=== PATIENT | female | born 1955 | race African-American/Black ===

== ENCOUNTER → 2017-01-31 18:17 | Emergency (ER) | payer MEDICARE, MEDICAID ==
[~2017-01-31 18:17] MED LIST: Albuterol HFA INHALER* 8 gm MDI INH ONE; Albuterol/Ipratropium NEB.SOL* Albuterol 2.5 MG/Ipratropium 0.5 MG 3 ML INH ONE; predniSONE TAB* 20 MG PO ONE
[2017-01-31 20:48] LABS: Urine Bilirubin Negative (Negative); Urine Glucose Negative (Negative); Urine Nitrite Negative (Negative)
[2017-01-31 21:48] LABS: Hematocrit 41 % (35-47); Hemoglobin 13.9 g/dl (12.0-16.0); Mean Corpuscular HGB Conc 34 g/dl (31-36); Mean Corpuscular Hemoglobin 30 pg (27-31); Mean Corpuscular Volume 90 fL (80-97); Mean Platelet Volume 9 um3 (7.4-10.4); Red Blood Count 4.56 10^6/ul (4.0-5.4); Red Cell Distribution Width 14 % (10.5-15); White Blood Count 8.2 10^3/ul (3.5-10.8)
[2017-01-31 22:03] LABS: Albumin 3.8 g/dL (3.2-5.2); BUN/Creatinine Ratio 17.2 (8-20); C Reactive Protein 4.32 mg/L (< 5.00); Calcium 9.3 mg/dL (8.6-10.3); EGFR African American 85.4 (>60); EGFR Non-African American 66.4 (>60); Globulin 3.1 g/dL (2-4); Total Bilirubin 0.3 mg/dL (0.2-1.0); Total Protein 6.9 g/dL (6.4-8.9)
[2017-01-31 22:39] LABS: Potassium 4.1 mmol/L (3.5-5.0)
--- NOTE | 2017-02-01 00:22 | ED ---
Kari Gutierrez Emily, scribed for Pravin Gaffney on 01/31/17 at 2218 . Abdominal Pain/Female - HPI Summary HPI Summary: This patient is a 61 year old F presenting to [facility] with a chief complaint of L sided flank pain that began 2 days ago. The patient rates the pain 8/10 in severity. Symptoms aggravated by nothing. Symptoms alleviated by nothing. Patient reports nasal congestion, diaphoresis, chills, fever, and back pain. Patient denies cough. - History of Current Complaint Chief Complaint: EDFlankPain Stated Complaint: BACK PAIN/FEVER/CHILLS Time Seen by Provider: 01/31/17 21:58 Hx Obtained From: Patient Onset/Duration: Sudden Onset, Lasting Days, Still Present Timing: Constant Severity Initially: Severe Severity Currently: Severe Pain Intensity: 8 Pain Scale Used: 0-10 Numeric Location: Flank Aggravating Factor(s): Nothing Alleviating Factor(s): Nothing Associated Signs and Symptoms: Positive: Other: - Positive nasal congestion, diaphoresis, chills, fever, and back pain. Negative cough Allergies/Adverse Reactions: Allergies Allergy/AdvReac Type Severity Reaction Status Date / Time Haloperidol [From Haldol] Allergy Severe Swelling Verified 06/08/16 10:39 Of Face,Lips,& Throat Pioglitazone [From Actos] Allergy Severe Swelling Verified 06/08/16 10:39 Codeine Allergy Intermediate Itching Verified 06/08/16 10:39 Prochlorperazine AdvReac Severe stroke Verified 06/08/16 10:39 [From Compazine] like symptoms Penicillins AdvReac Intermediate Diarrhea Verified 06/08/16 10:39 atrovastatin AdvReac Severe Leg Cramps Uncoded 06/08/16 10:39 cogentin AdvReac Severe stroke Uncoded 06/08/16 10:39 like symptoms PMH/Surg Hx/FS Hx/Imm Hx Previously Healthy: No Endocrine/Hematology History: Reports: Hx Diabetes - ON INSULIN FOR Denies: Hx Thyroid Disease Cardiovascular History: Reports: Hx Angina - AT TIMES- PATIENT STATES NOT RECENTLY, Hx Coronary Artery Disease - ON MEDICATION FOR- STATES BLOCKAGE IN CARITOD AND ANOTHER ARTERY, Hx Hypertension - ON MEDICATION FOR, Other Cardiovascular Problems/Disorders - CAD, IDDM II Denies: Hx Pacemaker/ICD, Hx Rheumatic Fever Respiratory History: Reports: Hx Asthma - PRN ALBUTEROL, Hx Pneumonia - more than once, Hx Sleep Apnea, Other Respiratory Problems/Disorders - PNA GI History: Reports: Hx Gastroesophageal Reflux Disease - NO MEDICATION AT THIS TIME, Hx Ulcer - HISTORY OF 3 ULCERS History: Denies: Hx Renal Disease Musculoskeletal History: Reports: Hx Arthritis, Hx Back Problems - disc, Hx Tendonitis - HX OF IN BOTH HANDS, Other Musculoskeletal History - right hip replacement Sensory History: Reports: Hx Contacts or Glasses, Other Sensory Impairments - Had detached retina repair Denies: Hx Hearing Aid Opthamlomology History: Reports: Hx Contacts or Glasses, Other Sensory Impairments - Had detached retina repair Neurological History: Reports: Hx Headaches - HX OF - PITUITARY TUMOR Psychiatric History: Reports: Hx Depression - OK ON DAILY MED Denies: Hx Panic Disorder - Surgical History Surgery Procedure, Year, and Place: 1994 [facility]OMY [facility]. 1995 ORIF L KNEE [facility] - W/ PINS. ? [facility]AL [facility] C[facility]IAC C[facility] - NO STENTS. 2008 BACK SURGERY LOWER BACK CORNING. Right Hip [facility] about 2008. 2010 RT TOTAL HIP REPLACEMENT [facility]. LEFT FOOT -12/2011-[facility] - DIABETIC CALLUSES & BUNIONECTOMY. RIGHT FOOT - BONE SPUR ON HEEL. RIGHT KNEE - ARTHROSCOPIC. LASER EYE -REPAIR DETACHED RETINA ( NO IMPLANT) Hx Anesthesia Reactions: Yes - A HARD TIME WAKING-2011 Infectious Disease History: No Infectious Disease History: Denies: Traveled Outside the [place] in Last 30 Days - Family History Known Family History: Positive: Other - Anasthesia reaction - Social History Occupation: Disabled Lives: With Family Alcohol Use: None Substance Use Type: Reports: None Hx Tobacco Use: Yes Smoking Status (MU): Heavy Every Day Tobacco Smoker Type: Cigarettes Amount Used/How Often: 1ppd Length of Time of Smoking/Using Tobacco: 43 years Have You Smoked in the Last Year: Yes Review of Systems Positive: Fever, Chills, Skin Diaphoresis Positive: Other - Positive nasal congestion Negative: Cough Positive: Other - Positive L flank pain Positive: Other - Positive back pain All Other Systems Reviewed And Are Negative: Yes Physical Exam Triage Information Reviewed: Yes Vital Signs On Initial Exam: Initial Vitals Temp Pulse Resp BP Pulse Ox 97.2 F 68 16 180/77 98 01/31/17 18:21 01/31/17 18:21 01/31/17 18:21 01/31/17 18:21 01/31/17 18:21 Vital Signs Reviewed: Yes Appearance: Positive: Well-Appearing, No Pain Distress Skin: Positive: Warm, Skin Color Reflects Adequate Perfusion, Dry Head/Face: Positive: Normal Head/Face Inspection Eyes: Positive: EOMI, ДМИТРИЙ ENT: Positive: Normal ENT inspection Neck: Positive: Supple, Nontender Respiratory/Lung Sounds: Positive: Other - Bilateral wheezes Cardiovascular: Positive: RRR, Pulses are Symmetrical in both Upper and Lower Extremities Abdomen Description: Positive: Soft, Other: - Tenderness in LLQ Bowel Sounds: Positive: Present Musculoskeletal: Positive: Normal, Strength/ROM Intact Neurological: Positive: Normal, Sensory/Motor Intact, Alert, Oriented to Person Place, Time Psychiatric: Positive: Affect/Mood Appropriate - Denny Coma Scale Coma Scale Total: 15 Diagnostics - Vital Signs Vital Signs Temp Pulse Resp BP Pulse Ox 01/31/17 21:50 83 99 01/31/17 21:49 182/77 01/31/17 18:21 97.2 F 68 16 180/77 98 - Laboratory Lab Results: Lab Results 01/31/17 01/31/17 01/31/17 Range/Units 20:33 21:36 21:36 WBC (3.5-10.8) 10^3/ul RBC (4.0-5.4) 10^6/ul Hgb (12.0-16.0) g/dl Hct (35-47) % MCV (80-97) fL MCH (27-31) pg MCHC (31-36) g/dl RDW (10.5-15) % Plt Count (150-450) 10^3/ul MPV (7.4-10.4) um3 Neut % (Auto) (38-83) % Lymph % (Auto) (25-47) % [place] % (Auto) (1-9) % Eos % (Auto) (0-6) % Baso % (Auto) (0-2) % Absolute Neuts (auto) (1.5-7.7) 10^3/ul Absolute Lymphs (auto) (1.0-4.8) 10^3/ul Absolute Monos (auto) (0-0.8) 10^3/ul Absolute Eos (auto) (0-0.6) 10^3/ul Absolute Basos (auto) (0-0.2) 10^3/ul Absolute Nucleated RBC 10^3/ul Nucleated RBC % INR (Anticoag Therapy) 0.94 (0.77-1.02) APTT 31.1 (26.0-36.3) seconds Sodium (133-145) mmol/L Potassium Chloride (101-111) mmol/L Carbon Dioxide (22-32) mmol/L Anion Gap BUN (6-24) mg/dL Creatinine (0.51-0.95) mg/dL Est GFR ( Amer) (>60) Est GFR (Non-Af Amer) (>60) BUN/Creatinine Ratio (8-20) Glucose (70-100) mg/dL Lactic Acid 1.1 (0.5-2.0) mmol/L Calcium (8.6-10.3) mg/dL Total Bilirubin (0.2-1.0) mg/dL AST ALT (7-52) U/L Alkaline Phosphatase (34-104) U/L C-Reactive Protein (< 5.00) mg/L B-Natriuretic Peptide ( - 100) pg/mL Total Protein (6.4-8.9) g/dL Albumin (3.2-5.2) g/dL Globulin (2-4) g/dL Albumin/Globulin Ratio (1-3) Lipase (11.0-82.0) U/L Urine Color Yellow Urine Appearance Clear Urine pH 5.0 (5-9) Ur Specific [place] 1.030 (1.010-1.030) Urine Protein Negative (Negative) Urine Ketones Negative (Negative) Urine Blood Negative (Negative) Urine Nitrate Negative (Negative) Urine Bilirubin Negative (Negative) Urine Urobilinogen Negative (Negative) Ur Leukocyte Esterase Negative (Negative) Urine Glucose Negative (Negative) 01/31/17 01/31/17 01/31/17 Range/Units 21:36 21:36 21:36 WBC 8.2 (3.5-10.8) 10^3/ul RBC 4.56 (4.0-5.4) 10^6/ul Hgb 13.9 (12.0-16.0) g/dl Hct 41 (35-47) % MCV 90 (80-97) fL MCH 30 (27-31) pg MCHC 34 (31-36) g/dl RDW 14 (10.5-15) % Plt Count 191 (150-450) 10^3/ul MPV 9 (7.4-10.4) um3 Neut % (Auto) 34.7 L (38-83) % Lymph % (Auto) 51.8 H (25-47) % [place] % (Auto) 8.1 (1-9) % Eos % (Auto) 4.1 (0-6) % Baso % (Auto) 1.3 (0-2) % Absolute Neuts (auto) 2.8 (1.5-7.7) 10^3/ul Absolute Lymphs (auto) 4.3 (1.0-4.8) 10^3/ul Absolute Monos (auto) 0.7 (0-0.8) 10^3/ul Absolute Eos (auto) 0.3 (0-0.6) 10^3/ul Absolute Basos (auto) 0.1 (0-0.2) 10^3/ul Absolute Nucleated RBC 0.02 10^3/ul Nucleated RBC % 0.2 INR (Anticoag Therapy) (0.77-1.02) APTT (26.0-36.3) seconds Sodium 138 (133-145) mmol/L Potassium Pending Chloride 107 (101-111) mmol/L Carbon Dioxide 25 (22-32) mmol/L Anion Gap Pending BUN 15 (6-24) mg/dL Creatinine 0.87 (0.51-0.95) mg/dL Est GFR ( Amer) 85.4 (>60) Est GFR (Non-Af Amer) 66.4 (>60) BUN/Creatinine Ratio 17.2 (8-20) Glucose 103 H (70-100) mg/dL Lactic Acid (0.5-2.0) mmol/L Calcium 9.3 (8.6-10.3) mg/dL Total Bilirubin 0.30 (0.2-1.0) mg/dL AST Pending ALT 13 (7-52) U/L Alkaline Phosphatase 69 (34-104) U/L C-Reactive Protein 4.32 (< 5.00) mg/L B-Natriuretic Peptide 73 ( - 100) pg/mL Total Protein 6.9 (6.4-8.9) g/dL Albumin 3.8 (3.2-5.2) g/dL Globulin 3.1 (2-4) g/dL Albumin/Globulin Ratio 1.2 (1-3) Lipase 11 (11.0-82.0) U/L Urine Color Urine Appearance Urine pH (5-9) Ur Specific [place] (1.010-1.030) Urine Protein (Negative) Urine Ketones (Negative) Urine Blood (Negative) Urine Nitrate (Negative) Urine Bilirubin (Negative) Urine Urobilinogen (Negative) Ur Leukocyte Esterase (Negative) Urine Glucose (Negative) Result Diagrams: 01/31/17 21:36 01/31/17 21:36 Lab Statement: Any lab studies that have been ordered have been reviewed, and results considered in the medical decision making process. - CT Abdomen and Pelvis CT Interpretation Completed By: ED Physician - CT abdomen and pelvis reveals, per radiologist, the kidneys are normal in size without hydronephrosis or nephrolithiasis. There are no stones seen along the course of the ureters although visualization of the distal ureters is markedly limited secondary to extensive streak artifact from bilateral total hip prosthesis. There are fatty changes of the pancreas. The unenhanced upper abdominal visceral organs are otherwise unremarkable. There is no bowel distention. A normal appendix is visualized. Scattered colonic diverticula without evidence of acute diverticulitis. No intra-abdominal free air of free fluid. Opacity in the superficial soft tissues of the right lower quadrant abdominal wall possibly related to recent injection. ED physician has reviewed this radiology report. - EKG 2021 Cardiac Rate: NL EKG Rhythm: Sinus Rhythm - 67 BPM EKG Interpretation: Nonspecific T abnormalities Abdominal Pain Fem Course/Dx - Course Course Of Treatment: This patient is a 61 year old F presenting to [facility] with a chief complaint of L sided flank pain that began 2 days ago. Physical Exam Findings. Bilateral wheeze, tenderness in the LLQ. CT abdomen and pelvis reveals, per radiologist, the kidneys are normal in size without hydronephrosis or nephrolithiasis. There are no stones seen along the course of the ureters although visualization of the distal ureters is markedly limited secondary to extensive streak artifact from bilateral total hip prosthesis. There are fatty changes of the pancreas. The unenhanced upper abdominal visceral organs are otherwise unremarkable. There is no bowel distention. A normal appendix is visualized. Scattered colonic diverticula without evidence of acute diverticulitis. No intra-abdominal free air of free fluid. Opacity in the superficial soft tissues of the right lower quadrant abdominal wall possibly related to recent injection. ED physician has reviewed this radiology report. Bloodwork/UA taken. In the ED course the patient was given Albuterol and Deltasone. Patient will be discharged with prescription for Deltasone and follow up from PCP. The patient is agreeable with this plan. - Diagnoses Differential Diagnosis: Positive: Diverticulitis, Pancreatitis, Renal Colic, Other - bronchitis Provider Diagnoses: Bronchitis, Bronchospasm, Flank pain Discharge - Discharge Plan Condition: Stable Disposition: HOME Prescriptions: predniSONE TAB* [Deltasone TAB*] 40 mg PO DAILY #4 tab Patient Education Materials: Acute Bronchitis (ED), Flank Pain (ED), Bronchospasm (ED) Referrals: Sugey Ray MD [Primary Care Provider] - 3 Days Additional Instructions: RETURN TO THE EMERGENCY DEPARTMENT FOR NEW OR WORSENING SYMPTOMS. The documentation as recorded by the Kari clark Emily accurately reflects the service I personally performed and the decisions made by Gulshan owusu Emmanuel.
[2017-02-01 00:27] VITALS: BP 158/67
--- NOTE | 2017-02-01 07:32 | RAD ---
CLINICAL HISTORY: Left flank pain, fever and chills. Relevant surgical history includes hysterectomy. COMPARISON: None TECHNIQUE: Noncontrast CT examination of the abdomen and pelvis from the lung bases through the initial tuberosities. FINDINGS: VISUALIZED LUNG BASES: The visualized lung bases are grossly clear. There is no pleural effusion. ABDOMEN AND PELVIS: Focal attenuation in the subcutaneous fat overlying the right lower quadrant is most consistent with an injection site. Evaluation of the solid organs and vasculature is limited without intravenous contrast. The liver, spleen, pancreas and adrenal glands are grossly normal in appearance. The gallbladder is normal. The kidneys are normal in appearance without focal mass, calcification or signs of hydronephrosis. Evaluation of the gastrointestinal tract is limited without oral contrast. The small and large bowel are not distended.The patient's normal appendix is identified in the right lower quadrant measuring 6 mm in diameter (image 105). There are diverticula throughout the length of the colon becoming more concentrated at the rectosigmoid colon. There is no focal inflammatory changes characteristic of diverticulitis.. There is no gross retroperitoneal or mesenteric lymphadenopathy. The uterus is surgically absent. There is atherosclerotic calcification of the abdominal aorta extending into the bilateral iliac arteries. Multilevel degenerative changes of the lower thoracic and lumbar spine includes mild loss of intervertebral disc height. The anatomically aligned hip prostheses cause streak artifact the level of the hips that limits evaluation. IMPRESSION: 1. No renal calculi or signs of obstructive uropathy. 2. Diverticulosis without acute inflammatory change characteristic of diverticulitis. 3. Additional chronic, degenerative and postsurgical findings described in the body of the report.
== END | disposition home or self-care (01) ==
LOC: ED 18:17
DX: R10.32 Left lower quadrant pain (principal); J40 Bronchitis, not specified as acute or chronic; J98.01 Acute bronchospasm; F17.210 Nicotine dependence, cigarettes, uncomplicated; I25.119 Atherosclerotic heart disease of native coronary artery with unspecified angina pectoris; I10 Essential (primary) hypertension; J45.909 Unspecified asthma, uncomplicated; F32.9 Major depressive disorder, single episode, unspecified
CPT/HCPCS: 36415; 74176; 80053; 81003; 83605; 83690; 83880; 85025; 85610; 85730; 86140; 87502; 93005; 94640; 99283; A9270-GY; J7512

== ENCOUNTER 2017-09-18 11:21 | Inpatient (IN) | payer MEDICARE, MEDICAID ==
--- NOTE | 2017-09-18 11:57 | ED ---
HPI Chest Pain - HPI Summary HPI Summary: The pt is a 62 y/o female with a PMHx of OR presenting [facility] c/o mid- sternal CP that worsened today while at work . The pain described as a pressure against the chest is rated 8/10 in severity. The pain radiates to her L arm. The pt has been on a Holter monitor for the last 30 days. She notes sweating, nausea, lightheadedness and numbness in her LUE. She had a stress test 1 week ago and is unsure of the results. This is eduardo Blandon documenting for attending Dr. Bladimir MD. - History of Current Complaint Chief Complaint: EDChestPainROMI Time Seen by Provider: 09/18/17 11:40 Hx Obtained From: Patient Onset/Duration: Still Present, Worse Since - This morning Timing: Lasting Hours Initial Severity: Severe Current Severity: Severe Pain Intensity: 8 Pain Scale Used: 0-10 Numeric Chest Pain Location: Mid Sternal Chest Pain Radiates: Yes Chest Pain Radiates To:: Arm - L arm Character: Pressure/Squeezing Associated Signs and Symptoms: Positive: Numbness - L arm, Lightheadedness, Diaphoresis, Nausea - Additional Pertinent History Primary Care Physician: [id number] - Allergy/Home Medications Allergies/Adverse Reactions: Allergies Allergy/AdvReac Type Severity Reaction Status Date / Time codeine Allergy Itching Verified 05/21/17 11:01 haloperidol [From Haldol] Allergy Swelling Verified 05/21/17 11:01 Of Face,Lips,& Throat Penicillins Allergy Diarrhea Verified 05/21/17 11:01 pioglitazone [From Actos] Allergy Swelling Verified 05/21/17 11:01 prochlorperazine Allergy STROKE Verified 05/21/17 11:01 [From Compazine] LIKE SYMPTOMS atrovastatin AdvReac Severe Leg Cramps Uncoded 05/21/17 11:01 cogentin AdvReac Severe stroke Uncoded 05/21/17 11:01 like symptoms Home Medications: Home Medications Diltiazem CD CAP* [Cardizem CD CAP*] 300 mg PO DAILY 09/18/17 [History Confirmed 09/18/17] LORazepam TAB(*) [Ativan 0.5 MG TAB (*)] 0.5 mg PO Q8H PRN 09/18/17 [History Confirmed 09/18/17] Nitroglycerin TAB 0.4 MG* 0.4 mg SL Q5M PRN 09/18/17 [History Confirmed 09/18/17 ] Omeprazole CAP* [Prilosec CAP* 20 MG] 20 mg PO DAILY 09/18/17 [History Confirmed 09/18/17] Pravastatin (NF) [Pravachol (NF)] 40 mg PO .3 TIMES A WEEK 09/18/17 [History Confirmed 09/18/17] PMH/Surg Hx/FS Hx/Imm Hx Previously Healthy: No Endocrine/Hematology History: Reports: Hx Diabetes - ON INSULIN FOR Denies: Hx Thyroid Disease Cardiovascular History: Reports: Hx Angina - AT TIMES- PATIENT STATES NOT RECENTLY, Hx Coronary Artery Disease - ON MEDICATION FOR- STATES BLOCKAGE IN CARITOD AND ANOTHER ARTERY, Hx Hypertension - ON MEDICATION FOR, Other Cardiovascular Problems/Disorders - CAD, IDDM II Denies: Hx Pacemaker/ICD, Hx Rheumatic Fever Respiratory History: Reports: Hx Asthma - PRN ALBUTEROL, Hx Pneumonia - more than once, Hx Sleep Apnea, Other Respiratory Problems/Disorders - PNA GI History: Reports: Hx Gastroesophageal Reflux Disease - NO MEDICATION AT THIS TIME, Hx Ulcer - HISTORY OF 3 ULCERS History: Denies: Hx Renal Disease Musculoskeletal History: Reports: Hx Arthritis, Hx Back Problems - disc, Hx Tendonitis - HX OF IN BOTH HANDS, Other Musculoskeletal History - right hip replacement Sensory History: Reports: Hx Contacts or Glasses, Other Sensory Impairments - Had detached retina repair Denies: Hx Hearing Aid Opthamlomology History: Reports: Hx Contacts or Glasses, Other Sensory Impairments - Had detached retina repair Neurological History: Reports: Hx Headaches - HX OF - PITUITARY TUMOR, Other Neuro Impairments/Disorders - PAIN CLINIC PATIENT Psychiatric History: Reports: Hx Depression - OK ON DAILY MED Denies: Hx Panic Disorder - Surgical History Surgery Procedure, Year, and Place: 1994 HYSTERECTOMY [facility]. 1995 ORIF L KNEE [facility] - W/ PINS. ? [facility] CAR[facility]AL T[facility]. CARDIAC [facility] - NO STENTS. 2009 BACK SURGERY LOWER BACK CORNING. Right Hip [facility] about 2008. 2010 RT TOTAL HIP REPLACEMENT [facility]. LEFT FOOT -12/2011-[facility] - DIABETIC CALLUSES & BUNIONECTOMY. RIGHT FOOT - BONE SPUR ON HEEL. RIGHT KNEE - ARTHROSCOPIC. LASER EYE -REPAIR DETACHED RETINA ( NO IMPLANT) Hx Anesthesia Reactions: Yes - A HARD TIME WAKING-2011 Infectious Disease History: No Infectious Disease History: Denies: Traveled Outside the [place] in Last 30 Days - Family History Known Family History: Positive: Other - Anasthesia reaction - Social History Occupation: Disabled Lives: With Family Alcohol Use: None Hx Tobacco Use: Yes Smoking Status (MU): Heavy Every Day Tobacco Smoker Type: Cigarettes Amount Used/How Often: 1/2 ppd Length of Time of Smoking/Using Tobacco: 43 years Have You Smoked in the Last Year: Yes Review of Systems Positive: Skin Diaphoresis, Other - Positive: lightheadedness. Negative: Fever Positive: Chest Pain - Mid-sternal Positive: Nausea Positive: Numbness - L arm All Other Systems Reviewed And Are Negative: Yes Physical Exam - Summary Physical Exam Summary: VITAL SIGNS: Reviewed. GENERAL: Patient is an obese female who is lying comfortable in the stretcher. Patient is not in any acute respiratory distress. HEAD AND FACE: No signs of trauma. No ecchymosis, hematomas or skull depressions. No sinus tenderness. EYES: PERRLA, EOMI x 2, No injected conjunctiva, no nystagmus. EARS: Hearing grossly intact. Ear canals and tympanic membranes are within normal limits. MOUTH: Oropharynx within normal limits. NECK: Supple, trachea is midline, no adenopathy, no JVD, no carotid bruit, no c- spine tenderness, neck with full ROM. CHEST: Symmetric, no tenderness at palpation LUNGS: Clear to auscultation bilaterally. No wheezing or crackles. CVS: Regular rate and rhythm, S1 and S2 present, no murmurs or gallops appreciated. ABDOMEN: Soft, non-tender. No signs of distention. No rebound no guarding, and no masses palpated. Bowel sounds are normal. EXTREMITIES: FROM in all major joints, no edema, no cyanosis or clubbing. NEURO: Alert and oriented x 3. No acute neurological deficits. Speech is normal and follows commands. SKIN: Dry and warm Triage Information Reviewed: Yes Vital Signs On Initial Exam: Initial Vitals Temp Pulse Resp BP Pulse Ox 97.8 F 69 18 175/55 97 09/18/17 11:25 09/18/17 11:25 09/18/17 11:25 09/18/17 11:25 09/18/17 11:25 Vital Signs Reviewed: Yes Diagnostics - Vital Signs Vital Signs Temp Pulse Resp BP Pulse Ox 09/18/17 11:39 64 16 172/70 98 09/18/17 11:25 97.8 F 69 18 175/55 97 - Laboratory Result Diagrams: 09/18/17 11:52 09/18/17 11:52 Lab Statement: Any lab studies that have been ordered have been reviewed, and results considered in the medical decision making process. - Radiology CXR Radiology Interpretation Completed By: Radiologist - IMPRESSION: NO ACTIVE CARDIOPULMONARY DISEASE IS NOTED. The ED physician has reviewed this radiology report. - EKG 11:46 Cardiac Rate: Bradycardia - 57 bpm EKG Rhythm: Sinus Bradycardia EKG Interpretation: ST depression at Lead I, II and II ; aVF leads 4-6 Re-Evaluation - Re-Evaluation First Eval Re-Evaluation Time: 12:25 Change: Worse Comment: Pt. complains of increased CP and will be give given ASA and NTG Chest Pain Course/Dx - Course Assessment/Plan: This patient is a 62-year-old female who presents to the emergency department with a chief complaint of having chest pain, shortness of breath and occasional dizziness. The patient has been having the symptoms for the last couple days. The pain is a pressure-like pain nonradiating acid with nausea and diaphoresis. Test results without any significant abnormality. The troponin is 0.00. The patient had a couple episodes of chest pain in the ER which was relieved by nitroglycerin. EKG doesnt show any ST elevations. Chest x-ray impression: No active cardiopulmonary disease. In the ED course the patient is hemodynamically stable. Because of the presentation comorbidities I discussed the case with Dr. Alexander from the hospitalist services who accepted the patient for admission. At this point the patient is hemodynamically stable and alert and oriented 3. - Diagnoses Provider Diagnoses: Chest pain - Provider Notifications Discussed Care Of Patient With: Jolie Alexander Time Discussed With Above Provider: 13:54 Instructed by Provider To: Admit As Inpatient - Dr. Alexander agrred to admit the patient. Discharge - Sign-Out/Discharge Documenting (check all that apply): Patient Departure - DC - Discharge Plan Condition: Stable Disposition: ADMITTED TO [facility] Referrals: Sugey Ray MD [Primary Care Provider] - - Billing Disposition and Condition Condition: STABLE Disposition: Admitted to [facility] Attestation Statement Scribe Attestation: This is scribe Halima Blandon documenting for attending Dr. Bladimir MD. User Type: Provider with Scribe Provider Attestation: The documentation recorded by the scribe accurately reflects the service I personally performed and the decisions made by me.
[2017-09-18 12:01] LABS: ABS Basophils 0.1 10^3/ul (0-0.2); ABS Eosinophils 0.2 10^3/ul (0-0.6); ABS Lymphocytes 3.6 10^3/ul (1.0-4.8); ABS Monocytes 0.6 10^3/ul (0-0.8); ABS Neutrophils 3.6 10^3/ul (1.5-7.7); ABS Nucleated RBC 0 10^3/ul; Eosinophil % 2.9 % (0-6); Hematocrit 39 % (35-47); Hemoglobin 13.2 g/dl (12.0-16.0); Mean Corpuscular HGB Conc 34 g/dl (31-36); Mean Corpuscular Hemoglobin 32 pg (27-31); Mean Corpuscular Volume 92 fL (80-97); Nucleated Red Blood Cells % 0; Platelet Count 222 10^3/ul (150-450); Red Blood Count 4.18 10^6/ul (4.00-5.40); Red Cell Distribution Width 13 % (10.5-15); White Blood Count 8.1 10^3/ul (3.5-10.8)
--- OUTSIDE RECORDS SUMMARY | 2017-09-18 12:04 | XMS REPORT ---
:1955 External Reference #:[id number] Author Organization [employer] Address [address] [place] [address] [place] [address] Phone [phone] Care Team Providers Name Role Phone Sugey Ray MD Primary Care Physician Unavailable Payers Type Date Identification Numbers Payment Provider Subscriber Medicare Primary Effective: Policy Number: Medicare [place] 1997 [id number] PayID: [id number] [address] [place] [address] [employer] Part B Effective: 2008 Policy Number: [id number] Medicaid [place] [employer] Name: 1 1 [address] PayID: [id number] [place] [address] Problems Date Description Provider Status Onset: 07/20/2014 Carotid artery occlusion Nikko Samaniego M.D., Active FACSenia, JAMIRNC Onset: 07/20/2014 Chest pain Nikko Samaniego M.D., Active FACC, FASNC Onset: 07/31/2014 Chronic ischemic heart disease Nikko Samaniego M.D., Active FACC, FASNC Onset: 02/21/2016 Localized, secondary Nena Leiva M.D. 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 Active Family History Date Family Member(s) Problem(s) Comments General Heart Disease General Diabetes Social History Type Date Description Comments Marital Status Lives With Occupation [email or web address] ETOH Use Denies alcohol use Recreational Drug Use Denies Drug Use Smoking Light tobacco smoker (10 or fewer cigarettes/day) Daily Caffeine Consumes on average 2 cups of regular coffee per day Exercise Type/Frequency Exercises sporadically Allergies, Adverse Reactions, Alerts Date Description Reaction Status Severity Comments 08/11/2013 Haldol Anaphylaxis active Severe 08/11/2013 Compazine stroke like symptoms active Severe 08/11/2013 Penicillin Nausea and Vomiting active 08/11/2013 Cogentin active Medications Medication Date Status Form Strength Qnty SIG Indications Ordering Provider Nitroglycerin 08/29 Active Tablets Sub 0.4mg 30tab if feel chest R07.9 Nikko /2017 s pain,may take Le up to 3 total Aden, 5 min apart M.D., but call 911 [facility], if have [facility] for greater than 10 minutes. Lampe Active Tablets 10-325mg 1 by mouth Crepet, /0000 three times MD Sugey a day as needed Diltiazem HCL Active Caps ER 300mg 90cap 1 by mouth Crepet, ER /0000 24HR s every day MD Sugey Aspirin Ec Active Tablets DR 81mg 1 tablet Unknown Lo-Dose /0000 daily. Lisinopril-Hyd Active Tablets 20-12.5mg Take 1 Tab By Unknown rochlorothiazi /0000 Mouth Daily. de Lantus Active Solution 100Unit/M Inject 76 Unknown Solostar /0000 Pen-Inject L Units Subcutaneousl y AT Bedtime Aspirin Hx Tablets 325mg 1 by mouth Unknown /0000 every day - 07/22 Lipitor Hx Tablets 20mg 90tab one tab by Unknown /0000 s mouth every - night at 07/22 bed Diltiazem HCL Hx Tablets 120mg 30tab 2 by mouth Unknown /0000 s every day - 07/22 Lantus 00/00 Hx Solution 100Unit/M 1mont 78 units at Crepet, /0000 L verdugo night as MD Sugey - directed 02/19 Fluticasone Hx Suspension 50mcg/Act 16uni 2 sprays each Unknown Propionate /0000 ts nostril daily - as needed 07/22 Lisinopril-Hyd 00 Hx Tablets 20-12.5mg 90tab 1 by mouth Crepet, rochlorothiazi /0000 s every day MD Sugey de - 02/[address] 20mg 30cap 1 by mouth Unknown /0000 s every day - 07/15 Lyrica Hx Capsules 25mg 60cap 1 by mouth Unknown /0000 s twice a day - 07/22 Seroquel Hx Tablets 25mg 30tab 1 by mouth Crepet, /0000 s every night MD Sugey - at bedtime as 02/19 Lipitor Hx Tablets 1 by mouth Unknown /0000 every night - at bedtime 02/19 Humalog Hx Solution 100Unit/M Inject 7 Unknown Kwikpen /0000 Pen-Inject L Units Beneath - The Skin 02/19 Before Supper. Hydrocodone-Ac Hx Tablets 10-325mg Take 1 Tablet Unknown etaminophen /0000 By Mouth 3 - Times A Day 06/19 as Needed For Pain Dulera Hx Aerosol 200-5mcg/ 2 puff twice Unknown /0000 Act a day prn - 04/13 Metformin HCL Hx Tablets 500mg Take 1 Tablet Unknown /0000 By Mouth - Every Day AT 08/28 Dinner Time Medications Administered in Office Medication Date Status Form Strength Qnty SIG Indications Ordering Provider Inj, 07/31/ Administered Injection Nikko Le Regadenoson, 0.1 2017 Samaniego, MG M.D., FACC, FASNC Technetium TC 07/31/ Administered Injection Nikko Le 99M Tetrofosmin, 2017 Aden, Per Unit Dose Up M.D., To 40 FACC, Millicuries FASNC Synvisc Or 05/03/ Administered Injection Nena Synvisc-One 2016 Cali, Injection 1 MG M.D. Synvisc Or 04/27/ Administered Injection Yusuf F Synvisc-One 2016 Randy, Injection 1 MG MD Synvisc Or 04/19/ Administered Injection Nena Synvisc-One 2016 Cali, Injection 1 MG M.D. Inj, 07/27/ Administered Injection Nikko Le Regadenoson, 0.1 2014 MG Barbara Samaniego, FACC, FASNC Aminophylline 07/27/ Administered Injection Nikko Le 2014 Barbraa Samaniego, FACC, FASNC Technetium TC 07/27/ Administered Injection Nikko Le 99M Tetrofosmin, 2014 Aden, Per Unit Dose Up M.D., To 40 FACC, Millicuries FASNC Inj, 06/10/ Administered Injection Nikko Le Regadenoson, 0.1 2012 MG Carolyn Samaniego.DJohana, FACC, FASNC Technetium TC 06/10/ Administered Injection Nikko Le 99M Tetrofosmin, 2012 Aden, Per Unit Dose Up M.D., To 40 FACC, Millicuries FASNC Vital Signs Date Vital Result Comment 08/29/2017 Height 62 inches 5'2" Weight 202.00 lb w/o shoes Heart Rate 68 /min BP Systolic Sitting 138 mmHg lue lrg cuff BP Diastolic Sitting 58 mmHg lue lrg cuff BP Systolic Standing 142 mmHg BP Diastolic Standing 60 mmHg Respiratory Rate 18 /min BMI (Body Mass Index) 36.9 kg/m2 Ejection Fraction 65-70% echo 08/02/2016 04/13/2017 Height 62 inches 5'2" Weight 194.00 lb Heart Rate 72 /min BP Systolic Sitting 130 mmHg BP Diastolic Sitting 82 mmHg Pain Level 8 BMI (Body Mass Index) 35.5 kg/m2 08/09/2016 Height 62 inches 5'2" Weight 194.50 lb with shoes Heart Rate 70 /min BP Systolic Sitting 132 mmHg Lue lrg cuff BP Diastolic Sitting 80 mmHg Lue lrg cuff BP Systolic Standing 126 mmHg Lue lrg cuff BP Diastolic Standing 66 mmHg Lue lrg cuff Respiratory Rate 16 /min BMI (Body Mass Index) 35.6 kg/m2 Ejection Fraction 65-70% 08/02/2016-echo 07/21/2016 Height 62 inches 5'2" Weight 193.25 lb w/shoes Heart Rate 86 /min BP Systolic Sitting 172 mmHg LA lg cuff BP Diastolic Sitting 68 mmHg LA lg cuff BP Systolic Standing 176 mmHg LA lg cuff BP Diastolic Standing 68 mmHg LA lg cuff BMI (Body Mass Index) 35.3 kg/m2 Ejection Fraction > 65% Echo 05/03/15 06/23/2016 Height 62 inches 5'2" Weight 191.00 lb Heart Rate 85 /min BP Systolic 154 mmHg BP Diastolic 82 mmHg Body Temperature 97.4 F Pain Level 7 BMI (Body Mass Index) 34.9 kg/m2 06/19/2016 Height 62 inches 5'2" Weight 196.00 lb Heart Rate 76 /min BP Systolic Sitting 126 mmHg BP Diastolic Sitting 80 mmHg Pain Level 8 BMI (Body Mass Index) 35.8 kg/m2 06/05/2016 Height 62 inches 5'2" Weight 196.00 lb Heart Rate 75 /min BP Systolic 133 mmHg BP Diastolic 63 mmHg Body Temperature 97.4 F Pain Level 8 BMI (Body Mass Index) 35.8 kg/m2 05/08/2016 Height 62 inches 5'2" Weight 198.00 lb Heart Rate 77 /min BP Systolic 131 mmHg BP Diastolic 64 mmHg Body Temperature 96.9 F Pain Level 8 BMI (Body Mass Index) 36.2 kg/m2 05/03/2016 Height 62 inches 5'2" Weight 196.00 lb Heart Rate 76 /min Respiratory Rate 16 /min Pain Level 8 BMI (Body Mass Index) 35.8 kg/m2 04/27/2016 Height 62 inches 5'2" Weight 196.00 lb Heart Rate 66 /min BP Systolic 128 mmHg BP Diastolic 62 mmHg Respiratory Rate 20 /min Body Temperature 97.8 F Pain Level 7 BMI (Body Mass Index) 35.8 kg/m2 04/19/2016 Height 62 inches 5'2" Weight 196.00 lb BP Systolic 128 mmHg BP Diastolic 64 mmHg Respiratory Rate 20 /min Pain Level 7 BMI (Body Mass Index) 35.8 kg/m2 02/21/2016 Height 62 inches 5'2" Weight 196.00 lb BP Systolic Sitting 154 mmHg BP Diastolic Sitting 76 mmHg Respiratory Rate 16 /min Pain Level 7 BMI (Body Mass Index) 35.8 kg/m2 07/19/2015 Height 62 inches 5'2" Weight 195.00 lb with shoes Heart Rate 76 /min BP Systolic Sitting 152 mmHg Ra lrg cuff BP Diastolic Sitting 98 mmHg Ra lrg cuff BP Systolic Standing 148 mmHg Ra lrg cuff BP Diastolic Standing 88 mmHg Ra lrg cuff Respiratory Rate 16 /min BMI (Body Mass Index) 35.7 kg/m2 Ejection Fraction >65% 05/03/15 07/31/2014 Height 62 inches 5'2" Weight 199.00 lb Heart Rate 78 /min BP Systolic Sitting 132 mmHg LA lg cuff BP Diastolic Sitting 58 mmHg LA lg cuff BP Systolic Standing 138 mmHg LA lg cuff BP Diastolic Standing 60 mmHg LA lg cuff BMI (Body Mass Index) 36.4 kg/m2 Ejection Fraction 60-65 echo 07/22/14 07/20/2014 Height 62 inches 5'2" Weight 199.00 lb with shoes Heart Rate 74 /min BP Systolic Sitting 150 mmHg Ra lg cuff BP Diastolic Sitting 70 mmHg Ra lg cuff BP Systolic Standing 144 mmHg Ra lg cuff BP Diastolic Standing 62 mmHg Ra lg cuff Respiratory Rate 17 /min BMI (Body Mass Index) 36.4 kg/m2 Ejection Fraction 55-60% date 07/25/13 08/11/2013 Height 62 inches 5'2" Weight 196.00 lb Heart Rate 66 /min BP Systolic Sitting 124 mmHg right arm, large cuff BP Diastolic Sitting 52 mmHg right arm, large cuff BP Systolic Standing 116 mmHg right arm, large cuff BP Diastolic Standing 50 mmHg right arm, large cuff Respiratory Rate 20 /min BMI (Body Mass Index) 35.8 kg/m2 Results Test Date Test Result H/L Range Note Xray 06/12/2016 MRI Hip Right W/O <pending> Laboratory test finding 05/09/2016 [place] Serum 6.2 ng/mL 1 Chromium 1.9 ng/mL <0.3 2 Heavy Metal Blool 05/09/2016 Arsenic <1 ng/mL 3 Lead 1.3 mcg/dL 4 Mercury <1 ng/mL 5 Cadmium 0.7 ng/mL 6 Street Address See Comment [address] [id number] [facility] [place] First Name AVN Mckeon Last Name THOMAS Venous/Capillary Heavy Metals Venous Patient Race BLACK 1 REFERENCE VALUE 0.0-0.9 <10 (MoM implant) ADDITIONAL INFORMATION This test was developed and its performance characteristics determined by [facility] in a manner consistent with CLIA requirements. This test has not been cleared or approved by the U.S. Food and Drug Administration. Test Performed by: [facility] - [address] [address] ADDITIONAL INFORMATION This test was developed and its performance characteristics determined by [facility] in a manner consistent with CLIA requirements. This test has not been cleared or approved by the U.S. Food and Drug Administration. Test Performed by: [facility] - [address] [address] 3 Reference Value: 0-12 ADDITIONAL INFORMATION This test was developed and its performance characteristics determined by [facility] in a manner consistent with CLIA requirements. This test has not been cleared or approved by the U.S. Food and Drug Administration. 4 Reference Value: 0.0-4.9 ADDITIONAL INFORMATION Testing performed by Inductively Coupled Plasma-Mass Spectrometry (ICP-MS). This test was developed and its performance characteristics determined by [facility] in a manner consistent with CLIA requirements. This test has not been cleared or approved by the U.S. Food and Drug Administration. 5 Reference Value: 0-9 ADDITIONAL INFORMATION This test was developed and its performance characteristics determined by [facility] in a manner consistent with CLIA requirements. This test has not been cleared or approved by the U.S. Food and Drug Administration. 6 Reference Value: 0.0-4.9 ADDITIONAL INFORMATION This test was developed and its performance characteristics determined by [facility] in a manner consistent with CLIA requirements. This test has not been cleared or approved by the U.S. Food and Drug Administration. 7 RESULT: [address] Procedures Date CPT Code Description Status 08/29/2017 70603 EKG Tracing & Interpretation Completed 08/09/2016 65757 EKG Tracing & Interpretation Completed 08/02/2016 41960 ECHO Transthoracic, Real-Time 2D With Doppler And Color Completed Flow 07/31/2016 84402 Stress Test Completed 07/31/2016 60779 Myocardial Perfusion Imaging Tomographic (Spect) Completed Multiple Studies 07/21/2016 62196 EKG Tracing & Interpretation Completed 05/03/2016 51368 Inject/Drain Joint/Bursa Major W/O US Completed 04/27/2016 90795 Inject/Drain Joint/Bursa Major W/O US Completed 04/19/2016 73503 Inject/Drain Joint/Bursa Major W/O US Completed 07/19/2015 06286 EKG Tracing & Interpretation Completed 07/16/2015 54290 Carotid Doppler,Bilateral Completed 05/03/2015 64250 ECHO Transthorasic Realtime 2D W Doppler & Color Flow Completed Hosp 07/27/2014 59419 Myocardial Perfusion Imaging Tomographic (Spect) Completed Multiple Studies 07/27/2014 89190 Stress Test Completed 07/22/2014 93337 ECHO Transthoracic, Real-Time 2D With Doppler And Color Completed Flow 07/20/2014 26713 EKG Tracing & Interpretation Completed 07/14/2014 78429 Carotid Doppler,Bilateral Completed 08/11/2013 24915 EKG Tracing & Interpretation Completed 07/31/2013 04496 Carotid Doppler,Bilateral Completed 07/25/2013 29512 ECHO Transthoracic, Real-Time 2D With Doppler And Color Completed Flow 06/13/2012 73992 ECHO Transthoracic, Real-Time 2D With Doppler And Color Completed Flow 06/10/2012 58858 Stress Test Completed 06/10/2012 97199 Myocardial Perfusion Imaging Tomographic (Spect) Completed Multiple Studies 06/04/2012 09397 Carotid Doppler,Bilateral Completed 08/30/2011 11083 EKG, Interpretation Only Completed 11/16/2008 78361 EKG, Interpretation Only Completed Encounters Type Date Location Provider CPT E/M Dx Office Visit 04/13/2017 Neurosurgery Services Lora Pal PA-C 61449 M48.061 9:30a Of [facility] M54.5 Office Visit 01/29/2017 1:30p [facility] [place] [address] L70.0 L82.1 D23.72 Office Visit 08/09/2016 1:15p [facility] Nikko Rey Samaniego, [address]7569 I25.10 Stef Jimenez, [facility] Office Visit 07/21/2016 11:45a [facility] Le Samaniego, [address] R07.9 MIno, [facility] I65.23 I10 I25.10 F17.210 Office Visit 06/23/2016 8:15a [facility] Of Nena Leiva M.D. 76388 M25.551 C.M.A. Z96.641 Office Visit 06/19/2016 2:00p [facility] Black Guido, 58004 M54.5 Of Stef Jimenez Office Visit 06/05/2016 2:00p [facility] Nena Leiva M.D. 74328 M25.551 C.M.A. Z96.641 Office Visit 05/08/2016 3:00p [facility] Nena Leiva M.D. 17861 M25.551 C.M.A. Z96.641 M54.5 Office Visit 02/21/2016 1:00p [facility] Nena Leiva M.D. 69820 M17.32 C.M.A. M25.562 M25.462 Office Visit 07/19/2015 11:00a [facility] Of Nikko Le Samaniego, 20332 I25.9 Stef Jimenez, [facility] I65.23 Office Visit 05/08/2015 10:04a [facility],jimena Meeks, 83051 J10.1 Hospitalists Barbara E11.9 J18.9 Office Visit 05/07/2015 10:03a [facility],jimena Meeks, 87515 J10.1 Hospitalists Barbara E11.9 J18.9 G47.33 Office Visit 05/06/2015 10:02a [facility],jimena Snella Joselito, 13101 J10.1 Hospitalists M.D. E11.9 J18.9 G47.33 Office Visit 05/05/2015 9:47a [facility] [place] [address] J44.1 Services Of [facility] J18.9 G47.33 Office Visit 05/05/2015 10:02a [facility], Jihan Joselito, 31248 J10.1 Hospitalists M.D. E11.9 J18.9 G47.33 Office Visit 05/04/2015 9:46a [facility] [address] J44.1 Services Of [facility] J18.9 G47.33 Office Visit 05/04/2015 10:00a [facility], Jihan Joselito, 16548 J18.9 Hospitalists M.D. G47.33 E11.9 Z72.0 Office Visit 05/03/2015 10:00a [facility], Jihan Joselito, 67498 J18.9 Hospitalists M.D. G47.33 E11.9 Z72.0 Office Visit 05/02/2015 10:00a [facility], Jihan Joselito, 13262 J18.9 Hospitalists M.D. G47.33 E11.9 Z72.0 Office Visit 05/01/2015 9:59a [facility], Jihan Joselito, 16132 J18.9 Hospitalists M.D. G47.33 E11.9 Z72.0 Office Visit 04/30/2015 9:59a [facility], Jihan Joselito, 88981 J18.9 Hospitalists M.D. G47.33 E11.9 Z72.0 Office Visit 04/29/2015 9:58a [facility], Lee Harris M.D. 48357 J18.9 Hospitalists G47.33 E11.9 Z72.0 Office Visit 07/31/2014 1:15p [facility] Nikko Samaniego, 78714 414.9 Barbara, [facility] Office Visit 07/20/2014 1:15p [facility] Of Nikko Le Aden, 26610 433.10 Stef Jimenez, ISIDRA, VINAYAK 786.50 Office Visit 08/11/2013 9:45a [facility] Nikko Le Aden, 71612 433.10 Stef Jimenez, ISIDRA, VINAYAK Office Visit 06/18/2012 10:15a [facility] Nikko Le Aden, 68408 414.9 Stef Jimenez, ISIDRA, VINAYAK Office Visit 08/10/2008 2:45a [facility],pc Lauro Meeks, 60398 786.50 Hospitalists M.D. Office Visit 08/09/2008 2:45a [facility],pc Lauro Meeks, 35015 786.50 Hospitalists M.D. Office Visit 08/08/2008 12:45a [facility],pc Lauro Meeks, 60347 786.50 Hospitalists M.D. Plan of Care Future Appointment(s):09/12/2017 11:45 am - Nikko Samaniego M.D., ISIDRA, VINAYAK at [facility]09/11/2017 2:00 pm - Ica ECHO Schedule at [facility]08/29/2017 - Nikko Samaniego M.D., ISIDRA, DENKBC88.9 Chest pain, unspecifiedNew Medication:Nitroglycerin 0.4 mgNew Orders:Stress Test, Pharmacologic Nuclear (Lexiscan)EchocardiogramComments:As discussed, I will further evaluate your chest pain. Call 911 if chest pain persists for greater than 15 minutes. Stop caffeine ingestion.Follow up:after cardiac testing.R00.2 PalpitationsNew Orders:[facility]
[2017-09-18 12:10] LABS: INR 0.96 (0.77-1.02)
[2017-09-18 12:35] LABS: EGFR Non-African American 60.5 (>60)
[2017-09-18] MEDS ORDERED: Aspirin 81 mg CHEW TAB* 81 MG TAB.CHEW ONE (12:44)
[2017-09-18] MEDS ORDERED: Nitroglycerin TAB 0.4 MG* 0.4 MG TAB ONE (12:44)
[2017-09-18] MEDS ORDERED: Aspirin 81 mg CHEW TAB* 81 MG TAB.CHEW PO ONE (12:45)
[2017-09-18] MEDS: Nitroglycerin TAB 0.4 MG* 0.4 MG TAB SL ONE ×2 (12:46→13:39)
--- NOTE | 2017-09-18 12:49 | RAD ---
Indication: Chest pain. Single frontal view of the chest performed at 1220 hours was reviewed. Comparison is made with previous exam dated May 01, 2015. No mediastinal shift is noted. Heart is of normal size and configuration. Lung verdugo appear clear. IMPRESSION: NO ACTIVE CARDIOPULMONARY DISEASE IS NOTED.
[2017-09-18] MEDS ORDERED: Ondansetron INJ* 2 MG/ML VIAL IV PRN (15:38)
[2017-09-18] MEDS ORDERED: Acetaminophen TAB* 325 MG PO PRN (15:38)
[2017-09-18] MEDS ORDERED: Dextrose 50% Syringe 50 ML* 25 GM/50 ML SYRINGE IV PUSH PRN (15:38)
[2017-09-18] MEDS ORDERED: Magnesium Sulfate 2 GM IV* 2 GM/50 ML BAG IVPB ONE (16:00)
[2017-09-18] MEDS ORDERED: LORazepam INJ* 2 MG/ML 1 ML VIAL IV PUSH PRN (16:03)
[2017-09-18] MEDS ORDERED: Albuterol 2.5 MG/3 ML NEB.SOL* (0.083%) INH PRN (16:03)
[2017-09-18] MEDS: Nicotine PATCH 21 MG/24 HR* PATCH TRANSDERM SCH (17:28)
[2017-09-18] MEDS: HYDROcodone/ACETAMIN 5-325 MG* 1 TAB PO PRN (19:15)
[2017-09-18] MEDS: Insulin LISPRO* 1 UNITS UNIT SUBCUT SCH (19:16)
--- NOTE | 2017-09-18 20:45 | HP ---
CC: Dr. Ray * HISTORY AND PHYSICAL: DATE OF ADMISSION: 09/18/17 PRIMARY CARE PROVIDER: Dr. Ray. ATTENDING PHYSICIAN WHILE IN THE HOSPITAL: Jolie Alexander DO * (report dictated by Baljinder Isidro NP). CHIEF COMPLAINT: 1. Dizziness. 2. Chest discomfort. HISTORY OF PRESENT ILLNESS: Mrs. Wood is a 62-year-old female patient with an extensive past medical history. She has a history of diabetes, hypertension, hyperlipidemia, CAD, INOCENCIA, she does not wear a mask. She has a remote history of cocaine abuse, history of COPD, cervical spondylosis, history of microscopic colitis, history of a pituitary tumor, depression, and chronic low back pain. She also has a history of carotid artery disease and she continues to smoke. She comes into our ER today stating that the last several months she has had intermittent episodes of dizziness what she describes as lightheadedness, in addition to this also does describe as like the room is spinning. She says that she does notice it with position change that it is worse, but today it was much worse and then also had some associated chest discomfort. She noticed that she was having episodes of feeling dizzy changing position and that she developed chest pain, tightness, and squeezing and so, her family brought her into the ER for evaluation. She says that sometimes, she does feel like she is going to faint. She almost felt like she was going to faint today because of the pain she says. She had no associated diaphoresis or nausea or vomiting. She did have a recent stress test about 6 days ago, which was negative and that was done in the outpatient setting. She is denying having any weakness of the upper extremities or lower extremities. She does state that at times, she is having trouble with her peripheral vision bilaterally and she says she has not had a pituitary tumor checked in several years. The family states that they have noticed that her speech at times can be off over the last several weeks intermittently. She was scheduled for a carotid ultrasound tomorrow that is because to reevaluate her right carotid. She states that she is right-handed. She again denied having any facial drooping or any slurring of her words and then she says that her speech to her has been normal. She does admit that she has trouble with recalling memory. She says that she did not faint. She was concerned because of the chest pain and the fact that she has been having these intermittent dizzy spells for several weeks now. She is wearing a 30-day Holter monitor to look for arrhythmias. She came into the ED today because of the chest pain and we were asked to evaluate due to the fact that she is having dizziness and the chest pain. PAST MEDICAL HISTORY: Significant for: 1. Diabetes. 2. Hypertension. 3. Hyperlipidemia. 4. CAD. 5. INOCENCIA. 6. Cocaine abuse. 7. COPD. 8. Cervical spondylosis. 9. Microscopic colitis. 10. Pituitary tumor. 11. Depression. 12. Low back pain. 13. Carotid artery disease. PAST SURGICAL HISTORY: She has had left and right total hip replacements. She has had a right hip revision recently done. She has had carpal tunnel. She has had back surgery and she has also had foot surgery. MEDICATIONS: Home medications include: 1. Pravachol 40 mg 3 times a week. 2. Prilosec 20 mg daily. 3. Metformin 500 mg daily. 4. Nitro 0.4 mg sublingual q.5 minutes p.r.n. chest pain x3. 5. Ativan 0.5 mg every 8 hours as needed. 6. Valium 10 mg prior to MRI. 7. Lisinopril/hydrochlorothiazide 1 tablet daily. 8. [place] 1 tablet p.o. t.i.d. as needed. 9. Lantus 76 units subcu daily. 10. Diltiazem CD 300 mg p.o. daily. ALLERGIES TO MEDICATIONS: Include CODEINE, HALDOL, PENICILLIN, ACTOS, COMPAZINE , ATORVASTATIN, COGENTIN. FAMILY HISTORY: Both her parents had heart disease. SOCIAL HISTORY: She is half-a-pack to a pack-a-day smoker. She has been smoking since her teenage years. She denies any alcohol abuse. Surrogate decision maker is her daughter. REVIEW OF SYSTEMS: There is no documented fever. She denies having any significant weight change. There was no double vision. There is no ear discharge. She denies having any rhinorrhea. There is no sore throat. No thyroid enlargement. She denied having any chest pain currently, there was some per my HPI. She again did admit to chest pain. There was no orthopnea, no nocturnal dyspnea. There was no abdominal pain. There was no nausea, no vomiting. There was no dysuria, no frequency. There was no loss of consciousness today, although she said she did feel like she was going to faint , but did not. Review of 14 systems was completed, all others negative. PHYSICAL EXAMINATION GENERAL: At this time, Mrs. Wood is a 62-year-old female patient. She is chronically ill-appearing. She is sitting in the ED stretcher. She does not appear to be in any acute distress. VITAL SIGNS: Blood pressure 152/63 with a pulse of 54, respirations were 19, O2 sat 98%, temperature 97.8. HEENT: Head: Atraumatic and normocephalic. Eyes: EOMs are intact. Sclerae anicteric and not pale. Throat: Oral mucosa appears to be moist. No oropharyngeal erythema. NECK: Supple. LUNGS: Clear to auscultation bilaterally. There were no wheezes, rales, or rhonchi. HEART: Sounds S1, S2. Regular rate and rhythm. No murmurs, rubs, or gallops. ABDOMEN: Soft, flat, nontender. Bowel sounds were present. EXTREMITIES: Pulses were 2+ throughout. She is able to move all 4 extremities with 5/5 strength. NEUROLOGICAL: The patient is awake, is alert. Her speech to me does seem to be clear. Cranial nerves II through XII were intact. No visual field cuts were noted on my exam. Gagayu-cs-bwhf intact bilaterally. Udwi-ae-eral intact bilaterally. Her gait appeared to be steady. She again had no facial drooping or no gross obvious focal deficits. SKIN: Intact. DIAGNOSTIC STUDIES/LAB DATA: The labs today are revealing a WBC of 8.1, RBC of 4.18, hemoglobin of 13.2, hematocrit of 39, and platelet count of 222. The INR was 0.96, the PTT was 30.1. The sodium was 140, potassium was 3.6, chloride of 108, bicarb 24, BUN 18, creatinine of 0.94, glucose 165, lactic 1.4 , calcium 9.2, mag 1.8. Total bili 0.3, AST 15, ALT 15, alk phos 52. CK of 225 , CK-MB 6.1, troponin 0, BNP of 49. TSH of 0.72. Albumin of 3.8. Chest x-ray was obtained today. No active cardiopulmonary disease was noted. She had an EKG obtained today, which showed diffuse T-wave changes. When you look back, these changes have been present with her previous EKGs. She had no ST elevation. She was depressed in V4, V5, and V6 and lead I and II slightly, which she has had previously with her EKGs. There did not appear to be any acute changes. She did have a stress test that I was able to access in the [facility], which was read as a normal stress test 6 days ago. Old medical records were reviewed. ASSESSMENT AND PLAN: Mrs. Wood is a 62-year-old female patient coming into the ED today with complaints again of dizziness and feeling like she may pass out, in addition to this also having episodes of worsening of the vision in the last few months. She will be admitted under observation status for: 1. Dizziness. Again, etiology is unclear. This could be multifactorial. My concern is that she does have known carotid artery disease. I want to check the cerebellum for any strokes. I also would like to reevaluate the pituitary tumor. I do think that she deserves an MRA of the head and neck and also getting an MRI of the brain with and without contrast because of the history of tumor to further evaluate this. She does have a 30-day event monitor on. I do think that we should go ahead and cycle the troponins to make sure that the chest pain she had was not anything new, but again with the recent stress test I think it is unlikely. We placed her on telemetry here for any arrhythmias and I am going to check orthostatic blood pressures as well as that certainly could be contributing to the lightheadedness and dizziness feelings and we will continue to monitor. 2. Visual changes. Again, I am going to get an MRI of the brain with and without, I could not elicit any visual field cuts on my exam for the time being and again to reevaluate the pituitary tumor. 3. Diabetes. We will put her on a lispro sliding scale. Continue Lantus. 4. Hypertension. Continue meds as prescribed. Check orthostatics. 5. History of hyperlipidemia. We will continue her statin therapy. 6. History of coronary artery disease. Continue aspirin and statin therapy. 7. Obstructive sleep apnea. She is noncompliant with her CPAP. I did instruct the importance of this. 8. History of chronic obstructive pulmonary disease. We will go ahead and put her on p.r.n. albuterol should she have any shortness of breath, but she is not complaining of this. 9. History of cervical spondylosis. Follow up with her PCP. I have ordered p.r.n. pain medications for her. 10. History of pituitary tumor. Again, we are going to reevaluate with the MRI. 11. Depression. Continue with supportive care. 12. Low back pain. Tylenol has been ordered. 13. Carotid artery disease. I am ordering an MRA of the head and neck to further evaluate and for the time being, she is on aspirin and statin therapy already. 14. DVT prophylaxis. She is high risk. I have ordered heparin subcu. 15. Code status. She wishes to be a full code. 16. Fluids, electrolytes, and nutrition. I have ordered a consistent carb diet. TIME SPENT: Time spent on this admission was 60 minutes, greater than half the time was spent [id number] with the patient obtaining my history and physical, other half of the time was spent going over the plan of care with the patient and implementing the plan of care. I did discuss the plan of care with my attending, Dr. Alexander, she is in agreement. BALJINDER ISIDRO, DEANGELO [id number]/[facility] [place] #: [id number] LISA
[2017-09-18] MEDS ORDERED: Gadobenate* (CONTRAST) 529 MG/ML 10 ML SDV IV ONE (20:55)
[2017-09-18] MEDS: Nicotine Patch Removal NOTE FOLLOW UP SCH (21:43)
[2017-09-18] MEDS: Insulin GLARGINE(*) 1 UNITS UNIT SUBCUT SCH (22:18)
[2017-09-19] MEDS: HYDROcodone/ACETAMIN 5-325 MG* 1 TAB PO PRN ×3 (07:12→21:32)
--- NOTE | 2017-09-19 07:47 | RAD ---
Indication: Dizziness. MRA of the brain was performed utilizing 3-D mrob-mu-cjvnoa technique. Multiple maximum intensity projection images were obtained. The intracranial carotid arteries are unremarkable no evidence of stenosis is noted. Bifurcation into the anterior middle cerebral arteries are unremarkable with no evidence of inguinal no aneurysmal dilatation is noted. No branch occlusion is identified. The basilar artery and vertebral arteries are unremarkable. The right posterior cerebral artery is unremarkable. The left posterior cerebral artery appears to be supplied by patent left posterior communicating artery predominantly. No aneurysmal dilatation or branch occlusion is noted. IMPRESSION: Unremarkable MRA of the brain. No branch occlusion or aneurysmal dilatation is noted.
[2017-09-19 08:00] LABS: ABS Basophils 0 10^3/ul (0-0.2); ABS Eosinophils 0.3 10^3/ul (0-0.6); ABS Monocytes 0.5 10^3/ul (0-0.8); ABS Neutrophils 2.6 10^3/ul (1.5-7.7); ABS Nucleated RBC 0 10^3/ul; Eosinophil % 5.3 % (0-6); Hematocrit 39 % (35-47); Hemoglobin 13.5 g/dl (12.0-16.0); Lymphocyte % 45.7 % (25-47); Mean Corpuscular HGB Conc 35 g/dl (31-36); Mean Corpuscular Hemoglobin 31 pg (27-31); Mean Corpuscular Volume 91 fL (80-97); Mean Platelet Volume 9.4 um3 (7.4-10.4); Nucleated Red Blood Cells % 0.1; Platelet Count 206 10^3/ul (150-450); Red Blood Count 4.31 10^6/ul (4.00-5.40); Red Cell Distribution Width 13 % (10.5-15); White Blood Count 6.5 10^3/ul (3.5-10.8)
[2017-09-19 08:03] LABS: INR 0.87 (0.77-1.02)
--- NOTE | 2017-09-19 08:08 | RAD ---
Indication: Diplopia and dizziness. MRA of the neck performed after IV contrast administration. 20 mL of MultiHance was injected. Multiple maximum intensity projection images were obtained. There is significant motion artifact noted. The origins of the great vessels are grossly unremarkable. The right and left common carotid arteries are grossly unremarkable. The right internal carotid artery demonstrates signal loss at the origin of the right internal carotid artery. This simulates a stenosis at the origin of the right internal carotid artery. No evidence of carotid artery dissection is noted. The left common carotid artery demonstrates no intimal wall thickening. There is signal loss at the origin of the left internal carotid artery. Stenosis cannot be excluded. The remainder of the intracranial carotid artery is unremarkable. The vertebral arteries are patent bilaterally. IMPRESSION: The study is somewhat limited due to motion artifact. There is signal loss at the origin of both internal carotid arteries. The possibility of stenosis cannot be excluded and correlation with carotid ultrasound is suggested. No evidence of carotid artery dissection is noted.
[2017-09-19 08:15] LABS: EGFR Non-African American 66.2 (>60)
[2017-09-19] MEDS: Nicotine PATCH 21 MG/24 HR* PATCH TRANSDERM SCH (08:52)
[2017-09-19] MEDS: Diltiazem CD CAP* 120 MG PO SCH (08:53)
[2017-09-19] MEDS: Diltiazem CD CAP* 180 MG PO SCH (08:53)
[2017-09-19] MEDS: Lisinopril TAB* 10 MG PO SCH (08:53)
[2017-09-19] MEDS: Insulin LISPRO* 1 UNITS UNIT SUBCUT SCH ×3 (08:53→16:59)
[2017-09-19] MEDS ORDERED: Insulin GLARGINE(*) 1 UNITS UNIT SUBCUT SCH (09:00)
[2017-09-19] MEDS ORDERED: Omeprazole CAP* 20 MG PO SCH (09:00)
[2017-09-19] MEDS ORDERED: Diltiazem CD CAP* 240 MG PO SCH (09:00)
--- NOTE | 2017-09-19 09:41 | RAD ---
Indication: Dizziness, blurry vision, history of pituitary tumor. Image Sequences: Sagittal and axial T1, axial T2, FLAIR, diffusion and susceptibility weighted images of the brain were obtained. Thin section sagittal and coronal T1-weighted postcontrast images were obtained. Ventricular structures are midline. No midline shift is noted. The extra-axial spaces are unremarkable. There is no evidence of intracranial mass or hemorrhage. No other high or low signal lesions are identified. Minimal mucosal disease is noted. The orbits demonstrate no evidence of intraocular masses. The optic chiasm is not encroached upon. There is mild abnormal contour abnormality in the anterior lobe of the pituitary. No restriction of diffusion is noted. Susceptibility weighted images demonstrate no susceptibility artifact. Mastoid air cells and paranasal sinuses are otherwise unremarkable. IMPRESSION: No intracranial lesion is identified. No mass is noted extending to the optic chiasm.
--- NOTE | 2017-09-19 10:23 | RAD ---
INDICATION: Dizziness COMPARISON: MRA neck September 18, 2017 TECHNIQUE: Transverse and longitudinal scans of the carotid and vertebral arteries were performed with whipple scale, color Doppler, and spectral Doppler imaging. Stenosis criteria is based on flow velocities that correlate with visual internal carotid artery diameter (NASCET criteria) FINDINGS: Right carotid: There are extensive calcifications involving the common and internal carotid arteries There is no spectral broadening. The peak systolic velocity of the internal carotid artery is 171 cm/s and the peak diastolic velocity 55 cm/s. The ICA/CCA ratio is calculated at 1.9. This corresponds to a 50-69%% diameter stenosis. Left carotid: There are extensive calcifications involving the common and internal carotid arteries. There is no spectral broadening. The peak systolic velocity of the internal carotid artery is 159 cm/s and the peak diastolic velocity 37 cm/s. The ICA/CCA ratio is calculated at 1.7. This corresponds to a 50-69%% diameter stenosis. Right vertebral: Right vertebral waveforms are normal and the flow is antegrade. Left vertebral: Left vertebral waveforms are normal and the flow is antegrade. IMPRESSION: EXTENSIVE ARTERIAL CALCIFICATIONS WITH BILATERAL 50-69% DIAMETER STENOSES CPT II Codes: 3100F [facility]
[2017-09-19 15:57] LABS: ABS Basophils 0.1 10^3/ul (0-0.2); ABS Eosinophils 0.3 10^3/ul (0-0.6); ABS Lymphocytes 3.4 10^3/ul (1.0-4.8); ABS Monocytes 0.6 10^3/ul (0-0.8); ABS Neutrophils 3.2 10^3/ul (1.5-7.7); ABS Nucleated RBC 0 10^3/ul; Eosinophil % 4.2 % (0-6); Hematocrit 40 % (35-47); Hemoglobin 13.6 g/dl (12.0-16.0); Lymphocyte % 44.7 % (25-47); Mean Corpuscular HGB Conc 34 g/dl (31-36); Mean Corpuscular Hemoglobin 32 pg (27-31); Mean Corpuscular Volume 92 fL (80-97); Mean Platelet Volume 9.2 um3 (7.4-10.4); Nucleated Red Blood Cells % 0.1; Platelet Count 218 10^3/ul (150-450); Red Blood Count 4.31 10^6/ul (4.00-5.40); Red Cell Distribution Width 13 % (10.5-15); White Blood Count 7.6 10^3/ul (3.5-10.8)
[2017-09-19 16:06] LABS: INR 0.91 (0.77-1.02)
[2017-09-19 16:12] LABS: EGFR Non-African American 60.5 (>60)
--- NOTE | 2017-09-19 16:30 | PN ---
Subjective Date of Service: 09/19/17 Interval History: Patient seen and examined. Still complaining of dizziness, states she feels dizzy when she ambulates and still having intermittent chest pain. No acute changes on tele or EKG, 30 day event monitor still in place. Denies n/v, no fever or chills. Objective Active Medications: Acetaminophen (Tylenol Tab*) 650 mg PO Q4H PRN PRN Reason: FEVER/PAIN Hydrocodone Bitart/Acetaminophen ([place] 5-325 Tab*) 1 tab PO Q6H PRN PRN Reason: PAIN Last Admin: 09/19/17 13:52 Dose: 1 tab Albuterol (Ventolin 2.5 Mg/3 Ml Neb.Myah*) 2.5 mg INH Q2H PRN PRN Reason: SOB/WHEEZING Aspirin (Aspirin Ec Tab*) 81 mg PO DAILY COUNT INCLUDES THE [facility] Clopidogrel Bisulfate (Plavix Tab*) 75 mg PO DAILY COUNT INCLUDES THE [facility] Dextrose (D50w Syringe 50 Ml*) 12.5 gm IV PUSH .FOR FS < 60 - SS PRN PRN Reason: FS < 60 Diltiazem HCl (Cardizem Cd Cap*) 180 mg PO 0900 COUNT INCLUDES THE [facility] Last Admin: 09/19/17 08:53 Dose: 180 mg Diltiazem HCl (Cardizem Cd Cap*) 120 mg PO 0900 COUNT INCLUDES THE [facility] Last Admin: 09/19/17 08:53 Dose: 120 mg Heparin Sodium (Porcine) (Heparin Vial(*)) 5,000 units SUBCUT Q8HR COUNT INCLUDES THE [facility] Insulin Glargine (Lantus(*)) 76 units SUBCUT 2100 COUNT INCLUDES THE [facility] Last Admin: 09/18/17 22:18 Dose: 76 unit Insulin Human Lispro (Humalog*) 0 units SUBCUT AC COUNT INCLUDES THE [facility]; Protocol Last Admin: 09/19/17 12:42 Dose: Not Given Lisinopril (Prinivil Tab*) 20 mg PO DAILY COUNT INCLUDES THE [facility] Last Admin: 09/19/17 08:53 Dose: 20 mg Lorazepam (Ativan Inj*) 0.5 mg IV PUSH ONCE PRN PRN Reason: ANXIETY Last Admin: 09/18/17 19:16 Dose: 0.5 mg Nicotine (Nicotine Patch 21 Mg/24 Hr*) 1 patch TRANSDERM DAILY COUNT INCLUDES THE [facility] Last Admin: 09/19/17 08:52 Dose: 1 patch Ondansetron HCl (Zofran Inj*) 4 mg IV Q6H PRN PRN Reason: NAUSEA Pantoprazole Sodium (Protonix Tab (Nf)) 40 mg PO DAILY COUNT INCLUDES THE [facility] Pharmacy Profile Note (Nicotine Patch Removal Note*) 1 note FOLLOW UP 2100 MARK Last Admin: 09/18/17 21:43 Dose: 1 note Pravastatin Sodium (Pravachol (Nf)) 40 mg PO Q48H COUNT INCLUDES THE [facility]; Protocol Vital Signs - 8 hr 09/19/17 09/19/17 09/19/17 10:17 11:22 13:52 Temperature 98.2 F 99.1 F Pulse Rate 67 61 Respiratory 16 22 20 Rate Blood Pressure 142/68 147/59 (mmHg) O2 Sat by Pulse 100 99 Oximetry 09/19/17 13:53 Temperature Pulse Rate Respiratory 20 Rate Blood Pressure (mmHg) O2 Sat by Pulse Oximetry Oxygen Devices in Use Now: None Appearance: alert, NAD Eyes: No Scleral Icterus, PERRLA Ears/Nose/Mouth/Throat: NL Teeth, Lips, Gums, Mucous Membranes Moist Neck: NL Appearance and Movements; NL JVP, Trachea Midline Respiratory: Symmetrical Chest Expansion and Respiratory Effort, Clear to Auscultation Cardiovascular: NL Sounds; No Murmurs; No JVD, RRR, No Edema Extremities: No Edema, No Clubbing, Cyanosis Skin: No Rash or Ulcers Neurological: Alert and Oriented x 3, NL Muscle Strength and Tone, - Nutrition: Taking PO's Result Diagrams: 09/19/17 15:48 09/19/17 15:48 Diagnostic Imaging: Patient Name: BEAR GUZMAN Medical Record#: [id number] Ordering Physician: Baljinder Isidro HOT [employer]OT Acct.#: [id number] : 1955 Age: 62 Sex: F Location: [address] [place] [address]/TELEMETRY Exam Date: 09/18/171537 ADM Status: ADM John Order Information: MRI BRAIN W/WO Accession Number: [id number] CPT: 76808 Indication: Dizziness, blurry vision, history of pituitary tumor. Image Sequences: Sagittal and axial T1, axial T2, FLAIR, diffusion and susceptibility weighted images of the brain were obtained. Thin section sagittal and coronal T1 -weighted postcontrast images were obtained. Ventricular structures are midline. No midline shift is noted. The extra-axial spaces are unremarkable. There is no evidence of intracranial mass or hemorrhage. No other high or low signal lesions are identified. Minimal mucosal disease is noted. The orbits demonstrate no evidence of intraocular masses. The optic chiasm is not encroached upon. There is mild abnormal contour abnormality in the anterior lobe of the pituitary. No restriction of diffusion is noted. Susceptibility weighted images demonstrate no susceptibility artifact. Mastoid air cells and paranasal sinuses are otherwise unremarkable. IMPRESSION: No intracranial lesion is identified. No mass is noted extending to the optic chiasm. Dictated By: Marlene Woodard MD Dictated Date/Time: 09/19/17940 Transcribed Date/Time: 09/19/17743 Copy to: Patient Name: BEAR GUZMAN Medical Record#: [id number] Ordering Physician: Baljinder Isidro [employer]OT Acct.#: [id number] : 1955 Age: 62 Sex: F Location: [address] [place] [address]/TELEMETRY Exam Date: 09/18/171537 ADM Status: ADM John Order Information: MRA HEAD W/O Accession Number: [id number] CPT: 87393 Indication: Dizziness. MRA of the brain was performed utilizing 3-D dxpa-tz-ruzvvt technique. Multiple maximum intensity projection images were obtained. The intracranial carotid arteries are unremarkable no evidence of stenosis is noted. Bifurcation into the anterior middle cerebral arteries are unremarkable with no evidence of inguinal no aneurysmal dilatation is noted. No branch occlusion is identified. The basilar artery and vertebral arteries are unremarkable. The right posterior cerebral artery is unremarkable. The left posterior cerebral artery appears to be supplied by patent left posterior communicating artery predominantly. No aneurysmal dilatation or branch occlusion is noted. IMPRESSION: Unremarkable MRA of the brain. No branch occlusion or aneurysmal dilatation is noted. <Electronically signed by Marlene Woodard MD in [place]> 09/19/17743 Dictated By: Marlene Woodard MD Dictated Date/Time: 09/19/1744 Transcribed Date/Time: 09/19/17739 Copy to: Assess/Plan/Problems-Billing Assessment: This is a 62 year old female with history of carotid stenosis, tobacco abuse, HTN, - Patient Problems (1) Dizziness Code(s): R42 - DIZZINESS AND GIDDINESS SNOMED Code(s): 312438082 Comment: - Imaging as above - Patient does have carotid stenosis, but symptoms do not correlate with her symptoms - Etiology may be TIA vs other source? Patient takes ativan, norco and valium per home med rec, cannot r/o polypharmacy - No orthostasis noted - Will start aspirin and plavix and treat for TIA - PT/OT evals - Will need outpatient followup with vascular to evaluate intervention for carotids (2) COPD (chronic obstructive pulmonary disease) Code(s): J44.9 - CHRONIC OBSTRUCTIVE PULMONARY DISEASE, UNSPECIFIED SNOMED Code(s): 99875373 Comment: - Smoking cessation recommended - Not in exacerbation (3) Chronic back pain Code(s): M54.9 - DORSALGIA, UNSPECIFIED; G89.29 - OTHER CHRONIC PAIN SNOMED Code(s): 096202684 Comment: - Would recommend holding narcotics given dizziness (4) Tobacco abuse Code(s): Z72.0 - TOBACCO USE SNOMED Code(s): 297403884 Comment: - Nicotine replacment, advised cessation (5) DM type 2 (diabetes mellitus, type 2) Comment: - Continue lantus and lispro SS (6) GERD (gastroesophageal reflux disease) Code(s): K21.9 - GASTRO-ESOPHAGEAL REFLUX DISEASE WITHOUT ESOPHAGITIS SNOMED Code(s): 735491838 Comment: - Stable on PPI (7) HTN (hypertension) Code(s): I10 - ESSENTIAL (PRIMARY) HYPERTENSION SNOMED Code(s): 81726150 Comment: - Stable on cardizem and lisinopril (8) INOCENCIA (obstructive sleep apnea) Code(s): G47.33 - OBSTRUCTIVE SLEEP APNEA (ADULT) (PEDIATRIC) SNOMED Code(s): 25047819 Comment: - Not currently using CPAP (9) DVT prophylaxis Code(s): NYX9923 - SNOMED Code(s): 560038414 Comment: - heparin sc Status and Disposition: Remain in obs pending PT/OT, dispo likely to home tomorrow.
[2017-09-19] MEDS: Clopidogrel TAB* 75 MG PO SCH (16:59)
[2017-09-19] MEDS ORDERED: CMC:Pravastatin (NF) 20 MG TAB PO SCH (21:00)
[2017-09-19] MEDS: Insulin GLARGINE(*) 1 UNITS UNIT SUBCUT SCH (21:29)
[2017-09-19] MEDS: Heparin VIAL(*) 5000 UNITS/ML VIAL (FIVE THOUSAND) SUBCUT SCH (22:24)
[2017-09-19] MEDS: Nicotine Patch Removal NOTE FOLLOW UP SCH (23:14)
[2017-09-20] MEDS: HYDROcodone/ACETAMIN 5-325 MG* 1 TAB PO PRN ×2 (03:01→09:13)
[2017-09-20] MEDS: Heparin VIAL(*) 5000 UNITS/ML VIAL (FIVE THOUSAND) SUBCUT SCH ×2 (06:24→13:39)
[2017-09-20] MEDS ORDERED: Polyethylene Glycol 3350* 17 GM PACKET PO PRN (08:30)
[2017-09-20] MEDS: Insulin LISPRO* 1 UNITS UNIT SUBCUT SCH ×2 (08:40→13:39)
[2017-09-20] MEDS ORDERED: CMCS:Pantoprazole TAB (NF) 40 MG TAB PO SCH (09:00)
[2017-09-20] MEDS ORDERED: Aspirin EC TAB* 81 MG TAB.EC PO SCH (09:00)
[2017-09-20] MEDS: Clopidogrel TAB* 75 MG PO SCH (09:06)
[2017-09-20] MEDS: Lisinopril TAB* 10 MG PO SCH (09:06)
[2017-09-20] MEDS: Diltiazem CD CAP* 180 MG PO SCH (09:06)
[2017-09-20] MEDS: Diltiazem CD CAP* 120 MG PO SCH (09:06)
[2017-09-20] MEDS: Nicotine PATCH 21 MG/24 HR* PATCH TRANSDERM SCH (09:09)
--- NOTE | 2017-09-20 13:46 | DCNOTE ---
Subjective Date of Service: 09/20/17 Interval History: Patient seen and examined. Dizziness resolved, did well with PT, ready for discharge. Objective Active Medications: Acetaminophen (Tylenol Tab*) 650 mg PO Q4H PRN PRN Reason: FEVER/PAIN Hydrocodone Bitart/Acetaminophen ([place] 5-325 Tab*) 1 tab PO Q6H PRN PRN Reason: PAIN Last Admin: 09/20/17 09:13 Dose: 1 tab Albuterol (Ventolin 2.5 Mg/3 Ml Neb.Myah*) 2.5 mg INH Q2H PRN PRN Reason: SOB/WHEEZING Aspirin (Aspirin Ec Tab*) 81 mg PO DAILY [facility] Last Admin: 09/20/17 09:06 Dose: 81 mg Clopidogrel Bisulfate (Plavix Tab*) 75 mg PO DAILY [facility] Last Admin: 09/20/17 09:06 Dose: 75 mg Dextrose (D50w Syringe 50 Ml*) 12.5 gm IV PUSH .FOR FS < 60 - SS PRN PRN Reason: FS < 60 Diltiazem HCl (Cardizem Cd Cap*) 180 mg PO 0900 [facility] Last Admin: 09/20/17 09:06 Dose: 180 mg Diltiazem HCl (Cardizem Cd Cap*) 120 mg PO 0900 [facility] Last Admin: 09/20/17 09:06 Dose: 120 mg Heparin Sodium (Porcine) (Heparin Vial(*)) 5,000 units SUBCUT Q8HR [facility] Last Admin: 09/20/17 13:39 Dose: 5,000 units Insulin Glargine (Lantus(*)) 76 units SUBCUT 2100 [facility] Last Admin: 09/19/17 21:29 Dose: 76 unit Insulin Human Lispro (Humalog*) 0 units SUBCUT AC [facility]; Protocol Last Admin: 09/20/17 13:39 Dose: 3 units Lisinopril (Prinivil Tab*) 20 mg PO DAILY [facility] Last Admin: 09/20/17 09:06 Dose: 20 mg Lorazepam (Ativan Inj*) 0.5 mg IV PUSH ONCE PRN PRN Reason: ANXIETY Last Admin: 09/18/17 19:16 Dose: 0.5 mg Nicotine (Nicotine Patch 21 Mg/24 Hr*) 1 patch TRANSDERM DAILY [facility] Last Admin: 09/20/17 09:09 Dose: 1 patch Ondansetron HCl (Zofran Inj*) 4 mg IV Q6H PRN PRN Reason: NAUSEA Pantoprazole Sodium (Protonix Tab (Nf)) 40 mg PO DAILY [facility] Last Admin: 09/20/17 09:06 Dose: 40 mg Pharmacy Profile Note (Nicotine Patch Removal Note*) 1 note FOLLOW UP [address] [facility] Last Admin: 09/19/17 23:14 Dose: Not Given Polyethylene Glycol/Electrolytes (Miralax*) 17 gm PO DAILY PRN PRN Reason: CONSTIPATION Last Admin: 09/20/17 09:05 Dose: 17 gm Pravastatin Sodium (Pravachol (Nf)) 40 mg PO Q48H [facility]; Protocol Last Admin: 09/19/17 21:33 Dose: 40 mg Vital Signs - 8 hr 09/20/17 09/20/17 09/20/17 05:46 05:47 07:17 Temperature 98.3 F Pulse Rate 58 Respiratory 18 18 20 Rate Blood Pressure 138/55 (mmHg) O2 Sat by Pulse 100 Oximetry 09/20/17 09/20/17 09/20/17 09:13 09:14 11:20 Temperature 97.8 F Pulse Rate 55 Respiratory 18 18 20 Rate Blood Pressure 138/56 (mmHg) O2 Sat by Pulse 100 Oximetry Oxygen Devices in Use Now: None Appearance: alert, NAD Eyes: No Scleral Icterus, PERRLA Ears/Nose/Mouth/Throat: NL Teeth, Lips, Gums, Clear Oropharnyx Neck: NL Appearance and Movements; NL JVP, Trachea Midline Respiratory: Symmetrical Chest Expansion and Respiratory Effort, Clear to Auscultation Cardiovascular: NL Sounds; No Murmurs; No JVD, RRR Abdominal: NL Sounds; No Tenderness; No Distention Extremities: No Edema, No Clubbing, Cyanosis Skin: No Rash or Ulcers Neurological: Alert and Oriented x 3, NL Sensation, NL Gait - uses cane Nutrition: Taking PO's Result Diagrams: 09/19/17 15:48 09/19/17 15:48 Diagnostic Imaging: Patient Name: BEAR GUZMAN Medical Record#: [id number] Ordering Physician: Baljinder Isidro MECHANIC CHIEF Acct.#: [id number] : 1955 Age: 62 Sex: F Location: [address] [place] [address]/TELEMETRY Exam Date: 09/18/171537 ADM Status: ADM John Order Information: MRI BRAIN W/WO Accession Number: [id number] CPT: 35506 Indication: Dizziness, blurry vision, history of pituitary tumor. Image Sequences: Sagittal and axial T1, axial T2, FLAIR, diffusion and susceptibility weighted images of the brain were obtained. Thin section sagittal and coronal T1 -weighted postcontrast images were obtained. Ventricular structures are midline. No midline shift is noted. The extra-axial spaces are unremarkable. There is no evidence of intracranial mass or hemorrhage. No other high or low signal lesions are identified. Minimal mucosal disease is noted. The orbits demonstrate no evidence of intraocular masses. The optic chiasm is not encroached upon. There is mild abnormal contour abnormality in the anterior lobe of the pituitary. No restriction of diffusion is noted. Susceptibility weighted images demonstrate no susceptibility artifact. Mastoid air cells and paranasal sinuses are otherwise unremarkable. IMPRESSION: No intracranial lesion is identified. No mass is noted extending to the optic chiasm. Dictated By: Marlene Woodard MD Dictated Date/Time: 09/19/17 0941 Transcribed Date/Time: 09/19/17 0744 Copy to: Patient Name: BEAR GUZMAN Medical Record#: [id number] Ordering Physician: Baljinder Isidro NP Acct.#: [id number] : 1955 Age: 62 Sex: F Location: [address] [place] [address] MEDICAL/TELEMETRY Exam Date: 09/18/171537 ADM Status: ADM John Order Information: MRA HEAD W/O Accession Number: [id number] CPT: 93281 Indication: Dizziness. MRA of the brain was performed utilizing 3-D [id number] technique. Multiple maximum intensity projection images were obtained. The intracranial carotid arteries are unremarkable no evidence of stenosis is noted. Bifurcation into the anterior middle cerebral arteries are unremarkable with no evidence of inguinal no aneurysmal dilatation is noted. No branch occlusion is identified. The basilar artery and vertebral arteries are unremarkable. The right posterior cerebral artery is unremarkable. The left posterior cerebral artery appears to be supplied by patent left posterior communicating artery predominantly. No aneurysmal dilatation or branch occlusion is noted. IMPRESSION: Unremarkable MRA of the brain. No branch occlusion or aneurysmal dilatation is noted. <Electronically signed by Marlene Woodard MD in [place]> 09/19/17743 Dictated By: Marlene Woodard MD Dictated Date/Time: 09/19/17743 Transcribed Date/Time: 09/19/17739 Copy to: Assess/Plan/Problems-Billing Assessment: This is a 62 year old female with history of carotid stenosis, tobacco abuse, HTN, presents with dizziness, r/o TIA/CVA. - Patient Problems (1) Dizziness Code(s): R42 - DIZZINESS AND GIDDINESS SNOMED Code(s): 349818529 Comment: - Imaging as above, negative for CVA, pituitary tumor not visualized on MRI - Etiology TIA, may be component of stress and polypharmacy - Cotninue event monitor as prescribed as an outpatient - No orthostasis - Continue ASA and plavix for 30 days - Will need outpatient followup with vascular to evaluate intervention for carotids if needed. Films provided on CD for patient. (2) COPD (chronic obstructive pulmonary disease) Code(s): J44.9 - CHRONIC OBSTRUCTIVE PULMONARY DISEASE, UNSPECIFIED SNOMED Code(s): 78317915 Comment: - Smoking cessation recommended - Not in exacerbation (3) Chronic back pain Code(s): M54.9 - DORSALGIA, UNSPECIFIED; G89.29 - OTHER CHRONIC PAIN SNOMED Code(s): 766296505 Comment: - Would recommend holding narcotics given dizziness (4) Tobacco abuse Code(s): Z72.0 - TOBACCO USE SNOMED Code(s): 581062725 Comment: - Nicotine replacment, advised cessation (5) DM type 2 (diabetes mellitus, type 2) Comment: - Continue lantus and lispro SS (6) GERD (gastroesophageal reflux disease) Code(s): K21.9 - GASTRO-ESOPHAGEAL REFLUX DISEASE WITHOUT ESOPHAGITIS SNOMED Code(s): 435354522 Comment: - Stable on PPI (7) HTN (hypertension) Code(s): I10 - ESSENTIAL (PRIMARY) HYPERTENSION SNOMED Code(s): 14257432 Comment: - Stable on cardizem and lisinopril (8) INOCENCIA (obstructive sleep apnea) Code(s): G47.33 - OBSTRUCTIVE SLEEP APNEA (ADULT) (PEDIATRIC) SNOMED Code(s): 04511437 Comment: - Not currently using CPAP (9) DVT prophylaxis Code(s): RWI9670 - SNOMED Code(s): 829786710 Comment: - heparin sc Status and Disposition: Discharged, please see dictated DC Summary for details.
[2017-09-20 15:21] VITALS: BP 164/54
--- NOTE | 2017-09-20 23:52 | DS ---
CC: Dr. Ray * DISCHARGE SUMMARY: DATE OF ADMISSION: 09/18/17 DATE OF DISCHARGE: 09/20/17 PRIMARY CARE PROVIDER: Dr. Sugey Ray. ATTENDING FOR THIS ADMISSION: Dr. Jolie Alexander. MY ATTENDING FOR TODAY: Dr. Skip Helm.* (DICTATED BY DAHIANA CLARKE NP) HOSPITAL COURSE: This is a pleasant 62-year-old female patient, who came to the emergency department with a report of dizziness times several days. The patient stated she was at work, she felt like she had some chest pain or pressure in the form of discomfort that did not change with positions, it did not change with inspiration or expiration. She has been under a significant amount of stress throughout this past year and does have some preexisting comorbidities; however, when the dizziness persisted and she felt like she could not get through her day at work, she tried to drive home, was unable to drive and her brought her to the emergency department for evaluation. She thought that when she was changing positions initially her dizziness got worse as did her chest pain. However, she did have a recent stress test, which was negative in the outpatient setting. She did not have any further unilateral weakness, no facial drooping, no slurring of speech, and no further neurologic deficits. Her EKG was negative for any acute changes. Her troponins were also negative. Her past medical history is significant for diabetes, hypertension, and chronic low back pain. She does ambulate with a cane at baseline. The patient also states she is aware that she has stenosis of the carotid arteries and she was actually scheduled for a carotid ultrasound this week and a visit with her surgeon to evaluate any interval changes; however , she was admitted through to the emergency department prior to having the repeat exam. The patient was admitted and initially worked up for CVA, TIA. MRI and MRA of the head and neck were negative. The patient also reported a history in the past of pituitary adenoma; however, the MRI of the head revealed no growth on the pituitary. Again, troponins were negative. Recent stress test also negative. She did have another bout of chest pain for which we did a 12-lead EKG and an additional troponin. They were both negative for any acute changes. No arrythmias noted and no ectopy on tele. Also of note, patient is wearing and event monitor for over a week that has not showed any changes per the patient. The patient did have an evaluation with Physical Therapy as she was reporting when she was ambulating to the bathroom she did have a bout with dizziness again ; however, it does seem to have resolved over the last 24 hours. She did well with physical therapy. She walks with her assistive devices when needed usually when her back pain is increasing. She is very stable with either a walker or a cane and has reported improvement in her dizziness over the last 48 hours overall. At this point, the patient's workup is negative. We did place her on baby aspirin and Plavix for 30 days per guidelines to treat for TIA. The patient is accepting that therapy and also will follow up with her vascular surgeon to see if her carotid arteries require intervention. We are not aware what the degree of stenosis was in her prior exams. We have given her copies of her films so that she may take them to her doctor over at [facility] and they can be compared to her previous imaging. DISCHARGE DIAGNOSES: 1. Dizziness, likely transient ischemic attack. Dizziness now resolved. Will be on dual antiplatelet therapy for 30 days. 2. Visual changes, now resolved. MRI of the brain with and without contrast shows resolution of pituitary tumor. 3. History of diabetes, stable. 4. History of hypertension, stable. 5. History of hyperlipidemia, stable. 6. History of coronary artery disease. She is stable on aspirin and statin. 7. History of obstructive sleep apnea, does not use CPAP. 8. History of chronic obstructive pulmonary disease, not in exacerbation. 9. History of cervical and lumbar spondylosis. Pain medication as needed. Assistive devices as needed. 10. History of carotid artery disease, will follow up outpatient MEDICATIONS AT THE TIME OF DISCHARGE: She will continue her home medications. Plavix has been added to her regimen. Home medications are: 1. Pravastatin 40 mg 3 times a week. 2. Omeprazole 20 mg daily. 3. Metformin 500 mg daily. 4. Nitroglycerin 0.4 mg as needed. 5. Lorazepam 0.5 mg q.8 hours as needed. 6. Diazepam 10 mg as needed for spasm. 7. Lisinopril and hydrochlorothiazide 1 tab p.o. daily. 8. Hydrocodone/acetaminophen 10/325 mg 1 tablet 3 times a day as needed. 9. Lantus 76 units subcu daily. 10. Diltiazem 300 mg daily. 11. Again, the Plavix being new 75 mg daily for the next 30 days. 12. Baby aspirin 81 mg daily. DISPOSITION: The patient will be discharged to home in the care of her family. FOLLOWUPS: The patient was instructed to follow up with Dr. Sugey Ray in the next 4 to 7 days, her vascular surgeon at [facility] within the next 2 weeks , and also to be reevaluated within the next 30 days regarding the continued use of Plavix if she will need this therapy or not that is the discussion she should have with her primary care provider or she may be referred back to Neurology. Also of significant note, patient's son was murdered last month and her brother one week later, some of her symptoms may be stress-induced. Referred SW and director religious education to see patient before DC fro support and resources. DIET: She should have a heart-healthy, diabetic diet. ACTIVITY: With her assistive device is as tolerated. DISCHARGE CONDITION: The patient has been discharged in stable condition. All questions have been answered. The patient states her understanding of her discharge instructions, followups, and her new medications. DAHIANA CLARKE NP [id number]/[facility] #: [id number] [facility]
== END 2017-09-20 16:24 | disposition home or self-care (01) | DRG 69 ==
LOC: ED 11:21 → MEDTELE 16:17 → OBSVTOIN 09-19 10:37
PROVIDERS: ADMIT Hospitalist; ATTEND Hospitalist
DX: G45.9 Transient cerebral ischemic attack, unspecified (principal); E11.9 Type 2 diabetes mellitus without complications; I10 Essential (primary) hypertension; E78.5 Hyperlipidemia, unspecified; I25.10 Atherosclerotic heart disease of native coronary artery without angina pectoris; G47.33 Obstructive sleep apnea (adult) (pediatric); J44.9 Chronic obstructive pulmonary disease, unspecified; F32.9 Major depressive disorder, single episode, unspecified; M47.812 Spondylosis without myelopathy or radiculopathy, cervical region; G89.29 Other chronic pain; M54.5 Low back pain; Z96.643 Presence of artificial hip joint, bilateral; F17.210 Nicotine dependence, cigarettes, uncomplicated; K21.9 Gastro-esophageal reflux disease without esophagitis; M19.90 Unspecified osteoarthritis, unspecified site; I65.29 Occlusion and stenosis of unspecified carotid artery; M47.816 Spondylosis without myelopathy or radiculopathy, lumbar region; Z79.4 Long term (current) use of insulin; Z88.5 Allergy status to narcotic agent; Z88.8 Allergy status to other drugs, medicaments and biological substances; Z88.0 Allergy status to penicillin; Z82.49 Family history of ischemic heart disease and other diseases of the circulatory system; Z87.01 Personal history of pneumonia (recurrent); Z90.710 Acquired absence of both cervix and uterus; Z84.89 Family history of other specified conditions; Z79.82 Long term (current) use of aspirin
CPT/HCPCS: 36415; 70544; 70549; 70553; 71045; 80048; 80053; 82550; 82553; 82565; 83605; 83735; 83880; 84443; 84484; 84520; 85025; 85610; 85730; 93005; 93880; 94640; 99283; A9270-GY; A9577; G0378; G8978-GP-CH; G8979-GP-CH; G8980-GP-CH; G8987-GO-CJ; G8988-GO-CI; J1644; J2060; J3475

== ENCOUNTER 2017-09-21 11:53 | Inpatient (IN) | payer MEDICARE, MEDICAID ==
--- OUTSIDE RECORDS SUMMARY | 2017-09-21 12:45 | XMS REPORT ---
:1955 External Reference #:[id number] Author Organization [facility] Address [address] [place] [address] [place] [address] Phone [phone] Care Team Providers Name Role Phone Sugey Ray MD Primary Care Physician Unavailable Payers Type Date Identification Numbers Payment Provider Subscriber Medicare Primary Effective: Policy Number: Medicare [place] 1997 [id number] PayID: [id number] [address] [place] [address] Medievangeline Part B Effective: 2008 Policy Number: [id number] Medicaid [place] [employer] Name: 1 1 [address] PayID: [id number] [place] [address] Problems Date Description Provider Status Onset: 07/20/2014 [...] Active Onset: 08/09/2016 [place] heart disease of [place] Nikko Samaniego M.D., Active coronary artery w/o ang pctrs FACC, FASNC Onset: 08/29/2017 Palpitations Nikko Samaniego M.D., Active [facility], FASNC Onset: 04/13/2017 Spinal stenosis of lumbar region Black Guido M.D. Active Family History Date Family Member(s) Problem(s) Comments General Heart Disease General Diabetes Social History Type Date Description Comments Marital Status Lives With Occupation [employer] ETOH Use Denies alcohol use Recreational Drug [...] chest R07.9 Nikko /2017 s pain,may take Rey up to 3 total Aden, 5 min apart M.D., but call 911 [facility], if have chest [facility] pain for greater than 10 minutes. Qulin Active Tablets 10-325mg 1 by mouth Crepet, [...] Pen-Inject L Units Subcutaneousl y AT Bedtime Atorvastatin Active Tablets 20mg take 1 tablet Unknown Calcium /0000 at bedtime Lorazepam Active Tablets 1mg 1/2-1 by Unknown /0000 mouth once a day as needed Aspirin Hx Tablets 325mg 1 by mouth Unknown /0000 every day - 07/22 Lipitor Hx Tablets 20mg 90tab one tab by Unknown /0000 s mouth every - night at 07/22time Diltiazem HCL Hx Tablets 120mg 30tab 2 by mouth Unknown /0000 s every day - 07/22 Lantus Hx Solution 100Unit/M 1mont 78 units at Crepet, /0000 L verdugo night as MD Sugey - directed 02/19 Fluticasone Hx Suspension 50mcg/Act 16uni 2 sprays each Unknown Propionate /0000 ts nostril daily - as needed 07/22 Lisinopril-Hyd Hx Tablets 20-12.5mg 90tab 1 by mouth [...] MD Sugey - at bedtime as 02/19 needed Lipitor Hx Tablets 1 by mouth Unknown [...] Strength Qnty SIG Indications Ordering Provider Inj, 09/12/ Administered Injection Nikko Le Regadenoson, 0.1 2017 MG Barbara Samaniego, ISIDRA, VINAYAK Aminophylline 09/12/ Administered Injection Nikko Le 2018 Barbara Samaniego, ISIDRA, VINAYAK Technetium TC 09/12/ Administered Injection Nikko Le 99M Tetrofosmin, 2017 Ad[place], Per Unit Dose Up M.D., To 40 FACC, Millicuries FASNC Inj, 07/31/ Administered Injection Nikko Le Regadenoson, 0.1 2016 MG Aden M.D., FACC, FASNC Technetium TC 07/31/ Administered Injection Nikko Le 99M Tetrofosmin, 2016 [place], Per Unit Dose Up M.D., To 40 FACC, Millicuries FASNC Synvisc Or 05/03/ Administered Injection Nena Synvisc-One 2016 Cali, Injection 1 MG M.D. Synvisc Or 04/27/ Administered Injection Yusuf F Synvisc-One 2016 Randy, Injection 1 MG MD Synvisc Or 04/19/ Administered Injection Nena Synvisc-One 2016 Cali, Injection 1 MG M.D. Inj, 07/27/ Administered Injection Nikko Le Regadenoson, 0.1 2014 MG Carolyn Samaniego.D., FACC, FASNC Aminophylline 07/27/ Administered Injection Nikko Le 2014 Natalie SamaniegoDJohana, FACC, FASNC Technetium TC 07/27/ Administered Injection Nikko Le 99M Tetrofosmin, 2014 Aden, Per Unit Dose Up M.D., To 40 FACC, Virgilioicuries FASNC Inj, 06/10/ Administered Injection Nikko Le Regadenoson, 0.1 2012 Ad[place], MG M.D., FACC, FASNC Technetium TC 06/10/ Administered Injection Nikko Le 99M Tetrofosmin, 2012 Ad[place], Per Unit Dose Up M.D., To 40 FACC, Virgilioicuries FASNC Vital Signs Date Vital Result Comment [...] Right W/O <pending> Laboratory test finding 05/09/2016 [place] Serum 6.2 ng/mL 1 Chromium 1.9 ng/mL <0.3 2 Heavy Metal Blool 05/09/2016 Arsenic <1 ng/mL 3 Lead 1.3 mcg/dL 4 Mercury <1 ng/mL 5 [address]mium 0.7 ng/mL [address] Address See Comment 7 [facility] [address] [facility] HEATHER Mckeon First Name VAN Mckeon Last Name THOMAS Venous/Capillary Heavy Metals Venous Patient Race BLACK 1 REFERENCE VALUE 0.0-0.9 <10 (MoM implant) ADDITIONAL INFORMATION This test was developed and its performance characteristics determined by [facility] in a manner consistent with CLIA requirements. This test has not been cleared or approved by the U.S. Food and Drug Administration. Test Performed by: [facility] [employer] - [address] [address] ADDITIONAL INFORMATION This test was developed and its performance characteristics determined by [facility] in a manner consistent with CLIA requirements. This test has not been cleared or approved by the U.S. Food and Drug Administration. Test Performed by: [facility] [employer] - [address] [address] 3 Reference Value: 0-12 ADDITIONAL INFORMATION This test was developed and its performance characteristics determined by [facility] in a manner consistent with CLIA requirements. This test has not been cleared or approved by the U.S. Food and Drug Administration. 4 Reference Value: 0.0-4.9 ADDITIONAL INFORMATION Testing performed by Inductively Coupled Plasma-Mass Spectrometry (ICP-MS). This test was developed and its performance characteristics determined by [facility] in a manner consistent with CLIA requirements. This test has not been cleared or approved by the U.S. Food and Drug Administration. 5 Reference Value: 0-9 ADDITIONAL INFORMATION This test was developed and its performance characteristics determined by [facility] in a manner consistent with CLIA requirements. This test has not been cleared or approved by the U.S. Food and Drug Administration. 6 Reference Value: 0.0-4.9 ADDITIONAL INFORMATION This test was developed and its performance characteristics determined by [facility] in a manner consistent with CLIA requirements. This test has not been cleared or approved by the U.S. Food and Drug Administration. 7 RESULT: [address] [facility] [address] Procedures Date CPT Code Description Status 09/12/2017 28708 Stress Test Completed 09/12/2017 31700 Myocardial Perfusion Imaging Tomographic (Spect) Completed Multiple Studies 08/29/2017 78799 EKG Tracing & Interpretation Completed 08/09/2016 49254 EKG Tracing & Interpretation Completed 08/02/2016 91610 ECHO Transthoracic, Real-Time 2D With Doppler And Color Completed Flow 07/31/2016 75304 Stress Test Completed 07/31/2016 39847 Myocardial Perfusion Imaging Tomographic (Spect) Completed Multiple Studies 07/21/2016 27405 EKG Tracing & Interpretation Completed 05/03/2016 07846 Inject/Drain Joint/Bursa Major W/O US Completed 04/27/2016 71715 Inject/Drain Joint/Bursa Major W/O US Completed 04/19/2016 86334 Inject/Drain Joint/Bursa Major W/O US Completed 07/19/2015 32125 EKG Tracing & Interpretation Completed 07/16/2015 15000 Carotid Doppler,Bilateral Completed 05/03/2015 64671 ECHO Transthorasic Realtime 2D W Doppler & Color Flow Completed Hosp 07/27/2014 04867 Myocardial Perfusion Imaging Tomographic (Spect) Completed Multiple Studies 07/27/2014 45841 Stress Test Completed 07/22/2014 17294 ECHO Transthoracic, Real-Time 2D With Doppler And Color Completed Flow 07/20/2014 47707 EKG Tracing & Interpretation Completed 07/14/2014 41483 Carotid Doppler,Bilateral Completed 08/11/2013 12820 EKG Tracing & Interpretation Completed 07/31/2013 02115 Carotid Doppler,Bilateral Completed 07/25/2013 93493 ECHO Transthoracic, Real-Time 2D With Doppler And Color Completed Flow 06/13/2012 74190 ECHO Transthoracic, Real-Time 2D With Doppler And Color Completed Flow 06/10/2012 35147 Stress Test Completed 06/10/2012 45175 Myocardial Perfusion Imaging Tomographic (Spect) Completed Multiple Studies 06/04/2012 66275 Carotid Doppler,Bilateral Completed 08/30/2011 80389 EKG, Interpretation Only Completed 11/16/2008 20750 EKG, Interpretation Only Completed Encounters Type Date Location Provider CPT E/M Dx Office Visit 08/29/2017 [facility] Nikko Samaniego, 37200 R07.9 1:45p Stfe Jimenez, [facility], [facility] R00.2 F17.210 Office Visit 04/13/2017 9:30a [facility] Lora Pal PA-C 12455 M48.061 Of Stef M54.5 Office Visit 01/29/2017 1:30p [facility] [place] [address] L70.0 L82.1 D23.72 Office Visit 08/09/2016 1:15p [facility] Nikko Samaniego, 75362 I25.10 Stef Jimenez, [facility], [facility] Office Visit 07/21/2016 11:45a [facility] Nikko Samaniego, 75201 R07.9 Barbara, [facility], [facility] I65.23 I10 I25.10 F17.210 Office Visit 06/23/2016 8:15a [facility] Of Nena Leiva M.D. 03020 M25.551 C.M.A. Z96.641 Office Visit 06/19/2016 2:00p [facility] Black Guido 70651 M54.5 Of Stef Jimenez Office Visit 06/05/2016 2:00p [facility] Nena Leiva M.D. 54810 M25.551 C.M.A. Z96.641 Office Visit 05/08/2016 3:00p [facility] Of Nena Leiva M.D. 89099 M25.551 C.M.A. Z96.641 M54.5 Office Visit 02/21/2016 1:00p [facility] Nena Leiva M.D. 05754 M17.32 C.M.AJohana M25.562 M25.462 Office Visit 07/19/2015 11:00a [facility] Of Nikkoblanca Samaniego, 64892 I25.9 Stef Jimenez, [facility], [facility] I65.23 Office Visit 05/08/2015 10:04a [facility] Lauro Meeks, 28046 J10.1 Hospitalists Barbara E11.9 J18.9 Office Visit 05/07/2015 10:03a [facility] Lauro Meeks, 90085 J10.1 Hospitalists Barbara E11.9 J18.9 G47.33 Office Visit 05/06/2015 10:02a [facility], Jihan Yee, 42029 J10.1 Hospitalists Barbara E11.9 J18.9 G47.33 Office Visit 05/05/2015 9:47a [facility] [address] J44.1 Services Of [facility] J18.9 G47.33 Office Visit 05/05/2015 10:02a [facility], Jihan Yee, 29996 J10.1 Hospitalists Barbara E11.9 J18.9 G47.33 Office Visit 05/04/2015 9:46a [facility] [address] J44.1 Services Of Clinical Rn Manager J18.9 G47.33 Office Visit 05/04/2015 10:00a [facility] Jihan Yee, 05361 J18.9 Hospitalists Barbara G47.33 E11.9 Z72.0 Office Visit 05/03/2015 10:00a [facility], Jihan Yee, 84846 J18.9 Hospitalists Barbara G47.33 E11.9 Z72.0 Office Visit 05/02/2015 10:00a [facility], Jihan Yee, 11318 J18.9 Hospitalists M.DJohana G47.33 E11.9 Z72.0 Office Visit 05/01/2015 9:59a [facility], Jihan Yee, 73341 J18.9 Hospitalists M.D. G47.33 E11.9 Z72.0 Office Visit 04/30/2015 9:59a [facility], Jihan Yee, 33746 J18.9 Hospitalists M.D. G47.33 E11.9 Z72.0 Office Visit 04/29/2015 9:58a [facility], Lee Harris M.D. 80292 J18.9 Hospitalists G47.33 E11.9 Z72.0 Office Visit 07/31/2014 1:15p [facility] Nikko Samaniego, 11482 414.9 Barbara, ISIDRA, [facility] Office Visit 07/20/2014 1:15p [facility] Nikko Samaniego, 18565 433.10 Stef Jimenez, ISIDRA, [facility] 786.50 Office Visit 08/11/2013 9:45a [facility] Nikko Samaniego, 64860 433.10 Stef Jimenez, ISIDRA, [facility] Office Visit 06/18/2012 10:15a [facility] Nikko Samaniego, 20409 414.9 Stef Jimenez, ISIDRA, [facility] Office Visit 08/10/2008 2:45a [facility],jimena Meeks, 51893 786.50 Hospitalists MSasha. Office Visit 08/09/2008 2:45a [facility],jimena Meeks, 43397 786.50 Hospitalists MSasha. Office Visit 08/08/2008 12:45a [facility],jimena Meeks, 40843 786.50 Hospitalists MIno Plan of Care Future Appointment(s):10/03/2017 1:00 pm - [facility] ECHO Schedule at [facility]08/29/2017 - Nikko Samaniego M.D., ISIDRA, RPGZUM18.9 Chest pain, unspecifiedNew Medication:Nitroglycerin 0.4 mgNew Orders: EchocardiogramComments:As discussed, I will further evaluate your chest pain. Call 911 if chest pain persists for greater than 15 minutes. Stop caffeine ingestion.Follow up:after cardiac testing.R00.2 PalpitationsNew Orders:ot- [facility] XrtrtwkcbF25.210 Nicotine dependence, cigarettes, uncomplicated
--- NOTE | 2017-09-21 12:53 | ED ---
Dizziness - HPI Summary HPI Summary: This is scribe Gio Fernandes documenting for attending Dr. Bladimir Jimenez This patient is a 62 year old F presenting to [facility] with a chief complaint of dizziness since 09/20/17. Pt was discharged yesterday from [facility]. Pt has a dramatic critic that is showing (+) results. Patient denies CP, SOB. She endorses weakness and lightheadedness. Pt notes that the vacuum form operator suggested taking her of the Cardizem to see if that is what is causing the sx. Pt denies taking any of her meds today. I, Dr. Garrison personally performed the services described in this documentation as scribed in my presence and it is both accurate and complete. - History Of Current Complaint Chief Complaint: EDDizziness Stated Complaint: CARDIAC ISSUE Time Seen by Provider: 09/21/17 12:06 Hx Obtained From: Patient Onset/Duration: Still Present Timing: Constant Severity Initially: Mild Severity Currently: Mild Character: Lightheaded, Weak, Dizzy Aggravating Factor(s): Nothing Alleviating Factor(s): Nothing Associated Signs And Symptoms: Positive: Unsteady Gait. Negative: Nausea, Vomiting, Chest Pain, SOB, Fever - Allergies/Home Medications Allergies/Adverse Reactions: Allergies Allergy/AdvReac Type Severity Reaction Status Date / Time codeine Allergy Itching Verified 09/21/17 12:59 haloperidol [From Haldol] Allergy Swelling Verified 09/21/17 12:59 Of Face,Lips,& Throat Penicillins Allergy Diarrhea Verified 09/21/17 12:59 pioglitazone [From Actos] Allergy Swelling Verified 09/21/17 12:59 prochlorperazine Allergy STROKE Verified 09/21/17 12:59 [From Compazine] LIKE SYMPTOMS atrovastatin AdvReac Severe Leg Cramps Uncoded 09/21/17 12:59 cogentin AdvReac Severe stroke Uncoded 09/21/17 12:59 like symptoms PMH/Surg Hx/FS Hx/Imm Hx Endocrine/Hematology History: Reports: Hx Diabetes Denies: Hx Thyroid Disease Cardiovascular History: Reports: Hx Angina - AT TIMES- PATIENT STATES NOT RECENTLY, Hx Coronary Artery Disease - ON MEDICATION FOR- STATES BLOCKAGE IN CARITOD AND ANOTHER ARTERY, Hx Hypertension, Other Cardiovascular Problems/ Disorders - CAD, IDDM II Denies: Hx Pacemaker/ICD, Hx Rheumatic Fever Respiratory History: Reports: Hx Asthma - PRN ALBUTEROL, Hx Chronic Obstructive Pulmonary Disease (COPD), Hx Pneumonia - more than once, Hx Sleep Apnea, Other Respiratory Problems/Disorders - PNA GI History: Reports: Hx Gastroesophageal Reflux Disease - NO MEDICATION AT THIS TIME, Hx Ulcer - HISTORY OF 3 ULCERS History: Denies: Hx Renal Disease Musculoskeletal History: Reports: Hx Arthritis, Hx Back Problems, Hx Tendonitis - HX OF IN BOTH HANDS, Other Musculoskeletal History - right hip replacement Sensory History: Reports: Hx Contacts or Glasses, Other Sensory Impairments - Had detached retina repair Denies: Hx Hearing Aid Opthamlomology History: Reports: Hx Contacts or Glasses, Other Sensory Impairments - Had detached retina repair Neurological History: Reports: 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 bilateral feet. right hip 2017. left hip 2016. cardiac cath. lower back. bilateral knees Hx Anesthesia Reactions: Yes - A HARD TIME WAKING-2011 Infectious Disease History: No Infectious Disease History: Denies: Traveled Outside the [place] in Last 30 Days - Family History Known Family History: Positive: Other - Anasthesia reaction - Social History Alcohol Use: Occasionally Substance Use Type: Reports: Prescribed Hx Tobacco Use: Yes Smoking Status (MU): Heavy Every Day Tobacco Smoker Type: Cigarettes Amount Used/How Often: 1/2 ppd Length of Time of Smoking/Using Tobacco: 43 years Have You Smoked in the Last Year: Yes Review of Systems Negative: Fever Negative: Chest Pain Negative: Shortness Of Breath Negative: Vomiting, Nausea Positive: no symptoms reported Neurological: Other - lightheadedness, dizziness Positive: Weakness All Other Systems Reviewed And Are Negative: Yes Physical Exam - Summary Physical Exam Summary: VITAL SIGNS: Reviewed. GENERAL: Patient is a well-developed and nourished female who is lying comfortable in the stretcher. Patient is not in any acute respiratory distress. HEAD AND FACE: No signs of trauma. No ecchymosis, hematomas or skull depressions. No sinus tenderness. EYES: PERRLA, EOMI x 2, No injected conjunctiva, no nystagmus. EARS: Hearing grossly intact. Ear canals and tympanic membranes are within normal limits. MOUTH: Oropharynx within normal limits. NECK: Supple, trachea is midline, no adenopathy, no JVD, no carotid bruit, no c- spine tenderness, neck with full ROM. CHEST: Symmetric, no tenderness at palpation LUNGS: Clear to auscultation bilaterally. No wheezing or crackles. CVS: Regular rate and rhythm, S1 and S2 present, no murmurs or gallops appreciated. ABDOMEN: Soft, non-tender. No signs of distention. No rebound no guarding, and no masses palpated. Bowel sounds are normal. EXTREMITIES: FROM in all major joints, no edema, no cyanosis or clubbing. NEURO: Alert and oriented x 3. No acute neurological deficits. Speech is normal and follows commands. SKIN: Dry and warm Triage Information Reviewed: Yes Vital Signs On Initial Exam: Initial Vitals Temp Pulse Resp BP Pulse Ox 98.2 F 78 20 186/55 99 09/21/17 12:05 09/21/17 12:05 09/21/17 12:05 09/21/17 12:05 09/21/17 12:05 Vital Signs Reviewed: Yes Diagnostics - Vital Signs Vital Signs Temp Pulse Resp BP Pulse Ox 09/21/17 12:05 98.2 F 78 20 186/55 99 - Laboratory Result Diagrams: 09/21/17 12:45 09/21/17 12:45 Lab Statement: Any lab studies that have been ordered have been reviewed, and results considered in the medical decision making process. - Radiology CXR Xray Interpretation: No Acute Changes Radiology Interpretation Completed By: Radiologist - No acute cardiopulmonary process evident. Dr. Garrison has reviewed this report. - EKG 1215 Cardiac Rate: NL - 71 EKG Rhythm: Sinus Rhythm ST Segment: Non-Specific - Diffuse ST abnormalities Ectopy: None EKG Interpretation: Diffuse ST abnormalities. Dizzy Course/Dx - Course Assessment/Plan: Patient is a 62-year-old female who was sent here to the emergency department from Dr. Guidry office who is the patients vacuum form operator since the patients halter monitor had captured some irregular pulses. The patient reports that occasionally she feels dizziness and they think that probably is been this patient is having irregular pulses. She denies any chest pain shortness of breath or palpitations. Blood test results without any significant abnormality. At this time I discussed my physical exam , findings and test results with Dr. Barron who accepted the patient for admission. - Diagnoses Provider Diagnoses: Arrhythmia Discharge - Sign-Out/Discharge Documenting (check all that apply): Patient Departure - admit - Discharge Plan Condition: [facility] Type: Provider - I, Dr. Garrison personally performed the services described in this documentation as scribed in my presence and it is both accurate and complete.
--- NOTE | 2017-09-21 13:11 | RAD ---
Indication: Palpitations. Lightheaded. History of COPD. Comparison: September 18, 2017 chest radiograph and January 31, [address] Technique: Upright AP 1250 hours Report: Large body habitus with superimposed soft tissues limiting diagnostic image quality of the lungs. No focal pulmonary lesion, compelling alveolar consolidation, pleural effusion, pneumothorax. Upper normal heart size. Unremarkable central pulmonary vasculature and mediastinal contours. IMPRESSION: #. No acute cardiopulmonary process evident.
[2017-09-21] MEDS ORDERED: Acetaminophen TAB* 325 MG PO PRN (13:18)
[2017-09-21 13:19] LABS: ABS Basophils 0 10^3/ul (0-0.2); ABS Eosinophils 0.2 10^3/ul (0-0.6); ABS Lymphocytes 3.7 10^3/ul (1.0-4.8); ABS Monocytes 0.7 10^3/ul (0-0.8); ABS Neutrophils 3.7 10^3/ul (1.5-7.7); ABS Nucleated RBC 0 10^3/ul; Eosinophil % 2.7 % (0-6); Hematocrit 39 % (35-47); Hemoglobin 13.4 g/dl (12.0-16.0); Lymphocyte % 43.9 % (25-47); Mean Corpuscular HGB Conc 34 g/dl (31-36); Mean Corpuscular Hemoglobin 31 pg (27-31); Mean Corpuscular Volume 92 fL (80-97); Mean Platelet Volume 9.5 um3 (7.4-10.4); Nucleated Red Blood Cells % 0.1; Platelet Count 220 10^3/ul (150-450); Red Blood Count 4.28 10^6/ul (4.00-5.40); Red Cell Distribution Width 13 % (10.5-15); White Blood Count 8.4 10^3/ul (3.5-10.8)
[2017-09-21 13:32] LABS: EGFR Non-African American 56.4 (>60)
[2017-09-21] MEDS ORDERED: Dextrose 50% Syringe 50 ML* 25 GM/50 ML SYRINGE IV PUSH PRN (13:40)
[2017-09-21] MEDS ORDERED: Albuterol 2.5 MG/3 ML NEB.SOL* (0.083%) INH PRN (13:57)
[2017-09-21] MEDS ORDERED: Lisinopril/HCTZ 20/12.5(NF) TAB PO SCH (14:00)
[2017-09-21] MEDS: Lisinopril TAB* 10 MG PO SCH (14:51)
[2017-09-21] MEDS: Hydrochlorothiazide TAB* 25 MG PO SCH (14:52)
[2017-09-21] MEDS: Heparin VIAL(*) 5000 UNITS/ML VIAL (FIVE THOUSAND) SUBCUT SCH ×2 (14:54→20:57)
[2017-09-21] MEDS: Hydrocodone/Acetamin 10/325 1 TAB PO PRN ×2 (15:18→20:57)
--- NOTE | 2017-09-21 15:37 | HP ---
CC: Dr. Ray; Dr. Samaniego; Dr. Sampson; Dr. Lainez* HISTORY AND PHYSICAL: DATE OF ADMISSION: 09/21/17 PRIMARY CARE PROVIDER: Dr. Ray. PRIMARY INTERLOCKING AND SIGNAL MECHANIC: Dr. Samaniego. ATTENDING PHYSICIAN: Dr. Wheat* (dictated by Baljinder Isidro NP). HISTORY OF PRESENT ILLNESS: Ms. Wood is a 62-year-old female patient, who was just here in our hospital. She was admitted on 09/18/17 and discharged yesterday. She was here for complaints of dizziness. She has a 30-day event monitor on. She was here and neurological workup was pursued, which was essentially unrevealing. She does have known carotid artery disease, but again it was not critical stenosis and it was about 50% to 60% in bilateral carotids, so Plavix was added. She was discharged. She did have intermittent dizzy spells that were thought secondary to be possibly transient attack. The visual changes that the patient had been describing on admission were resolved and she had an MRI of the brain with and without contrast, which showed resolution of her pituitary tumor. She was discharged on dual antiplatelet therapy. She had an episode of dizziness today around 10 o'clock and [employer] [facility] called the Cardiology office. She was sitting down having coffee today and the [facility] actually called the Cardiology office and it was informed that she had 10 pauses greater than 3 seconds, the longest was 4.7 seconds. The patient is on IV dose of diltiazem CD. At that point, the patient was deferred to the ER for further evaluation and management. She denied having any syncope today. She denied any chest pain or shortness of breath, but she did remember the dizzy spell, she just said she felt lightheaded and like she was going to faint and this was happening while sitting down. So, she came into the ED, she was evaluated and because of these pauses we were asked to evaluate for admission. PAST MEDICAL HISTORY: Significant for: 1. Diabetes. 2. Hypertension. 3. Hyperlipidemia. 4. CAD. 5. INOCENCIA, which she is noncompliant with the CPAP. 6. History of cocaine abuse. 7. COPD. 8. Cervical spondylosis. 9. Microscopic colitis. 10. Pituitary tumor, which was not seen on last MRI of the brain. 11. Depression. 12. Low back pain. 13. Carotid artery disease. PAST SURGICAL HISTORY: She has had a left hip arthroplasty, right total hip arthroplasty. She has had a right hip revision, carpal tunnel repair, back surgery, and foot surgery. HOME MEDICATIONS: Include: 1. Lantus 76 units subcu daily. 2. Metformin 500 mg daily. 3. Pravachol 40 mg p.o. 3 times a week. 4. Prilosec 20 mg p.o. daily. 5. Nitro 0.4 mg sublingual q.5 minutes p.r.n. chest pain x3. 6. Lisinopril/hydrochlorothiazide 1 tablet daily. 7. Ativan 0.5 mg every 8 hours. 8. [place] 1 tablet p.o. t.i.d. as needed. 9. Diltiazem 300 mg daily. 10. Valium 10 mg p.o. prior to MRI. 11. Plavix 75 mg daily. 12. Aspirin 81 mg daily. ALLERGIES TO MEDICATIONS: Include CODEINE, HALDOL, PENICILLIN, ACTOS, COMPAZINE , ATORVASTATIN, and COGENTIN. FAMILY HISTORY: Both parents had heart disease. SOCIAL HISTORY: She is a half-a-pack smoker. She has been smoking since she is a teenager. Denies alcohol abuse. Surrogate decision makers are her children. REVIEW OF SYSTEMS: There is no documented fever. She denied having any significant weight change. There is no double vision. She denies having any ear discharge. There was no rhinorrhea, no sore throat, no thyroid enlargement. She is denying having any chest pain to me. There is no orthopnea. There is no nocturnal dyspnea. She denied having any abdominal pain. There was no dysuria, no frequency. There was no loss of consciousness. No pruritus and no skin ulcerations. Review of 14 systems was completed, all others negative. PHYSICAL EXAMINATION GENERAL: At this time, Ms. Wood is a 62-year-old female patient. She is sitting in the ED stretcher. She does not appear to be in any acute distress. VITAL SIGNS: Blood pressure 196/55, pulse 78, respirations 20, O2 sat 99%, temperature 98.2. HEENT: Head: Atraumatic and normocephalic. Eyes: EOMs are intact. Sclerae anicteric and not pale. Throat: Oral mucosa appears to be moist. No oropharyngeal erythema. NECK: Supple. LUNGS: Clear to auscultation bilaterally. No wheezes, rales, or rhonchi. HEART: Sounds S1, S2. She had a regular rate and rhythm. No murmurs, rubs, or gallops. ABDOMEN: Soft, flat, nontender. Bowel sounds were present. EXTREMITIES: Pulses were 2+ throughout. She is moving all 4 extremities with 5 /5 strength. NEUROLOGICAL: The patient is awake, alert, and oriented x3. Speech clear. Tongue midline. Outdoor Fitness Trainer were equal. No gross focal deficits. SKIN: Grossly intact. DIAGNOSTIC STUDIES/LAB DATA: WBC of 8.4, RBC of 4.28, hemoglobin of 13.4, hematocrit of 39, platelet count of 320. The sodium was 140, potassium 4.1, chloride of 111, bicarb 24, BUN 20, creatinine of 1, glucose 90, lactic 1.2, calcium 9.1. Total bili 0.4, mag 2.0, AST 16, ALT 22, alk phos 48. CK 144, troponin 0.01. Albumin of 3.8. TSH pending. Old medical records were reviewed. She did have an EKG obtained today, which showed normal sinus rhythm, rate of 71. No ST elevations or T-wave inversions. Chest x-ray showed no active cardiopulmonary disease. Old medical records were reviewed. ASSESSMENT AND PLAN: Ms. Wood is a 62-year-old female patient coming into the ER today with complaints of abnormal findings on her Medi-Lynx with pauses and dizziness. She will be admitted under inpatient status for: 1. Dizziness. Again, I suspect the etiology of this probably is cardiac related. She was sent into the ER today. She should probably be evaluated for pacemaker, but I do think it is appropriate to stop her diltiazem. However, she does have a significant amount of coronary artery disease. She had a negative stress test recently. However, I am concerned that if we stop the diltiazem altogether, she may get tachycardic and become ischemic, so my plan would be to start her on a very small dose of metoprolol with caution, watching her closely and if she has signs of any pauses then we will need to stop it, but we will need to monitor her closely on telemetry. I did touch base with Dr. Mauser. He will formally consult. Records were sent over from Dr. Samaniego's office and we will continue to follow. 2. Diabetes. We will continue Lantus and lispro sliding scale. 3. Hypertension. Blood pressure down here is elevated, but it is probably secondary to the fact that she did not take her meds this morning, so we will certainly give her her meds. 4. Hyperlipidemia. Continue statin therapy. 5. Coronary artery disease. Continue statin, aspirin, Plavix. 6. Obstructive sleep apnea, noncompliant with her mask. 7. History of chronic obstructive pulmonary disease. 8. Cervical spondylosis. Continue with current medical regimen. 9. History of pituitary tumor. Again, not seen on last imaging done here, but she can follow up with her PCP. 10. Microscopic colitis. Continue with current medical regimen. 11. Depression. Continue with supportive care. 12. History of low back pain. Continue meds as prescribed. 13. Carotid artery disease. Continue dual antiplatelet therapy and statin therapy. 14. DVT prophylaxis: I have placed her on heparin subcu. 15. Code status: Full code. 16. Fluids, electrolytes and nutrition: She can have a heart-healthy diet. TIME SPENT: Time spent on the admission was 60 minutes, greater than half the time was spent [id number] with the patient obtaining my history and physical, other half of the time was spent going over the plan of care with the patient and implementing the plan of care. I discussed the plan of care with my attending, Dr. Wheat, she is in agreement. BALJINDER ISIDRO, DEANGELO [id number]/[facility] #: [id number] LISA
[2017-09-21] MEDS: CMCS - Pravastatin (NF) 20 MG TAB PO SCH (16:52)
[2017-09-21] MEDS: Insulin LISPRO* 1 UNITS UNIT SUBCUT SCH (16:58)
[2017-09-21] MEDS: Nitroglycerin TAB 0.4 MG* 0.4 MG TAB SL PRN (18:23)
[2017-09-21] MEDS: Nicotine PATCH 21 MG/24 HR* PATCH TRANSDERM SCH (20:54)
[2017-09-21] MEDS: Nicotine Patch Removal NOTE FOLLOW UP SCH (20:54)
[2017-09-21] MEDS: amLODIPine TAB* 5 MG PO SCH (20:56)
[2017-09-21] MEDS ORDERED: Metoprolol Tartrate TAB* 25 MG PO SCH (21:00)
[2017-09-21] MEDS: LORazepam TAB(*) 0.5 MG PO PRN (21:05)
[2017-09-21] MEDS: Insulin GLARGINE(*) 1 UNITS UNIT SUBCUT SCH (21:20)
--- NOTE | 2017-09-22 01:11 | CONS ---
CARDIOLOGY CONSULTATION: DATE OF CONSULT: 09/21/17 PATIENT OF: Dr. Ray REQUESTING PROVIDER: Baljinder Isidro NP REASON FOR EVALUATION: Near syncope and pauses. HISTORY OF PRESENT ILLNESS: This is a very pleasant 62-year-old woman, who has multiple medical problems including nonobstructive coronary disease, hypertension, hyperlipidemia, sleep apnea, obesity, tobacco use, COPD, who said that over the last 2 months, she has developed episodes of near syncope. She said these can occur while sitting or standing. Usually, last a couple seconds. She feels like she is going to pass out. She says they are associated with diaphoresis and some mild chest pressure. They last a couple of seconds and resolve. She has had no lis syncope. These episodes were happening every few days and because of recent increase, she was prescribed an event monitor by Dr. Samaniego. She came into the hospital for evaluation of the dizzy spells between 09/18/17 and 09/20/17. She had an extensive evaluation including MRI and MRA of the head and neck which were negative. She had a history of pituitary adenoma, however, the MRI revealed no growth on the pituitary. Troponins were negative. She had a stress test in July that was negative. She was started on Plavix for possible TIA and was discharged home. The monitor was placed on 09/07/17 and she had a 2.4-second pause and some idioventricular rhythms and some brief nonsustained fast supraventricular rhythms. The longest supraventricular rhythm was approx 8 beats at 131 beats per minute. However, she was discharged on 09/20/17 and yesterday while checking out, she had a dizzy spell which was not captured and then today she had a dizzy spell this morning. Her Lynx monitor revealed 3.4-second pause yesterday evening and a pause up to 4.7 seconds at 2000 last evening. Because of those findings, she was sent to the emergency room for further evaluation. She has been on Diltiazem for history of fast rhythms and possible angina. She denies syncope, fevers, chills, sweats, cough, orthopnea, peripheral edema. She does have some dependent edema, which resolves with elevation of the legs. She says at night sometimes she sweats. PAST MEDICAL HISTORY: Includes: 1. Diabetes. 2. Hypertension. 3. Hyperlipidemia. 4. Coronary artery disease with a ANA LUISA in August 2011, which revealed a LAD with a mild corkscrew appearance. Circumflex was nondominant and there were 25% to 30% lesions in the mid portion and there was a low lying OM branch, posterior left ventricle branch. It had a 65% to 70% narrowing, unchanged compared to prior catheterization. Right coronary artery, mid disease at 30% to 35% and 35 % to 40% distal. It was recommended that she have medical therapy. 5. She has a history of COPD and continues to smoke. 6. Obstructive sleep apnea. She does not use a mask. She declines. 6. She has microcytic colitis. 7. Cervical spondylosis. 8. Pituitary tumor not seen on the last MRI. 9. Depression. 10. Back pain. 11. Nonobstructive carotid disease being followed by vascular surgeon. PAST SURGICAL HISTORY: Include: 1. Left hip arthroplasty. 2. Right total hip arthroplasty. 3. Right hip revision. 4. Carpal tunnel. 5. Back surgery. 6. Foot surgery. MEDICATIONS: As an outpatient include: 1. Insulin glargine. 2. Metformin. 3. Pravastatin. 4. Omeprazole. 5. Nitroglycerin p.r.n. 6. Lisinopril/hydrochlorothiazide. 7. Diltiazem 300 a day, last taken morning. 8. Valium 10 mg once a day. 9. Plavix 75 mg a day, taken yesterday. 10. Aspirin 81 mg a day. As an inpatient she is on: 1. Acetaminophen. 2. Albuterol. 3. Aspirin. 4. Clopidogrel 5000 units. 5. Heparin subcu q.8. 6. Hydrochlorothiazide 12.5. 7. Lisinopril 20 mg a day. 8. Nicotine patch 21 mg for 24 hours transdermally a day. 9. Nitroglycerin p.r.n. 10. Protonix 40 mg a day. 11. Pravastatin 40 mg a day. ALLERGIES: Include HALDOL, PENICILLIN, ACTOS, COMPAZINE, ATORVASTATIN gives cramps, COGENTIN, and CODEINE. FAMILY HISTORY: Includes 8 siblings, 1 brother of [place] at 68 and one sister has coronary disease. SOCIAL HISTORY: She is , accompanied by her . Has 4 living children, 1 child was recently murdered which she has been very stressful for her. She denies alcohol use, but does smoke a half-a-pack per day and has since a teenager. She does not exercise regularly. Does work at the [employer] and serves at the [employer]. Of note, she had a nuclear stress test on 09/12/17, which revealed no evidence of ischemia. Normal LV function, and she had echocardiogram on 08/02/17, which revealed normal hyperdynamic LV function with EF of 65% to 70%, similar to the prior echocardiogram of April 2015. LVOT velocity was 1.4. Aortic valve velocity 1.8. REVIEW OF SYSTEMS: Review of systems x10 was negative except as above. PHYSICAL EXAM: She is a well-developed, obese female. No apparent distress. Weight 206 pounds. Blood pressure 156/51, O2 sats 100%. Heart rate of 59. No significant JVD. Carotids 2+ without bruits. Cardiac Exam: S1, S2 with no clear murmurs, gallops, or rubs. No CVAT. Abdomen: Bowel sounds present, nontender. No hepatosplenomegaly. Femoral pulses intact without bruits. Distal pulses intact. No edema. Motor strength 5/5 bilaterally. Deep tendon reflexes 2/4. Alert and oriented x3. Skin turgor normal. DIAGNOSTIC STUDIES/LAB DATA: White count of 8.4, hemoglobin of 13.4, hematocrit of 39, platelet count of 220. Sodium was 141, potassium of 4.1, bicarb of 24, BUN 20, creatinine of 1, troponin of 0.01 and 0.01, TSH of 1.85. Chest x-ray was negative and EKG revealed sinus rhythm with inferolateral ST depressions. No significant change compared to last admission and she also has possible left atrial enlargement. No significant change compared to the previous, last admission or January. IMPRESSION: My impression is that Ms. Wood has multiple medical problems including nonobstructive coronary artery disease, tendency towards tachyarrhythmias treated with diltiazem in the past, chest pain of unclear etiology perhaps angina and now with episodes of near syncope, found to have prolonged pauses. She seems to have a sick sinus syndrome which may or may not be exacerbated by her diltiazem. I did discuss at length with her and her the nature of the findings and the plan. PLAN: The plan is as follows: 1. We will hold the diltiazem to see if she has improvement in her pauses. 2. She understands potential need for pacemaker if the pauses fail to respond or if indeed she has recurrent tachyarrhythmias that require treatment with diltiazem. 3. In the interim, we will start calcium channel claudio as antianginal perhaps amlodipine 2.5 mg a day. 4. We will hold the Plavix in case she needs to have a pacemaker. 5. We will continue aspirin and subcu heparin as you are doing for prophylaxis. 6. I did explain that it is important that she eliminate tobacco use, which increases her risk for morbidity and mortality. 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 8. if she does need treatment with a negative chronotrope, we could consider using esmolol as a short-acting beta-claudio. 9. We would avoid caffeine too. 10. I would also encourage her to try to treat her sleep apnea. Further recommendations will depend on her clinical course, discussed with Baljinder Isidro. I would also encourage her to try to treat her sleep apnea. [id number]/[facility] #: [id number] LISA
[2017-09-22] MEDS: Heparin VIAL(*) 5000 UNITS/ML VIAL (FIVE THOUSAND) SUBCUT SCH ×3 (05:34→21:44)
[2017-09-22 06:48] LABS: ABS Basophils 0 10^3/ul (0-0.2); ABS Eosinophils 0.3 10^3/ul (0-0.6); ABS Lymphocytes 3.3 10^3/ul (1.0-4.8); ABS Monocytes 0.5 10^3/ul (0-0.8); ABS Neutrophils 2.1 10^3/ul (1.5-7.7); ABS Nucleated RBC 0 10^3/ul; Eosinophil % 5.1 % (0-6); Hematocrit 38 % (35-47); Lymphocyte % 52.8 % (25-47); Mean Corpuscular HGB Conc 35 g/dl (31-36); Mean Corpuscular Hemoglobin 32 pg (27-31); Mean Corpuscular Volume 91 fL (80-97); Mean Platelet Volume 9.1 um3 (7.4-10.4); Nucleated Red Blood Cells % 0.3; Platelet Count 197 10^3/ul (150-450); Red Blood Count 4.15 10^6/ul (4.00-5.40); Red Cell Distribution Width 13 % (10.5-15); White Blood Count 6.3 10^3/ul (3.5-10.8)
[2017-09-22 06:55] LABS: INR 0.9 (0.77-1.02)
[2017-09-22 07:06] LABS: EGFR Non-African American 65.3 (>60)
[2017-09-22] MEDS: Insulin LISPRO* 1 UNITS UNIT SUBCUT SCH ×3 (07:27→16:43)
[2017-09-22] MEDS: Hydrocodone/Acetamin 10/325 1 TAB PO PRN ×2 (08:49→21:28)
[2017-09-22] MEDS: Lisinopril TAB* 10 MG PO SCH (08:49)
[2017-09-22] MEDS: Aspirin EC TAB* 81 MG TAB.EC PO SCH (08:49)
[2017-09-22] MEDS: Pantoprazole TAB (NF) 40 MG TAB PO SCH (08:49)
[2017-09-22] MEDS: Hydrochlorothiazide TAB* 25 MG PO SCH (08:50)
[2017-09-22] MEDS: Nicotine PATCH 21 MG/24 HR* PATCH TRANSDERM SCH (08:53)
[2017-09-22] MEDS ORDERED: Clopidogrel TAB* 75 MG PO SCH (09:00)
[2017-09-22] MEDS: amLODIPine TAB* 5 MG PO SCH (09:02)
--- NOTE | 2017-09-22 13:55 | PN ---
Subjective Date of Service: 09/22/17 Interval History: HOSPITALIST PROGRESS NOTE Patient seen and examined at bedside. Care reviewed and d/w Martha Barraza RN. She feels better today. No further episodes of chest pain or dizziness. No significant pauses on telemetry. Family History: Unchanged from Admission Social History: Unchanged from Admission Past Medical History: Unchanged from Admission Objective Active Medications: Acetaminophen (Tylenol Tab*) 650 mg PO Q4H PRN PRN Reason: FEVER/PAIN Hydrocodone Bitart/Acetaminophen ([place] 10/325 (Nf)) 1 tab PO TID PRN PRN Reason: PAIN - BACK Last Admin: 09/22/17 08:49 Dose: 1 tab Albuterol (Ventolin 2.5 Mg/3 Ml Neb.Myah*) 2.5 mg INH Q2H PRN PRN Reason: SOB/WHEEZING Amlodipine Besylate (Norvasc Tab*) 5 mg PO DAILY [facility] Last Admin: 09/22/17 09:02 Dose: 5 mg Aspirin (Aspirin Ec Tab*) 81 mg PO DAILY [facility] Last Admin: 09/22/17 08:49 Dose: 81 mg Dextrose (D50w Syringe 50 Ml*) 12.5 gm IV PUSH .FOR FS < 60 - SS PRN PRN Reason: FS < 60 Heparin Sodium (Porcine) (Heparin Vial(*)) 5,000 units SUBCUT Q8HR [facility] Last Admin: 09/22/17 05:34 Dose: 5,000 units Hydrochlorothiazide (Hydrodiuril Tab*) 12.5 mg PO DAILY [facility] Last Admin: 09/22/17 08:50 Dose: 12.5 mg Insulin Glargine (Lantus(*)) 76 units SUBCUT BEDTIME [facility] Last Admin: 09/21/17 21:20 Dose: 76 unit Insulin Human Lispro (Humalog*) 0 units SUBCUT AC [facility]; Protocol Last Admin: 09/22/17 12:05 Dose: 2 units Lisinopril (Prinivil Tab*) 20 mg PO DAILY [facility] Last Admin: 09/22/17 08:49 Dose: 20 mg Lorazepam (Ativan Tab(*)) 0.5 mg PO Q8H PRN PRN Reason: ANXIETY Last Admin: 09/21/17 21:05 Dose: 0.5 mg Nicotine (Nicotine Patch 21 Mg/24 Hr*) 1 patch TRANSDERM DAILY [facility] Last Admin: 09/22/17 08:53 Dose: 1 patch Nitroglycerin (Nitroglycerin Tab 0.4 Mg*) 0.4 mg SL Q5M PRN PRN Reason: ANGINA Last Admin: 09/21/17 18:23 Dose: 0.4 mg Pantoprazole Sodium (Protonix Tab (Nf)) 40 mg PO DAILY [facility] Last Admin: 09/22/17 08:49 Dose: 40 mg Pharmacy Profile Note (Nicotine Patch Removal Note*) 1 note FOLLOW UP 2100 [facility] Last Admin: 09/21/17 20:54 Dose: Not Given Pravastatin Sodium (Pravachol (Nf)) 40 mg PO Q48H [facility]; Protocol Last Admin: 09/21/17 16:52 Dose: Not Given Vital Signs - 8 hr 09/22/17 09/22/17 09/22/17 07:18 08:00 08:49 Temperature 98.3 F Pulse Rate 54 Respiratory 18 18 18 Rate Blood Pressure 151/52 (mmHg) O2 Sat by Pulse 100 Oximetry 09/22/17 09/22/17 09/22/17 08:54 11:05 11:15 Temperature 98.4 F Pulse Rate 61 58 79 Respiratory 18 18 Rate Blood Pressure 149/56 148/55 (mmHg) O2 Sat by Pulse 94 97 Oximetry Oxygen Devices in Use Now: None Appearance: Pleasant obese lady lying in bed in [facility]. Eyes: No Scleral Icterus Ears/Nose/Mouth/Throat: Mucous Membranes Moist Neck: Trachea Midline Respiratory: Symmetrical Chest Expansion and Respiratory Effort, Clear to Auscultation Cardiovascular: RRR - Normal S1 and S2 Abdominal: NL Sounds; No Tenderness; No Distention Extremities: No Edema Neurological: Alert and Oriented x 3, NL Muscle Strength and Tone Result Diagrams: 09/22/17 06:36 09/22/17 06:36 Assess/Plan/Problems-Billing Assessment: Mrs Wood is a 62yo F with PMH of type 2 DM, HTN, HLD, CAD, INOCENCIA, COPD, microscopic colitis, pituitary tumor, who presented to ED with c/o dizziness and CP, with negative w/u while in the Hospital. Called to return to ED because event monitor showed sinus pauses up to 4.7 seconds. - Patient Problems (1) Sinus pause Comment: - Cardiology input appreciated - suspect sick sinus syndrome exacerbated by Diltiazem. - Diltiazem discontinued - continue to monitor with Telemetry. - If she has current prolonged pauses or develops tachyarrhythmias will require pacer placement. (2) CAD (coronary artery disease) Comment: - Continue aspirin, statin, and amlodpine was added as antianginal. - Plavix on hold for possible pacer placement. (3) DM type 2 (diabetes mellitus, type 2) Comment: - Check A1c. - Continue Lantus and Lispro SS. (4) HTN (hypertension) Comment: - Controlled. - Negative orthostatic. - Continue Lisinopril, Amlodipine, and HCTZ. (5) HLD (hyperlipidemia) Comment: - Continue statin. (6) DVT prophylaxis Comment: - SQ heparin. (7) Full code status Status and Disposition: Inpatient.
[2017-09-22] MEDS: Nitroglycerin TAB 0.4 MG* 0.4 MG TAB SL PRN (14:50)
[2017-09-22] MEDS ORDERED: amLODIPine TAB* 5 MG PO ONE (14:52)
[2017-09-22] MEDS ORDERED: Morphine INJ* 2 MG/ML 1 ML SYRINGE (TWO MG - NEW SYRINGE VERSION) IV ONE (14:53)
[2017-09-22] MEDS: Insulin GLARGINE(*) 1 UNITS UNIT SUBCUT SCH (21:28)
[2017-09-22] MEDS: Nicotine Patch Removal NOTE FOLLOW UP SCH (21:28)
[2017-09-22] MEDS: LORazepam TAB(*) 0.5 MG PO PRN (21:44)
[2017-09-23] MEDS: Heparin VIAL(*) 5000 UNITS/ML VIAL (FIVE THOUSAND) SUBCUT SCH ×3 (06:06→22:17)
[2017-09-23] MEDS: Insulin LISPRO* 1 UNITS UNIT SUBCUT SCH ×3 (08:01→17:36)
[2017-09-23] MEDS: Hydrocodone/Acetamin 10/325 1 TAB PO PRN ×2 (08:53→22:16)
[2017-09-23] MEDS: Nicotine PATCH 21 MG/24 HR* PATCH TRANSDERM SCH (08:54)
[2017-09-23] MEDS: Hydrochlorothiazide TAB* 25 MG PO SCH (08:54)
[2017-09-23] MEDS: Aspirin EC TAB* 81 MG TAB.EC PO SCH (08:54)
[2017-09-23] MEDS: Pantoprazole TAB (NF) 40 MG TAB PO SCH (08:54)
[2017-09-23] MEDS: Lisinopril TAB* 10 MG PO SCH (08:54)
[2017-09-23] MEDS: amLODIPine TAB* 5 MG PO SCH (08:54)
[2017-09-23] MEDS: CMCS - Pravastatin (NF) 20 MG TAB PO SCH (08:54)
--- NOTE | 2017-09-23 15:57 | PN ---
Subjective Date of Service: 09/23/17 Interval History: No events on tele except sinus yomi in mid-40s when she walked. Ms. Wood was instructed to walk around the unit, and she did, and when she did she says she experienced dizziness, diaphoresis, and shortness of breath. No chest pain, feels okay at rest. Family History: Unchanged from Admission Social History: Unchanged from Admission Past Medical History: Unchanged from Admission Objective Active Medications: Acetaminophen (Tylenol Tab*) 650 mg PO Q4H PRN PRN Reason: FEVER/PAIN Hydrocodone Bitart/Acetaminophen ([place] 10/325 (Nf)) 1 tab PO TID PRN PRN Reason: PAIN - BACK Last Admin: 09/23/17 08:53 Dose: 1 tab Albuterol (Ventolin 2.5 Mg/3 Ml Neb.Myah*) 2.5 mg INH Q2H PRN PRN Reason: SOB/WHEEZING Amlodipine Besylate (Norvasc Tab*) 5 mg PO DAILY [facility] Last Admin: 09/23/17 08:54 Dose: 5 mg Aspirin (Aspirin Ec Tab*) 81 mg PO DAILY [facility] Last Admin: 09/23/17 08:54 Dose: 81 mg Dextrose (D50w Syringe 50 Ml*) 12.5 gm IV PUSH .FOR FS < 60 - SS PRN PRN Reason: FS < 60 Heparin Sodium (Porcine) (Heparin Vial(*)) 5,000 units SUBCUT Q8HR [facility] Last Admin: 09/23/17 15:01 Dose: Not Given Hydrochlorothiazide (Hydrodiuril Tab*) 12.5 mg PO DAILY [facility] Last Admin: 09/23/17 08:54 Dose: 12.5 mg Insulin Glargine (Lantus(*)) 76 units SUBCUT BEDTIME [facility] Last Admin: 09/22/17 21:28 Dose: 76 unit Insulin Human Lispro (Humalog*) 0 units SUBCUT AC [facility]; Protocol Last Admin: 09/23/17 13:26 Dose: Not Given Lisinopril (Prinivil Tab*) 20 mg PO DAILY [facility] Last Admin: 09/23/17 08:54 Dose: 20 mg Lorazepam (Ativan Tab(*)) 0.5 mg PO Q8H PRN PRN Reason: ANXIETY Last Admin: 09/22/17 21:44 Dose: 0.5 mg Nicotine (Nicotine Patch 21 Mg/24 Hr*) 1 patch TRANSDERM DAILY [facility] Last Admin: 09/23/17 08:54 Dose: 1 patch Nitroglycerin (Nitroglycerin Tab 0.4 Mg*) 0.4 mg SL Q5M PRN PRN Reason: ANGINA Last Admin: 09/22/17 14:50 Dose: 0.4 mg Pantoprazole Sodium (Protonix Tab (Nf)) 40 mg PO DAILY [facility] Last Admin: 09/23/17 08:54 Dose: 40 mg Pharmacy Profile Note (Nicotine Patch Removal Note*) 1 note FOLLOW UP 2100 [facility] Last Admin: 09/22/17 21:28 Dose: 1 note Pravastatin Sodium (Pravachol (Nf)) 40 mg PO Q48H [facility]; Protocol Last Admin: 09/23/17 08:54 Dose: 40 mg Vital Signs - 8 hr 09/23/17 09/23/17 09/23/17 08:00 08:53 11:42 Temperature 96.9 F Pulse Rate 52 Respiratory 16 18 14 Rate Blood Pressure 140/49 (mmHg) O2 Sat by Pulse 100 Oximetry 09/23/17 14:11 Temperature Pulse Rate 59 Respiratory 16 Rate Blood Pressure (mmHg) O2 Sat by Pulse 99 Oximetry Oxygen Devices in Use Now: None Appearance: alert, resting in bed, no distress Eyes: No Scleral Icterus Ears/Nose/Mouth/Throat: NL Teeth, Lips, Gums Neck: NL Appearance and Movements; NL JVP Respiratory: Symmetrical Chest Expansion and Respiratory Effort, Clear to Auscultation Cardiovascular: NL Sounds; No Murmurs; No JVD, RRR Abdominal: NL Sounds; No Tenderness; No Distention Lymphatic: No Cervical Adenopathy Extremities: No Edema Skin: No Rash or Ulcers Neurological: Alert and Oriented x 3 Result Diagrams: 09/22/17 06:36 09/22/17 06:36 Assess/Plan/Problems-Billing Assessment: Ms Wood is a 62yo F with history of DM, HTN, HLD, CAD, INOCENCIA, COPD, microscopic colitis, pituitary tumor, who presented to ED on 09/18 with c/o dizziness and CP, with negative w/u while in the Hospital; discharged on 09/20 with an event monitor. Called to return to ED because event monitor showed sinus pauses up to 4.7 seconds. - Patient Problems (1) Dizziness Current Visit: No Status: Acute Code(s): R42 - DIZZINESS AND GIDDINESS SNOMED Code(s): 492007474 Comment: Case discussed with Dr. Lainez At home, this was indeed associated with a sinus pause recorded on the event monitor, but the pauses have improved off the diltiazem. Her dizziness today occurred with exertion, at [facility] time she had no tele events Her dizziness may be a reflection of LVOT obstruction given her hyperdynamic LV. If this is the case, that woudl necessitate cardizem or a beta claudio, which would then necessitate placement of a pacemaker. We will check a stress test tomorrow to evaluate her physiology when she exercise Then may need a pacemaker after that. (2) SVT (supraventricular tachycardia) Current Visit: Yes Status: Acute Code(s): I47.1 - SUPRAVENTRICULAR TACHYCARDIA SNOMED Code(s): 6270590 Comment: we have not recorded any on tele this admission but she has required cardizem for this in the past (3) Sinus pause Current Visit: Yes Status: Acute Code(s): I45.5 - OTHER SPECIFIED HEART BLOCK SNOMED Code(s): 80746315 Comment: Resolved after discontinuation of cardizem but now complicated by suspected LVOT obstruction, which may explain why she felt better on a CCB (4) CAD (coronary artery disease) Current Visit: Yes Status: Acute Code(s): I25.10 - ATHSCL HEART DISEASE OF [place] CORONARY ARTERY W/O ANG PCTRS SNOMED Code(s): 19255935 Comment: Continue aspirin, statin, and amlodpine was added as antianginal. Plavix on hold for possible pacer placement. Status and Disposition: Inpatient.
[2017-09-23] MEDS: LORazepam TAB(*) 0.5 MG PO PRN (17:39)
[2017-09-23] MEDS: Insulin GLARGINE(*) 1 UNITS UNIT SUBCUT SCH (22:17)
[2017-09-23] MEDS: Nicotine Patch Removal NOTE FOLLOW UP SCH (22:18)
[2017-09-24 04:55] LABS: Hematocrit 40 % (35-47); Hemoglobin 13.7 g/dl (12.0-16.0); Mean Corpuscular HGB Conc 34 g/dl (31-36); Mean Corpuscular Hemoglobin 31 pg (27-31); Mean Corpuscular Volume 92 fL (80-97); Mean Platelet Volume 8.7 um3 (7.4-10.4); Platelet Count 219 10^3/ul (150-450); Red Blood Count 4.37 10^6/ul (4.00-5.40); Red Cell Distribution Width 13 % (10.5-15); White Blood Count 7.3 10^3/ul (3.5-10.8)
[2017-09-24 05:41] LABS: ABS Basophils 0.1 10^3/ul (0-0.2); ABS Eosinophils 0.3 10^3/ul (0-0.6); ABS Lymphocytes 3.2 10^3/ul (1.0-4.8); ABS Monocytes 0.6 10^3/ul (0-0.8); ABS Neutrophils 3.1 10^3/ul (1.5-7.7); ABS Nucleated RBC 0 10^3/ul; Eosinophil % 4.6 % (0-6); Lymphocyte % 44.5 % (25-47); Nucleated Red Blood Cells % 0.2
[2017-09-24] MEDS: Heparin VIAL(*) 5000 UNITS/ML VIAL (FIVE THOUSAND) SUBCUT SCH ×3 (05:58→21:23)
[2017-09-24] MEDS ORDERED: Diazepam TAB(*) 5 MG PO ONE (09:14)
[2017-09-24] MEDS ORDERED: Clindamycin 900 MG IVPREMIX(* 900 MG/50 ML SDV IV ONE (09:14)
[2017-09-24] MEDS: Aspirin EC TAB* 81 MG TAB.EC PO SCH (09:20)
[2017-09-24] MEDS: Insulin LISPRO* 1 UNITS UNIT SUBCUT SCH ×3 (09:20→18:19)
[2017-09-24] MEDS: Hydrochlorothiazide TAB* 25 MG PO SCH (09:21)
[2017-09-24] MEDS: Pantoprazole TAB (NF) 40 MG TAB PO SCH (09:32)
[2017-09-24] MEDS: Hydrocodone/Acetamin 10/325 1 TAB PO PRN ×2 (09:32→21:23)
[2017-09-24] MEDS: amLODIPine TAB* 5 MG PO SCH (09:32)
[2017-09-24] MEDS: Nicotine PATCH 21 MG/24 HR* PATCH TRANSDERM SCH (09:32)
[2017-09-24] MEDS: Lisinopril TAB* 10 MG PO SCH (09:32)
[2017-09-24] MEDS ORDERED: D5W 1/2 NS 1000 ML BAG* 1,000 ML IV SCH (10:00)
--- NOTE | 2017-09-24 11:56 | PN ---
Subjective Date of Service: 09/24/17 Interval History: pt reports she feels "good" no c/o of dizziness. Denies any other complaints. Family History: Unchanged from Admission Social History: Unchanged from Admission Past Medical History: Unchanged from Admission Objective Active Medications: Acetaminophen (Tylenol Tab*) 650 mg PO Q4H PRN PRN Reason: FEVER/PAIN Hydrocodone Bitart/Acetaminophen ([place] 10/325 (Nf)) 1 tab PO TID PRN PRN Reason: PAIN - BACK Last Admin: 09/24/17 09:32 Dose: 1 tab Albuterol (Ventolin 2.5 Mg/3 Ml Neb.Myah*) 2.5 mg INH Q2H PRN PRN Reason: SOB/WHEEZING Amlodipine Besylate (Norvasc Tab*) 5 mg PO DAILY [facility] Last Admin: 09/24/17 09:32 Dose: 5 mg Aspirin (Aspirin Ec Tab*) 81 mg PO DAILY [facility] Last Admin: 09/24/17 09:20 Dose: Not Given Dextrose (D50w Syringe 50 Ml*) 12.5 gm IV PUSH .FOR FS < 60 - SS PRN PRN Reason: FS < 60 Heparin Sodium (Porcine) (Heparin Vial(*)) 5,000 units SUBCUT Q8HR [facility] Last Admin: 09/24/17 05:58 Dose: 5,000 units Hydrochlorothiazide (Hydrodiuril Tab*) 12.5 mg PO DAILY [facility] Last Admin: 09/24/17 09:21 Dose: Not Given Dextrose/Sodium Chloride (D5w 1/2 Ns 1000 Ml Bag*) 1,000 mls @ 100 mls/hr IV PER RATE [facility] Last Admin: 09/24/17 09:39 Dose: 100 mls/hr Insulin Glargine (Lantus(*)) 76 units SUBCUT BEDTIME [facility] Last Admin: 09/23/17 22:17 Dose: 76 unit Insulin Human Lispro (Humalog*) 0 units SUBCUT AC [facility]; Protocol Last Admin: 09/24/17 09:20 Dose: Not Given Lisinopril (Prinivil Tab*) 20 mg PO DAILY [facility] Last Admin: 09/24/17 09:32 Dose: 20 mg Lorazepam (Ativan Tab(*)) 0.5 mg PO Q8H PRN PRN Reason: ANXIETY Last Admin: 09/23/17 17:39 Dose: 0.5 mg Nicotine (Nicotine Patch 21 Mg/24 Hr*) 1 patch TRANSDERM DAILY [facility] Last Admin: 09/24/17 09:32 Dose: 1 patch Nitroglycerin (Nitroglycerin Tab 0.4 Mg*) 0.4 mg SL Q5M PRN PRN Reason: ANGINA Last Admin: 09/22/17 14:50 Dose: 0.4 mg Pantoprazole Sodium (Protonix Tab (Nf)) 40 mg PO DAILY [facility] Last Admin: 09/24/17 09:32 Dose: 40 mg Pharmacy Profile Note (Nicotine Patch Removal Note*) 1 note FOLLOW UP 2100 [facility] Last Admin: 09/23/17 22:18 Dose: Not Given Pravastatin Sodium (Pravachol (Nf)) 40 mg PO Q48H [facility]; Protocol Last Admin: 09/23/17 08:54 Dose: 40 mg Vital Signs - 8 hr 09/24/17 09/24/17 09/24/17 03:54 05:49 07:42 Temperature 98.4 F 98.1 F Pulse Rate 62 64 Respiratory 18 18 18 Rate Blood Pressure 127/40 131/99 (mmHg) O2 Sat by Pulse 98 100 Oximetry 09/24/17 09/24/17 08:00 09:32 Temperature Pulse Rate Respiratory 18 18 Rate Blood Pressure (mmHg) O2 Sat by Pulse Oximetry Oxygen Devices in Use Now: None Appearance: 62 yo female sitting up in bed in NAD - A+O x3 Eyes: No Scleral Icterus, PERRLA Ears/Nose/Mouth/Throat: NL Teeth, Lips, Gums, Mucous Membranes Moist Respiratory: Symmetrical Chest Expansion and Respiratory Effort, Clear to Auscultation Cardiovascular: NL Sounds; No Murmurs; No JVD, RRR, No Edema Abdominal: NL Sounds; No Tenderness; No Distention, - - obese Skin: No Rash or Ulcers, No Nodules or Sclerosis Neurological: Alert and Oriented x 3 Lines/Tubes/Other Access: Clean, Dry and Intact Peripheral IV Result Diagrams: 09/24/17 04:45 09/22/17 06:36 Assess/Plan/Problems-Billing Assessment: Ms Wood is a 62yo F with history of DM, HTN, HLD, CAD, INOCENCIA, COPD, microscopic colitis, pituitary tumor, who presented to ED on 09/18 with c/o dizziness and CP, with negative w/u while in the Hospital; discharged on 09/20 with an event monitor. Called to return to ED because event monitor showed sinus pauses up to 4.7 seconds. - Patient Problems (1) Dizziness Comment: suspect secondary to LVOT obstruction with noted cardiac pauses recorded on event monitor at home and noted in hospital on tele monitoring Cardiology following - stress test canceled by cardiology - she recieved a stress test 2 weeks ago - plan for pacer placement today (2) Sinus pause Comment: Resolved after discontinuation of cardizem but now complicated by suspected LVOT obstruction, which may explain why she felt better on a CCB - Plan for pacer today with Dr. Tavarez - will restart cardizm afterwards (3) CAD (coronary artery disease) Comment: Continue aspirin, statin, and amlodpine was added as antianginal. Plavix on hold for possible pacer placement. (4) DVT prophylaxis Comment: - SQ heparin. Status and Disposition: Inpatient. Plan for pacer placement today - home when medically stable.
[2017-09-24] MEDS ORDERED: Midazolam* 1 MG/ML 5 ML VIAL (5 MG) ONE (15:21)
[2017-09-24] MEDS ORDERED: fentaNYL* 50 MCG/ML 2 ML VIAL (100 MCG VIAL) ONE (15:21)
[2017-09-24] MEDS ORDERED: Lidocaine 1%* 5 ML VIAL ONE ×2 (15:25→16:04)
[2017-09-24] MEDS ORDERED: Iohexol 300* (CONTRAST) 10 ML SDV ONE ×2 (16:22→16:59)
[2017-09-24] MEDS: Nicotine Patch Removal NOTE FOLLOW UP SCH (21:26)
[2017-09-24] MEDS: Insulin GLARGINE(*) 1 UNITS UNIT SUBCUT SCH (21:36)
--- NOTE | 2017-09-25 01:13 | OP ---
CC: Dr. Nikko Samaniego OPERATIVE REPORT: DATE OF OPERATION: 09/24/17 DATE OF : 57 SURGEON: Justino Tavarez MD. OPERATIVE PROCEDURE: Attempted pacemaker implantation. INDICATIONS: Bradycardia, hypertrophic cardiomyopathy. The patient is a 62-year-old female with a history of hypertension, left ventricular outflow tract ob struction who was admitted to the hospital after having an event monitor, which showed a 4.6 second p ause. The patient's diltiazem was stopped. When the patient was off of her diltiazem, the patient h ad increased chest pain and shortness of breath because of her cardiac abnormality. Permanent pacema ker was recommended for maximization of medical therapy. ESTIMATED BLOOD LOSS: Nil. COMPLICATIONS: Unable to get central venous access. DESCRIPTION OF PROCEDURE: The patient was brought to the procedure room in a fasting state. Informe d consent had been obtained prior to the procedure. All labs were reviewed. The patient was placed supine on the procedure table. The left deltopectoral area was cleaned and draped in the usual fashi on. 1% lidocaine was used for local anesthesia. Under ultrasound guidance, an attempt was made to a ccess the axillary vein. Because of the patient's size, ultrasound could not clearly delineate the a xillary vein. 10 cc of Omnipaque dye was injected into the IV on her left side and a venogram was ob tained of the axillary and cephalic veins. Her axillary vein was fairly small and ran very close to t he rib cage all the way down into the deep axilla. Attempt was made to access the axillary vein at a more inferior location. Because of the size of the patient's breasts and other tissues, the needle could not extend down into the proper area. A venogram of the right side showed the same anatomy and the decision was made to stop the procedure and re- evaluate for permanent pacemaker implantation. [id number]/[facility] #: [id number]
[2017-09-25] MEDS: LORazepam TAB(*) 0.5 MG PO PRN ×2 (01:15→14:02)
[2017-09-25] MEDS: Heparin VIAL(*) 5000 UNITS/ML VIAL (FIVE THOUSAND) SUBCUT SCH ×3 (06:36→21:47)
--- NOTE | 2017-09-25 07:39 | RAD ---
INDICATION: Status post attempted pacemaker placement. Assess for pneumothorax. COMPARISON: September 21, 2017 TECHNIQUE: Dual energy PA and routine lateral views of the chest were obtained. REPORT: Mild prominence of the interstitial markings. No focal pulmonary lesion, compelling alveolar consolidation, pleural effusion, pneumothorax. Mild cardiomegaly. Unremarkable central pulmonary vasculature and mediastinal contours. IMPRESSION: #. Negative for pneumothorax.
[2017-09-25] MEDS ORDERED: Clindamycin 900 MG IVPREMIX(* 900 MG/50 ML SDV IV ONE (07:41)
[2017-09-25] MEDS ORDERED: NS 0.9% 1000 ML* 1,000 ML IV SCH (07:45)
[2017-09-25] MEDS ORDERED: D5W 1/2 NS 1000 ML BAG* 1,000 ML IV SCH (08:00)
[2017-09-25] MEDS: Insulin LISPRO* 1 UNITS UNIT SUBCUT SCH ×3 (08:03→17:28)
--- NOTE | 2017-09-25 08:07 | PN ---
Subjective Date of Service: 09/25/17 Interval History: pt reports some intermittent dizziness at rest and with exertion. She does not feel like she is going to pass out. Reports it passes quickly. Denies ROBERTS, viasion changes. Denies weakness. Denies CP/SOB. Reports good appetite. Family History: Unchanged from Admission Social History: Unchanged from Admission Past Medical History: Unchanged from Admission Objective Active Medications: Acetaminophen (Tylenol Tab*) 650 mg PO Q4H PRN PRN Reason: FEVER/PAIN Hydrocodone Bitart/Acetaminophen ([place] 10/325 (Nf)) 1 tab PO TID PRN PRN Reason: PAIN - BACK Last Admin: 09/24/17 21:23 Dose: 1 tab Albuterol (Ventolin 2.5 Mg/3 Ml Neb.Myah*) 2.5 mg INH Q2H PRN PRN Reason: SOB/WHEEZING Amlodipine Besylate (Norvasc Tab*) 5 mg PO DAILY [facility] Last Admin: 09/24/17 09:32 Dose: 5 mg Aspirin (Aspirin Ec Tab*) 81 mg PO DAILY [facility] Last Admin: 09/24/17 09:20 Dose: Not Given Dextrose (D50w Syringe 50 Ml*) 12.5 gm IV PUSH .FOR FS < 60 - SS PRN PRN Reason: FS < 60 Last Admin: 09/24/17 14:57 Dose: 12.5 gm Heparin Sodium (Porcine) (Heparin Vial(*)) 5,000 units SUBCUT Q8HR [facility] Last Admin: 09/25/17 06:36 Dose: 5,000 units Hydrochlorothiazide (Hydrodiuril Tab*) 12.5 mg PO DAILY [facility] Last Admin: 09/24/17 09:21 Dose: Not Given Clindamycin HCl/Dextrose (Cleocin 900 Mg Ivpremix (*) Sdv) 900 mg in 50 mls @ 100 mls/hr IV ONCE ONE Stop: 09/25/17 08:10 Sodium Chloride (Ns 0.9% 1000 Ml*) 1,000 mls @ 75 mls/hr IV PER RATE [facility] Insulin Human Lispro (Humalog*) 0 units SUBCUT [facility]; Protocol Last Admin: 09/25/17 08:03 Dose: Not Given Lisinopril (Prinivil Tab*) 20 mg PO DAILY [facility] Last Admin: 09/24/17 09:32 Dose: 20 mg Lorazepam (Ativan Tab(*)) 0.5 mg PO Q8H PRN PRN Reason: ANXIETY Last Admin: 09/25/17 01:15 Dose: 0.5 mg Nicotine (Nicotine Patch 21 Mg/24 Hr*) 1 patch TRANSDERM DAILY [facility] Last Admin: 09/24/17 09:32 Dose: 1 patch Nitroglycerin (Nitroglycerin Tab 0.4 Mg*) 0.4 mg SL Q5M PRN PRN Reason: ANGINA Last Admin: 09/22/17 14:50 Dose: 0.4 mg Pantoprazole Sodium (Protonix Tab (Nf)) 40 mg PO DAILY [facility] Last Admin: 09/24/17 09:32 Dose: 40 mg Pharmacy Profile Note (Nicotine Patch Removal Note*) 1 note FOLLOW UP 2100 [facility] Last Admin: 09/24/17 21:26 Dose: 1 note Pravastatin Sodium (Pravachol (Nf)) 40 mg PO Q48H [facility]; Protocol Last Admin: 09/23/17 08:54 Dose: 40 mg Vital Signs - 8 hr 09/25/17 09/25/17 09/25/17 01:15 04:02 04:05 Temperature 97.0 F Pulse Rate 62 Respiratory 18 16 16 Rate Blood Pressure 115/41 (mmHg) O2 Sat by Pulse 98 Oximetry 09/25/17 07:53 Temperature 98.4 F Pulse Rate 67 Respiratory 18 Rate Blood Pressure 127/61 (mmHg) O2 Sat by Pulse 100 Oximetry Oxygen Devices in Use Now: None Appearance: 62 yo obese female sitting up in bed in NAD, A+O x3 Eyes: No Scleral Icterus, PERRLA Ears/Nose/Mouth/Throat: NL Teeth, Lips, Gums, Mucous Membranes Moist Neck: NL Appearance and Movements; NL JVP Respiratory: Symmetrical Chest Expansion and Respiratory Effort, Clear to Auscultation Cardiovascular: NL Sounds; No Murmurs; No JVD, RRR, No Edema Abdominal: NL Sounds; No Tenderness; No Distention Lymphatic: No Cervical Adenopathy Extremities: No Edema, No Clubbing, Cyanosis Skin: No Rash or Ulcers, No Nodules or Sclerosis Neurological: Alert and Oriented x 3, NL Sensation, NL Gait, NL Muscle Strength and Tone Lines/Tubes/Other Access: Clean, Dry and Intact Peripheral IV Nutrition: Taking PO's Result Diagrams: 09/24/17 04:45 09/22/17 06:36 Assess/Plan/Problems-Billing Assessment: Ms Wood is a 62yo F with history of DM, HTN, HLD, CAD, INOCENCIA, COPD, microscopic colitis, pituitary tumor, who presented to ED on 09/18 with c/o dizziness and CP, with negative w/u while in the Hospital; discharged on 09/20 with an event monitor. Called to return to ED because event monitor showed sinus pauses up to 4.7 seconds. - Patient Problems (1) Dizziness Comment: Pt reports intermittent dizziness suspect secondary to LVOT obstruction with noted cardiac pauses recorded on event monitor at home and noted in hospital on tele monitoring Cardiology following - stress test canceled by cardiology 09/24 - she recieved a stress test 2 weeks ago - plan was for pacer placement yesterday put access was difficult and central line couldnt be placed due to abnormal vasculature - cardiology is going to consult surgery or anesthesia team. (2) Sinus pause Comment: Resolved after discontinuation of cardizem but now complicated by suspected LVOT obstruction, which may explain why she felt better on a CCB - Pacer on hold until central line can be placed per Dr. Tavarez - plan to restart cardizem afterwards - most likley pacer will be placed today (3) CAD (coronary artery disease) Comment: Continue aspirin, statin, and amlodpine was added as antianginal. Plavix on hold for possible pacer placement. (4) DVT prophylaxis Comment: - SQ heparin. Status and Disposition: Inpatient. Plan for pacer placement today if central access can be obtained - home when medically stable.
[2017-09-25] MEDS: amLODIPine TAB* 5 MG PO SCH (08:51)
[2017-09-25] MEDS: CMCS - Pravastatin (NF) 20 MG TAB PO SCH (08:51)
[2017-09-25] MEDS: Lisinopril TAB* 10 MG PO SCH (08:52)
[2017-09-25] MEDS: Pantoprazole TAB (NF) 40 MG TAB PO SCH (08:53)
[2017-09-25] MEDS: Hydrochlorothiazide TAB* 25 MG PO SCH (08:53)
[2017-09-25] MEDS: Aspirin EC TAB* 81 MG TAB.EC PO SCH (08:53)
[2017-09-25] MEDS: Nicotine PATCH 21 MG/24 HR* PATCH TRANSDERM SCH (08:55)
[2017-09-25] MEDS: Hydrocodone/Acetamin 10/325 1 TAB PO PRN ×3 (09:16→21:53)
[2017-09-25] MEDS: Nicotine Patch Removal NOTE FOLLOW UP SCH (21:48)
[2017-09-25] MEDS: Nitroglycerin TAB 0.4 MG* 0.4 MG TAB SL PRN (23:52)
[2017-09-26] MEDS: LORazepam TAB(*) 0.5 MG PO PRN ×3 (00:12→22:03)
--- NOTE | 2017-09-26 00:48 | PN ---
Progress Note - Progress Note Date of Service: 09/26/17 Note: Patient with CP, nonspecific ST changes, improving but still present after NTG and ativan (has anxiety) Will order morphine as well
[2017-09-26] MEDS: Morphine INJ* 2 MG/ML 1 ML SYRINGE (TWO MG - NEW SYRINGE VERSION) IV PRN ×2 (01:11→12:14)
[2017-09-26] MEDS: Heparin VIAL(*) 5000 UNITS/ML VIAL (FIVE THOUSAND) SUBCUT SCH ×3 (05:40→21:23)
[2017-09-26 06:01] LABS: ABS Basophils 0 10^3/ul (0-0.2); ABS Eosinophils 0.3 10^3/ul (0-0.6); ABS Lymphocytes 3.2 10^3/ul (1.0-4.8); ABS Monocytes 0.5 10^3/ul (0-0.8); ABS Nucleated RBC 0 10^3/ul; Eosinophil % 5.7 % (0-6); Hematocrit 39 % (35-47); Hemoglobin 13.5 g/dl (12.0-16.0); Lymphocyte % 52.1 % (25-47); Mean Corpuscular HGB Conc 34 g/dl (31-36); Mean Corpuscular Hemoglobin 32 pg (27-31); Mean Corpuscular Volume 92 fL (80-97); Mean Platelet Volume 8.9 um3 (7.4-10.4); Nucleated Red Blood Cells % 0.1; Platelet Count 200 10^3/ul (150-450); Red Blood Count 4.26 10^6/ul (4.00-5.40); Red Cell Distribution Width 14 % (10.5-15); White Blood Count 6.2 10^3/ul (3.5-10.8)
[2017-09-26 06:19] LABS: EGFR Non-African American 59.8 (>60)
[2017-09-26] MEDS: Hydrocodone/Acetamin 10/325 1 TAB PO PRN ×3 (07:22→21:28)
[2017-09-26] MEDS: Insulin LISPRO* 1 UNITS UNIT SUBCUT SCH ×3 (09:14→17:30)
[2017-09-26] MEDS: Nicotine PATCH 21 MG/24 HR* PATCH TRANSDERM SCH (09:16)
[2017-09-26] MEDS: Lisinopril TAB* 10 MG PO SCH (09:19)
[2017-09-26] MEDS: Hydrochlorothiazide TAB* 25 MG PO SCH (09:19)
[2017-09-26] MEDS: amLODIPine TAB* 5 MG PO SCH (09:20)
[2017-09-26] MEDS: Aspirin EC TAB* 81 MG TAB.EC PO SCH (09:21)
[2017-09-26] MEDS: Pantoprazole TAB (NF) 40 MG TAB PO SCH (09:21)
[2017-09-26] MEDS: Nitroglycerin TAB 0.4 MG* 0.4 MG TAB SL PRN (12:04)
--- NOTE | 2017-09-26 13:40 | PN ---
Subjective Date of Service: 09/26/17 Interval History: Patient was seen and examined earlier today. Events noted from last night. Chest pain radiating to her upper back resolved after Nitro and Morphine. Had a good night sleep. Denies chest pain, palpitations or SOB this AM. Just finished her breakfast, ambulatory. Aware she is scheduled for her pacemaker placement tomorrow. She has no complaints today. Family History: Unchanged from Admission Social History: Unchanged from Admission Past Medical History: Unchanged from Admission Objective Active Medications: Acetaminophen (Tylenol Tab*) 650 mg PO Q4H PRN PRN Reason: FEVER/PAIN Hydrocodone Bitart/Acetaminophen ([place] 10/325 (Nf)) 1 tab PO TID PRN PRN Reason: PAIN - BACK Last Admin: 09/26/17 07:22 Dose: 1 tab Albuterol (Ventolin 2.5 Mg/3 Ml Neb.Myah*) 2.5 mg INH Q2H PRN PRN Reason: SOB/WHEEZING Amlodipine Besylate (Norvasc Tab*) 5 mg PO DAILY [facility] Last Admin: 09/26/17 09:20 Dose: 5 mg Aspirin (Aspirin Ec Tab*) 81 mg PO DAILY [facility] Last Admin: 09/26/17 09:21 Dose: 81 mg Dextrose (D50w Syringe 50 Ml*) 12.5 gm IV PUSH .FOR FS < 60 - SS PRN PRN Reason: FS < 60 Last Admin: 09/24/17 14:57 Dose: 12.5 gm Heparin Sodium (Porcine) (Heparin Vial(*)) 5,000 units SUBCUT Q8HR [facility] Last Admin: 09/26/17 05:40 Dose: 5,000 units Hydrochlorothiazide (Hydrodiuril Tab*) 12.5 mg PO DAILY [facility] Last Admin: 09/26/17 09:19 Dose: 12.5 mg Clindamycin HCl/Dextrose (Cleocin 900 Mg Ivpremix (*) Sdv) 900 mg in 50 mls @ 100 mls/hr IV ONCE ONE Stop: 09/27/17 09:29 Sodium Chloride (Ns 0.9% 1000 Ml*) 1,000 mls @ 100 mls/hr IV PER RATE [facility] Insulin Human Lispro (Humalog*) 0 units SUBCUT [facility]; Protocol Last Admin: 09/26/17 12:43 Dose: 2 units Lisinopril (Prinivil Tab*) 20 mg PO DAILY [facility] Last Admin: 09/26/17 09:19 Dose: 20 mg Lorazepam (Ativan Tab(*)) 0.5 mg PO Q8H PRN PRN Reason: ANXIETY Last Admin: 09/26/17 00:12 Dose: 0.5 mg Morphine Sulfate (Morphine Inj ((Syringe))*) 2 mg IV Q6H PRN PRN Reason: PAIN Last Admin: 09/26/17 12:14 Dose: 2 mg Nicotine (Nicotine Patch 21 Mg/24 Hr*) 1 patch TRANSDERM DAILY [facility] Last Admin: 09/26/17 09:16 Dose: 1 patch Nitroglycerin (Nitroglycerin Tab 0.4 Mg*) 0.4 mg SL Q5M PRN PRN Reason: ANGINA Last Admin: 09/26/17 12:04 Dose: 0.4 mg Pantoprazole Sodium (Protonix Tab (Nf)) 40 mg PO DAILY [facility] Last Admin: 09/26/17 09:21 Dose: 40 mg Pharmacy Profile Note (Nicotine Patch Removal Note*) 1 note FOLLOW UP 2100 [facility] Last Admin: 09/25/17 21:48 Dose: 1 note Pravastatin Sodium (Pravachol (Nf)) 40 mg PO Q48H [facility]; Protocol Last Admin: 09/25/17 08:51 Dose: 40 mg Vital Signs - 8 hr 09/26/17 09/26/17 09/26/17 07:22 07:45 08:00 Temperature 97.7 F Pulse Rate 76 Respiratory 18 20 18 Rate Blood Pressure 125/52 (mmHg) O2 Sat by Pulse 99 Oximetry 09/26/17 09/26/17 09/26/17 09:21 11:31 11:58 Temperature 98.2 F Pulse Rate 61 Respiratory 16 20 Rate Blood Pressure 134/38 143/56 (mmHg) O2 Sat by Pulse 100 Oximetry 09/26/17 09/26/17 12:14 13:09 Temperature Pulse Rate 73 Respiratory 20 Rate Blood Pressure (mmHg) O2 Sat by Pulse Oximetry Oxygen Devices in Use Now: None Appearance: Obese -thai female, sitting on her chair, appears comfortable and in NAD. Eyes: No Scleral Icterus, PERRLA Ears/Nose/Mouth/Throat: Clear Oropharnyx, Mucous Membranes Moist Neck: NL Appearance and Movements; NL JVP, Trachea Midline Respiratory: Symmetrical Chest Expansion and Respiratory Effort, Clear to Auscultation Cardiovascular: NL Sounds; No Murmurs; No JVD, RRR Abdominal: NL Sounds; No Tenderness; No Distention Extremities: No Edema Skin: No Rash or Ulcers Neurological: Alert and Oriented x 3, NL Sensation, NL Muscle Strength and Tone Nutrition: Taking PO's Result Diagrams: 09/26/17 05:43 09/26/17 05:43 Additional Lab and Data: . Microbiology and Other Data: . Diagnostic Imaging: . EKG Data: . Assess/Plan/Problems-Billing Assessment: Ms Wood is a 62yo F with history of DM, HTN, HLD, CAD, INOCENCIA, COPD, microscopic colitis, pituitary tumor, who presented to ED on 09/18 with c/o dizziness and CP, with negative w/u while in the Hospital; discharged on 09/20 with an event monitor. Called to return to ED because event monitor showed sinus pauses up to 4.7 seconds. Now awaiting pacemaker placement. - Patient Problems (1) Dizziness Current Visit: Yes Status: Acute Comment: - Patient with less dizzy episodes yesterday. - suspect secondary to LVOT obstruction with noted cardiac pauses recorded on event monitor at home and noted in hospital on tele monitoring - Cardiology following - stress test canceled by cardiology 09/24 - she recieved a stress test 2 weeks ago - plan was for pacer placement on Sunday, but access was difficult and central line couldnt be placed due to abnormal vasculature - Plans for pacemaker placement tomorrow under anesthesia, NPO past midnight. (2) Sinus pause Current Visit: Yes Status: Acute Comment: - Resolved after discontinuation of cardizem but now complicated by suspected LVOT obstruction, which may explain why she felt better on a CCB, plan to restart cardizem after pacemaker placement tomorrow. (3) CAD (coronary artery disease) Current Visit: Yes Status: Chronic Comment: - Continue aspirin, statin, and amlodpine was added as antianginal. - Plavix on hold until after surgery. (4) DVT prophylaxis Current Visit: Yes Status: Acute Comment: - SQ heparin. (5) Full code status Current Visit: Yes Status: Acute Status and Disposition: Inpatient. Plan for pacer placement tomorrow with possible central access - home when medically stable.
--- NOTE | 2017-09-26 21:11 | PN ---
Subjective Date of Service: 09/26/17 - CC: dizziness Interval History: The patient is still intermittently dizzy. She had questions regarding her pacer scheduled in AM Medications Active Medications: Acetaminophen (Tylenol Tab*) 650 mg PO Q4H PRN PRN Reason: FEVER/PAIN Hydrocodone Bitart/Acetaminophen ([place] 10/325 (Nf)) 1 tab PO TID PRN PRN Reason: PAIN - BACK Last Admin: 09/26/17 14:48 Dose: 1 tab Albuterol (Ventolin 2.5 Mg/3 Ml Neb.Myah*) 2.5 mg INH Q2H PRN PRN Reason: SOB/WHEEZING Amlodipine Besylate (Norvasc Tab*) 5 mg PO DAILY [facility] Last Admin: 09/26/17 09:20 Dose: 5 mg Aspirin (Aspirin Ec Tab*) 81 mg PO DAILY [facility] Last Admin: 09/26/17 09:21 Dose: 81 mg Dextrose (D50w Syringe 50 Ml*) 12.5 gm IV PUSH .FOR FS < 60 - SS PRN PRN Reason: FS < 60 Last Admin: 09/24/17 14:57 Dose: 12.5 gm Heparin Sodium (Porcine) (Heparin Vial(*)) 5,000 units SUBCUT Q8HR [facility] Stop: 09/26/17 23:59 Last Admin: 09/26/17 14:06 Dose: 5,000 units Hydrochlorothiazide (Hydrodiuril Tab*) 12.5 mg PO DAILY [facility] Last Admin: 09/26/17 09:19 Dose: 12.5 mg Clindamycin HCl/Dextrose (Cleocin 900 Mg Ivpremix (*) Sdv) 900 mg in 50 mls @ 100 mls/hr IV ONCE ONE Stop: 09/27/17 09:29 Sodium Chloride (Ns 0.9% 1000 Ml*) 1,000 mls @ 100 mls/hr IV PER RATE [facility] Insulin Human Lispro (Humalog*) 0 units SUBCUT AC [facility]; Protocol Last Admin: 09/26/17 17:30 Dose: 3 units Lisinopril (Prinivil Tab*) 20 mg PO DAILY [facility] Last Admin: 09/26/17 09:19 Dose: 20 mg Lorazepam (Ativan Tab(*)) 0.5 mg PO Q8H PRN PRN Reason: ANXIETY Last Admin: 09/26/17 14:43 Dose: 0.5 mg Morphine Sulfate (Morphine Inj ((Syringe))*) 2 mg IV Q6H PRN PRN Reason: PAIN Last Admin: 09/26/17 12:14 Dose: 2 mg Nicotine (Nicotine Patch 21 Mg/24 Hr*) 1 patch TRANSDERM DAILY [facility] Last Admin: 09/26/17 09:16 Dose: 1 patch Nitroglycerin (Nitroglycerin Tab 0.4 Mg*) 0.4 mg SL Q5M PRN PRN Reason: ANGINA Last Admin: 09/26/17 12:04 Dose: 0.4 mg Pantoprazole Sodium (Protonix Tab (Nf)) 40 mg PO DAILY [facility] Last Admin: 09/26/17 09:21 Dose: 40 mg Pharmacy Profile Note (Nicotine Patch Removal Note*) 1 note FOLLOW UP 2100 [facility] Last Admin: 09/25/17 21:48 Dose: 1 note Pravastatin Sodium (Pravachol (Nf)) 40 mg PO Q48H [facility]; Protocol Last Admin: 09/25/17 08:51 Dose: 40 mg Objective Vital Signs: Temp Pulse Resp BP Pulse Ox 97.9 F 68 20 130/45 98 09/26/17 19:40 09/26/17 19:40 09/26/17 19:40 09/26/17 19:40 09/26/17 19:40 Oxygen Devices in Use Now: None Appearance: short, overweight somewhat older female, lying in bed at 20 degrees , comfortable. Eyes: No Scleral Icterus, PERRLA Ears/Nose/Mouth/Throat: Clear Oropharnyx, Mucous Membranes Moist Neck: Trachea Midline Respiratory: Symmetrical Chest Expansion and Respiratory Effort, Clear to Auscultation Cardiovascular: RRR Abdominal: - - obese, active bowel sounds, non tender Extremities: No Edema Skin: No Rash or Ulcers Neurological: Alert and Oriented x 3, NL Muscle Strength and Tone Lines/Tubes/Other Access: Clean, Dry and Intact Peripheral IV Laboratory Results: 09/26/17 05:43 09/26/17 05:43 INR (Anticoag Therapy) 0.90 (0.77-1.02) 09/22/17 06:36 Total Bilirubin 0.40 mg/dL (0.2-1.0) 09/21/17 12:45 AST 16 U/L (13-39) 09/21/17 12:45 ALT 22 U/L (7-52) 09/21/17 12:45 Alkaline Phosphatase 48 U/L (34-104) 09/21/17 12:45 Total Protein 6.5 g/dL (6.4-8.9) 09/21/17 12:45 Albumin 3.8 g/dL (3.2-5.2) 09/21/17 12:45 Globulin 2.7 g/dL (2-4) 09/21/17 12:45 Albumin/Globulin Ratio 1.4 (1-3) 09/21/17 12:45 TSH 1.85 mcIU/mL (0.34-5.60) 09/21/17 12:45 09/21/17 09/21/17 09/21/17 12:45 18:26 21:26 Troponin I 0.01 0.01 0.00 09/22/17 09/26/17 00:19 14:11 Troponin I 0.00 0.01 Diagnostic Imaging: Holter outpatient: NSR with sinus pause 4 second Assessment/Plan 62 yo female with dizziness and recent event monitor revealing multiple episodes of sinus pause. The patient had attempted pacemaker implantation Sunday with Dr Tavarez, but difficulties with access/body habitus and anaesthesia in setting of obeisity, INOCENCIA, COPD led to aborted surgery and it is planned for tomorrow with assistance from anaesthesia. The patient had many questions, I reviewed the procedure including risks, benefits and details. She is amenable to proceeding. She informed me she needs forms filled out for Section 8 housing due to her inability to go back to work at [employer] right after the procedure. CAD/CAD risks: Continue with aggressive risk factor modification with medication and lifestyle, agree with plans and recommendations in place by the hospitalists. Post pacemaker diltiazem could be resumed based on Dr Tavarez's recommendations, BP adequately controlled today.
[2017-09-26] MEDS: Nicotine Patch Removal NOTE FOLLOW UP SCH (21:30)
[2017-09-26] MEDS ORDERED: NS 0.9% 1000 ML* 1,000 ML IV SCH (23:55)
[2017-09-27] MEDS: Morphine INJ* 2 MG/ML 1 ML SYRINGE (TWO MG - NEW SYRINGE VERSION) IV PRN (00:36)
[2017-09-27 06:45] LABS: ABS Basophils 0.1 10^3/ul (0-0.2); ABS Eosinophils 0.4 10^3/ul (0-0.6); ABS Lymphocytes 3.1 10^3/ul (1.0-4.8); ABS Monocytes 0.7 10^3/ul (0-0.8); ABS Neutrophils 2.3 10^3/ul (1.5-7.7); ABS Nucleated RBC 0 10^3/ul; Eosinophil % 5.8 % (0-6); Hematocrit 38 % (35-47); Hemoglobin 13.3 g/dl (12.0-16.0); Lymphocyte % 48.3 % (25-47); Mean Corpuscular HGB Conc 35 g/dl (31-36); Mean Corpuscular Hemoglobin 32 pg (27-31); Mean Corpuscular Volume 92 fL (80-97); Mean Platelet Volume 8.6 um3 (7.4-10.4); Nucleated Red Blood Cells % 0.2; Platelet Count 197 10^3/ul (150-450); Red Blood Count 4.18 10^6/ul (4.00-5.40); Red Cell Distribution Width 13 % (10.5-15); White Blood Count 6.5 10^3/ul (3.5-10.8)
[2017-09-27 06:54] LABS: INR 0.84 (0.77-1.02)
[2017-09-27 07:04] LABS: EGFR Non-African American 63.7 (>60)
[2017-09-27] MEDS ORDERED: Clindamycin 900 MG IVPREMIX(* 900 MG/50 ML SDV IV ONE (09:00)
[2017-09-27] MEDS: CMCS - Pravastatin (NF) 20 MG TAB PO SCH (09:20)
[2017-09-27] MEDS: Aspirin EC TAB* 81 MG TAB.EC PO SCH (09:21)
[2017-09-27] MEDS: Pantoprazole TAB (NF) 40 MG TAB PO SCH (09:23)
[2017-09-27] MEDS: Hydrochlorothiazide TAB* 25 MG PO SCH (09:24)
[2017-09-27] MEDS: Nicotine PATCH 21 MG/24 HR* PATCH TRANSDERM SCH (09:24)
[2017-09-27] MEDS: amLODIPine TAB* 5 MG PO SCH (09:25)
[2017-09-27] MEDS: Lisinopril TAB* 10 MG PO SCH (09:26)
[2017-09-27] MEDS: Hydrocodone/Acetamin 10/325 1 TAB PO PRN ×2 (09:35→16:41)
[2017-09-27] MEDS: Insulin LISPRO* 1 UNITS UNIT SUBCUT SCH ×3 (10:08→16:52)
[2017-09-27] MEDS: LORazepam TAB(*) 0.5 MG PO PRN (10:15)
--- NOTE | 2017-09-27 11:04 | PN ---
Subjective Date of Service: 09/27/17 Interval History: Mrs. Wood reports doing well. No further chest pain since yesterday afternoon. EKG and Troponin checked yesterday, no evidence of acute issues. Denies any chest pain, palpitations, dizziness or SOB this AM. Has been NPO since midnight in anticipation for pacemaker placement today. Denies any complaints. Family History: Unchanged from Admission Social History: Unchanged from Admission Past Medical History: Unchanged from Admission Objective Active Medications: Acetaminophen (Tylenol Tab*) 650 mg PO Q4H PRN PRN Reason: FEVER/PAIN Hydrocodone Bitart/Acetaminophen ([place] 10/325 (Nf)) 1 tab PO TID PRN PRN Reason: PAIN - BACK Last Admin: 09/27/17 09:35 Dose: 1 tab Albuterol (Ventolin 2.5 Mg/3 Ml Neb.Myah*) 2.5 mg INH Q2H PRN PRN Reason: SOB/WHEEZING Amlodipine Besylate (Norvasc Tab*) 5 mg PO DAILY [facility] Last Admin: 09/27/17 09:25 Dose: 5 mg Aspirin (Aspirin Ec Tab*) 81 mg PO DAILY [facility] Last Admin: 09/27/17 09:21 Dose: 81 mg Dextrose (D50w Syringe 50 Ml*) 12.5 gm IV PUSH .FOR FS < 60 - SS PRN PRN Reason: FS < 60 Last Admin: 09/24/17 14:57 Dose: 12.5 gm Hydrochlorothiazide (Hydrodiuril Tab*) 12.5 mg PO DAILY [facility] Last Admin: 09/27/17 09:24 Dose: 12.5 mg Sodium Chloride (Ns 0.9% 1000 Ml*) 1,000 mls @ 100 mls/hr IV PER RATE [facility] Last Admin: 09/26/17 22:57 Dose: 100 mls/hr Insulin Human Lispro (Humalog*) 0 units SUBCUT [facility]; Protocol Last Admin: 09/27/17 10:08 Dose: Not Given Lisinopril (Prinivil Tab*) 20 mg PO DAILY [facility] Last Admin: 09/27/17 09:26 Dose: 20 mg Lorazepam (Ativan Tab(*)) 0.5 mg PO Q8H PRN PRN Reason: ANXIETY Last Admin: 09/27/17 10:15 Dose: 0.5 mg Morphine Sulfate (Morphine Inj ((Syringe))*) 2 mg IV Q6H PRN PRN Reason: PAIN Last Admin: 09/27/17 00:36 Dose: 2 mg Nicotine (Nicotine Patch 21 Mg/24 Hr*) 1 patch TRANSDERM DAILY [facility] Last Admin: 09/27/17 09:24 Dose: 1 patch Nitroglycerin (Nitroglycerin Tab 0.4 Mg*) 0.4 mg SL Q5M PRN PRN Reason: ANGINA Last Admin: 09/26/17 12:04 Dose: 0.4 mg Pantoprazole Sodium (Protonix Tab (Nf)) 40 mg PO DAILY [facility] Last Admin: 09/27/17 09:23 Dose: 40 mg Pharmacy Profile Note (Nicotine Patch Removal Note*) 1 note FOLLOW UP 2100 [facility] Last Admin: 09/26/17 21:30 Dose: 1 note Pravastatin Sodium (Pravachol (Nf)) 40 mg PO Q48H [facility]; Protocol Last Admin: 09/27/17 09:20 Dose: 40 mg Vital Signs - 8 hr 09/27/17 09/27/17 09/27/17 03:40 07:29 09:35 Temperature 97.9 F 97.9 F Pulse Rate 63 68 Respiratory 16 20 20 Rate Blood Pressure 158/53 127/51 (mmHg) O2 Sat by Pulse 97 100 Oximetry 09/27/17 10:15 Temperature Pulse Rate Respiratory 18 Rate Blood Pressure (mmHg) O2 Sat by Pulse Oximetry Oxygen Devices in Use Now: None Appearance: Appears comfortable with mutliple family members visiting in room. Eyes: No Scleral Icterus, PERRLA Ears/Nose/Mouth/Throat: Clear Oropharnyx, Mucous Membranes Moist Neck: NL Appearance and Movements; NL JVP, Trachea Midline Respiratory: Symmetrical Chest Expansion and Respiratory Effort, Clear to Auscultation Cardiovascular: NL Sounds; No Murmurs; No JVD, RRR Abdominal: NL Sounds; No Tenderness; No Distention Extremities: No Edema Neurological: Alert and Oriented x 3 Result Diagrams: 09/27/17 06:38 09/27/17 06:38 Additional Lab and Data: . Microbiology and Other Data: . Diagnostic Imaging: . EKG Data: . Assess/Plan/Problems-Billing Assessment: Ms Wood is a 62yo F with history of DM, HTN, HLD, CAD, INOECNCIA, COPD, microscopic colitis, pituitary tumor, who presented to ED on 09/18 with c/o dizziness and CP, with negative w/u while in the Hospital; discharged on 09/20 with an event monitor. Called to return to ED because event monitor showed sinus pauses up to 4.7 seconds. Now awaiting pacemaker placement. - Patient Problems (1) Dizziness Current Visit: Yes Status: Acute Comment: - Patient with less dizzy episodes yesterday. - suspect secondary to LVOT obstruction with noted cardiac pauses recorded on event monitor at home and noted in hospital on tele monitoring - Cardiology following - stress test canceled by cardiology 09/24 - she recieved a stress test 2 weeks ago - plan was for pacer placement on Sunday, but access was difficult and central line couldnt be placed due to abnormal vasculature - Plans for pacemaker placement today, then hopefully home in AM. - Cardiology recommends resuming Diltiazem after pacemaker placed. (2) Sinus pause Current Visit: Yes Status: Acute Comment: - Resolved after discontinuation of cardizem but now complicated by suspected LVOT obstruction, which may explain why she felt better on a CCB, plan to restart cardizem after pacemaker placement tomorrow. (3) CAD (coronary artery disease) Current Visit: Yes Status: Chronic Comment: - Continue aspirin, statin, and amlodpine was added as antianginal. - Plavix on hold until after surgery. (4) DVT prophylaxis Current Visit: Yes Status: Acute Comment: - SQ heparin. (5) Full code status Current Visit: Yes Status: Acute Status and Disposition: Inpatient. Plan for pacer placement today under anesthesia - home when medically stable likely tomorrow.
[2017-09-27] MEDS ORDERED: fentaNYL* 50 MCG/ML 2 ML VIAL (100 MCG VIAL) ONE (13:03)
[2017-09-27] MEDS ORDERED: Propofol* 10 MG/ML 20 ML BTL IV PUSH ONE ×2 (13:03→13:29)
[2017-09-27] MEDS ORDERED: Midazolam* 1 MG/ML 2 ML VIAL (2 MG) ONE (13:03)
[2017-09-27] MEDS ORDERED: Lidocaine 1%* 5 ML VIAL ONE (14:10)
[2017-09-27] MEDS ORDERED: Phenylephrine INJ* 10 MG/ML 1 ML VIAL (10 MG) ONE (14:15)
[2017-09-27] MEDS ORDERED: Naloxone* 0.4 MG/ML 1 ML VIAL IV PRN (15:24)
[2017-09-27] MEDS ORDERED: Diltiazem CD CAP* 180 MG PO SCH (16:00)
--- NOTE | 2017-09-27 16:38 | RAD ---
INDICATION: Device implant COMPARISON: September 24, 2017 TECHNIQUE: An AP portable view obtained at 1544 hours is submitted. FINDINGS: Bones/Soft Tissues: There are no acute bony findings. There is left-sided cardiac pacemaker placement. Cardiomediastinal: The cardiomediastinal silhouette is normal. Lungs: There are no infiltrates. There is no pneumothorax. Pleura: There are no pleural effusions. Other: None IMPRESSION: LEFT-SIDED CARDIAC PACEMAKER PLACEMENT. NO PNEUMOTHORAX. LUNGS CLEAR.
[2017-09-27] MEDS: Diltiazem CD CAP* 240 MG PO SCH (16:50)
[2017-09-27] MEDS: oxyCODONE/Acetamin 5/325 MG* TAB PO PRN (20:52)
[2017-09-27] MEDS: Nicotine Patch Removal NOTE FOLLOW UP SCH (20:56)
--- NOTE | 2017-09-28 02:45 | OP ---
CC: Dr. Nikko Samaniego* OPERATIVE NOTE: DATE OF OPERATION: 09/27/17 - Inpatient, room 443-02 DATE OF : 57 SURGEON: Justino Tavarez MD PRE-OP DIAGNOSES: 1. Hypertrophic obstructive cardiomyopathy. 2. Tachybrady syndrome. OPERATIVE PROCEDURE: Dual-chamber pacemaker implantation. 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 The patient had previously been on diltiazem 300 mg a day. The patient started having episodes of lightheadedness and dizziness. An event monitor showed 5-second pauses on the diltiazem. The patient was instructed to stop the diltiazem. When she stopped the diltiazem, the patient started having chest pain and significant shortness of breath with exertion. Permanent pacemaker was recommended to maximize medical therapy. DESCRIPTION OF PROCEDURE: The patient was brought to the procedure room in a fasting state. Informed consent had been obtained prior to the procedure. All labs were reviewed. The patient was placed supine on the procedure table. Her left deltopectoral area was cleaned and draped in the usual fashion. 1% lidocaine was used for local anesthesia. MAC anesthesia was given by Dr. Jack. Under ultrasound guidance, the axillary vein was entered by a Seldinger technique and a guidewire was placed. A 4 cm incision was made in the pectoral limb and blunt dissection was carried down to the pectoral fascia and a small pocket was fashioned for the pacemaker. A second guidewire was placed with retained sheath technique. Over the first guidewire, a 7-Greek sheath introducer was placed, through which a right ventricular lead was advanced to the RV apex. The right ventricular lead was a Medtronic model 5076, serial # [id number], it had an R-wave sensitivity of 11.5, impedance 889 ohms, threshold 0.9 volts at 0.5 milliseconds. The ventricular lead was sutured to the pectoral fascia. Over the second guidewire, a sheath introducer was placed through which a right atrial lead was advanced to the high right atrium. The right atrial lead was a Medtronic model 5076, serial #[id number], it had a T- wave sensitivity of 1.9, impedance 616 ohms, threshold 2 volts at 0.5 milliseconds, in the bipolar lead, 1 volt at 0.5 milliseconds in the unipolar lead. The atrial lead was sutured to the pectoral fascia using 0 silk. The pocket was flushed with antibiotic-infused normal saline. A generator was attached appropriately to atrioventricular lead. The generator was [employer] model W1DR01, serial #[id number]. Device was placed in the pocket. The surgical incision was closed in 3 layers. The patient returned to the holding area in stable condition. [id number] #: [id number] LISA
[2017-09-28] MEDS: Hydrocodone/Acetamin 10/325 1 TAB PO PRN (03:43)
--- NOTE | 2017-09-28 08:42 | PN ---
Subjective Date of Service: 09/28/17 Interval History: f/u pacemaker pacemaker interrogation this AM normal patient has incision pain no anginal chest discomfort or dyspnea Medications Active Medications: Acetaminophen (Tylenol Tab*) 650 mg PO Q4H PRN PRN Reason: FEVER/PAIN Hydrocodone Bitart/Acetaminophen ([place] 10/325 (Nf)) 1 tab PO TID PRN PRN Reason: PAIN - BACK Last Admin: 09/28/17 03:43 Dose: 1 tab Albuterol (Ventolin 2.5 Mg/3 Ml Neb.Myah*) 2.5 mg INH Q2H PRN PRN Reason: SOB/WHEEZING Amlodipine Besylate (Norvasc Tab*) 5 mg PO DAILY [facility] Last Admin: 09/27/17 09:25 Dose: 5 mg Aspirin (Aspirin Ec Tab*) 81 mg PO DAILY [facility] Last Admin: 09/27/17 09:21 Dose: 81 mg Dextrose (D50w Syringe 50 Ml*) 12.5 gm IV PUSH .FOR FS < 60 - SS PRN PRN Reason: FS < 60 Last Admin: 09/24/17 14:57 Dose: 12.5 gm Diltiazem HCl (Cardizem Cd Cap*) 240 mg PO DAILY [facility] Last Admin: 09/27/17 16:50 Dose: 240 mg Hydrochlorothiazide (Hydrodiuril Tab*) 12.5 mg PO DAILY [facility] Last Admin: 09/27/17 09:24 Dose: 12.5 mg Sodium Chloride (Ns 0.9% 1000 Ml*) 1,000 mls @ 100 mls/hr IV PER RATE [facility] Last Admin: 09/26/17 22:57 Dose: 100 mls/hr Insulin Human Lispro (Humalog*) 0 units SUBCUT [facility]; Protocol Last Admin: 09/27/17 16:52 Dose: Not Given Lisinopril (Prinivil Tab*) 20 mg PO DAILY [facility] Last Admin: 09/27/17 09:26 Dose: 20 mg Lorazepam (Ativan Tab(*)) 0.5 mg PO Q8H PRN PRN Reason: ANXIETY Last Admin: 09/27/17 10:15 Dose: 0.5 mg Morphine Sulfate (Morphine Inj ((Syringe))*) 2 mg IV Q6H PRN PRN Reason: PAIN Last Admin: 09/27/17 00:36 Dose: 2 mg Nicotine (Nicotine Patch 21 Mg/24 Hr*) 1 patch TRANSDERM DAILY [facility] Last Admin: 09/27/17 09:24 Dose: 1 patch Nitroglycerin (Nitroglycerin Tab 0.4 Mg*) 0.4 mg SL Q5M PRN PRN Reason: ANGINA Last Admin: 09/26/17 12:04 Dose: 0.4 mg Oxycodone/Acetaminophen (Percocet 5/325 Tab*) 1 tab PO Q4H PRN PRN Reason: PAIN Last Admin: 09/27/17 20:52 Dose: 1 tab Pantoprazole Sodium (Protonix Tab (Nf)) 40 mg PO DAILY [facility] Last Admin: 09/27/17 09:23 Dose: 40 mg Pharmacy Profile Note (Nicotine Patch Removal Note*) 1 note FOLLOW UP 2100 [facility] Last Admin: 09/27/17 20:56 Dose: 1 note Pravastatin Sodium (Pravachol (Nf)) 40 mg PO Q48H [facility]; Protocol Last Admin: 09/27/17 09:20 Dose: 40 mg Objective Vital Signs: Temp Pulse Resp BP Pulse Ox 98.4 F 71 22 147/57 100 09/28/17 03:23 09/28/17 03:23 09/28/17 06:08 09/28/17 03:23 09/28/17 03:23 Oxygen Devices in Use Now: None Appearance: nad, pleasant Eyes: No Scleral Icterus, PERRLA Ears/Nose/Mouth/Throat: Clear Oropharnyx, Mucous Membranes Moist Neck: Trachea Midline Respiratory: Symmetrical Chest Expansion and Respiratory Effort, Clear to Auscultation Cardiovascular: RRR, - - left pacemaker site intact, tender and full without evidence of drainage or hematoma, radha intact Abdominal: - - obese, active bowel sounds, non tender Extremities: No Edema Skin: No Rash or Ulcers Neurological: Alert and Oriented x 3, NL Muscle Strength and Tone Lines/Tubes/Other Access: Clean, Dry and Intact Peripheral IV Laboratory Results: 09/27/17 06:38 09/27/17 06:38 INR (Anticoag Therapy) 0.84 (0.77-1.02) 09/27/17 06:38 Total Bilirubin 0.40 mg/dL (0.2-1.0) 09/21/17 12:45 AST 16 U/L (13-39) 09/21/17 12:45 ALT 22 U/L (7-52) 09/21/17 12:45 Alkaline Phosphatase 48 U/L (34-104) 09/21/17 12:45 Total Protein 6.5 g/dL (6.4-8.9) 09/21/17 12:45 Albumin 3.8 g/dL (3.2-5.2) 09/21/17 12:45 Globulin 2.7 g/dL (2-4) 09/21/17 12:45 Albumin/Globulin Ratio 1.4 (1-3) 09/21/17 12:45 TSH 1.85 mcIU/mL (0.34-5.60) 09/21/17 12:45 09/21/17 09/21/17 09/21/17 12:45 18:26 21:26 Troponin I 0.01 0.01 0.00 09/22/17 09/26/17 00:19 14:11 Troponin I 0.00 0.01 Assessment/Plan 62 yo woman s/p pacemaker yesterday, interrogation today unremarkable, pacemaker site intact. Please see prior documentation for details on patients complete medical history. - Resume home medications with exception of hold plavix for 3 days, Dr. Tavarez has sent antibiotic course to patients pharmacy - Can be discharged from a cardiac standpoint later today as long as AM chest x- ray is unremarkable
[2017-09-28 08:46] VITALS: BP 147/54
[2017-09-28] MEDS: Aspirin EC TAB* 81 MG TAB.EC PO SCH (08:51)
[2017-09-28] MEDS: amLODIPine TAB* 5 MG PO SCH (08:51)
[2017-09-28] MEDS: Diltiazem CD CAP* 240 MG PO SCH (08:51)
[2017-09-28] MEDS: Lisinopril TAB* 10 MG PO SCH (08:51)
[2017-09-28] MEDS: oxyCODONE/Acetamin 5/325 MG* TAB PO PRN (08:52)
[2017-09-28] MEDS: Hydrochlorothiazide TAB* 25 MG PO SCH (08:52)
[2017-09-28] MEDS: Insulin LISPRO* 1 UNITS UNIT SUBCUT SCH (08:53)
[2017-09-28] MEDS: Nicotine PATCH 21 MG/24 HR* PATCH TRANSDERM SCH (08:53)
--- NOTE | 2017-09-28 09:18 | RAD ---
HISTORY: S/P Device Implant COMPARISONS: September 27, 2017 VIEWS: 4: Frontal dual-energy and lateral views of the chest. FINDINGS: CARDIOMEDIASTINAL SILHOUETTE: The cardiomediastinal silhouette is normal. MIGUE: The migue are normal. PLEURA: The costophrenic angles are sharp. No pleural abnormalities are noted. LUNG PARENCHYMA: The lungs are clear. ABDOMEN: The upper abdomen is clear. There is no subphrenic gas. BONES AND SOFT TISSUES: No bone or soft tissue abnormalities are noted. OTHER: A left-sided dual-lead pacemaker is noted. IMPRESSION: NO ACTIVE CARDIOPULMONARY DISEASE.
[2017-09-28] MEDS: Pantoprazole TAB (NF) 40 MG TAB PO SCH (09:28)
--- NOTE | 2017-09-29 02:12 | DS ---
AMENDED REPORT NOW INCLUDES COSIGNER DESIGNATION - ESIGNED BEFORE ADJUSTMENT CC: Dr. Tavarez; Dr. Lainez; Dr. Ray * DISCHARGE SUMMARY: DATE OF ADMISSION: 09/21/17 DATE OF DISCHARGE: 09/28/17 ADMITTING HOSPITALIST: Verna Wheat MD ATTENDING HOSPITALIST: While the patient in telemetry, was Dr. Jihan Yee. * (DICTATED BY MAHAD AGUAYO) PRIMARY CARE PROVIDER: Dr. Ray. PRIMARY INSOLE TOE SNIPPING MACHINE OPERATOR: Nikko Samaniego MD ADMISSION DIAGNOSES: 1. Dizziness. 2. Tachybrady syndrome. 3. Insulin-dependent diabetes mellitus. 4. Hypertension. 5. Hyperlipidemia. 6. Coronary artery disease. 7. Obstructive sleep apnea for which she has been noncompliant with CPAP. 8. History of cocaine abuse. 9. Chronic obstructive pulmonary disease. 10. Microscopic colitis. 11. Anxiety and depression. 12. Low back pain. 13. Carotid artery disease. DISCHARGE DIAGNOSES: 1. Dizziness. 2. Tachybrady syndrome. 3. Insulin-dependent diabetes mellitus. 4. Hypertension. 5. Hyperlipidemia. 6. Coronary artery disease. 7. Obstructive sleep apnea for which she has been noncompliant with CPAP. 8. History of cocaine abuse. 9. Chronic obstructive pulmonary disease. 10. Microscopic colitis. 11. Anxiety and depression. 12. Low back pain. 13. Carotid artery disease. CONSULTATIONS: Roque Lainez MD and Justino Tavarez MD HISTORY OF PRESENT ILLNESS: Mrs. Wood is a 62-year-old female who has past medical history significant for hypertension, hyperlipidemia, coronary artery disease who was recently admitted to the hospital with complaints of dizziness and then discharged on 09/20/17 with a 30-day event monitor on. She had a neurological workup back then that was essentially unrevealing. She has a known carotid artery disease, but again there was no critical stenosis of any evidence of TIA or neurological symptoms. Her Plavix was added last week upon discharge. She continued to have intermittent dizzy spells that was thought to be secondary to possible transient ischemic attack. She was discharged on a dual antiplatelet therapy and continued to have these episodes of dizziness. She was called by the cardiology office when she was noted to have 10 pauses greater than 3 seconds on her Holter monitor. The patient was on IV dose of diltiazem and had more evaluation performed in the emergency room. She denied any significant chest pain, shortness of breath and did remember feeling dizzy on occasion on that day. 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 HOSPITAL COURSE: The patient was admitted on 09/21/17 under hospitalist services. A consultation by Dr. Roque Lainez was performed on the same evening. The patient had near syncopal episode upon further question and had an extensive evaluation with MRI and MRA of the head and neck that showed no significant ischemic stroke. Recommendation was made to hold her diltiazem if she has improvement of her pauses. Her Plavix was also withheld and they discussed with her proceeding with pacemaker placement to be performed on the following day. The patient was kept n.p.o. and was taken on 09/24/17, by Dr. Tavarez for pacemaker placement. She went through the rationale, indication, risks, and benefits of surgery and she agreed to go forward with a pacemaker placement. An attempt at pacemaker implantation was done on 09/24/17 but unfortunately was unable to get central venous access due to her body habitus as well as at the significant side of her upper torso. The plans were made to abort the case and planned to schedule on a later date under anesthesia. The patient continued to have telemetry monitoring and had a couple of episodes of chest tightness radiating to her upper back. Her EKG and troponin were checked on a regular basis and showed no significant ST changes or elevated troponins. Her laboratory workup were checked on a daily basis that showed normal hemoglobin and hematocrit and normal chemistry panel. Her glycemic control was reasonably accepted using the sliding scale and she was kept on a cardiac healthy diet during her stay. She eventually was taken to the operating room on , 09/17/17, and had successful pacemaker placement. Followup EKG and chest x-ray was done that revealed no evidence of pneumothorax and revealed normal paced rhythm. The patient continued to have clinical improvement with no further episodes of dizziness or chest pain. We went through her medication list upon discharge and recommendation by bed manager is to continue her Cardizem dose at home as well as to resume her Plavix 3 days after discharge. She was also put on clindamycin for antibiotic prophylaxis for another 3 days and she will receive home healthcare at home during the immediate postoperative period. All her discharge instructions were discussed in great details and she will receive a call from [facility] to plan further followup. DISCHARGE MEDICATIONS: Include: 1. Cardizem 300 mg p.o. daily. 2. [place] 10/325 mg 1 tablet p.o. t.i.d. 3. Lisinopril/hydrochlorothiazide 20/12.5 mg 1 tablet p.o. daily. 4. Ativan 0.5 mg p.o. q.8 hours as needed for anxiety. 5. Glucophage 500 mg p.o. daily. 6. Nitroglycerin 0.4 mg sublingual q.5 minutes as needed for chest pain. 7. Omeprazole 20 mg p.o. daily. 8. Pravastatin 40 mg p.o. daily. 9. Insulin glargine 76 units subcu daily. 10. Aspirin 81 mg p.o. daily. 11. Clindamycin 150 mg p.o. t.i.d. x3 days. 12. Plavix 75 mg p.o. daily and to resume it at 3 days after discharge. 13. Percocet 5/325 mg 1 tablet q.4 hours as needed for pain. DISPOSITION: Discharge to home in a stable condition to follow up with [facility] in the next week or 2 and also to receive home healthcare by skilled nurses for routine needs. TIME SPENT: Approximately 45 minutes were spent discharging this patient including performing followup exam and going through a medication list and consulting with the bed manager. MAHAD AGUAYO [id number]/[facility] #: [id number] LISA
== END 2017-09-28 10:23 | disposition home or self-care (01) | DRG 243 ==
LOC: ED 11:53 → MEDTELE 13:15
PROVIDERS: ADMIT Internal Medicine; ATTEND Internal Medicine
PROC: 02H63JZ Insertion of Pacemaker Lead into Right Atrium, Percutaneous Approach (ICD-10-PCS; 2017-09-27)
PROC: 02HK3JZ Insertion of Pacemaker Lead into Right Ventricle, Percutaneous Approach (ICD-10-PCS; 2017-09-27)
PROC: 0JH606Z Insertion of Pacemaker, Dual Chamber into Chest Subcutaneous Tissue and Fascia, Open Approach (ICD-10-PCS; principal; 2017-09-27 13:30)
DX: I49.5 Sick sinus syndrome (principal); I47.1 Supraventricular tachycardia; I42.1 Obstructive hypertrophic cardiomyopathy; I25.10 Atherosclerotic heart disease of native coronary artery without angina pectoris; E11.9 Type 2 diabetes mellitus without complications; J44.9 Chronic obstructive pulmonary disease, unspecified; K21.9 Gastro-esophageal reflux disease without esophagitis; M19.042 Primary osteoarthritis, left hand; M19.041 Primary osteoarthritis, right hand; F32.9 Major depressive disorder, single episode, unspecified; F17.210 Nicotine dependence, cigarettes, uncomplicated; I49.9 Cardiac arrhythmia, unspecified; I10 Essential (primary) hypertension; E78.5 Hyperlipidemia, unspecified; G47.33 Obstructive sleep apnea (adult) (pediatric); M47.812 Spondylosis without myelopathy or radiculopathy, cervical region; Z96.643 Presence of artificial hip joint, bilateral; I65.23 Occlusion and stenosis of bilateral carotid arteries; M54.5 Low back pain; K52.839 Microscopic colitis, unspecified; E66.9 Obesity, unspecified; F41.9 Anxiety disorder, unspecified; Z88.8 Allergy status to other drugs, medicaments and biological substances; Z87.01 Personal history of pneumonia (recurrent); Z72.89 Other problems related to lifestyle; Z88.5 Allergy status to narcotic agent; Z88.0 Allergy status to penicillin; Z82.49 Family history of ischemic heart disease and other diseases of the circulatory system; Z85.841 Personal history of malignant neoplasm of brain; Z91.19 Patient's noncompliance with other medical treatment and regimen; Z79.01 Long term (current) use of anticoagulants; Z79.82 Long term (current) use of aspirin; Z79.4 Long term (current) use of insulin; Z68.37 Body mass index [BMI] 37.0-37.9, adult
CPT/HCPCS: 33208; 36415; 71045; 71046; 80048; 80053; 82550; 83036; 83605; 83735; 84443; 84484; 85025; 85610; 93005; 94640; 99156; 99157; 99284; 99406; A9270-GY; C1785; C1898; J1644; J2250; J2270; J2704; J3010

== ENCOUNTER 2018-01-11 12:45 | Emergency (ER) | payer MEDICARE, MEDICAID ==
--- OUTSIDE RECORDS SUMMARY | 2018-01-11 12:51 | XMS REPORT | Continuity of Care Document ---
:1955 External Reference #:[id number] Author Name Minerva Bernstein O.D. Address [address] [place] [address] Care Team Providers Name Role Phone Sugey Ray M.D. Primary Care Physician Unavailable Payers Type Date Identification Numbers Payment Provider Subscriber Policy Number: [id number] Medicare - [facility] Van Alarconhermes PayID: [id number] [address] [place] [address] Policy Number: [id number] Medicaid Van [employer]ar[employer]her[employer] PayID: [id number] [address] [place] [address] Advance Directives Description No Information Available Problems Date Description Provider Status Onset: Heart disease Active Onset: Essential hypertension Active Onset: Chronic low back pain Active Onset: Neuropathy Active Onset: Type 2 diabetes mellitus Active Note: 2003 Onset: Sciatica Active Onset: H/O: depression Active Onset: Cyst of breast Active Onset: Hyperlipidemia Active Onset: 08/25/2015 Punctate keratitis Mikayla Vega Active O.D. 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 Onset: 08/25/2015 Nuclear senile cataract Mikayla Vega Active O.DJohana Onset: 09/22/2015 Chronic allergic conjunctivitis Mikayla Vega Active O.D. 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 Onset: 05/15/2016 Angular blepharoconjunctivitis Mikayla Vega, Active O.D. Family History Date Family Member(s) Problem(s) Comments Father Diabetes Mother No Current Problems Social History Type Date Description Comments Sex Unknown Marital Status Legal Status: Occupation Works at [employer] Work Status Part-Time Employment ETOH Use Denies alcohol use Tobacco Use Start: Unknown Light tobacco smoker (10 or fewer cigarettes/day) Recreational Drug Use Former Drug User Smoking Status Reviewed: 01/09/18 Light tobacco smoker (10 or fewer cigarettes/day) Allergies, Adverse Reactions, Alerts Date Description Reaction Status Severity Comments 08/18/2015 Compazine Active 08/18/2015 Haldol Active 08/18/2015 Benztropine Active Medications Medication Date Status Form Strength Qnty SIG Indications Ordering Provider Erythromycin 12/25/ Active Ointment 5mg/GM 1Tubes apply H10.523 Minerva Akins 2018 thin Amandeep, strip to O.D. all four eyelid margins every night at bedtime x 2 weeks Lisinopril-Hydr / Active Tablets 20-12.5mg Take 1 Unknown ochlorothiazide 0000 Tablet By Mouth Every Day Lantus Solostar / Active Solution 100Unit/ML Inject 78 Unknown 0000 Pen-Inject Units Beneath The Skin Every Bedtime. Humalog Kwikpen / Active Solution 100Unit/ML Inject 7 Unknown 0000 Pen-Inject Units Beneath The Skin Before Supper. Diltiazem HCL / Active Caps ER 300mg Take One Unknown ER Coated Beads 0000 24HR Capsule By Mouth Every Day Dulera / Active Aerosol 100-5mcg/A Inhale [address] Puffs Twice A Day Hydrocodone-Doe / Active Tablets 10-325mg Take 1 Unknown taminophen 0000 Tablet By Mouth 3 Times A Day as Needed For Pain Aspirin Ec / Active Tablets DR 81mg every day Unknown 0000 Artificial / Active Solution 0.1-0.3% Morning Mikayla JJohana Tears 0000 and Night Hiren Vega Pravastatin / Active Tablets 40mg Take 1 Unknown Sodium 0000 Tablet By Mouth Three Times Per Week. Omeprazole / Active Capsules 20mg Take One Unknown 0000 DR Capsule By Mouth Every Day Clopidogrel 00/ Active Tablets 75mg Take 1 Unknown Bisulfate 0000 Tablet By Mouth Every Day Neomycin/Polymy 05/15/ Hx Ointment 3.5-13556- 3.500g apply H10.523 Mikayla rosales/Dexamethaso 2016 - 0.1 m 1/4" in [place], [place] 05/29/ both eyes O.D. 2016 at bedtime for 2 weeks. Epinastine HCL 09/21/ Hx Solution 0.05% 15ml 1 drop H10.45 Mikayla Crawford 2016 - twice a [facility], 05/16/ day in O.D. 2017 each eye Refresh Optive 09/07/ Hx Solution 0.5-1-0.5% 20ml twice a H16.143 Mikayla Boyd 2015 - [facility], 05/15/ O.D. 2017 Refresh P.M. 09/07/ Hx Ointment 3.500g every H16.143 Mikayla Crawford 2016 - night at [facility], 05/15/ bedtime O.D. 2017 both eyes Neomycin/Polymy 08/24/ Hx Ointment 3.5-68596- 3.500g apply H16.142 Mikayla rosaels/Dexamethaso 2015 - 0.1 m 1/4" in [place], [place] 09/06/ both eyes O.D. 2015 at bedtime for 2 weeks. Immunizations Description No Information Available Vital Signs Description No Information Available Results Description No Information Available Procedures Date Code Description Status 12/25/2017 45222 Est Patient Comprehensive Exam Completed 10/04/2016 94986 Visual Field Exam Extended Completed 10/04/2016 97943 Determination Of Refractive State Completed 10/04/2016 05866 Est Patient Comprehensive Exam Completed 09/22/2016 75712 Patient No Show For Appt Completed 05/01/2016 32397 Gonioscopy Completed 05/01/2016 96847 Est Patient Intermediate Exam Completed 09/08/2015 05856 Close Lacrimal Punctum, Plug Completed 09/08/2015 67278 Close Lacrimal Punctum, Plug Completed 08/25/2015 99071 New Patient Comprehensive Exam Completed 08/25/2015 65411 Close Lacrimal Punctum, Plug Completed 04/15/2013 92777 Visual Field Exam Extended Completed 04/10/2013 10142 New Patient Comprehensive Exam Completed Encounters Type Date Location Provider Dx Diagnosis Office Visit 06/07/2016 Mikayla Mendez H04.123 Dry eye syndrome 4:10p , jimena Vega O.D. of bilateral lacrimal glands E11.9 Type 2 diabetes mellitus without complications H25.13 Age-related nuclear cataract, bilateral H40.033 Anatomical narrow angle, bilateral Office 05/15/2016 Herminio Crawford H10.523 Angular Visit 11:20a MD Ulrich Stockwin, blepharoconjunctivitis, pc O.DJohana bilateral Office 09/22/2015 Herminio Crawford H16.143 Punctate keratitis, Visit 10:20a MD Ulrich Stockwin, bilateral pc O.DJohana H10.45 Other chronic allergic conjunctivitis Office Visit 09/08/2015 3:20p Herminio Crawford H16.143 Punctate MD Mojgan, jimena Vega O.D. 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 If you are a smoker , we strongly recommend that you quit.If you are not a smoker, we strongly recommend that you do not start. Discontinue the ointmentcontinue with the warm compresses and gentle lid wruanfnO12.13 Age-related nuclear cataract, bilateralComments:You have nuclear sclerosis, which is hardening of your natural lens. This is normal as a person ages.D44.3 Neoplasm of uncertain behavior of pituitary glandComments:It is important to monitor your visual field for changes over time.Follow up:1 month VF 30-2 only
--- OUTSIDE RECORDS SUMMARY | 2018-01-11 12:51 | XMS REPORT | Continuity of Care Document ---
:1955 External Reference #:[id number] Author Name Feliciano Lee Care Team Providers Name Role Phone Sugey Ray M.D. Primary Care Physician Unavailable Payers Type Date Identification Numbers Payment Provider Subscriber Policy Number: [id number] Medicare - [employer] PayID: [id number] [address] [facility] [place] [facility] [place] [address] Policy Number: [id number] Medicaid [employer] PayID: [id number] [address] [place] [address] Advance Directives Description No Information Available Problems [...] Active O.D. Onset: 08/25/2015 Tear film insufficiency Mikayla Vega Active O.D. 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 Onset: 08/25/2015 Nuclear senile cataract Mikayla Vega Active O.D. 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 Onset: 05/15/2016 Angular blepharoconjunctivitis Mariia Aguillon O.Lissa Family History Date Family Member(s) Problem(s) Comments Father Diabetes Mother No Current Problems Social History Type Date Description Comments Sex Unknown Marital Status Legal Status: Occupation Works at [employer] Work Status Part-Time Employment ETOH Use Denies alcohol use Tobacco Use Start: Unknown Light tobacco smoker (10 or fewer cigarettes/day) Recreational Drug Use Former Drug User Smoking Status Reviewed: 12/25/17 Light tobacco smoker (10 or fewer cigarettes/day) [...] DR Capsule By Mouth Every Day Clopidogrel 00/00/ Active Tablets 75mg Take 1 Unknown Bisulfate 0000 Tablet By Mouth Every Day Neomycin/Polymy 05/15/ Hx Ointment 3.5-66154- 3.500g apply H10.523 Mikayla rosales/Dexamethaso 2017 - 0.1 m 1/4" in [place], [place] 05/29/ both eyes O.D. 2016 at bedtime for 2 weeks. Epinastine HCL 09/21/ Hx Solution 0.05% 15ml 1 drop H10.45 Mikayla Crawford 2016 - twice a [facility], 05/16/ day in O.D. 2017 each eye Refresh Optive 09/07/ Hx Solution 0.5-1-0.5% 20ml twice a H16.143 Mikayla Boyd 2015 - day [facility], 05/15/ O.D. 2017 Refresh P.M. 09/07/ Hx Ointment 3.500g every H16.143 Mikayla Crawford 2016 - m night at [facility], 05/15/ bedtime O.D. 2016 both eyes Neomycin/Polymy 08/24/ Hx Ointment 3.5-34078- 3.500g apply H16.142 Mikayla rosales/Dexamethaso 2016 - 0.1 m 1/4" in [place], [place] 09/06/ both eyes O.D. 2015 at bedtime for 2 weeks. Immunizations Description No Information Available Vital Signs Description No Information Available Results Description No Information Available Procedures Date Code Description Status 12/25/2017 85694 Est Patient Comprehensive Exam Completed 10/04/2016 73056 Visual Field Exam Extended Completed 10/04/2016 57348 Determination Of Refractive State Completed 10/04/2016 04863 Est Patient Comprehensive Exam Completed 09/22/2016 29962 Patient No Show For Appt Completed 05/01/2016 75564 Gonioscopy Completed 05/01/2016 36094 Est Patient Intermediate Exam Completed 09/08/2015 44091 Close Lacrimal Punctum, Plug Completed 09/08/2015 50897 Close Lacrimal Punctum, Plug Completed 08/25/2015 24465 New Patient Comprehensive Exam Completed 08/25/2015 84715 Close Lacrimal Punctum, Plug Completed 04/15/2013 83086 Visual Field Exam Extended Completed 04/10/2013 11656 New Patient Comprehensive Exam Completed Encounters Type Date Location Provider Dx Diagnosis Office Visit 06/07/2016 Mikayla Mendez H04.123 Dry eye syndrome 4:10p , jimena Vega O.D. of bilateral lacrimal glands E11.9 Type 2 diabetes mellitus without complications H25.13 Age-related nuclear cataract, bilateral H40.033 Anatomical narrow angle, bilateral Office 05/15/2016 Herminio Crawford H10.523 Angular Visit 11:20a MD Ulrich Stockwin, blepharoconjunctivitis, jimena O.DJohana bilateral Office 09/22/2015 Herminio Crawford H16.143 Punctate keratitis, Visit 10:20a MD Ulrich Stockwin, bilateral jimena OIno H10.45 Other chronic allergic conjunctivitis Office Visit 09/08/2015 3:20p Herminio Crawford H16.143 Punctate MD Mojgan, jimena Vega O.D. 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 If you are a smoker, we strongly recommend that you quit.If you are not a smoker, we strongly recommend that you do not start. CONTINUE WARM COMPRESSES WITH GENTLE MASSAGEUSE ERYTHROMYCIN OINTMENT ON BOTH EYELIDS IN THE MORNING AND ZLTDYDCX23.13 Age-related nuclear cataract, bilateralComments:You have nuclear sclerosis, which is hardening of your natural lens. This is normal as a person ages.H04.123 Dry eye syndrome of bilateral lacrimal glandsComments:Both of your eyes appear to be dry. Use artificial tears as directed. You can use the tears more often if you are reading a book or are on the computer, as we tend to blink less, making our eyes dry out more.[facility] offers a few items in our optical department to help alleviate dry eye symptoms.E11.9 Type 2 diabetes mellitus without complicationsComments:You have diabetes. I do not detect any changes in both of your retinas from diabetes at this time. Proper control of your diabetes is important for the health of your eyes. Changes in your eyes from diabetes can happen without symptoms, so it is important that you have your eyes examined.D44.3 Neoplasm of uncertain behavior of pituitary glandFollow up: 1 week VF 30-2/OCT ONH review of symptoms
[2018-01-11 12:52] VITALS: BP 144/46
--- OUTSIDE RECORDS SUMMARY | 2018-01-11 12:52 | XMS REPORT | Continuity of Care Document ---
:1955 External Reference #:[id number] Author Name Eufemia Torres Care Team Providers Name Role Phone Sugey Ray MD Primary Care Physician Unavailable Payers Type Date Identification Numbers Payment Provider Subscriber Effective: 1997 Policy Number: [id number] Medicare [employer] PayID: [id number] [address] [place] [address] Effective: 2008 Policy Number: [id number] Medicaid [employer] Name: 1 1 [address] PayID: [id number] [place] [address] Advance Directives Description No Information Available Problems Date Description Provider Status Onset: 07/20/2014 Carotid artery occlusion Nikko Samaniego M.D., Active FACC, FASNC Onset: 07/20/2014 Chest pain Nikko Samaniego M.D., Active FACC, FASNC Onset: 07/31/2014 Chronic ischemic heart disease Nikko Samaniego M.D., Active FACC, FASNC Onset: 02/21/2016 Localized, secondary Nena Leiva M.D. Active osteoarthritis Onset: 05/08/2016 Prosthetic arthroplasty of the hip Nena Leiva M.D. Active Onset: 06/19/2016 Low back pain Black Guido M.D. 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 Active Onset: 08/29/2017 Palpitations Nikko Samaniego M.D., Active FAC, FASNC Onset: 09/18/2017 Dizziness and giddiness Anup Isidro N.P. Active Onset: 09/18/2017 Type 2 diabetes mellitus Anup Isidro N.P. Active Onset: 09/18/2017 Obstructive sleep apnea syndrome Anup Isidro N.P. Active Onset: 09/18/2017 Chronic obstructive lung disease Anup Isidro N.P. Active Onset: 09/19/2017 Backache Martha Nelson NP Active Onset: 09/20/2017 Essential hypertension Martha Nelson NP Active Onset: 09/22/2017 Sinus node dysfunction Verna Anders M.D. Active Onset: 09/23/2017 Paroxysmal supraventricular Salome Campoverde DO Active tachycardia Onset: 11/07/2017 Cardiac pacemaker in situ Nikko Samaniego M.D., Active [facility], [facility] Family History Date Family Member(s) Problem(s) Comments General Heart Disease General Diabetes Social History Type Date Description Comments Sex Unknown Marital Status Lives With Occupation [employer] ETOH Use Denies alcohol use Recreational Drug Use Denies Drug Use Tobacco Use Start: Unknown End: Patient is a former smoker Unknown Tobacco Use Start: Unknown Patient is a current smoker, smokes every day Tobacco Use Start: Unknown Light tobacco smoker (10 or fewer cigarettes/day) Smoking Status Reviewed: 12/31/17 Light tobacco smoker (10 or fewer cigarettes/day) Exercise Type/Frequency Exercises sporadically Allergies, Adverse Reactions, Alerts Date Description Reaction Status Severity Comments 08/11/2013 Haldol Anaphylaxis Active Severe 08/11/2013 Compazine stroke like symptoms Active Severe 08/11/2013 Penicillin Nausea and Vomiting Active 08/11/2013 Cogentin Active 11/07/2017 Statins tounge swelling pain and itch Active Medications Medication Date Status Form Strength Qnty SIG Indications Ordering Provider Nitroglycerin 08/29 Active Tablets Sub 0.4mg 30tab if feel chest R07.9 s pain,may take Le up to 3 total Samaniego, 5 min apart M.D., but call 911 FACC, if have chest FASNC pain for greater than 10 minutes. [place] 00 Active Tablets 10-325mg 1 by mouth Crepet, /0000 three times MD Sugey a day as needed Diltiazem HCL Active Caps ER 300mg 90cap 1 by mouth Crepet, ER /0000 24HR s every day MD Sugey Aspirin Ec Active Tablets DR 81mg 1 tablet Unknown Lo-Dose /0000 daily. Lisinopril-Hyd Active Tablets 20-12.5mg Take 1 Tab By Nikko rochlorothiazi /0000 Mouth Daily. Rey Prabhakar M.D., [facility], [facility] Lantus Active Solution 100Unit/M Inject 76 Unknown Solostar /0000 Pen-Inject L Units Subcutaneousl y AT Bedtime Lorazepam Active Tablets 1mg 1/2-1 by Unknown /0000 mouth once a day as needed Plavix Active Tablets 75mg 1 by mouth Nikko /0000 every day Rey Samaniego M.D., [facility], [facility] Atorvastatin 11/07 Hx Tablets 20mg take 1 tablet Nikko Calcium at bedtime Rey Samaniego 11/07 Barbara, [facility], [facility] Clindamycin 09/28 Hx Capsules 150mg 9caps one capsule Justino HCL by mouth DJohana Brand, - three times a M.D. 10/02 day for days Aspirin Hx Tablets 325mg 1 by mouth Unknown /0000 every day - 07/22 Lipitor Hx Tablets 20mg 90tab one tab by Unknown /0000 s mouth every - night at 07/22 bedtime Diltiazem HCL Hx Tablets 120mg 30tab 2 [...] - at bedtime as 02/19 needed Lipitor 0000 Hx Tablets 1 by mouth Unknown /0000 [...] - Every Day AT 08/28 Dinner Time /2017 Atorvastatin Hx Tablets 20mg take 1 tablet Unknown Calcium /0000 at bedtime - 10/14 Medications Administered in Office Medication Date Status Form Strength Qnty SIG Indications Ordering Provider Inj, 09/12/ Administered Injection Nikkoblanca Le Regadenoson, 0.1 2018 MG Carolyn Samaniego.D., FACC, FASNC Aminophylline 09/12/ Administered Injection Nikko Rey 2018 Barbara Samaniego, FACC, FASNC Technetium TC 09/12/ Administered Injection Nikko Rey 99M Tetrofosmin, 2018 [place], Per Unit Dose Up M.D., To [...] F Synvisc-One 2016 Randy, Injection 1 MG Synvisc Or 04/19/ Administered Injection Nena Synvisc-One 2016 [place], Injection 1 MG M.D. Inj, 07/27/ Administered Injection Nikko Le Regadenoson, 0.1 2014 MG Barbara Samaniego, FACC, FASNC Aminophylline 07/27/ Administered Injection Nikko Le 2014 Barbara Samaniego, FACC, FASNC Technetium TC 07/27/ Administered Injection Nikko Le 99M Tetrofosmin, 2014 [place], Per Unit Dose Up M.D., To 40 FACC, Millicuries FASNC Inj, 06/10/ Administered Injection Nikko Le Regadenoson, 0.1 2012 MG Carolyn Samaniego.DJohana, FACC, FASNC Technetium TC 06/10/ Administered Injection Nikko Le 99M Tetrofosmin, 2012 [place], Per Unit Dose Up M.D., To 40 FACC, Millicuries FASNC Immunizations Description No Information Available Vital Signs Date Vital Result Comment 12/31/2017 8:56am Height 62 inches 5'2" Heart Rate 70 /min BP Systolic Sitting 142 mmHg BP Diastolic Sitting 58 mmHg Pain Level 7 O2 % BldC Oximetry 99 % at rest on room air 11/07/2017 11:01am Height 62 inches 5'2" Weight 204.25 lb BP Systolic Sitting 122 mmHg Rue/large cuff BP Diastolic Sitting 64 mmHg Rue/large cuff BP Systolic Standing 124 mmHg Rue/large cuff BP Diastolic Standing 64 mmHg Rue/large cuff BMI (Body Mass Index) 37.4 kg/m2 Ejection Fraction 65-70% 11/07/2017 10/03/2017 2:13pm Height 62 inches 5'2" Weight 203.00 lb Heart Rate 60 /min BP Systolic Sitting 114 mmHg Lue reg cuff BP Diastolic Sitting 70 mmHg Lue reg cuff Respiratory Rate 18 /min BMI (Body Mass Index) 37.1 kg/m2 Ejection Fraction 65-70% as of 07/2016 echo 08/29/2017 1:24pm Height 62 inches 5'2" Weight 202.00 lb w/o shoes Heart Rate 68 /min BP Systolic Sitting 138 mmHg lue lrg cuff BP Diastolic Sitting 58 mmHg lue lrg cuff BP Systolic Standing 142 mmHg BP Diastolic Standing 60 mmHg Respiratory Rate 18 /min BMI (Body Mass Index) 36.9 kg/m2 Ejection Fraction 65-70% echo 08/02/2016 04/13/2017 9:26am Height 62 inches 5'2" Weight 194.00 lb Heart Rate 72 /min BP Systolic Sitting 130 mmHg BP Diastolic Sitting 82 mmHg Pain Level 8 BMI (Body Mass Index) 35.5 kg/m2 08/09/2016 1:18pm Height 62 inches 5'2" Weight 194.50 lb with shoes Heart Rate 70 /min BP Systolic Sitting 132 mmHg Lue lrg cuff BP Diastolic Sitting 80 mmHg Lue lrg cuff BP Systolic Standing 126 mmHg Lue lrg cuff BP Diastolic Standing 66 mmHg Lue lrg cuff Respiratory Rate 16 /min BMI (Body Mass Index) 35.6 kg/m2 Ejection Fraction 65-70% 08/02/2016-echo 07/21/2016 11:29am Height 62 inches 5'2" Weight 193.25 lb w/shoes Heart Rate 86 /min BP Systolic Sitting 172 mmHg LA lg cuff BP Diastolic Sitting 68 mmHg LA lg cuff BP Systolic Standing 176 mmHg LA lg cuff BP Diastolic Standing 68 mmHg LA lg cuff BMI (Body Mass Index) 35.3 kg/m2 Ejection Fraction > 65% Echo 05/03/15 06/23/2016 8:27am Height 62 inches 5'2" Weight 191.00 lb Heart Rate 85 /min BP Systolic 154 mmHg BP Diastolic 82 mmHg Body Temperature 97.4 F Pain Level 7 BMI (Body Mass Index) 34.9 kg/m2 06/19/2016 1:34pm Height 62 inches 5'2" Weight 196.00 lb Heart Rate 76 /min BP Systolic Sitting 126 mmHg BP Diastolic Sitting 80 mmHg Pain Level 8 BMI (Body Mass Index) 35.8 kg/m2 06/05/2016 2:37pm Height 62 inches 5'2" Weight 196.00 lb Heart Rate 75 /min BP Systolic 133 mmHg BP Diastolic 63 mmHg Body Temperature 97.4 F Pain Level 8 BMI (Body Mass Index) 35.8 kg/m2 05/08/2016 3:02pm Height 62 inches 5'2" Weight 198.00 lb Heart Rate 77 /min BP Systolic 131 mmHg BP Diastolic 64 mmHg Body Temperature 96.9 F Pain Level 8 BMI (Body Mass Index) 36.2 kg/m2 05/03/2016 11:33am Height 62 inches 5'2" Weight 196.00 lb Heart Rate 76 /min Respiratory Rate 16 /min Pain Level 8 BMI (Body Mass Index) 35.8 kg/m2 04/27/2016 2:35pm Height 62 inches 5'2" Weight 196.00 lb Heart Rate 66 /min BP Systolic 128 mmHg BP Diastolic 62 mmHg Respiratory Rate 20 /min Body Temperature 97.8 F Pain Level 7 BMI (Body Mass Index) 35.8 kg/m2 04/19/2016 11:37am Height 62 inches 5'2" Weight 196.00 lb BP Systolic 128 mmHg BP Diastolic 64 mmHg Respiratory Rate 20 /min Pain Level 7 BMI (Body Mass Index) 35.8 kg/m2 02/21/2016 1:14pm Height 62 inches 5'2" Weight 196.00 lb BP Systolic Sitting 154 mmHg BP Diastolic Sitting 76 mmHg Respiratory Rate 16 /min Pain Level 7 BMI (Body Mass Index) 35.8 kg/m2 07/19/2015 10:25am Height 62 inches 5'2" Weight 195.00 lb with shoes Heart Rate 76 /min BP Systolic Sitting 152 mmHg Ra lrg cuff BP Diastolic Sitting 98 mmHg Ra lrg cuff BP Systolic Standing 148 mmHg Ra lrg cuff BP Diastolic Standing 88 mmHg Ra lrg cuff Respiratory Rate 16 /min BMI (Body Mass Index) 35.7 kg/m2 Ejection Fraction >65% 05/03/15 07/31/2014 1:05pm Height 62 inches 5'2" Weight 199.00 lb Heart Rate 78 /min BP Systolic Sitting 132 mmHg LA lg cuff BP Diastolic Sitting 58 mmHg LA lg cuff BP Systolic Standing 138 mmHg LA lg cuff BP Diastolic Standing 60 mmHg LA lg cuff BMI (Body Mass Index) 36.4 kg/m2 Ejection Fraction 60-65 echo 07/22/14 07/20/2014 1:05pm Height 62 inches 5'2" Weight 199.00 lb with shoes Heart Rate 74 /min BP Systolic Sitting 150 mmHg Ra lg cuff BP Diastolic Sitting 70 mmHg Ra lg cuff BP Systolic Standing 144 mmHg Ra lg cuff BP Diastolic Standing 62 mmHg Ra lg cuff Respiratory Rate 17 /min BMI (Body Mass Index) 36.4 kg/m2 Ejection Fraction 55-60% date 07/25/13 08/11/2013 9:57am Height 62 inches 5'2" Weight 196.00 lb Heart Rate 66 /min BP Systolic Sitting 124 mmHg right arm, large cuff BP Diastolic Sitting 52 mmHg right arm, large cuff BP Systolic Standing 116 mmHg right arm, large cuff BP Diastolic Standing 50 mmHg right arm, large cuff Respiratory Rate 20 /min BMI (Body Mass Index) 35.8 kg/m2 Results Test Date Facility Test Result H/L Range Note Xray 06/12/2016 [facility] MRI Hip <pending> [address] [address] [phone] Laboratory test 05/09/2016 [facility] [place] Serum 6.2 ng/mL Abnormal 1 finding [address] [place] [address] [phone] Chromium 1.9 ng/mL Abnormal <0.3 2 Heavy Metal Blool 05/09/2016 [facility] Arsenic <1 ng/mL N [address] [place] [address] [phone] Lead 1.3 mcg/dL N 4 Mercury <1 ng/mL N 5 Cadmium 0.7 ng/mL N [address] Address See Comment N 7 [facility] N [facility] [place] [address] [address] [facility] N Guardian First Name VAN Moreno Guardian Last Name THOMAS Moreno N Venous/Capillary Heavy Metals Venous N Patient Race BLACK N 1 REFERENCE VALUE 0.0-0.9 <10 (MoM implant) ADDITIONAL INFORMATION This test was developed and its performance characteristics determined by [facility] in a manner consistent with CLIA requirements. This test has not been cleared or approved by the U.S. Food and Drug Administration. Test Performed by: [facility] [place] [facility] [address] [place] [address] 2 ADDITIONAL INFORMATION This test was developed and its performance characteristics determined by [facility] in a manner consistent with CLIA requirements. This test has not been cleared or approved by the U.S. Food and Drug Administration. Test Performed by: [facility] - [address] [address] 3 Reference Value: 0-12 ADDITIONAL INFORMATION This test was developed and its performance characteristics determined by [facility] in a manner consistent with CLIA requirements. This test has not been cleared or approved by the U.S. Food and Drug Administration. 4 Reference Value: 0.0-4.9 ADDITIONAL INFORMATION Testing performed by Inductively Coupled Plasma-Mass Spectrometry (ICP-MS). This test was developed and its performance characteristics determined by [facility] in a manner consistent with CLIA requirements. This test has not been cleared or approved by the U.S. Food and Drug Administration. 5 Reference Value: 0-9 ADDITIONAL INFORMATION This test was developed and its performance characteristics determined by [facility] in a manner consistent with CLIA requirements. This test has not been cleared or approved by the U.S. Food and Drug Administration. 6 Reference Value: 0.0-4.9 ADDITIONAL INFORMATION This test was developed and its performance characteristics determined by [facility] in a manner consistent with CLIA requirements. This test has not been cleared or approved by the U.S. Food and Drug Administration. 7 RESULT: [address] Procedures Date Code Description Status 12/31/2017 14680 Inject/Drain Joint/Bursa Major W/O US Completed 10/25/2017 01100 Pace Maker Bertaal W/Iterative Adjment Dual Lead Completed 10/03/2017 18636 ECHO Transthoracic, Real-Time 2D With Doppler And Color Completed Flow 10/03/2017 19662 ECHO Transthoracic, Real-Time 2D With Doppler And Color Completed Flow 09/28/2017 23420 Pace Maker Eval W/Iterative Adjment Dual Lead Completed 09/27/2017 87075 Perm Pacemaker Av Sequential Atrial And Ventricular Completed 09/24/2017 47347 Moderate Sedation Services; Same Phys Intl 15 Mins; PT >=5 Completed Years 09/24/2017 39842 Perm Pacemaker Av Sequential Atrial And Ventricular Completed 09/23/2017 82191 EKG, Interpretation Only Completed 09/22/2017 53018 EKG, Interpretation Only Completed 09/21/2017 67223 EKG, Interpretation Only Completed 09/19/2017 85980 EKG, Interpretation Only Completed 09/12/2017 59962 Stress Test Completed 09/12/2017 91554 Myocardial Perfusion Imaging Tomographic (Spect) Multiple Completed Studies 08/29/2017 13192 EKG Tracing & Interpretation Completed 08/09/2016 11583 EKG Tracing & Interpretation Completed 08/02/2016 87949 ECHO Transthoracic, Real-Time 2D With Doppler And Color Completed Flow 07/31/2016 52400 Stress Test Completed 07/31/2016 67918 Myocardial Perfusion Imaging Tomographic (Spect) Multiple Completed Studies 07/21/2016 14241 EKG Tracing & Interpretation Completed 05/03/2016 98557 Inject/Drain Joint/Bursa Major W/O US Completed 04/27/2016 71945 Inject/Drain Joint/Bursa Major W/O US Completed 04/19/2016 51316 Inject/Drain Joint/Bursa Major W/O US Completed 07/19/2015 33827 EKG Tracing & Interpretation Completed 07/16/2015 77009 Carotid Doppler,Bilateral Completed 05/03/2015 47633 ECHO Transthorasic Realtime 2D W Doppler & Color Flow Hosp Completed 07/27/2014 36370 Stress Test Completed 07/27/2014 21622 Myocardial Perfusion Imaging Tomographic (Spect) Multiple Completed Studies 07/22/2014 79020 ECHO Transthoracic, Real-Time 2D With Doppler And Color Completed Flow 07/20/2014 25070 EKG Tracing & Interpretation Completed 07/14/2014 34022 Carotid Doppler,Bilateral Completed 08/11/2013 62182 EKG Tracing & Interpretation Completed 07/31/2013 38393 Carotid Doppler,Bilateral Completed 07/25/2013 75757 ECHO Transthoracic, Real-Time 2D With Doppler And Color Completed Flow 06/13/2012 16172 ECHO Transthoracic, Real-Time 2D With Doppler And Color Completed Flow 06/10/2012 41119 Stress Test Completed 06/10/2012 13510 Myocardial Perfusion Imaging Tomographic (Spect) Multiple Completed Studies 06/04/2012 94779 Carotid Doppler,Bilateral Completed 08/30/2011 61998 EKG, Interpretation Only Completed 11/16/2008 56202 EKG, Interpretation Only Completed Encounters Type Date Location Provider Dx Diagnosis Office Visit 11/07/2017 [facility] Nikko Rey Samaniego, Z95.0 Presence of 11:30a Of Stef Jimenez, ISIDRA, FASJOSE ENRIQUE cardiac pacemaker I25.10 Athscl heart disease of [place] coronary artery w/o ang pctrs Office Visit 09/28/2017 11:30a [facility] [place], R42 Dizziness and Assoc,pc PA giserg Hospitalists I47.1 Supraventricular tachycardia I49.5 Sick sinus syndrome I10 Essential (primary) hypertension M54.5 Low back pain E11.9 Type 2 diabetes mellitus without complications Office Visit 09/27/2017 11:30a [facility] [place], R42 Dizziness and Assoc,pc PA gimarichuyiness Hospitalists I49.5 Sick sinus syndrome I25.10 Athscl heart disease of [place] coronary artery w/o ang pctrs Office Visit 09/26/2017 11:30a [facility] [place], R42 Dizziness and Assoc,pc PA gimarichuyiness Hospitalists I49.5 Sick sinus syndrome I25.10 Athscl heart disease of [place] coronary artery w/o ang pctrs Office Visit 09/25/2017 11:29a [facility] Georgina R42 Dizziness and Assoc,pc [employer] giddiness Hospitalists I47.1 Supraventricular tachycardia I49.5 Sick sinus syndrome Office Visit 09/24/2017 11:29a [facility] Erickson, I49.5 Sick sinus Assoc,pc [employer] syndrome Hospitalists R42 Dizziness and giddiness Office Visit 09/23/2017 2:24p [facility] Roque Cooper R42 Dizziness and Barbara Lainez giddiness R00.1 Bradycardia, unspecified I25.10 Athscl heart disease of [place] coronary artery w/o ang pctrs Office Visit 09/23/2017 [facility] Salome I47.1 Supraventricular 11:28a Assoc,pc Senner, DO tachycardia Hospitalists I49.5 Sick sinus syndrome I25.10 Athscl heart disease of [place] coronary artery w/o ang pctrs E11.9 Type 2 diabetes mellitus without complications Office Visit 09/22/2017 2:23p [facility] Roque Cooper R42 Dizziness and Barbara Lainez giddiness I49.5 Sick sinus syndrome I10 Essential (primary) hypertension Office Visit 09/22/2017 11:28a [facility] Verna I49.5 Sick sinus Assoc,jimena Anders M.D. syndrome Hospitalists I25.10 Athscl heart disease of [place] coronary artery w/o ang pctrs I10 Essential (primary) hypertension E11.9 Type 2 diabetes mellitus without complications Office Visit 09/21/2017 11:27a [facility], R42 Dizziness and Assoc,pc N.P. sera Hospitalists M54.9 Dorsalgia, unspecified I10 Essential (primary) hypertension I25.10 Athscl heart disease of [place] coronary artery w/o ang pctrs Office Visit 09/21/2017 2:20p [facility] Roque Cooper R42 Dizziness and Barbara Lainez giddiness I25.10 Athscl heart disease of [place] coronary artery w/o ang pctrs R07.9 Chest pain, unspecified I49.8 Other specified cardiac arrhythmias Office Visit 09/20/2017 11:25a [facility] R42 Dizziness and Assoc,pc sera [place] Hospitalists RING PACKER J44.9 Chronic obstructive pulmonary disease, unspecified M54.9 Dorsalgia, unspecified I10 Essential (primary) hypertension Office Visit 09/18/2017 11:24a [facility], R42 Dizziness and Assoc,pc N.P. sera Hospitalists E11.9 Type 2 diabetes mellitus without complications G47.33 Obstructive sleep apnea (adult) (pediatric) J44.9 Chronic obstructive pulmonary disease, unspecified Office Visit 08/29/2017 1:45p [facility] Nikko Le R07.9 Chest pain, Of Stef Samaniego M.D., unspecified FACC, FASNC R00.2 Palpitations F17.210 Nicotine dependence, cigarettes, uncomplicated Office Visit 04/13/2017 9:30a Neurosurgery Lora Demarco, M48.061 Spinal stenosis, [facility] PA-C lumbar region without neurogenic roxy M54.5 Low back pain Office Visit 01/29/2017 1:30p [facility] Dermatology Jeremiah Guerrier MD L70.0 Acne vulgaris L82.1 Other seborrheic keratosis D23.72 Oth benign neoplasm skin/ left lower limb, including hip Office Visit 08/09/2016 1:15p [facility] Nikko Le I25.10 Athscl heart [facility] Barbara Samaniego, disease of [place] FACC, FASNC coronary artery w/o ang pctrs Office Visit 07/21/2016 11:45a [facility] Nikko Le R07.9 Chest pain, Barbara Samaniego, unspecified FACC, FASNC I65.23 Occlusion and stenosis of bilateral carotid arteries I10 Essential (primary) hypertension I25.10 Athscl heart disease of [place] coronary artery w/o ang pctrs F17.210 Nicotine dependence, cigarettes, uncomplicated Office Visit 06/23/2016 8:15a Orthopedic Services Nena Leiva, M25.551 Pain in right Of C.M.A. M.D. hip Z96.641 Presence of right artificial hip joint Office Visit 06/19/2016 2:00p Neurosurgery Black Guido, M54.5 Low back [facility] Barbara pain Office Visit 06/05/2016 2:00p Orthopedic Services Nena Leiva, M25.551 Pain in Of C.M.A. M.D. right hip Z96.641 Presence of right artificial hip joint Office Visit 05/08/2016 3:00p Orthopedic Services Nena Leiva, M25.551 Pain in right Of C.M.A. M.D. hip Z96.641 Presence of right artificial hip joint M54.5 Low back pain Office Visit 02/21/2016 Orthopedic Nena M17.32 Unilateral 1:00p Services Bre Leiva M.D. post-traumatic C.M.A. osteoarthritis, left knee M25.562 Pain in left knee M25.462 Effusion, left knee Office Visit 07/19/2015 11:00a [facility] Nikko Le I25.9 Chronic ischemic [facility] Barbara Samaniego, heart disease, FACC, FASNC unspecified I65.23 Occlusion and stenosis of bilateral carotid arteries Office Visit 05/08/2015 10:04a [facility] J10.1 Flu due to oth Assoc,jimena Meeks M.D. ident influenza Hospitalists virus w oth resp manifest E11.9 Type 2 diabetes mellitus without complications J18.9 Pneumonia, unspecified organism Office Visit 05/07/2015 10:03a [facility] Lauro J10.1 Flu due to oth Assoc,jimena Meeks M.D. ident influenza Hospitalists virus w oth resp manifest E11.9 Type 2 diabetes mellitus without complications J18.9 Pneumonia, unspecified organism G47.33 Obstructive sleep apnea (adult) (pediatric) Office Visit 05/06/2015 10:02a [facility] Jihan Yee J10.1 Flu due to oth Asskvng,jimena Jimenez ident influenza Hospitalists virus w oth resp manifest E11.9 Type 2 diabetes mellitus without complications J18.9 Pneumonia, unspecified organism G47.33 Obstructive sleep apnea (adult) (pediatric) Office Visit 05/05/2015 9:47a Pulmonology And Angela J44.1 Chronic Sleep Services Of [place] obstructive [employer] pulmonary disease w (acute) exacerbation J18.9 Pneumonia, unspecified organism G47.33 Obstructive sleep apnea (adult) (pediatric) Office Visit 05/05/2015 10:02a [facility] Jihan Yee J10.1 Flu due to oth Assjimena calderon M.D. ident influenza Hospitalists virus w oth resp manifest E11.9 Type 2 diabetes mellitus without complications J18.9 Pneumonia, unspecified organism G47.33 Obstructive sleep apnea (adult) (pediatric) Office Visit 05/04/2015 9:46a Pul[facility]ology And Angela J44.1 Chronic Sleep Services Of MD [place] obstructive [employer] pulmonary disease w (acute) exacerbation J18.9 Pneumonia, unspecified organism G47.33 Obstructive sleep apnea (adult) (pediatric) Office Visit 05/04/2015 [facility] Jihan Yee, J18.9 Pneumonia, 10:00a jimena Johnson M.D. unspecified Hospitalists organism G47.33 Obstructive sleep apnea (adult) (pediatric) E11.9 Type 2 diabetes mellitus without complications Z72.0 Tobacco use Office Visit 05/03/2015 [facility] Jihan Yee J18.9 Pneumonia, 10:00a Assoc,pc M.D. unspecified Hospitalists organism G47.33 Obstructive sleep apnea (adult) (pediatric) E11.9 Type 2 diabetes mellitus without complications Z72.0 Tobacco use Office Visit 05/02/2015 [facility] Lis Felipe18.9 Pneumonia, 10:00a Assoc,pc M.D. unspecified Hospitalists organism G47.33 Obstructive sleep apnea (adult) (pediatric) E11.9 Type 2 diabetes mellitus without complications Z72.0 Tobacco use Office Visit 05/01/2015 [facility] [place] Felipe18.9 Pneumonia, 9:59a Assoc,pc M.D. unspecified Hospitalists organism G47.33 Obstructive sleep apnea (adult) (pediatric) E11.9 Type 2 diabetes mellitus without complications Z72.0 Tobacco use Office Visit 04/30/2015 [facility] [place] Felipe18.9 Pneumonia, 9:59a Assoc,pc M.D. unspecified Hospitalists organism G47.33 Obstructive sleep apnea (adult) (pediatric) E11.9 Type 2 diabetes mellitus without complications Z72.0 Tobacco use Office Visit 04/29/2015 9:58a [facility] [place] J18.9 Pneumonia , Assoc,pc M.D. 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 Unspec Hospitalists Office Visit 08/09/2008 2:45a [facility] Chest Assoc,jimena Meeks M.D. Unspec Hospitalists Office Visit 08/08/2008 12:45a [facility] 786.50 Pain Chest Assoc,jimena Meeks M.D. Unspec Hospitalists Plan of Treatment Future Appointment(s):01/24/2018 6:20 am - Pacemaker Schedule at [facility]04/15/2018 8:00 am - Pacemaker Schedule at [facility]12/31/2017 - Nena Leiva M.D.M25.562 Pain in left kneeFollow up:Follow up: As [id number] Effusion, left kneeM17.12 Unilateral primary osteoarthritis, left knee
--- NOTE | 2018-01-11 13:04 | UC ---
Respiratory Complaint HPI - HPI Summary HPI Summary: 62 y/o female presents to the urgent care c/o productive cough w/ yellowish phlegm for the past 2 weeks. symptoms worsen yesterday when she developed mild wheezing. Pt reports she has a pace maker that was placed 2 months ago. She has trien OTC medication w/o any improvement. She is producing a lot of PND which triggers her cough at night time. Pt has chills last night, but denies fever, SOB, chest pain, abdominal pain, N/V/D, ROBERTS or dizziness. She states a pacemaker was placed on her about 2 months ago. She has been well and managed by her House Manager. Pt is trying to quit smoking for the past 2 months. - History of Current Complaint Chief Complaint: UCRespiratory Stated Complaint: COUGH,WHEEZING Time Seen by Provider: 01/11/18 13:03 Hx Obtained From: Patient Onset/Duration: Gradual Onset, Lasting Weeks - 2 weeks, Still Present, Worse Since - 2 days w/ wheezing Timing: Intermittent Episodes Severity Initially: Mild Severity Currently: Moderate Pain Intensity: 0 Pain Scale Used: 0-10 Numeric Character: Cough: Productive, Sputum Description: - yellowish Aggravating Factors: Recumbent Position Alleviating Factors: OTC Meds Associated Signs And Symptoms: Positive: Chills, URI, Nasal Congestion, Sinus Discomfort. Negative: Dyspnea, Fever, Wheezing - Risk Factors Pulmonary Embolism Risk Factors: Negative Cardiac Risk Factors: Hypertension, Smoking, Diabetes, Elevated Lipids Pseudomonas Risk Factors: Negative Tuberculosis Risk Factors: Negative - Allergies/Home Medications Allergies/Adverse Reactions: Allergies Allergy/AdvReac Type Severity Reaction Status Date / Time codeine Allergy Itching Verified 01/11/18 12:52 haloperidol [From Haldol] Allergy Swelling Verified 01/11/18 12:52 Of Face,Lips,& Throat Penicillins Allergy Diarrhea Verified 01/11/18 12:52 pioglitazone [From Actos] Allergy Swelling Verified 01/11/18 12:52 prochlorperazine Allergy STROKE Verified 01/11/18 12:52 [From Compazine] LIKE SYMPTOMS atrovastatin AdvReac Severe Leg Cramps Uncoded 01/11/18 12:52 cogentin AdvReac Severe stroke Uncoded 01/11/18 12:52 like symptoms PMH/Surg Hx/FS Hx/Imm Hx Previously Healthy: Yes Endocrine History: Diabetes, Dyslipidemia Cardiovascular History: Hypertension, Pacemaker/ICD - placed 2 months ago Respiratory History: COPD - Surgical History Surgical History: Yes Surgery Procedure, Year, and Place: laser retina repair/pacer. bilateral feet. right hip 2017. left hip 2016. cardiac cath. lower back. bilateral knees - Family History Known Family History: Positive: Hypertension, Diabetes, Other - Anasthesia reaction - Social History Occupation: Employed Part-time Lives: With Family Alcohol Use: None Substance Use Type: None Smoking Status (MU): Light Every Day Tobacco Smoker Type: Cigarettes Amount Used/How Often: 1/2 ppd Length of Time of Smoking/Using Tobacco: 43 years Have You Smoked in the Last Year: Yes - Immunization History Most Recent Influenza Vaccination: 2016 Most Recent Tetanus Shot: up to date Most Recent Pneumonia Vaccination: 2016 Review of Systems All Other Systems Reviewed And Are Negative: Yes Constitutional: Positive: Negative Skin: Positive: Negative Eyes: Positive: Negative ENT: Positive: Nasal Discharge, Sinus Congestion, Other - PND Respiratory: Positive: Cough - productive w/ yellowish phlegm, Other - wheezing Cardiovascular: Positive: Negative Gastrointestinal: Positive: Negative Genitourinary: Positive: Negative Motor: Positive: Negative Neurovascular: Positive: Negative Musculoskeletal: Positive: Negative Neurological: Positive: Negative Psychological: Positive: Negative Is Patient Immunocompromised?: No Physical Exam - Summary Physical Exam Summary: Vital Signs Reviewed: Yes General: well developed, well nourished obese female sitting in the examining table w/o any apparent distress Eyes: Positive: Conjunctiva Clear - PERRLA, EOMI, fundi grossly normal ENT: Positive: Normal ENT inspection, Hearing grossly normal, Pharynx normal, Nasal congestion - edematous and erythematous nasal mucosa, Nasal drainage - yellowish drainage, TMs normal. Negative: Tonsillar swelling, Tonsillar exudate Neck: Positive: Supple, Nontender, No Lymphadenopathy Respiratory: no orthopnea or dyspnea. Able to speak in full sentences, no retractions or accessory muscle use, no tripod position, stridor, or head bobbing. Positive breath sounds bilaterally. diffuse scattered wheezing and rhonchi on b/L lungs, no crackles or rales. Cardiovascular: Positive: RRR, No Murmur, Pulses Normal, Brisk Capillary Refill Abdomen Description: Positive: Nontender, No Organomegaly, Soft. Negative: CVA Tenderness (R), CVA Tenderness (L) Bowel Sounds: Positive: Present Musculoskeletal Exam: Normal Musculoskeletal: Positive: Strength Intact, ROM Intact, No Edema Neurological Exam: Normal Psychological Exam: Normal Skin Exam: Normal Triage Information Reviewed: Yes Vital Signs: Initial Vital Signs Temp 97.2 F 01/11/18 12:48 Pulse 89 01/11/18 12:48 Resp 18 01/11/18 12:48 BP 144/46 01/11/18 12:48 Pulse Ox 100 01/11/18 12:48 Diagnostic Evaluation - Laboratory O2 Sat by Pulse Oximetry: 100 Respiratory Course/Dx - Course Course Of Treatment: 62 y/o female presents to the urgent care c/o productive cough w/ yellowish phlegm for the past 2 weeks. symptoms worsen yesterday when she developed mild wheezing. Pt reports she has a pace maker that was placed 2 months ago. She has trien OTC medication w/o any improvement. She is producing a lot of PND which triggers her cough at night time. Pt has chills last night, but denies fever, SOB, chest pain, abdominal pain, N/V/D, ROBERTS or dizziness. She states a pacemaker was placed on her about 2 months ago. She has been well and managed by her House Manager. Pt is trying to quit smoking for the past 2 months. Hx obtained. Pt w/ B/L lungs scattered wheezing and rhonchi on examination. O2Sat:100%. Pt w/ PMHX of COPD and everyday smoker. Pt probably w/ a COPD exacerbation. Chest X-ray ordered: impression: No cardioilpulmonary disease observed. Pt given at the clinic Prednisone 60 mg PO and Duoneb treatment. Pt tolerated well medications and her lungs improved. Pt states feeling better. Pt will be tx w/ Rx Doxycycline PO , Prednisone taper dose and Inhaler. Strongly advised to f/u with her PCP for further management. Strongly advised to go to the ER immediately if symptoms worsen. She also has elevated BP today, advised to decrease salt in her diet and monitor BP, if it continues to be elevated to f/u with her PCP. Pt understood and agreed with D/C instructions and left the clinic hemodynamically stable, ambulating and A&Ox3. - Differential Dx/Diagnosis Differential Diagnosis/HQI/PQRI: Asthma, Bronchitis, Exacerbation Of COPD, Laryngitis, Sinusitis, Other - pneumonia Provider Diagnosis: COPD with exacerbation, Bronchitis, Hypertension, uncontrolled Discharge - Sign-Out/Discharge Documenting (check all that apply): Patient Departure - d/c home All imaging exams completed and their final reports reviewed: Yes - Discharge Plan Condition: Stable Disposition: HOME Prescriptions: Albuterol HFA INHALER* [Ventolin HFA Inhaler*] 1 - 2 puff INH Q6H PRN #1 mdi PRN Reason: Wheezing Albuterol/Ipratropium NEB.RICH* [Duoneb (Albuterol 2.5 MG/Ipratropium 0.5 MG)] 1 neb INH Q6H PRN #1 alejandra PRN Reason: Wheezing DOXYcycline CAP(*) [DOXYcycline 100MG CAP(*)] 100 mg PO BID #20 cap predniSONE TAB* [Deltasone 20 MG TAB*] 20 mg PO DAILY #8 tab Patient Education Materials: COPD (Chronic Obstructive Pulmonary Disease) (ED) , Wheezing (ED) Forms: *Work Release Referrals: Sugey Ray MD [Primary Care Provider] - 3 Days Additional Instructions: 1- Take Prednisone PO taper dose as directed starting tomorrow. First loading dose given today. 2-Use the albuterol inhaler and Duoneb nebulizer treatment to alleviate wheezing and cough as directed . Increase fluid intake, rest and eat well. 3- Take Doxyxycline PO full course to avoid resistance. 3- If symptoms do not improve or worsen or your develop SOB with fever and severe wheezing please go immediately to the ER further evaluation and treatment. 4- Please F/u with your PCP in 2-3 days for further management on your COPD 5- Your BP is elevated today. please decrease salt in your diet, monitor BP and if it continues to be elevated please f/u with your PCP for further management - Billing Disposition and Condition Condition: STABLE Disposition: Home - Attestation Statements Provider Attestation: I was available for consult. This patient was seen by the LEFTY. The patient was not presented to, seen by, or examined by me. -Gerry
[2018-01-11] MEDS ORDERED: predniSONE TAB* 20 MG PO ONE (13:16)
[2018-01-11] MEDS ORDERED: Albuterol/Ipratropium NEB.SOL* Albuterol 2.5 MG/Ipratropium 0.5 MG 3 ML INH ONE (13:17)
== END 2018-01-11 14:18 | disposition home or self-care (01) ==
LOC: UCEAST 12:45
DX: J44.1 Chronic obstructive pulmonary disease with (acute) exacerbation (principal); I10 Essential (primary) hypertension; Z95.810 Presence of automatic (implantable) cardiac defibrillator; Z88.5 Allergy status to narcotic agent; Z88.0 Allergy status to penicillin; Z88.8 Allergy status to other drugs, medicaments and biological substances; F17.210 Nicotine dependence, cigarettes, uncomplicated
CPT/HCPCS: 71046; 99213; A9270-GY; G0463; J7512

== ENCOUNTER 2018-05-23 13:33 | Emergency (ER) | payer MEDICARE, MEDICAID ==
[2018-05-23] MEDS ORDERED: Albuterol/Ipratropium NEB.SOL* Albuterol 2.5 MG/Ipratropium 0.5 MG 3 ML INH ONE (15:38)
[2018-05-23] MEDS ORDERED: predniSONE TAB* 20 MG PO ONE (15:38)
[2018-05-23 16:40] VITALS: BP 150/70
--- NOTE | 2018-05-23 16:59 | UC ---
Shortness of Breath HPI - HPI Summary HPI Summary: Ms. Wood presents C/O cough and congestion for a week or so. She has a history of COPD and her inhalers aren't helping that much. - History of Current Complaint Chief Complaint: UCRespiratory Stated Complaint: COUGH WHEEZING Time Seen by Provider: 05/23/18 15:33 Hx Obtained From: Patient, Family/Audio Visual Project Manager ?: Yes Onset/Duration: Gradual Onset Timing: Constant Current Severity: Moderate Dyspnea At: Exertion Aggrevating Factors: Nothing Alleviating Factors: Bronchodilators Associated Signs & Symptoms: Positive: Cough (Productive) - Allergy/Home Medications Allergies/Adverse Reactions: Allergies Allergy/AdvReac Type Severity Reaction Status Date / Time codeine Allergy Itching Verified 05/23/18 13:57 haloperidol [From Haldol] Allergy Swelling Verified 05/23/18 13:57 Of Face,Lips,& Throat Penicillins Allergy Diarrhea Verified 05/23/18 13:57 pioglitazone [From Actos] Allergy Swelling Verified 05/23/18 13:57 prochlorperazine Allergy STROKE Verified 05/23/18 13:57 [From Compazine] LIKE SYMPTOMS atrovastatin AdvReac Severe Leg Cramps Uncoded 05/23/18 13:57 cogentin AdvReac Severe stroke Uncoded 05/23/18 13:57 like symptoms PMH/Surg Hx/FS Hx/Imm Hx Previously Healthy: No Endocrine History: Diabetes, Dyslipidemia Cardiovascular History: Cardiac Disease, Hypertension, Myocardial Infarction Respiratory History: COPD Neurological History: TIA - Surgical History Surgical History: Yes Surgery Procedure, Year, and Place: laser retina repair/pacer. bilateral feet. right hip 2017. left hip 2015. cardiac cath. lower back. bilateral knees - Family History Known Family History: Positive: Hypertension, Diabetes, Other - Anasthesia reaction - Social History Alcohol Use: None Substance Use Type: None Smoking Status (MU): Light Every Day Tobacco Smoker Type: Cigarettes Amount Used/How Often: 1/2 ppd Length of Time of Smoking/Using Tobacco: 43 years Have You Smoked in the Last Year: Yes - Immunization History Most Recent Influenza Vaccination: 2016 Most Recent Tetanus Shot: up to date Most Recent Pneumonia Vaccination: 2016 Review of Systems All Other Systems Reviewed And Are Negative: Yes Constitutional: Positive: Fever, Chills Skin: Positive: Negative ENT: Positive: Sore Throat, Nasal Discharge, Sinus Congestion Respiratory: Positive: Shortness Of Breath, Cough Cardiovascular: Positive: Negative Gastrointestinal: Positive: Negative Genitourinary: Positive: Negative Motor: Positive: Negative Is Patient Immunocompromised?: Yes Physical Exam - Summary Physical Exam Summary: She is non-toxic in appearance with stable vitals and no respiratory distress. Triage Information Reviewed: Yes Vital Signs: Initial Vital Signs Temp 98.8 F 05/23/18 13:53 Pulse 79 05/23/18 13:53 Resp 18 05/23/18 13:53 BP 164/52 05/23/18 13:53 Pulse Ox 99 05/23/18 13:53 Vital Signs Reviewed: Yes Eyes: Positive: Conjunctiva Clear ENT Exam: Normal Neck exam: Normal Respiratory: Positive: No respiratory distress, No accessory muscle use, Wheezing. Negative: Accessory muscle use Cardiovascular Exam: Normal Abdominal Exam: Normal Musculoskeletal: Positive: No Edema Diagnostics - Radiology CXR Radiology Interpretation Completed By: Radiologist - No Acute Process Shortness of Breath Dx - Course Course Of Treatment: Ms. Painting got a lot of relief from one duoneb and her CXR is unremarkable. I will add a medrol dose pack and biaxin. - Differential Dx/Diagnosis Provider Diagnosis: Acute bronchitis Discharge - Sign-Out/Discharge Documenting (check all that apply): Patient Departure All imaging exams completed and their final reports reviewed: Yes - Discharge Plan Condition: Stable Disposition: HOME Patient Education Materials: Acute Bronchitis (ED) Referrals: Sugey Ray MD [Primary Care Provider] - - Billing Disposition and Condition Condition: STABLE Disposition: Home
== END 2018-05-23 17:15 | disposition home or self-care (01) ==
LOC: UCEAST 13:33
DX: J20.9 Acute bronchitis, unspecified (principal); E11.9 Type 2 diabetes mellitus without complications; E78.5 Hyperlipidemia, unspecified; I25.2 Old myocardial infarction; I11.9 Hypertensive heart disease without heart failure; Z95.5 Presence of coronary angioplasty implant and graft; J44.9 Chronic obstructive pulmonary disease, unspecified; Z86.73 Personal history of transient ischemic attack (TIA), and cerebral infarction without residual deficits; Z88.5 Allergy status to narcotic agent; Z88.0 Allergy status to penicillin; Z88.8 Allergy status to other drugs, medicaments and biological substances; F17.210 Nicotine dependence, cigarettes, uncomplicated
CPT/HCPCS: 71046; 99212; A9270-GY; G0463; J7512

== ENCOUNTER 2018-10-28 09:01 | Observation (INO) | payer MEDICARE, MEDICAID ==
[2018-10-28 09:27] LABS: ABS Basophils 0.1 10^3/ul (0-0.2); ABS Eosinophils 0.3 10^3/ul (0-0.6); ABS Lymphocytes 3.2 10^3/ul (1.0-4.8); ABS Monocytes 0.6 10^3/ul (0-0.8); ABS Neutrophils 2.8 10^3/ul (1.5-7.7); Eosinophil % 4.5 %; Hematocrit 40 % (35-47); Hemoglobin 13.4 g/dL (12.0-16.0); Lymphocyte % 45.8 %; Mean Corpuscular HGB Conc 34 g/dL (31-36); Mean Corpuscular Hemoglobin 31 pg (27-31); Mean Corpuscular Volume 92 fL (80-97); Platelet Count 212 10^3/uL (150-450); Red Cell Distribution Width 13 % (10-15); White Blood Count 6.9 10^3/uL (3.5-10.8)
[2018-10-28] MEDS ORDERED: Aspirin 81 mg CHEW TAB* 81 MG TAB.CHEW PO ONE (09:32)
[2018-10-28] MEDS ORDERED: Nitroglycerin TAB 0.4 MG* 0.4 MG TAB SL ONE (09:32)
[2018-10-28 09:47] LABS: Albumin 4.1 g/dL (3.2-5.2); Albumin/Globulin Ratio 1.6 (1-3); BUN/Creatinine Ratio 19.2 (8-20); Calcium 9.2 mg/dL (8.6-10.3); EGFR African American 68.8 (>60); EGFR Non-African American 56.8 (>60); Globulin 2.5 g/dL (2-4); Potassium 3.7 mmol/L (3.5-5.0); Total Bilirubin 0.3 mg/dL (0.2-1.0); Total Protein 6.6 g/dL (6.4-8.9)
[2018-10-28] MEDS ORDERED: Nitro 2% OINT* (Nitroglycerin) 1 INCH/PAK PAK TOPICAL ONE (10:10)
--- NOTE | 2018-10-28 10:20 | ED ---
HPI Chest Pain - HPI Summary HPI Summary: Pt is a 63 y/o F presenting to the ED with a chief complaint of chest pain initially onset last week. She reports episodes of chest pain accompanied by diaphoresis that last about 5 minutes at a time. The pain is rated at a 7/10 and radiates to her jaw and L arm. She notes she is on blood thinners for carotid blockages. Pt denies any fever, chills, erythema of eyes, sore throat, SOB, cough, abdominal pain, N/V, dysuria, hematuria, myalgia, edema, rash, or dizziness. - History of Current Complaint Chief Complaint: EDChestPainROMI Time Seen by Provider: 10/28/18 09:10 Hx Obtained From: Patient Onset/Duration: Started Days Ago, Still Present Timing: Intermittent, Lasting Minutes Initial Severity: Moderate Current Severity: Moderate Pain Intensity: 6 Pain Scale Used: 0-10 Numeric Chest Pain Location: Left Anterior Chest Pain Radiates: Yes Chest Pain Radiates To:: Arm, Jaw Character: Tightness Aggravating Factor(s): Nothing Alleviating Factor(s): Spontaneous Resolution Associated Signs and Symptoms: Negative: Shortness of Breath, Fever, Chills, Nausea, Cough, Abdominal Pain, Vomiting, Edema - Additional Pertinent History Primary Care Physician: [id number] - Allergy/Home Medications Allergies/Adverse Reactions: Allergies Allergy/AdvReac Type Severity Reaction Status Date / Time codeine Allergy Itching Verified 10/28/18 09:09 haloperidol [From Haldol] Allergy Swelling Verified 10/28/18 09:09 Of Face,Lips,& Throat Penicillins Allergy Diarrhea Verified 10/28/18 09:09 pioglitazone [From Actos] Allergy Swelling Verified 10/28/18 09:09 prochlorperazine Allergy STROKE Verified 10/28/18 09:09 [From Compazine] LIKE SYMPTOMS atrovastatin AdvReac Severe Leg Cramps Uncoded 05/23/18 13:57 cogentin AdvReac Severe stroke Uncoded 05/23/18 13:57 like symptoms Home Medications: Home Medications Budesonide/Formote 160/4.5(NF) [Symbicort 160/4.5 (NF)] 2 puff INH BID 10/28/18 [History Confirmed 10/28/18] Clopidogrel TAB* [Plavix TAB*] 75 mg PO DAILY 10/28/18 [History Confirmed ] Fluticasone/Vilanterol MDI(NF) [Breo Ellipta MDI 100/25(NF)] 1 puff INH DAILY [History Confirmed 10/28/18] Insulin GLARGINE(*) [Lantus(*)] 76 units SUBCUT BEDTIME 10/28/18 [History Confirmed 10/28/18] Lisinopril/HCTZ 20/12.5(NF) [Zestoretic 20/12.5(NF)] 1 tab PO DAILY 10/28/18 [ History Confirmed 10/28/18] Nicotine PATCH 14 MG/24 HR* 14 mg TRANSDERM DAILY 10/28/18 [History Confirmed ] PMH/Surg Hx/FS Hx/Imm Hx Previously Healthy: Yes Endocrine/Hematology History: Reports: Hx Diabetes - type 2 Denies: Hx Thyroid Disease Cardiovascular History: Reports: Hx Angina - AT TIMES- PATIENT STATES NOT RECENTLY, Hx Coronary Artery Disease - ON MEDICATION FOR- STATES BLOCKAGE IN CARITOD AND ANOTHER ARTERY, Hx Hypertension, Hx Pacemaker/ICD, Other Cardiovascular Problems/Disorders - CAD, IDDM II Denies: Hx Rheumatic Fever Respiratory History: Reports: Hx Asthma - PRN ALBUTEROL, Hx Chronic Obstructive Pulmonary Disease (COPD), Hx Pneumonia - more than once, Hx Sleep Apnea, Other Respiratory Problems/Disorders - PNA GI History: Reports: Hx Gastroesophageal Reflux Disease - NO MEDICATION AT THIS TIME, Hx Ulcer - HISTORY OF 3 ULCERS History: Denies: Hx Renal Disease Musculoskeletal History: Reports: Hx Arthritis, Hx Back Problems, Hx Tendonitis - HX OF IN BOTH HANDS, Other Musculoskeletal History - right hip replacement Sensory History: Reports: Hx Contacts or Glasses, Other Sensory Impairments - Had detached retina repair Denies: Hx Hearing Aid Opthamlomology History: Reports: Hx Contacts or Glasses, Other Sensory Impairments - Had detached retina repair Neurological History: Reports: Hx 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 bilateral feet. right hip 2017. left hip 2016. cardiac cath. lower back. bilateral knees Hx Anesthesia Reactions: Yes - A HARD TIME WAKING-2011 Infectious Disease History: No Infectious Disease History: Denies: Traveled Outside the [place] in Last 30 Days - Family History Known Family History: Positive: Cardiac Disease, Hypertension, Diabetes, Other - Anasthesia reaction - Social History Alcohol Use: None Hx Substance Use: No Substance Use Type: Reports: None Hx Tobacco Use: Yes Smoking Status (MU): Light Every Day Tobacco Smoker Type: Cigarettes Amount Used/How Often: 1/2 ppd Length of Time of Smoking/Using Tobacco: 43 years Have You Smoked in the Last Year: Yes Review of Systems Positive: Skin Diaphoresis. Negative: Fever, Chills Negative: Erythema Negative: Sore Throat Positive: Chest Pain Negative: Shortness Of Breath, Cough Negative: Abdominal Pain, Vomiting, Nausea Negative: dysuria, hematuria Negative: Myalgia, Edema Negative: Rash Neurological: Negative - dizziness All Other Systems Reviewed And Are Negative: Yes Physical Exam - Summary Physical Exam Summary: Constitutional: Well-developed, Well-nourished, Alert. (-) Distressed Skin: Warm, Dry HENT: Normocephalic; Atraumatic Eyes: Conjunctiva normal Neck: Musculoskeletal ROM normal neck. (-) JVD, (-) Stridor, (-) Tracheal deviation Cardio: Rhythm regular, rate normal, Heart sounds normal; Intact distal pulses; The pedal pulses are 2+ and symmetric. Radial pulses are 2+ and symmetric. (-) Murmur Pulmonary/Chest wall: Effort normal. (-) Respiratory distress, (-) Wheezes, (-) Rales Abd: Soft, (-) tenderness, (-) Distension, (-) Guarding, (-) Rebound Musculoskeletal: (-) Edema Lymph: (-) Cervical adenopathy Neuro: Alert, Oriented x3 Psych: Mood and affect Normal Triage Information Reviewed: Yes Vital Signs On Initial Exam: Initial Vitals Temp Pulse Resp BP Pulse Ox 97.8 F 69 20 178/68 100 10/28/18 09:07 10/28/18 09:07 10/28/18 09:07 10/28/18 09:07 10/28/18 09:07 Vital Signs Reviewed: Yes Diagnostics - Vital Signs Vital Signs Temp Pulse Resp BP Pulse Ox 10/28/18 10:00 66 19 149/61 96 10/28/18 09:50 146/53 10/28/18 09:12 67 18 143/64 98 10/28/18 09:11 67 16 98 10/28/18 09:07 97.8 F 69 20 178/68 100 - Laboratory Lab Results: Lab Results 10/28/18 10/28/18 10/28/18 Range/Units 09:16 09:16 09:16 WBC 6.9 (3.5-10.8) 10^3/uL RBC 4.30 (3.70-4.87) 10^6 /uL Hgb 13.4 (12.0-16.0) g/dL Hct 40 (35-47) % MCV 92 (80-97) fL MCH 31 (27-31) pg MCHC 34 (31-36) g/dL RDW 13 (10-15) % Plt Count 212 (150-450) 10^3/uL MPV 9.0 (7.4-10.4) fL Neut % (Auto) 40.6 % Lymph % (Auto) 45.8 % [place] % (Auto) 8.2 % Eos % (Auto) 4.5 % Baso % (Auto) 0.9 % Absolute Neuts (auto) 2.8 (1.5-7.7) 10^3/ul Absolute Lymphs (auto) 3.2 (1.0-4.8) 10^3/ul Absolute Monos (auto) 0.6 (0-0.8) 10^3/ul Absolute Eos (auto) 0.3 (0-0.6) 10^3/ul Absolute Basos (auto) 0.1 (0-0.2) 10^3/ul Absolute Nucleated RBC 0.0 10^3/ul Nucleated RBC % 0.0 INR (Anticoag Therapy) 1.00 (0.82-1.09) Sodium 141 (135-145) mmol/L Potassium 3.7 (3.5-5.0) mmol/L Chloride 108 (101-111) mmol/L Carbon Dioxide 28 (22-32) mmol/L Anion Gap 5 (2-11) mmol/L BUN 19 (6-24) mg/dL Creatinine 0.99 H (0.51-0.95) mg/dL Est GFR ( Amer) 68.8 (>60) Est GFR (Non-Af Amer) 56.8 (>60) BUN/Creatinine Ratio 19.2 (8-20) Glucose 59 L (70-100) mg/dL Calcium 9.2 (8.6-10.3) mg/dL Total Bilirubin 0.30 (0.2-1.0) mg/dL AST 19 (13-39) U/L ALT 16 (7-52) U/L Alkaline Phosphatase 49 (34-104) U/L Troponin I 0.00 (<0.04) ng/mL Total Protein 6.6 (6.4-8.9) g/dL Albumin 4.1 (3.2-5.2) g/dL Globulin 2.5 (2-4) g/dL Albumin/Globulin Ratio 1.6 (1-3) Result Diagrams: 10/28/18 09:16 10/28/18 09:16 Lab Statement: Any lab studies that have been ordered have been reviewed, and results considered in the medical decision making process. - Radiology CXR Radiology Interpretation Completed By: Radiologist Summary of Radiographic Findings: No evidence for active cardiopulmonary disease. ED physician has reviewed this report. - EKG 0904 Cardiac Rate: NL - 67bpm EKG Rhythm: Sinus Rhythm ST Segment: Normal Ectopy: None Summary of EKG Findings: EKG at 0904 shows NSR at 67bpm with biphasic T-waves in V5 and V6, and no STEMI. 1200 Cardiac Rate: Other Rate - atrial paced - 60bpm EKG Rhythm: Sinus Rhythm Summary of EKG Findings: EKG at 1200 shows an atrial paced rhythm at 60bpm. T waves in lead I. No STEMI. Chest Pain Course/Dx - Course Course Of Treatment: Pt is a 63 y/o F presenting to the ED with a chief complaint of chest pain initially onset last week. She reports episodes of chest pain accompanied by diaphoresis that last about 5 minutes at a time. The pain is rated at a 7/10 and radiates to her jaw and L arm. She notes she is on blood thinners for carotid blockages. Pt denies any fever, chills, erythema of eyes, sore throat, SOB, cough, abdominal pain, N/V, dysuria, hematuria, myalgia , edema, rash, or dizziness. EKG at 0904 shows NSR at 67bpm with biphasic T- waves in V5 and V6, and no STEMI. CXR shows: No evidence for active cardiopulmonary disease. Lab results are WNL. 1100 - I spoke with Dr. Cortés about the pt, who will be accepting the pt to [facility]. Her dx will be chest pain unspecified. EKG at 1200 shows an atrial paced rhythm at 60bpm. T waves in lead I. No STEMI. - Diagnoses Provider Diagnoses: Chest pain, unspecified - Provider Notifications Discussed Care Of Patient With: Vivek Cortés Time Discussed With Above Provider: 11:00 Instructed by Provider To: Admit As Inpatient Discharge ED - Sign-Out/Discharge Documenting (check all that apply): Patient Departure - Discharge Plan Condition: Stable Disposition: ADMITTED TO [facility] Referrals: Sugey Ray MD [Primary Care Provider] - - Attestation Statements Document Initiated by Scribe: Yes Documenting Scribe: Devora Franz Provider For Whom Scribe is Documenting (Include Credential): Adis Posey MD. Scribe Attestation: IDevora, scribed for Adis Posey MD. on 10/28/18 at 1613. Status of Scribe Document: Ready Consult Consult: 1100 - I spoke with Dr. Cortés about the pt, who will be coming to evaluate the pt for admission.
[2018-10-28] MEDS ORDERED: oxyCODONE/Acetamin 5/325 MG* TAB PO ONE (12:21)
[2018-10-28 13:06] LABS: HDL Cholesterol 43.5 mg/dL
[2018-10-28] MEDS ORDERED: Al Hydrox/Mg Hydrox/Simet LIQ* 30 ML UDC PO PRN (13:33)
[2018-10-28] MEDS: LORazepam TAB(*) 0.5 MG PO PRN (13:34)
[2018-10-28] MEDS: HYDROcodone/ACETAMIN 5-325 MG* 1 TAB PO SCH ×2 (13:34→21:21)
[2018-10-28] MEDS ORDERED: Insulin GLARGINE(*) 1 UNITS UNIT SUBCUT SCH ×2 (14:00)
[2018-10-28] MEDS ORDERED: Ondansetron INJ* 2 MG/ML VIAL IV PRN (14:16)
[2018-10-28] MEDS ORDERED: Acetaminophen TAB* 325 MG PO PRN (14:16)
[2018-10-28] MEDS ORDERED: Enoxaparin(*) 30 MG/0.3 ML SYR SUBCUT SCH (15:00)
[2018-10-28] MEDS ORDERED: Iodixanol* (CONTRAST) 320 MG/ML 100 ML SDV IV ONE (15:07)
[2018-10-28] MEDS: Nitroglycerin TAB 0.4 MG* 0.4 MG TAB SL PRN ×3 (16:30→21:06)
--- NOTE | 2018-10-28 16:33 | HP ---
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 Cortés.* (DICTATED BY SHEILA GARCIA NP) PRIMARY CARE PROVIDER: Dr. Ray. RN PLASTIC SURGERY: Dr. Tavarez. HISTORY OF PRESENT ILLNESS: This is a 63-year-old female with a past medical history that is significant for diabetes, hypertension, pacer placement, hyperlipidemia, CAD, and COPD, who presented to the emergency room today with radiating chest pain and diaphoresis. Starting about 2 weeks ago, the patient would have intermittent episodes of diaphoresis without chest pain or shortness of breath, though with tiredness; went to see Dr. Tavarez, so she stated then starting about 4 days ago, the patient reported an increased occurrences of diaphoresis, shortness of breath accompanied with angina radiating to left shoulder and left arm, happening about 3 times a day both at rest and with movement, reporting shortness of breath and tiredness concurrently. Currently, the patient is in 4/10 squeezing pain to the left shoulder, though denies any diaphoresis, shortness of breath, nausea or vomiting, or abdominal pain. In the ED, she received 1 inch of nitro paste and 1 nitro tablet sublingually with pain lessening though still currently 4/10. The patient is not tachycardic. Blood pressures initially were in the 170s systolically, though currently have been maintaining about 140s. The patient has had an echocardiogram done most recently on 08/28/18, which showed an ejection fraction of 65% to 70% with normal wall motion and no valvular dysfunction; had nuclear stress test showed no abnormalities. Dr. Tavarez notified he is not inclined to cath her at this time. The patient also reporting periods of hypoglycemia, takes insulin glargine 76 units at nighttime, though does not regularly check fingersticks. This past week when she did check it, her fingersticks were in the 70s, came into the emergency room today with a blood sugar of 59, requires followup diabetic management. Hospitalists were asked to evaluate patient for admission. PAST MEDICAL HISTORY: The patient has a past medical history of diabetes type 2 , hypertension, pacer, hyperlipidemia, arthritis, GERD with 3 gastric ulcers, CAD, INOCENCIA, COPD, cervical spondylosis, chronic low back pain, pneumonia, microscopic colitis, pituitary tumor, bilateral carotid stenosis, and depression. PAST SURGICAL HISTORY: Includes right and left total hip replacements, right hip revision, carpal tunnel surgery, back surgery, foot surgery, laser retinal repair, and cardiac catheterization in 2012. HOME MEDICATIONS: Include: 1. Nitroglycerin 0.4 mg sublingually q.5 minutes p.r.n. 2. Nicotine patch 14 mg transdermally. 3. Lorazepam 0.5 mg p.o. q.4 hours p.r.n. 4. Lisinopril/hydrochlorothiazide 20/12.5 one tab p.o. daily. 5. Breo Ellipta 1 puff inhalation daily. 6. Symbicort 160/4.5 two puffs inhalation b.i.d. 7. Clopidogrel 75 mg p.o. daily. 8. Diltiazem 300 mg p.o. daily. 9. Hydrocodone/acetaminophen 10/325 mg p.o. t.i.d. p.r.n., max daily dose of 3 tabs. 10. Insulin glargine 76 units subcu at bedtime. 11. Aspirin 81 mg p.o. daily. ALLERGIES: To CODEINE, HALOPERIDOL, PENICILLINS, PIOGLITAZONE, COMPAZINE, COGENTIN, and ATORVASTATIN. SOCIAL HISTORY: The patient is a current about 10 cigarettes a day smoker. Denies alcohol or drug use. Works at [employer]. Lives with her . REVIEW OF SYSTEMS: Performed an 11-point systems review, which was positive for 4/10 pain to the left shoulder, mild shortness of breath at rest at times. No other complaints. PHYSICAL EXAMINATION GENERAL: No acute distress noted. The patient is awake and conversing. VITAL SIGNS: 97.8 Fahrenheit, 64 pulse, 20 resps, 97% on room air, and 148/83. HEENT: Eyes: Conjunctivae pink and moist. Pupils round and reactive. Extraocular muscles intact. Normocephalic, atraumatic. Oropharynx clear. Mucous membranes moist. LYMPHATICS: No cervical lymphadenopathy noted. RESPIRATORY: No accessory muscle use. Clear to auscultation bilaterally on room air. CARDIAC: S1, S2. Heart rate regular. No murmurs, gallops, or rubs appreciated. No lower extremity edema. +2 positive pedal pulses. ABDOMEN: Soft, nondistended, nontender. Positive bowel sounds x4. MUSCULOSKELETAL: No clubbing or cyanosis. Full range of motion. 5/5 strength to bilateral upper and lower extremities. SKIN: No rashes or open areas appreciated. NEUROLOGIC: No focal deficits noted. PSYCH: Alert and oriented x4. No depression or anxiety noted. DIAGNOSTIC STUDIES/LAB DATA: Chest x-ray showed no evidence for active cardiopulmonary disease. EKG showed sinus rhythm with biphasic T-waves and ST depressions. Labs: Creatinine of 0.99, glucose 59, troponins 0.00 x2. IMPRESSION: This is a 63-year-old female with a past medical history significant for pacer, diabetes type 2, hypertension, hyperlipidemia, carotid stenosis, who presented to the ED today for angina of unspecified origin and hypoglycemia and hyperlipidemia. ASSESSMENT AND PLAN: 1. Angina. Serial negative trops shown, had nitro pill and nitro paste in the ED with some relief noted, though continued chest pain. Spoke with Dr. Tavarez, who is not inclined to do a cardiac catheterization at this time. The patient had recent echo and stress test, so no need to repeat those tests. We will do CTA of chest to rule out aortic dissection. 2. Elevated creatinine, level was 0.99, slight elevated from baseline. We will recheck in the a.m. 3. Diabetes type 2 with hypoglycemia. Decrease Lantus from 76 to 50 units at night. A.c. and h.s. fingersticks with sliding scale lispro coverage. Educated the patient about more frequent blood sugar testing at home. 4. Hypertension. Continue lisinopril, hydrochlorothiazide, and diltiazem. 5. Chronic obstructive pulmonary disease. Continue Breo and Symbicort. 6. Anxiety. Continue Ativan. 7. Chronic back pain. Continue hydrocodone. 8. Nicotine dependence. Continue nicotine patch. 9. Bilateral carotid artery stenosis. Continue Plavix and aspirin. 10. Hyperlipidemia. The patient has already demonstrated adverse reaction to STATINS. 11. DVT prophylaxis. SCDs. The patient already on Plavix and aspirin. 12. Full code status. DISPOSITION: The patient to be admitted to observation on telemetry. CONDITION: Guarded. TIME SPENT: On this patient was about 60 minutes with 30 of it [id number]. Case reviewed by my attending and they agree with the plan of care. [id number]/[facility] #: [id number] MTDD
[2018-10-28] MEDS ORDERED: FENOFIBRATE 130 MG PO SCH (17:00)
[2018-10-28] MEDS: Insulin LISPRO* 1 UNITS UNIT SUBCUT SCH ×2 (17:39→20:55)
[2018-10-28] MEDS: Ezetimibe TAB* 10 MG PO SCH (17:39)
[2018-10-28] MEDS: Insulin GLARGINE(*) 1 UNITS UNIT SUBCUT SCH (17:39)
[2018-10-28] MEDS: Mometasone/Formoter 200/5 MDI INH SCH (21:01)
[2018-10-28] MEDS: Polyethylene Glycol 3350* 17 GM PACKET PO PRN (22:14)
[2018-10-29 04:53] LABS: BUN/Creatinine Ratio 19.8 (8-20); Calcium 8.6 mg/dL (8.6-10.3); EGFR African American 75.8 (>60); EGFR Non-African American 62.6 (>60); Potassium 3.9 mmol/L (3.5-5.0)
[2018-10-29] MEDS: Nitroglycerin TAB 0.4 MG* 0.4 MG TAB SL PRN (07:46)
[2018-10-29] MEDS: Mometasone/Formoter 200/5 MDI INH SCH ×2 (07:53→20:00)
[2018-10-29] MEDS: Insulin LISPRO* 1 UNITS UNIT SUBCUT SCH ×4 (08:22→21:16)
[2018-10-29] MEDS: Diltiazem CD CAP* 120 MG PO SCH (08:44)
[2018-10-29] MEDS: Aspirin EC TAB* 81 MG TAB.EC PO SCH (08:44)
[2018-10-29] MEDS: Hydrochlorothiazide TAB* 25 MG PO SCH (08:44)
[2018-10-29] MEDS: Clopidogrel TAB* 75 MG PO SCH (08:44)
[2018-10-29] MEDS: Lisinopril TAB* 10 MG PO SCH (08:44)
[2018-10-29] MEDS: HYDROcodone/ACETAMIN 5-325 MG* 1 TAB PO SCH ×3 (08:44→21:15)
[2018-10-29] MEDS: Diltiazem CD CAP* 180 MG PO SCH (08:44)
[2018-10-29] MEDS: Nicotine PATCH 14 MG/24 HR* PATCH TRANSDERM SCH (08:45)
[2018-10-29] MEDS: Nitroglycerin 0.2 MG/HR PATCH* (5 MG) TRANSDERM SCH ×2 (08:45→09:19)
[2018-10-29] MEDS ORDERED: Fluticasone/Vilanterol MDI(NF) 100/25 MDI INH SCH (09:00)
[2018-10-29] MEDS: LORazepam TAB(*) 0.5 MG PO PRN ×2 (14:06→21:15)
--- NOTE | 2018-10-29 16:16 | PN ---
Objective Active Medications: Acetaminophen (Tylenol Tab*) 650 mg PO Q4H PRN PRN Reason: MILD PAIN or TEMP > 100.4 Hydrocodone Bitart/Acetaminophen ([place] 5-325 Tab*) 2 tab PO TID [facility] Last Admin: 10/29/18 13:23 Dose: 2 tab Al Hydrox/Mg Hydrox/Simethicone (Maalox Plus*) 30 ml PO Q6H PRN PRN Reason: DYSPEPSIA Last Admin: 10/28/18 21:22 Dose: 30 ml Aspirin (Aspirin Ec Tab*) 81 mg PO DAILY [facility] Last Admin: 10/29/18 08:44 Dose: 81 mg Clopidogrel Bisulfate (Plavix Tab*) 75 mg PO DAILY [facility] Last Admin: 10/29/18 08:44 Dose: 75 mg Diltiazem HCl (Cardizem Cd Cap*) 180 mg PO DAILY [facility] Last Admin: 10/29/18 08:44 Dose: 180 mg Diltiazem HCl (Cardizem Cd Cap*) 120 mg PO DAILY [facility] Last Admin: 10/29/18 08:44 Dose: 120 mg Ezetimibe (Zetia Tab*) 10 mg PO 1700 [facility] Last Admin: 10/28/18 17:39 Dose: 10 mg Fenofibrate (Tricor 160 Mg) 160 mg PO 1700 [facility] Last Admin: 10/28/18 17:39 Dose: 160 mg Hydrochlorothiazide (Hydrodiuril Tab*) 12.5 mg PO DAILY [facility] Last Admin: 10/29/18 08:44 Dose: 12.5 mg Insulin Glargine (Lantus(*)) 50 units SUBCUT 1700 [facility] Last Admin: 10/28/18 17:39 Dose: 50 units Insulin Human Lispro (Humalog*) 0 units SUBCUT ACHS [facility]; Protocol Last Admin: 10/29/18 11:56 Dose: Not Given Lisinopril (Prinivil Tab*) 20 mg PO DAILY [facility] Last Admin: 10/29/18 08:44 Dose: 20 mg Lorazepam (Ativan Tab(*)) 0.5 mg PO Q4HR PRN PRN Reason: ANXIETY Last Admin: 10/29/18 14:06 Dose: 0.5 mg Mometasone Furoate/Formoterol Fumar (Dulera 200/5 Mdi*) 2 puff INH BID [facility]; Protocol Last Admin: 10/29/18 07:53 Dose: 2 puff Nicotine (Nicotine Patch 14 Mg/24 Hr*) 1 patch TRANSDERM DAILY [facility] Last Admin: 10/29/18 08:45 Dose: 1 patch Nitroglycerin (Nitroglycerin Tab 0.4 Mg*) 0.4 mg SL Q5M PRN PRN Reason: PAIN - CHEST Last Admin: 10/29/18 07:46 Dose: 0.4 mg Nitroglycerin (Nitroglycerin 5 Mg Patch*) 1 patch TRANSDERM DAILY@0900 [facility] Last Admin: 10/29/18 09:19 Dose: Not Given Ondansetron HCl (Zofran Inj*) 4 mg IV Q6H PRN PRN Reason: NAUSEA/VOMITING Pharmacy Profile Note (Nicotine Patch Removal Note*) 1 note PATCH OFF 2100 [facility] Pharmacy Profile Note (Nitro Patch/Oint Remove*) 1 note PATCH OFF BEDTIME [facility] Polyethylene Glycol/Electrolytes (Miralax*) 17 gm PO DAILY PRN PRN Reason: CONSTIPATION Last Admin: 10/28/18 22:14 Dose: 17 gm Vital Signs - 8 hr 10/29/18 10/29/18 10/29/18 08:44 11:15 11:20 Temperature 99.4 F Pulse Rate 78 Respiratory 16 20 18 Rate Blood Pressure 122/51 (mmHg) O2 Sat by Pulse 97 Oximetry 10/29/18 10/29/18 10/29/18 13:23 14:06 15:15 Temperature 97.2 F Pulse Rate 75 Respiratory 16 16 20 Rate Blood Pressure 145/58 (mmHg) O2 Sat by Pulse 100 Oximetry Oxygen Devices in Use Now: None Result Diagrams: 10/28/18 09:16 10/29/18 04:18 Additional Lab and Data: Lab Results 10/28/18 10/28/18 10/28/18 Range/Units 09:16 09:16 09:16 WBC 6.9 (3.5-10.8) 10^3/uL RBC 4.30 (3.70-4.87) 10^6 /uL Hgb 13.4 (12.0-16.0) g/dL Hct 40 (35-47) % MCV 92 (80-97) fL MCH 31 (27-31) pg MCHC 34 (31-36) g/dL RDW 13 (10-15) % Plt Count 212 (150-450) 10^3/uL MPV 9.0 (7.4-10.4) fL Neut % (Auto) 40.6 % Lymph % (Auto) 45.8 % [place] % (Auto) 8.2 % Eos % (Auto) 4.5 % Baso % (Auto) 0.9 % Absolute Neuts (auto) 2.8 (1.5-7.7) 10^3/ul Absolute Lymphs (auto) 3.2 (1.0-4.8) 10^3/ul Absolute Monos (auto) 0.6 (0-0.8) 10^3/ul Absolute Eos (auto) 0.3 (0-0.6) 10^3/ul Absolute Basos (auto) 0.1 (0-0.2) 10^3/ul Absolute Nucleated RBC 0.0 10^3/ul Nucleated RBC % 0.0 INR (Anticoag Therapy) 1.00 (0.82-1.09) Sodium 141 (135-145) mmol/L Potassium 3.7 (3.5-5.0) mmol/L Chloride 108 (101-111) mmol/L Carbon Dioxide 28 (22-32) mmol/L Anion Gap 5 (2-11) mmol/L BUN 19 (6-24) mg/dL Creatinine 0.99 H (0.51-0.95) mg/dL Est GFR ( Amer) 68.8 (>60) Est GFR (Non-Af Amer) 56.8 (>60) BUN/Creatinine Ratio 19.2 (8-20) Glucose 59 L (70-100) mg/dL Calcium 9.2 (8.6-10.3) mg/dL Total Bilirubin 0.30 (0.2-1.0) mg/dL AST 19 (13-39) U/L ALT 16 (7-52) U/L Alkaline Phosphatase 49 (34-104) U/L Troponin I 0.00 (<0.04) ng/mL Total Protein 6.6 (6.4-8.9) g/dL Albumin 4.1 (3.2-5.2) g/dL Globulin 2.5 (2-4) g/dL Albumin/Globulin Ratio 1.6 (1-3) Assess/Plan/Problems-Billing Assessment: - Patient Problems (1) Angina at rest Code(s): I20.8 - OTHER FORMS OF ANGINA PECTORIS SNOMED Code(s): 840452425 Comment: - Recent stress and ECHO on 09/09 with no changes, per cardiology, will not cath at this time - Responding to SL NTG, will trial low dose nitro patch which seems to be helping - Also seems to have anxiety component, responded well to ativan when chest pain was increasing - EKG with no changes, trops negative (2) COPD (chronic obstructive pulmonary disease) Code(s): J44.9 - CHRONIC OBSTRUCTIVE PULMONARY DISEASE, UNSPECIFIED SNOMED Code(s): 41192534 Comment: - Smoking cessation recommended - Not in exacerbation (3) Chronic back pain Code(s): M54.9 - DORSALGIA, UNSPECIFIED; G89.29 - OTHER CHRONIC PAIN SNOMED Code(s): 780685355 Comment: - Stable/at baseline - Continue PRN pain meds per home regimen (4) HLD (hyperlipidemia) Current Visit: No Status: Acute Code(s): E78.5 - HYPERLIPIDEMIA, UNSPECIFIED SNOMED Code(s): 82530918 Comment: - Continue statin. (5) CAD (coronary artery disease) Code(s): I25.10 - ATHSCL HEART DISEASE OF [place] CORONARY ARTERY W/O ANG PCTRS SNOMED Code(s): 72521560 Comment: - With recent PM insertion - Recent stress low risk - Continue asa and statin - Continue plavix (6) DM type 2 (diabetes mellitus, type 2) Comment: - Admits to dietary indiscretion and episodes of hypoglycemia - Continue Lantus and decreased dose and Lispro SS. (7) HTN (hypertension) Code(s): I10 - ESSENTIAL (PRIMARY) HYPERTENSION SNOMED Code(s): 65437701 Comment: - Continue diltiazem, lisinopril and HCTZ (8) DVT prophylaxis Code(s): VZC0567 - SNOMED Code(s): 369790061 Comment: - SQ heparin. (9) Full code status Code(s): Z78.9 - OTHER SPECIFIED HEALTH STATUS SNOMED Code(s): 658729533 Status and Disposition: Obs, if remains stable on ntg patch, will DC in AM
[2018-10-29] MEDS: Insulin GLARGINE(*) 1 UNITS UNIT SUBCUT SCH (16:50)
[2018-10-29] MEDS: Ezetimibe TAB* 10 MG PO SCH (16:50)
[2018-10-29] MEDS ORDERED: Docusate CAP* 100 MG PO PRN (19:40)
[2018-10-29] MEDS ORDERED: Senna TAB 8.6 mg* TAB PO PRN (19:40)
[2018-10-29] MEDS ORDERED: Nicotine Patch Removal NOTE PATCH OFF SCH (21:00)
[2018-10-29] MEDS ORDERED: Nitro Patch/OINT Remove PATCH OFF SCH (21:00)
[2018-10-29] MEDS: Polyethylene Glycol 3350* 17 GM PACKET PO PRN (21:16)
[2018-10-30] MEDS: Insulin LISPRO* 1 UNITS UNIT SUBCUT SCH (07:45)
[2018-10-30] MEDS: HYDROcodone/ACETAMIN 5-325 MG* 1 TAB PO SCH (07:53)
[2018-10-30] MEDS: Clopidogrel TAB* 75 MG PO SCH (07:53)
[2018-10-30] MEDS: Lisinopril TAB* 10 MG PO SCH (07:53)
[2018-10-30] MEDS: Diltiazem CD CAP* 120 MG PO SCH (07:53)
[2018-10-30] MEDS: Aspirin EC TAB* 81 MG TAB.EC PO SCH (07:53)
[2018-10-30] MEDS: Diltiazem CD CAP* 180 MG PO SCH (07:53)
[2018-10-30] MEDS: Nicotine PATCH 14 MG/24 HR* PATCH TRANSDERM SCH (07:54)
[2018-10-30] MEDS: Nitroglycerin 0.2 MG/HR PATCH* (5 MG) TRANSDERM SCH (07:54)
[2018-10-30] MEDS: Hydrochlorothiazide TAB* 25 MG PO SCH (07:54)
[2018-10-30 08:04] VITALS: BP 146/55
[2018-10-30] MEDS: Mometasone/Formoter 200/5 MDI INH SCH (10:22)
--- NOTE | 2018-10-30 20:55 | DS ---
CC: Dr. Sugey Ray; Dr. Tavarez; Dr. Nikko Samaniego * DISCHARGE SUMMARY: DATE OF ADMISSION: 10/28/18 DATE OF DISCHARGE: 10/30/18 PRIMARY CARE PROVIDER: Dr. Sugey Ray. ATTENDING PHYSICIAN: Dr. Cheyenne Dominique.* (DICTATED BY DAHIANA CLARKE NP ) HOSPITAL COURSE: Please refer to admitting H and P on 10/28/18, but in short, this is a 63-year-old female with past medical history significant for type 2 diabetes mellitus, hypertension, sick sinus syndrome, pacemaker placement, hyperlipidemia, coronary artery disease, tobacco abuse, and COPD that presented to the emergency department with some chest pain, tightness, and diaphoresis. The patient states she has been having intermittent chest pain x2 weeks that got increasingly worse approximately 4 days ago. The patient states it was radiating to the left shoulder and arm, happening 3 to 4 times a day and also happening at rest. She came to the emergency department for evaluation. Her EKG was unremarkable. She did receive an inch of nitro paste and 1 nitro tablet. She originally reported her pain to be an 8/10 and then was relieved to approximately 4/10. She was admitted for further workup. We did reach out to Cardiology as she is known to [facility]. She had a very recent echocardiogram and stress test over this summer on 09/09/18. Her stress test was read as low risk at that time. She also had an echo that showed an EF of 65% to 70% with no wall motion abnormalities and no valvular dysfunction, and again a low-risk stress test. At that point, Dr. Tavarez said he was not inclined to do a cardiac catheterization on the patient. Her troponins were negative, and no EKG changes. The patient was admitted for medical management. The patient was trialed on nitro patch at 0.2 mg. She did have good effect with the patch. She was still having some breakthrough chest pain, for which she was taking the sublingual nitro, but after several hours with the patch, she did state that her pain was reduced substantially and she was feeling much better. It should also be noted the patient is not currently on a statin. We did start her on Zetia and fenofibrate. She seemed to tolerate this combination well. She also received a slightly lower dose of her Lantus. The patient did admit to some dietary indiscretion prior to coming into the hospital. Her blood sugars remained very stable in the low 120s to 160 range. She was receiving 50 of Lantus as opposed to 76 units with good coverage. It should also be noted because of the sharp nature of the pain that she was describing, she did have a CTA of the chest which did not reveal any PE or dissection, and again EKG with no changes. Her labs were essentially unremarkable. The patient was medically cleared and readied for discharge on . She is in stable condition. DISCHARGE DIAGNOSES: 1. Angina at rest. 2. History of chronic obstructive pulmonary disease and tobacco abuse. 3. Chronic back pain, on narcotics. 4. Hyperlipidemia. 5. History of coronary artery disease, stable. 6. Diabetes mellitus type 2, insulin dependent. 7. Hypertension. 8. Anxiety. MEDICATIONS FOR DISCHARGE: Include: 1. Nitroglycerin 0.4 mg sublingual q.5 minutes as needed. 2. Nicotine patch 14 mg for 24 hours transdermal daily. 3. Lorazepam 0.5 mg p.o. q.4 hours as needed. 4. Zestoretic 1 tab p.o. daily. 5. Breo Ellipta 100/25 one puff inhaled daily. 6. Symbicort 2 puffs inhaled b.i.d. 7. Plavix 75 mg p.o. daily. 8. Diltiazem 300 mg p.o. daily. 9. Superior 10/325 p.o. 3 times a day, max daily dose 3 tablets. 10. Glargine 76 units subcu at bedtime. 11. Aspirin 81 mg p.o. daily. 12. Lisinopril 20 mg p.o. daily. New medications: 1. Nitro patch 0.2 mg per hour 1 patch transdermal at 9 a.m., to be removed within 12 hours, 1 patch daily. 2. Fenofibrate 160 mg p.o. in the evening and Zetia 10 mg p.o. also in the evening. REVIEW OF SYSTEMS ON DAY OF DISCHARGE: The patient denies any fever, fatigue, or chills. No dizziness, no headache. No shortness breath, no chest pain. No nausea, no vomiting, no abdominal pain. No urinary complaints. No arthralgias or myalgias and no further constitutional complaints. PHYSICAL EXAM: The patient is awake, alert, in no acute distress. Vital signs are blood pressure 146/55, heart rate 63, respiratory rate 16, O2 saturation 100 % on room air, temperature 97.9. HEENT: The patient is atraumatic, normocephalic. PERRLA. Nonicteric sclerae. Oral mucosa is moist. Tongue is midline. Neck is supple, nontender. No JVD noted and no carotid bruits auscultated. Cardiovascular: S1 and S2 present. No murmurs, gallops, or rubs noted. Rate and rhythm are regular. She is paced on telemetry. Lungs are clear bilaterally to auscultation with no wheezing, rhonchi, or rales. Diminished at the bases. Abdomen is soft, nontender, and nondistended. Positive bowel sounds in all 4 quadrants. is deferred. Musculoskeletal: There is no clubbing, no cyanosis, no edema. She has +2 distal pulses palpable. Full range of motion. Gross motor and sensation are intact. She has a steady gait. Neurologic: Grossly intact with no focal deficits. Psychiatric: Cooperative and appropriate. Alert and oriented x3. LABORATORY DATA: WBCs 6.9, RBC 4.30, hemoglobin 13.4, hematocrit 40, platelets 212. Sodium 140, potassium 3.9, chloride 110, CO2 26, BUN 18, creatinine 0.91, GFR 75.8, glucose 125. Hemoglobin A1c 6.6. Calcium 8.6. AST 19, ALT 16, alk phos 49. Troponin 0.00 x3. Total protein 6.6, albumin 4.1, globulin 2.5. Albumin-globulin ratio of 1.6. Triglycerides 206, cholesterol total 218, LDL 133, HDL 43.5. INR is 1.00. IMAGING: Chest x-ray dated 10/28/18 shows no evidence for active cardiopulmonary disease. Chest, abdomen and pelvis CTA shows there is an atheromatous aorta which is normal in caliber. No dissection identified. Lungs are clear and no further pathologic findings. DISPOSITION: The patient was discharged to home in stable condition. DIET: Heart healthy, diabetic as tolerated. ACTIVITY: Progress activity as tolerated. FOLLOWUP: The patient was instructed to follow up with Dr. Ray, her primary care provider. She already has an appointment that is set up for next and also Cardiology, Dr. Samaniego, followup as needed. She has a prescription for 30 days worth of her nitro patch. The patient was instructed to follow up with Cardiology if she has any issues with this new medication. TIME SPENT: 45 minutes in discharge planning. DAHIANA CLARKE NP [id number]/CPS #: [id number] LISA
== END 2018-10-30 11:07 | disposition home or self-care (01) ==
LOC: ED 09:01 → MEDTELE 14:16
PROVIDERS: ADMIT Internal Medicine; ATTEND Internal Medicine
DX: I25.118 Atherosclerotic heart disease of native coronary artery with other forms of angina pectoris (principal); J44.9 Chronic obstructive pulmonary disease, unspecified; G89.29 Other chronic pain; M54.9 Dorsalgia, unspecified; E78.5 Hyperlipidemia, unspecified; E11.9 Type 2 diabetes mellitus without complications; Z79.4 Long term (current) use of insulin; I10 Essential (primary) hypertension; F41.9 Anxiety disorder, unspecified; Z79.899 Other long term (current) drug therapy; Z79.82 Long term (current) use of aspirin; F17.210 Nicotine dependence, cigarettes, uncomplicated; R94.31 Abnormal electrocardiogram [ECG] [EKG]
CPT/HCPCS: 36415; 71045; 71275; 74174; 80048; 80053; 80061; 83036; 84484; 85025; 85610; 93005; 94640; 99285; A9270-GY; G0378; Q9967

== ENCOUNTER 2019-02-10 16:12 | Emergency (ER) | payer MEDICARE, MEDICAID ==
--- OUTSIDE RECORDS SUMMARY | 2019-02-10 17:02 | XMS REPORT | Summary of Care ---
:1955 Author Organization [facility] Address [address] [address] Care Team Providers Name Role Phone Sugey Ray Primary Care Provider Minerva Bernstein OD Primary School Office Assistant/Developmental Training Counselor Reason for Referral Refer to Department Only (Routine) Status Reason Specialty Diagnoses / Referred By Referred To Procedures Contact Contact Anesthesiology [facility] [address] [phone] Phone: [phone] Encounter Details Date Type Department Care Team Description 02/03/2019 Hospital Encounter [facility] Preadmission Services Outpatient [address] [id number] Allergies Active Allergy Reactions Severity Noted Date Comments Pioglitazone Hydrochloride Other 05/23/2007 Swelling of ankles. Atorvastatin Musculoskeletal 03/27/2011 Leg aches Codeine 05/23/2007 Compazine MOCCASIN SEWER Reaction 05/23/2007 Compazine Stroke like symptoms Haloperidol Lactate Swelling 05/23/2007 Metformin GI Reaction 06/07/2015 Diarrhea Penicillins GI Reaction 05/23/2007 diarrhea documented as of this encounter (statuses as of 02/05/2019) Medications Medication Sig Dispensed Refills Start Date End Date Status Blood Glucose ASENCIA CONTOUR 100 Strip 5 08/11/2009 Active Monitoring Suppl TESTS THREE TIMES PER DAY (BLOOD GLUCOSE TEST STRIPS STRP) Aspirin 81 MG Oral Take 81 mg by mouth 0 Active Tab DAILY. budesonide-formotero Take 2 INHL by 1 Inhaler 0 01/15/2018 Active l fumarate inhalation TWICE (SYMBICORT) 160-4.5 DAILY. MCG/ACT Inhalation Aerosol Additional information Patient taking differently: 2 INHL Inhalation BID, Indications: not currently using, Reported on 02/03/2019 1:44 PM lisinopril-hydrochlorothiazide Take 1 Tab by 90 Tab 3 04/01/2018 Active (ZESTORETIC, PRINZIDE) 20-12.5 MG Oral mouth DAILY. Tab Lancets Does not apply Misc by Does not apply route. ASENCIA CONTOUR 100 Each 5 06/28/2018 Active TESTS THREE TIMES PER DAY LORazepam (ATIVAN) 1 MG Oral Tab Take 0.5 Tabs 30 Tab 0 07/18/2018 Active by mouth EVERY FOUR HOURS NEEDED (anxiety). Max Daily Amount: 1.5 mg. Additional information Patient taking differently: 0.5 mg Oral Q4 HRS PRN, anxiety, Indications: when going for MRIs, Reported on 02/03/2019 1:44 PM Fluticasone Furoate-Vilanterol Take 1 INHL by mouth 1 Each 5 09/23/2018 Active (BREO ELLIPTA) 100-25 MCG/INH DAILY. Inhalation AEROSOL POWDER, BREATH ACTIVATED clopidogrel (PLAVIX) 75 MG Oral TAKE 1 TABLET BY 90 Tab 1 10/21/2018 Active TabIndications: Bilateral carotid MOUTH EVERY DAY artery stenosis nitroglycerin transdermal Place 1 Patch onto 0 Active patch-daily (NITRO-DUR) 0.2 MG/HR skin EVERY Transdermal PATCH 24 TWENTY-FOUR HOURS. HRIndications: on at 9AM, off at Indications: on at 9PM 9AM, off at 9PM diltiazem (CARDIZEM CD) 300 MG TAKE 1 CAPSULE BY 90 Cap 3 12/26/2018 Active Oral CAPSULE SR 24 HRIndications: MOUTH EVERY DAY Essential hypertension Insulin Pen Needle (BD ULTRA-FINE 1 Device by Does not 100 Each 5 2018 Active PEN NEEDLES) 29G X 12.7MM Does apply route DAILY. Dx not apply Misc E11.9 LANTUS SOLOSTAR 100 UNIT/ML INJECT 76 UNITS 9 Device 5 01/17/2019 Active Subcutaneous Solution BENEATH THE SKIN Pen-injectorIndications: Type 2 DAILY diabetes mellitus without complication, without long-term current use of insulin (HCC) Additional information Patient taking differently: 66 Units Subcutaneous DAILY, Indications: takes in PM, Reported on 02/03/2019 1:44 PM HYDROcodone-acetaminophen (NORCO) Take 1 Tab by mouth 90 Tab 0 01/27/2019 Active 10-325 MG Oral TabIndications: THREE TIMES DAILY Chronic pain syndrome NEEDED (pain). Max Daily Amount: 3 Tabs. documented as of this encounter (statuses as of 02/05/2019) Active Problems Problem Noted Date Bilateral carotid artery stenosis 01/28/2019 Overview: Added automatically from request for surgery [id number] Bipolar affective disorder 04/15/2018 Chronic obstructive pulmonary disease 04/15/2018 Pacemaker 12/06/2017 Overview: [place] [facility] [place] - Pacer placed Essential hypertension 10/11/2017 Heavy metal exposure 06/27/2016 Heavy metal exposure 06/27/2016 Overview: [place] / cadmium - - From the right hip prosthesis - Which will be removed- Systemic problems possible : >fatigue, weakness, peripheral neuropathy, hearing loss, visual loss, cognitive decline, cardiomyopathy, and hypothyroidism > H/O total hip arthroplasty, left 11/05/2015 Knee pain, left 06/03/2015 Pneumonia of right lower lobe due to infectious organism 05/17/2015 Spinal stenosis, lumbar region, without neurogenic claudication 03/15/2015 Sciatica associated with disorder of lumbar spine 03/08/2015 Hip pain, left 01/21/2015 Spondylosis of lumbar region without myelopathy or radiculopathy 01/18/2015 Pain in joint involving left pelvic region and thigh 01/11/2015 Primary osteoarthritis of left hip 01/11/2015 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 - was on suppressive medication but liver function tests Elevated on medication 09/29 - Repeat MRI did ont show mass in the pituitary - School Office Assistant questions field test 12/30 Follow up with customer experience associate Numbness and tingling in right hand 12/04/2011 History of depression 07/27/2011 Carotid artery disease 04/11/2011 Overview: 30% right internal Carotid arteries narrow 03/26 [facility] [place] progression 08/25 - Some progression noted Repeat 11/[address] Jones - recommends ASA/ Plavix at that time Breast cyst 01/16/2011 Overview: Followed by Dr. Yuan Low back pain 10/18/2010 Overview: Since 1988- [facility] t - Physical Therapy , MRI - 11/22; surgery 1999 - david in [facility] Other (abnormal) findings on radiological examination of breast 07/05/2010 Overview: T4 lesion seen 06/2010 Stable on f/u studies Probable hemangioma Cervical spondylosis without myelopathy 05/20/2010 Overview: Numbness and tingling on the right Mixed hyperlipidemia 05/23/2007 Overview: Liver steatosis - ultrasound 03/26 [facility] [place] Coronary artery disease 05/23/2007 Overview: Cardiac catheterization 2007, mild plaque LAD.; Reoeat [facility] 03/26 cfx - 60%; ( had abnormal nuclear medicine stress test- cfx lesion did nor corespond to abnormal ) Atypical chest pain - secondary to small vessel disease? Cath repeated [facility] 08/23- cfx - 65% lesion; 40% RCA EF 65% diastolic compliance Cocaine abuse Overview: Rehab in No drugs since 2009 Tobacco use disorder Overview: Began age 17 1/2 pack per day INOCENCIA (obstructive sleep apnea) HTN (hypertension), benign Uncontrolled type 2 diabetes mellitus without complication, with long-term current use of insulin Overview: Care plan done 04/30/2014 Adult BMI 35.0-35.9 kg/sq m Overview: This patient's BMI has been calculated and is above average, and BMI management plan is completed. General patient education discussion including: obesity-related excess mortality FH: lung cancer Overview: mother FH: stroke Overview: mother Microscopic colitis documented as of this encounter (statuses as of 02/05/2019) Resolved Problems Problem Noted Date Resolved Date Numbness and tingling in right hand 05/20/2010 07/27/2011 Type 2 diabetes mellitus, uncontrolled 05/23/2007 02/17/2008 Overview: Replaced inactive diagnosis Obesity 05/23/2007 08/11/2009 Metabolic syndrome 05/23/2007 07/27/2011 documented as of this encounter (statuses as of 02/05/2019) Immunizations Name Administration Dates Next Due Influenza (IM) Preservative Free 12/06/2017, 11/21/2008 Influenza (IM) W/Pres 12/04/2013 PNEUMOCOCCAL POLYSACCHARIDE VACCINE 11/21/2008 Pneumococcal Conjugate(13 Valent) 04/16/2018 documented as of this encounter Social History Tobacco Use Types Packs/Day Years Used Date Current Every Day Smoker Cigarettes 0.5 40 Quit: 01/04/2018 Smokeless Tobacco: Never Used Alcohol Use Drinks/Week oz/Week Comments No 0 Standard drinks or equivalent 0.0 History of alcohol abuse. Sex Assigned at Date Recorded Not on file Job Start Date Occupation Industry Not on file Not on file Not on file Travel History Travel Start Travel End No recent travel history available. documented as of this encounter Last Filed Vital Signs Not on filedocumented in this encounter Plan of Treatment Date Type Specialty Care Team Description 02/24/2019 Hospital Encounter Acute Care [place], Inpatient [facility] MD Donald [address] [address] 02/24/2019 Anesthesia Event Acute [facility] MD Otoniel [address] [address] 02/24/2019 Surgery Acute Care [facility], [facility] MD Donald stenting with flow 1 [address] carotid/cerebral [address] [address] angiogram, possible [phone] open carotid [phone] endarterectomy (Fax) 03/06/2019 Office Visit Cardiology Yusuf Rivers MD [address] [place] [address] [phone] Name Type Priority Associated Diagnoses Order Schedule URINE Automated POCT Routine Continuous for 1 (POCT) Occurrences starting 02/03/2019 until 02/03/2019 Name Type Priority Associated Diagnoses Order Schedule REFER TO ANESTHESIOLOGY Referral Routine X1 for 1 Occurrences starting 02/03/2019 until 02/03/2019 Health Maintenance Due Date Last Done Comments MEDICARE ANNUAL WELLNESS 1955 VISIT DTaP/Tdap/Td Vaccines (1 - 08/06/1967 Tdap) ZOSTER IMMUNIZATION SERIES 2006 (1 of 2) LIPID DISORDER SCREENING 08/29/2018 08/29/2017, 10/26/2014, 09/23/2013, Additional history exists FOOT EXAM 09/05/2018 09/05/2017, 09/05/2017, 09/05/2017, Additional history exists INFLUENZA VACCINE (#1) 2018 12/06/2017, 12/04/2013, 11/21/2008 DEPRESSION SCREENING 12/06/2018 12/06/2017 HEMOGLOBIN A1C 05/05/2019 02/03/2019, 10/28/2018, 04/15/2018, Additional history exists Diabetic Eye Exam 12/26/2019 12/25/2017, 12/25/2017 Colonoscopy 11/09/2021 11/09/2016, 11/09/2016, 10/02/2013, Additional history exists PNEUMOCOCCAL 0-64 YRS Completed 04/16/2018, 11/21/2008 HEPATITIS A IMMUNIZATION Aged Out No longer eligible SERIES based on patient's age to complete this topic HPV IMMUNIZATION SERIES Aged Out No longer eligible based on patient's age to complete this topic MENINGOCOCCAL VACCINE IMM Aged Out No longer eligible based on patient's age to complete this topic documented as of this encounter Goals Goal Patient Goal Associated Recent Patient-Stated? Author Type Problems Progress Blood Pressure Blood Pressure 146/68 No Cory, < 140/90 (01/28/2019 MD Sugey 1:57 PM EST) Note: This is an individualized treatment (blood pressure) goal for [place]: Displayed above (on the left) is your goal for blood pressure control. Your most recent blood pressure is also shown above, on the right. You should try to achieve blood pressures that are lower than your goal listed above (on the left). Depression screen (PHQ-9) total score < 5 Depression No Miya Jo RN Note: This is an individualized treatment (depression) goal for [place]: Displayed above is your goal for a depression screening (PHQ-9) score that would indicate good control of your depression. Diabetes < 7.0 Diabetes Uncontrolled type 2 7.8 (02/03/2019 No Sugey Ray MD diabetes mellitus 1:38 PM EST) without complication, with long-term current use of insulin Note: Diabetes Care Plan According to current 2014 ADA guidelines the patient A1C goal is less than 7. The patient's last A1C was Lab Results Lab Results Value Date/Time GLYCO 6.2 04/16/2014 1640 GLYCO 6.9 05/01/2013 1049 The patient is:at goal . As your provider, it is important that I advise you regarding: your current medications and help you with any challenges you may face taking your medications as directed (ex. instructions, cost, side effects, and interactions). Important lifestyle changes:exercise, diet, glucose monitoring and medication compliance your clinical goals and how you can achieve success:weight reduction, exercise plan and diet management medication management: adjusted medications as appropriate patient education/self-management tools provided: Yes To successfully manage my Diabetes I will: have lab work every six months if my previous A1c was 7 or less. If my results were greater than 7, I will have lab work every three months. My goal is to control my diabetes by keeping A1c below 7.0 take medications every day as prescribed by my healthcare provider and if unable to take them I will discuss with my provider. exercise/walk 45 minutes 4 day(s) per week. If I experience chest pain, chest tightness, or shortness of breath, I will seek medical attention immediately. check feet daily. If sores or irritation are noticed, will seek medical attention. follow a low carbohydrate and low fat diet. My goal is an LDL (bad cholesterol) number less than 100 when I have my routine lab work. check blood sugar as instructed and will call my healthcare provider if the results are consistently below 70 or above 300. I will monitor for symptoms of low blood sugar (feeling faint, dizzy, lig htheaded, jittery, sweaty, or hungry), if symptoms are noticed, I will eat or drink something (glucose tabs, orange juice, candy) to help raise sugar. record my blood sugar results (including dextrose sticks). Online [employer] is safe and secure way for you to do this in your medical record online. try to obtain an ideal body weight. My recent weight was Weight: 202 lb ( 91.627 kg). My weight loss goal for my next office visit is 7 lbs . to prevent kidney problems common to people with diabetes I will complete a yearly Microalbumin to check for protein in urine. I will talk with my healthcare provider about medications to prevent diabetic renal disease. to prevent diabetic retinopathy I will see an eye doctor yearly. A yearly dilated eye exam helps prevent blindness. Glycohemoglobin A1c < 7.0 Diabetes 7.8 (02/03/2019 1:38 PM Sugey Fierro MD EST) Note: This is an individualized treatment (diabetes control, HgbA1C) goal for [place]: Displayed above is your progress towards your HgbA1C goal. Your goal is shown above (on the left); your most recent HgbA1C is shown on the right. Note that lower numbers are better. Weight loss vs. 18 mo max Lifestyle 7 (01/28/2019 1:57 PM EST) No Sugey Ray MD (lbs) >= 10 Note: This is an individualized lifestyle goal for [place]: Your body mass index (BMI) is more than 30. You should lose weight. A reasonable starting goal is to lose 10 pounds. Displayed above is how many pounds you have lost thus far towards your 10 pound weight loss goal. Keep immunizations current Lifestyle No Sugey Ray MD Note: This is an individualized lifestyle goal for [place]: Please be sure to keep up-to-date on recommended immunizations. For example, this would include a yearly influenza vaccine. Immunization status can be seen by looking at the Health Maintenance sections of your [facility], Plan of Care, and any After Visit Summaries. Keep a regular sleep schedule Lifestyle No Miya Jo RN Note: This is an individualized lifestyle goal for [place]: Please maintain a regular sleep schedule. This may help with some symptoms of depression. Take all prescribed medications as directed Self-management No Sugey Ray MD Note: This is an individualized self-management goal for [place]: Please take all prescribed medications as directed. 1. Do not skip doses. If you cannot afford your medications, talk with your doctor. 2. Use a pill reminder system such as a pill box if needed. Your pharmacist can help you with this. 3. Contact your Pharmacy 5 days before your medication runs out. If you cannot take your medications for any reasons, talk with your doctor. 4. Please bring all of your medication bottles and inhalers (or a list of all your medications/inhalers) with you to every visit. Potential barriers to meeting all of your care plan goals will continue to be addressed on an ongoing basis. documented as of this encounter Implants Implanted Type Area Customer Services Coordinator Device Identifier Shelf Expiration Model / Date Serial / Lot Allograft Back [id number] / Implanted: Qty: 1 on 09/25/2007 at [facility] [id number] / [id number] Description:TRUFUSE Allograft N/A: Back [id number] / Implanted: Qty: 1 on 09/25/2007 at [facility] [id number] / [id number] Continuum Shell, Uni Hole Hh 50mm - [id number] Left: Hip TRUPTI CHARMAINE 07/13/2023 [id number] / Implanted: Qty: 1 on 10/11/2015 by Dheeraj Hurd MD at [facility] / [id number] Dome Hole Plug - [id number] Left: Hip TRUPTI CHARMAINE 08/11/2025 [id number] / Implanted: Qty: 1 on 10/11/2015 by Dheeraj Hurd MD at [facility] / [id number] Vivacit-E Liner, Neutral Hh 32mm - [id number] Left: Hip TRUPTI CHARMAINE [id number] / Implanted: Qty: 1 on 10/11/2015 by Dheeraj Hurd MD at [facility] / [id number] Taperloc Complete Fem Stem - Ho Sz 5 - [id number] Left: Hip BIOMET 2023 [id number] / Implanted: Qty: 1 on 10/11/2015 by Dheeraj Hurd MD at [facility] / [id number] 32mm Femoral Head Size Std - [id number] Left: Hip BIOMET 04/27/2025 [id number] / Implanted: Qty: 1 on 10/11/2015 by Dheeraj Hurd MD at [facility] / [id number] documented as of this encounter Procedures Procedure Name Priority Date/Time Associated Comments Diagnosis CBC WITH DIFFERENTIAL Routine 02/03/2019 1:38 Results for this PM EST procedure are in the results section. TYPE AND SCREEN STAT 02/03/2019 1:38 Results for this PM EST procedure are in the results section. GLYCOHEMOGLOBIN A1C Routine 02/03/2019 1:38 Results for this PM EST procedure are in the results section. COMPREHENSIVE METABOLIC Routine 02/03/2019 1:38 Results for this PANEL PM EST procedure are in the results section. PROTHROMBIN TIME Routine 02/03/2019 1:38 Results for this PM EST procedure are in the results section. PARTIAL THROMBOPLASTIN Routine 02/03/2019 1:38 Results for this TIME PM EST procedure are in the results section. documented in this encounter Results TYPE AND SCREEN (02/03/2019 1:38 PM EST) ABO/RH Type A POS [facility] BLOOD BANK Antibody Screen Interp NEG [facility] BLOOD B[facility] Specimen Blood - Blood specimen (specimen) Performing Organization Address [facility] Phone Number GCL BLOOD BANK [address] [address] PROTHROMBIN TIME (02/03/2019 1:38 PM EST) INR 1.01Comment: INR 0.88 - 1.13 [facility] Therapeutic Range: Ratio [facility] 2.0 - 3.5 Protime 13.1Comment: 12.0 - 14.5 sec [facility] Reference range [facility] updated 12/03/2018. Specimen Blood - Blood specimen (specimen) Performing Organization Address [facility] Phone Number [facility] [address] [address] PARTIAL THROMBOPLASTIN TIME (02/03/2019 1:38 PM EST) PTT 27.0Comment: 21.3 - 35.9 SEC [facility] Reference range [facility] updated 12/03/2018. Specimen Blood - Blood specimen (specimen) Performing Organization Address [facility] Phone Number [facility] [address] [address] COMPREHENSIVE METABOLIC PANEL (02/03/2019 1:38 PM EST) Sodium 138 134 - 145 mmol/L [facility] Potassium 3.9 3.5 - 5.1 mmol/L [facility] Chloride 104 98 - 107 mmol/L [facility] CO2 26 22 - 30 mmol/L [facility] Calcium 9.1 8.3 - 10.1 mg/dl [facility] Albumin 3.9 3.5 - 5.0 g/dl [facility] BUN 17 7 - 17 mg/dl [facility] Creatinine 0.8 0.7 - 1.2 mg/dl [facility] Glucose 155 (H) 70 - 99 mg/dl [facility] Total Protein 7.1 6.3 - 8.2 g/dl [facility] Total Bilirubin 0.3 0.0 - 1.1 MG/DL [facility] AST 29 15 - 46 U/L [facility] ALT 28 9 - 52 U/L [facility] Alkaline 51 40 - 150 U/L [facility] Phosphatase [facility] eGFR >60 See Interpretation [facility] Comment: Below ml/min/1.73ml GROUP Estimated GFR Interpretation: LABORATORY Above 60ml/min/1.73m2 = Normal Renal Function 30-59 ml/min/1.73m2 = Stage 3 Chronic Kidney Disease 15-29 ml/min/1.73m2 = Stage 4 Chronic Kidney Disease Less than 15 ml/min/1.73m2 = Stage 5 Chronic Kidney Disease The GFR value is calculated using the Modification of Diet in Renal Disease ( MDRD) Study Equation which can be found at: https://www.kidney.org/content/xoep-fspbd-vkjmjfan BUN/Creatinine 21 6 - 22 RATIO [facility] LABORATORY Anion Gap 8 3 - 11 mmol/L [facility] A/G Ratio 1.2 0.8 - 2.0 ratio [facility] Specimen Blood - Blood specimen (specimen) Performing Organization Address City/State/[facility] Phone Number [facility] [address] [place] [address] CBC WITH DIFFERENTIAL (02/03/2019 1:38 PM EST) WBC Count 6.76 3.98 - 10.04 K/uL [facility] RBC Count 4.06 3.93 - 5.22 M/UL [facility] Hemoglobin 12.8 11.2 - 15.7 g/dL [facility] Hematocrit 37.0 34.1 - 44.9 % [facility] MCV 91.1 79.4 - 94.8 [facility] MCH 31.5 25.6 - 32.2 PG [facility] MCHC 34.6 32.2 - 35.5 g/dL [facility] Platelet Count 211 182 - 369 K/uL [facility] MPV 11.1 9.4 - 12.3 FL [facility] RDW 13.3 11.7 - 14.4 % [facility] Neutrophil % 36.1 34.0 - 71.1 % [facility] Lymphocyte % 47.5 19.3 - 51.7 % [facility] Monocyte % 10.5 4.7 - 12.5 % [facility] Eosinophil % 4.9 0.7 - 5.8 % [facility] Basophil % 0.3 0.1 - 1.2 % [facility] nRBC % 0.0 0.0 - 0.2 % [facility] Neutrophil # 2.44 1.56 - 6.13 K/UL [facility] Lymphocyte # 3.21 1.18 - 3.74 K/UL [facility] Monocyte # 0.71 0.24 - 0.86 K/UL [facility] Eosinophil # 0.33 0.04 - 0.36 K/UL [facility] Basophil # 0.02 0.01 - 0.08 K/UL [facility] Immature Gran % 0.7 (H) 0.0 - 0.4 % [facility] Immature Gran # 0.05 (H) 0.00 - 0.03 K/uL [facility] NRBC # 0.00 0.00 - 0.12 K/uL [facility] Specimen Blood - Blood specimen (specimen) Performing Organization Address City/[facility] Phone Number [facility] [address] [address] [phone] GLYCOHEMOGLOBIN A1C (02/03/2019 1:38 PM EST) Glycohemoglobin A1C 7.8 (H) <=5.6 % [facility] Comment: [facility] Normal*: <=5.6% Pre Diabetes* Risk: 5.7-6.4% Diabetes* Risk: >=6.5% Glycemic Goals for Adult Diabetes*: <7.0% *(Adult Ranges)[place] Diabetes Association, Standards of Medical Care in Diabetes, 2018 Specimen Blood - Blood specimen (specimen) Performing Organization Address City/[facility] Phone Number [facility] [address] [address] [phone] documented in this encounter Insurance Payer Benefit Plan / Subscriber ID Effective Dates Phone Address Type Group MEDICARE MEDICARE PART A xxxxxxxxxxx 1992-Present Medicare & B MEDICAID [facility] xxxxxxxx Effective for all Medicaid [place] MEDICAID dates Guarantor Name Account Type Relation to Date of Phone Billing Patient Address [place] Personal/Family 1955 [address] [facility] [place], [place] (Work) [id number] documented as of this encounter
--- OUTSIDE RECORDS SUMMARY | 2019-02-10 17:03 | XMS REPORT | Summary of Care ---
:1955 Author Organization [facility] Address [address] [address] Care Team Providers Name Role Phone Sugey Ray Primary Care Provider Minerva Bernstein OD Primary Program Director/Music Director/Director Of State Reason for Referral MRI/CAT/PET Scan (Routine) Status Reason Specialty Diagnoses / Procedures Referred By Contact Referred To Contact Closed Radiology Diagnoses Bilateral carotid artery stenosis Flo Krishnan NP [facility] Procedures CT NECK ANGIOGRAPHY [address] [place] [address] [place] [address] Reason for Visit MRI/CAT/PET Scan (Routine) Status Reason Specialty Diagnoses / Procedures Referred By Contact Referred To Contact Closed Radiology Diagnoses Bilateral carotid artery stenosis Flo Krishnan NP [facility] Procedures CT NECK ANGIOGRAPHY [address] [place] [address] [place] [address] Encounter Details Date Type Department Care Team Description 01/02/2019 Hospital Encounter [facility] Outpatient [address] [id number] Allergies Active Allergy Reactions Severity Noted Date Comments Pioglitazone Hydrochloride Other 05/23/2007 Swelling of ankles. Atorvastatin Musculoskeletal 03/27/2011 Leg aches Codeine 05/23/2007 Compazine BLOWER FEEDER DYED RAW STOCK Reaction 05/23/2007 Compazine Stroke like symptoms Haloperidol Lactate Swelling 05/23/2007 Metformin GI Reaction 06/07/2015 Diarrhea Penicillins GI Reaction 05/23/2007 diarrhea documented as of this encounter (statuses as of 01/04/2019) Medications Medication Sig Dispensed Refills Start Date End Date Status Blood Glucose ASENCIA CONTOUR 100 Strip 5 08/11/2009 Active Monitoring Suppl TESTS THREE TIMES PER DAY (BLOOD GLUCOSE TEST STRIPS STRP) Insulin Pen Needle 1 Device by Does 100 Each 5 04/23/2015 Active (BD ULTRA-FINE PEN not apply route NEEDLES) 29G X 12.7MM DAILY. Dx E11.9 Does not apply Misc Aspirin 81 MG Oral Take 81 mg by mouth 0 Active Tab DAILY. nicotine transdermal Place 1 Patch onto 30 Patch 4 12/06/2017 Active patch-daily skin DAILY. (NICODERM) 14 MG/24HR Transdermal PATCH 24 HRIndications: Tobacco use disorder budesonide-formoterol Take 2 INHL by 1 Inhaler 0 01/15/2018 Active fumarate (SYMBICORT) inhalation TWICE 160-4.5 MCG/ACT DAILY. Inhalation Aerosol lisinopril-hydrochlor Take 1 Tab by mouth 90 Tab 3 04/01/2018 Active othiazide DAILY. (ZESTORETIC, PRINZIDE) 20-12.5 MG Oral Tab Lancets Does not by Does not apply route. ASENCIA CONTOUR 100 Each 5 2018 Active apply Misc TESTS THREE TIMES PER DAY LORazepam (ATIVAN) 1 Take 0.5 Tabs by 30 Tab 0 07/18/2018 Active MG Oral Tab mouth EVERY FOUR HOURS NEEDED (anxiety). Max Daily Amount: 1.5 mg. LANTUS SOLOSTAR 100 INJECT 76 UNITS 15 Device 5 08/16/2018 Active UNIT/ML Subcutaneous BENEATH THE SKIN Solution DAILY Pen-injectorIndicatio ns: Type 2 diabetes mellitus without complication, without long-term current use of insulin (HCC) Additional information Patient taking differently: (No dose reported), Subcutaneous DAILY, Indications: 50- 60 unit sliding scale, Reported on 12/17/2018 2:40 PM Fluticasone Furoate-Vilanterol Take 1 INHL by mouth 1 Each 5 09/23/2018 Active (BREO ELLIPTA) 100-25 MCG/INH DAILY. Inhalation AEROSOL POWDER, BREATH ACTIVATED clopidogrel (PLAVIX) 75 MG Oral TAKE 1 TABLET BY MOUTH 90 Tab 1 10/21/2018 Active TabIndications: Bilateral carotid EVERY DAY artery stenosis nitroglycerin transdermal Place 1 Patch onto 0 Active patch-daily (NITRO-DUR) 0.2 MG/HR skin EVERY TWENTY-FOUR Transdermal PATCH 24 HR HOURS. fenofibrate 160 MG Oral Tab Take 160 mg by mouth 0 Active HSX1. ezetimibe (ZETIA) 10 MG Oral Tab Take 10 mg by mouth 0 Active HSX1. diltiazem (CARDIZEM CD) 300 MG TAKE 1 CAPSULE BY 90 Cap 3 12/26/2018 Active Oral CAPSULE SR 24 HRIndications: MOUTH EVERY DAY Essential hypertension HYDROcodone-acetaminophen (NORCO) Take 1 Tab by mouth 90 Tab 0 12/30/2018 Active 10-325 MG Oral TabIndications: THREE TIMES DAILY Chronic pain syndrome NEEDED (pain). Max Daily Amount: 3 Tabs. 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 Yaun Low back pain 10/18/2010 Overview: Since 1988- [facility] - Physical Therapy , MRI - 11/22; surgery 1999 - [facility] in [place] - cader bones Other (abnormal) findings on radiological examination of breast 07/05/2010 Overview: T4 lesion seen 06/2010 Stable on f/u studies Probable hemangioma Cervical spondylosis without myelopathy 05/20/2010 Overview: Numbness and tingling on the right Mixed hyperlipidemia 05/23/2007 Overview: Liver steatosis - ultrasound 03/26 [facility] Coronary artery disease 05/23/2007 Overview: Cardiac catheterization 2007, mild plaque LAD.; Reoeat [facility] 03/26 cfx - 60%; ( had abnormal nuclear medicine stress test- cfx lesion did nor corespond to abnormal ) Atypical chest pain - secondary to small vessel disease? Cath repeated [facility] 08/23- cfx - 65% lesion; 40% RCA [...] as of this encounter (statuses as of 01/04/2019) Resolved Problems Problem Noted Date Resolved Date Numbness and tingling in right hand 05/20/2010 07/27/2011 Type 2 diabetes mellitus, uncontrolled 05/23/2007 02/17/2008 Overview: Replaced inactive diagnosis Obesity 05/23/2007 08/11/2009 Metabolic syndrome 05/23/2007 07/27/2011 documented as of this encounter (statuses as of 01/04/2019) Immunizations Name Administration Dates Next Due Depo Medrol (80mg) 11/05/2015 Influenza (IM) Preservative Free 12/06/2017, 11/21/2008 Influenza (IM) W/Pres 12/04/2013 PNEUMOCOCCAL POLYSACCHARIDE VACCINE 11/21/2008 Pneumococcal Conjugate(13 Valent) 04/16/2018 Synvisc (16 mg) 01/22/2009 documented as of this encounter Social History Tobacco Use Types Packs/Day Years Used Date Current Every Day Smoker Cigarettes 0.75 40 Quit: 01/04/2018 Smokeless Tobacco: Never Used [...] Treatment Date Type Specialty Care Team Description 01/14/2019 Office Visit Vascular Surgery Donald Rebollar MD [address] [place], [place] [address] [id number] 03/06/2019 Office Visit Cardiology Yusuf Rivers MD [address] [place] [address] [phone] Health Maintenance Due Date Last Done Comments MEDICARE ANNUAL WELLNESS 1955 VISIT ZOSTER IMMUNIZATION SERIES 2006 (1 of 2) LUNG CANCER SCREENING 03/01/2018 03/01/2017, 06/09/2010 LIPID DISORDER SCREENING 08/29/2018 08/29/2017, 10/26/2014, 09/23/2013, Additional history exists FOOT EXAM 09/05/2018 09/05/2017, 09/05/2017, 09/05/2017, Additional history exists INFLUENZA VACCINE (#1) 2018 12/06/2017, 12/04/2013, 11/21/2008 DEPRESSION SCREENING 12/06/2018 12/06/2017 Diabetic Eye Exam 12/25/2018 12/25/2017, 12/25/2017 HEMOGLOBIN A1C 04/28/2019 10/28/2018, 04/15/2018, 08/29/2017, Additional history exists Colonoscopy 11/09/2021 11/09/2016, 11/09/2016, 10/02/2013, Additional history exists PNEUMOCOCCAL 0-64 YRS Completed 04/16/2018, 11/21/2008 HPV IMMUNIZATION SERIES Aged Out No longer eligible based on patient's age to complete this topic MENINGOCOCCAL VACCINE IMM Aged Out No longer eligible based on patient's age to complete this topic documented as of this encounter Goals Goal Patient Goal Associated Recent Patient-Stated? Author Type Problems Progress Blood Pressure Blood Pressure 138/58 No Cory, < 140/90 (01/02/2019 MD Sugey 3:15 PM EST) Note: This is an individualized treatment (blood pressure) goal for [place]: Displayed above (on the left) is your [...] an individualized treatment (depression) goal for [place]: Displayed above is your goal for a depression screening (PHQ-9) score that would indicate good control of your depression. Diabetes < 7.0 Diabetes Uncontrolled type 2 7.0 (04/15/2018 No Sugey Ray MD diabetes mellitus 4:22 PM EST) without complication, with long-term current [...] my blood sugar results (including dextrose sticks). [employer] is safe and secure way for you [...] prevent blindness. Glycohemoglobin A1c < 7.0 Diabetes 7.0 (04/15/2018 4:22 PM No Sugey Ray MD EST) Note: This is an individualized treatment (diabetes control, HgbA1C) goal for [place]: Displayed above is your progress towards your HgbA1C goal. Your goal is shown above (on the left); your most recent HgbA1C is shown on the right. Note that lower numbers are better. Weight loss vs. 18 mo Lifestyle 12 (01/02/2019 3:15 PM EST) Sugey Fierro MD max (lbs) >= 10 Note: This is an [...] of this encounter Implants Implanted Type Area Certified Medical Dosimetrist Device Identifier Shelf Expiration Model / Date Serial / Lot Allograft Back [id number] / Implanted: Qty: 1 on 09/25/2007 at [facility] [id number] / [id number] Description:TRUFUSE Allograft N/A: Back [id number] / Implanted: Qty: 1 on 09/25/2007 at [facility] [id number] / [id number] Continuum Shell, Uni Hole Hh 50mm - [id number] Left: Hip TRUPTI CHARMAINE 07/13/2023 [id number] / Implanted: Qty: 1 on 10/11/2015 by Dheeraj Hurd MD at [facility] / [id number] Dome Hole Plug - [id number] Left: Hip TRUPTI CHARMAINE 08/11/2025 [id number] / Implanted: Qty: 1 on 10/11/2015 by Dheeraj Hurd MD at [facility] / [id number] Vivacit-E Liner, Neutral Hh 32mm - [id number] Left: Hip TRUPTI CHARMAINE [id number] / Implanted: Qty: 1 on 10/11/2015 by Dheeraj Hurd MD at [facility] / [id number] Taperloc Complete Fem Stem - Ho Sz 5 - [id number] Left: Hip BIOMET 2023 [id number] / Implanted: Qty: 1 on 10/11/2015 by Dheeraj Hurd MD at [facility] / [id number] 32mm Femoral Head Size Std - [id number] Left: Hip BIOMET 04/27/2025 [id number] / Implanted: Qty: 1 on 10/11/2015 by Dheeraj Hurd MD at [facility] / [id number] documented as of this encounter Procedures Procedure Name Priority Date/Time Associated Comments Diagnosis CT NECK ANGIOGRAPHY Routine 01/02/2019 2:33 PM Bilateral carotid Results for this EST artery stenosis procedure are in the results section. documented in this encounter Results CT NECK ANGIOGRAPHY (01/02/2019 2:33 PM EST) Specimen Impressions Performed At 1. Severe, 95-99% stenosis of the right ICA. As described above. 2. Moderate, 50-69% stenosis of the left ICA. 3. Incidental findings as described. COMMENT: Reference per NASCET criteria for degree of stenosis: Mild: less than 50% stenosis. Moderate: 50-69% stenosis. Severe: 70-94% stenosis. Near occlusion: 95-99% stenosis. THIS DOCUMENT HAS BEEN ELECTRONICALLY SIGNED BY ANTHONY HERNANDEZ MD Narrative Performed At PROCEDURE INFORMATION: Exam: CT Angiography Neck With Contrast Exam date and time: 01/02/2019 14:12 Age: 63 years old Clinical history: Occlusion and stenosis of bilateral carotid arteries; Additional info: Indication for study->carotid stenosis, known or suspected TECHNIQUE: Imaging protocol: Computed tomography angiography of the neck with intravenous contrast. 3D rendering: MIP reconstructed images were created and reviewed. Radiation optimization: All CT scans at this facility use at least one of these dose optimization techniques: automated exposure control; mA and/or kV adjustment per patient size (includes targeted exams where dose is matched to clinical indication); or iterative reconstruction. COMPARISON: No relevant prior studies available. FINDINGS: VASCULATURE: Right common carotid artery: Mild peripheral calcified atherosclerosis of the right common carotid artery. Atherosclerosis of the right common carotid artery bulb mild to moderate calcified. Right internal carotid artery: Severe high-grade stenosis of the proximal right ICA, extremely difficult to confirm opacification at the ostium, however there is opacification just distal to the ostium as well as of a diminutive however patent remainder of the right cervical ICA. The arterial contrast bolus on the study is suboptimal and therefore it is challenging to determine whether nonopacification at the ostium is related to poor contrast bolus or a true focal occlusion. I favor near occlusion. Right external carotid artery: No occlusion or significant stenosis. Right vertebral artery: No significant stenosis. No dissection or occlusion. Left common carotid artery: The left common carotid artery demonstrates moderate peripheral calcification involving the bulb. Patent. Left internal carotid artery: Moderate stenosis proximal left ICA, patent and somewhat tortuous distally. Left chest wall pacemaker in expected position. Left external carotid artery: No occlusion or significant stenosis. Left vertebral artery: No significant stenosis. No dissection or occlusion. NECK: Bones/joints: Reversal of the normal cervical lordosis. No acute fracture or subluxation. Multilevel disc space narrowing. Posterior disc osteophyte complexes, small multilevel continuing to mild multilevel neuroforaminal and central canal stenosis. Soft tissues: No significant soft tissue swelling. Procedure Note Interface, Rad Results - 01/02/2019 7:52 PM EST PROCEDURE INFORMATION: Exam: CT Angiography Neck With Contrast Exam date and time: 01/02/2019 14:12 Age: 63 years old Clinical history: Occlusion and stenosis of bilateral carotid arteries; Additional info: Indication for study->carotid stenosis, known or suspected TECHNIQUE: Imaging protocol: Computed tomography angiography of the neck with intravenous contrast. 3D rendering: MIP reconstructed images were created and reviewed. Radiation optimization: All CT scans at this facility use at least one of these dose optimization techniques: automated exposure control; mA and/or kV adjustment per patient size (includes targeted exams where dose is matched to clinical indication); or iterative reconstruction. COMPARISON: No relevant prior studies available. FINDINGS: VASCULATURE: Right common carotid artery: Mild peripheral calcified atherosclerosis of the right common carotid artery. Atherosclerosis of the right common carotid artery bulb mild to moderate calcified. Right internal carotid artery: Severe high-grade stenosis of the proximal right ICA, extremely difficult to confirm opacification at the ostium, however there is opacification just distal to the ostium as well as of a diminutive however patent remainder of the right cervical ICA. The arterial contrast bolus on the study is suboptimal and therefore it is challenging to determine whether nonopacification at the ostium is related to poor contrast bolus or a true focal occlusion. I favor near occlusion. Right external carotid artery: No occlusion or significant stenosis. Right vertebral artery: No significant stenosis. No dissection or occlusion. Left common carotid artery: The left common carotid artery demonstrates moderate peripheral calcification involving the bulb. Patent. Left internal carotid artery: Moderate stenosis proximal left ICA, patent and somewhat tortuous distally. Left chest wall pacemaker in expected position. Left external carotid artery: No occlusion or significant stenosis. Left vertebral artery: No significant stenosis. No dissection or occlusion. NECK: Bones/joints: Reversal of the normal cervical lordosis. No acute fracture or subluxation. Multilevel disc space narrowing. Posterior disc osteophyte complexes, small multilevel continuing to mild multilevel neuroforaminal and central canal stenosis. Soft tissues: No significant soft tissue swelling. IMPRESSION 1. Severe, 95-99% stenosis of the right ICA. As described above. 2. Moderate, 50-69% stenosis of the left ICA. 3. Incidental findings as described. COMMENT: Reference per NASCET criteria for degree of stenosis: Mild: less than 50% stenosis. Moderate: 50-69% stenosis. Severe: 70-94% stenosis. Near occlusion: 95-99% stenosis. THIS DOCUMENT HAS BEEN ELECTRONICALLY SIGNED BY ANTHONY HERNANDEZ MD documented in this encounter Visit Diagnoses Diagnosis Bilateral carotid artery stenosis Occlusion and stenosis of multiple and bilateral precerebral arteries without mention of cerebral infarction documented in this encounter Administered Medications Medication Order MAR Action Action Date Dose Rate Site iohexol (OMNIPAQUE) 350 MG/ML Push 01/02/2019 2:20 PM EST 100 mL injectable solution 100 mL 100 mL, Intravenous, NOW, 1 dose, Lise 01/02/19 at 1420 documented in this encounter Insurance Payer Benefit Plan / Subscriber ID Effective Dates Phone Address Type Group MEDICARE MEDICARE PART A xxxxxxxxxxx 1992-Present Medicare & B MEDICAID [facility] xxxxxxxx Effective for all Medicaid [place] MED[place] dates Guarantor Name Account Type Relation to Date of Phone Billing Patient Address [place] Personal/Family 1955 [address] [facility] (Home) [facility] [place], [place] (Work) [id number] documented as of this encounter
--- OUTSIDE RECORDS SUMMARY | 2019-02-10 17:03 | XMS REPORT | Summary of Care ---
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 Encounter Details Date Type Department Care Team Description 12/17/2018 Office Visit Flo Delgado NP Bilateral carotid Surgery 1 David Alexander artery stenosis [address] [facility] [address] [address] (Primary Dx) [place] [address] [phone] Allergies Active Allergy Reactions Severity Noted Date Comments Pioglitazone Hydrochloride Other 05/23/2007 Swelling of ankles. Atorvastatin Musculoskeletal 03/27/2011 Leg aches Codeine 05/23/2007 Compazine CAMP TENDER Reaction 05/23/2007 Compazine Stroke like symptoms Haloperidol Lactate Swelling 05/23/2007 Metformin GI Reaction 06/07/2015 Diarrhea Penicillins GI Reaction 05/23/2007 diarrhea documented as of this encounter (statuses as of 12/20/2018) Medications Medication Sig Dispensed Refills Start Date [...] mg by mouth 0 Active Tab DAILY. diltiazem (CARDIZEM Take 300 mg by 90 Cap 3 11/07/2017 Active CD) 300 MG Oral mouth DAILY. CAPSULE SR 24 HRIndications: Essential hypertension nicotine transdermal Place 1 Patch onto 30 [...] scale, Reported on 12/17/2018 2:40 PM Fluticasone Take 1 INHL by 1 Each 5 09/23/2018 Active Furoate-Vilanterol (BREO mouth DAILY. ELLIPTA) 100-25 MCG/INH Inhalation AEROSOL POWDER, BREATH ACTIVATED clopidogrel (PLAVIX) 75 MG TAKE 1 TABLET 90 Tab 1 10/21/2018 Active Oral TabIndications: BY MOUTH EVERY Bilateral carotid artery DAY stenosis nitroglycerin transdermal Place 1 Patch 0 Active patch-daily (NITRO-DUR) 0.2 onto skin EVERY MG/HR Transdermal PATCH 24 TWENTY-FOUR HR HOURS. fenofibrate 160 MG Oral Tab Take 160 mg by 0 Active mouth HSX1. ezetimibe (ZETIA) 10 MG Oral Take 10 mg by 0 Active Tab mouth HSX1. HYDROcodone-acetaminophen Take 1 Tab by 90 Tab 0 11/29/2018 Active (NORCO) 10-325 MG Oral mouth THREE TabIndications: Chronic pain TIMES DAILY syndrome NEEDED (pain). Max Daily Amount: 3 Tabs. nitroglycerin (NITROSTAT) TAKE 1 TAB UP 3 08/29/2017 Discontinued 0.4 MG Sublingual SL Tab TO 3 TIMES 5 9 MIN APART FOR CHEST PAIN. 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 Yuan Low back pain 10/18/2010 Overview: Since 1988- [facility] - Physical Therapy , MRI - 11/22; surgery 1999 - [facility] [place] - cader bones Other (abnormal) findings on radiological examination of breast 07/05/2010 Overview: T4 lesion seen 06/2010 Stable on f/u studies Probable hemangioma Cervical spondylosis without myelopathy 05/20/2010 Overview: Numbness and tingling on the right Mixed hyperlipidemia 05/23/2007 Overview: Liver steatosis - ultrasound 03/26 [facility] Coronary artery disease 05/23/2007 Overview: Cardiac catheterization [...] as of this encounter (statuses as of 12/20/2018) Resolved Problems Problem Noted Date Resolved Date Numbness and tingling in right hand 05/20/2010 07/27/2011 Type 2 diabetes mellitus, uncontrolled 05/23/2007 02/17/2008 Overview: Replaced inactive diagnosis Obesity 05/23/2007 08/11/2009 Metabolic syndrome 05/23/2007 07/27/2011 documented as of this encounter (statuses as of 12/20/2018) Immunizations Name Administration Dates Next Due Depo [...] of this encounter Last Filed Vital Signs Vital Sign Reading Time Taken Comments Blood Pressure 146/66 12/17/2018 2:32 PM right, 126/62 left EST Pulse 60 12/17/2018 2:32 PM EST Temperature - - Respiratory Rate - - Oxygen Saturation - - Inhaled Oxygen Concentration - - Weight 91.6 kg (202 lb) 12/17/2018 2:32 PM EST Height 157.5 cm (5' 2") 12/17/2018 2:32 PM EST Body Mass Index 36.95 12/17/2018 2:32 PM EST documented in this encounter Progress Notes Flo Krishnan NP - 12/17/2018 2:00 PM EST PATIENT: Van Wood : 1955 DATE OF SERVICE: 12/17/2018 REFERRING PRACTITIONER: Sugey Ray PRIMARY CARE PROVIDER: Sugey Ray CHIEF COMPLAINT: Chief Complaint Patient presents with Carotid Stenosis 1 yr f/u. Subjective HISTORY OF PRESENT ILLNESS: Van Wood is a 63-y.o. female who is seen in 1 year follow up for asymptomatic carotid stenosis. She has past medical history significant for diabetes, hyperlipidemia, coronary artery disease, tobacco abuse and Hypertension. She reports dizziness and was seen in [facility]. She had MRA of brain which was negative. She had pacemaker placement with improvement in the dizziness. She has history of back problems and neuropathy in her feet. Reports some numbness of 3 fingers of right hand. She reports some intermittent difficulty swallowing. She denies unilateral monocular blindness, unilateral motor or sensory deficits, aphasia and dysarthria. She denies any chest pain or shortness of breath. Patient has been on aspirin 81 mg daily, clopidogrel (plavix) 75 mg daily. PREVIOUS DIAGNOSTIC TESTS: 12/11/2017 IMPRESSIONS: 62 year old female with history of bilateral carotid stenosis, recent history of lightheadness, and pacemaker . Duplex imaging of the bilateral carotids indicates 50 to 69% stenosis of the bilateral carotids, there is moderate to severe plaque through out the bilateral carotids. Right ICA: 301/90cms ( Higher than previous exam) Left ICA; 169/35cms Bilateral vertebrals are antegrade. Bilateral brachial pressures are equal. Higher velocities noted on the right side but no change in percentage of stenosis from previous examof 08/201609/04/16 Carotid Duplex: Duplex imaging of the bilateral carotid arteries was performed. The right indicates 50-69% distal ICA stenosis with a distal ICA PSV/EDV of 359/84cm/s with narrowing and vessel tortuosity visualized at this level. There is also 50-69% proximal ICA stenosis with a proximal ICA PSV/EDV of 161/47cm/s and mild plaque visualized at the bulb and proximal ICA level. The right indicates 50-69% distal ICA stenosis with a distal ICA PSV/EDV of 321/64cm/s with narrowing and vessel tortuosity visualized at this level. There is also 50-69% proximal ICA stenosis with a proximal ICA PSV/EDV of 168/42cm/s and mild plaque visualized at the bulb and proximal ICA level. The vertebral arteries were antegrade. Past Medical History: Diagnosis Date Adult BMI 35.0-35.9 kg/sq m Asthma Bipolar disorder (HCC) BMI 38.0-38.9,adult BPD (bronchopulmonary dysplasia) Breast mass on the left Carotid artery disease (HCC) Carotid artery stenosis Chronic low back pain Chronic obstructive pulmonary disease ([facility]) 04/15/2018 Cocaine abuse ([facility]) Colon polyps Colonic polyps COPD (chronic obstructive pulmonary disease) ([facility]) Coronary artery disease Diverticulosis Diverticulosis of colon DM type 2 (diabetes mellitus, type 2) ([facility]) FH: lung cancer mother FH: stroke mother HTN (hypertension), benign Intermediate coronary syndrome (HCC) Irritable bowel syndrome (IBS) Lumbar spondylosis Mental disorder Metabolic syndrome Microscopic colitis Mixed hyperlipidemia Nicotine addiction Nipple discharge yellowish yrs... INOCENCIA (obstructive sleep apnea) Other postprocedural status(V45.89) left zulma bx Peptic ulcer disease Pituitary adenoma (HCC) stable Postmenopausal Reflux Spinal stenosis, lumbar region, without neurogenic claudication 03/15/2015 Vitamin D deficiency Past Surgical History: Procedure Laterality Date BILAT TUBAL DESTRUCT NEC BUNIONECTOMY NEC CARPAL TUNNEL RELEASE Bilateral COLONOSCOPY 07/21/2010 Procedure:COLONOSCOPY; Surgeon:DIONE BAKER; Location:[facility]; Laterality:N/A COLONOSCOPY N/A 10/02/2013 Procedure: COLONOSCOPY; Surgeon: Dione Baker MD; [facility]; Laterality: N/A; COLONOSCOPY N/A 11/09/2016 Procedure: COLONOSCOPY; Surgeon: Feliciano Cabrera DO; Location: [facility] MAIN OR IMPLANT PERMANENT PACEMAKER INSERTION ND FEMUR/KNEE SURG UNLISTED ND PELVIS/HIP JOINT SURGERY UNLISTED ND RECONSTRUCT SCAPHOID CARPAL W PROSTHESIS ND REPAIR RETINAL DETACHMENT SCLERAL BUCKLING Right ND TOTAL ABD HYSTEREC+LTD NODES 1953 UNILAT SALPINGO-OOPHOREC UNLISTED PROCEDURE,MUSCULOSKELE Family History Problem Relation Age of Onset Heart Mother Heart disease and Stroke Stroke Mother who was smoker Lung Cancer Mother Diabetes Father of stroke and \\DM compications Cancer Father prostrate Heart Sister twin had CABG age 42 Breast Cancer Sister Cervical Cancer Sister Heart Sister age 52 had VT at age 50 Cancer Sister ovarian (twin) Cancer Sister breast Current Outpatient Medications Medication Sig Aspirin 81 MG Oral Tab Take 81 mg by mouth DAILY. Blood Glucose Monitoring Suppl (BLOOD GLUCOSE TEST STRIPS STRP) ASENCIA CONTOUR TESTS THREE TIMES PER DAY budesonide-formoterol fumarate (SYMBICORT) 160-4.5 MCG/ACT Inhalation Aerosol Take 2 INHL by inhalation TWICE DAILY. clopidogrel (PLAVIX) 75 MG Oral Tab TAKE 1 TABLET BY MOUTH EVERY DAY diltiazem (CARDIZEM CD) 300 MG Oral CAPSULE SR 24 HR Take 300 mg by mouth DAILY. ezetimibe (ZETIA) 10 MG Oral Tab Take 10 mg by mouth HSX1. fenofibrate 160 MG Oral Tab Take 160 mg by mouth HSX1. Fluticasone Furoate-Vilanterol (BREO ELLIPTA) 100-25 MCG/INH Inhalation AEROSOL POWDER, BREATH ACTIVATED Take 1 INHL by mouth DAILY. HYDROcodone-acetaminophen (NORCO) 10-325 MG Oral Tab Take 1 Tab by mouth THREE TIMES DAILY ASNEEDED (pain). Max Daily Amount: 3 Tabs. Insulin Pen Needle (BD ULTRA-FINE PEN NEEDLES) 29G X 12.7MM Does not apply Misc 1 Device by Does not apply route DAILY. Dx E11.9 Lancets Does not apply Misc by Does not apply route. ASENCIA CONTOUR TESTS THREE TIMES PER DAY LANTUS SOLOSTAR 100 UNIT/ML Subcutaneous Solution Pen-injector INJECT 76 UNITS BENEATH THE SKIN DAILY (Patient taking differently: Inject beneath the skin DAILY. Indications: 50- 60 unit sliding scale) lisinopril-hydrochlorothiazide (ZESTORETIC, PRINZIDE) 20-12.5 MG Oral Tab Take 1 Tab by mouthDAILY. LORazepam (ATIVAN) 1 MG Oral Tab Take 0.5 Tabs by mouth EVERY FOUR HOURS NEEDED (anxiety). Max Daily Amount: 1.5 mg. nicotine transdermal patch-daily (NICODERM) 14 MG/24HR Transdermal PATCH [address] 1 Patch onto skin DAILY. nitroglycerin transdermal patch-daily (NITRO-DUR) 0.2 MG/HR Transdermal PATCH [address] 1 Patch onto skin EVERY TWENTY-FOUR HOURS. No current facility-administered medications for this visit. Allergies Allergen Reactions Actos [Pioglitazone Hydrochloride] Other Swelling of ankles. Atorvastatin Musculoskeletal Leg aches Codeine Compazine CAMP TENDER Reaction Compazine Stroke like symptoms Haldol [Haloperidol Lactate] Swelling Metformin GI Reaction Diarrhea Pcn [Penicillins] GI Reaction diarrhea Social History Socioeconomic History Marital status: Spouse name: Not on file Number of children: Not on file Years of education: Not on file Highest education level: Not on file Occupational History Not on file Social Needs Financial resource strain: Not on file Food insecurity: Worry: Not on file Inability: Not on file Transportation needs: Medical: Not on file Non-medical: Not on file Tobacco Use Smoking status: Current Every Day Smoker Packs/day: 0.75 Years: 40.00 Pack years: 30.00 Types: Cigarettes Last attempt to quit: 01/04/2018 Years since quittin.9 Smokeless tobacco: Never Used Substance and Sexual Activity Alcohol use: No Alcohol/week: 0.0 standard drinks Comment: History of alcohol abuse. Drug use: No Types: Cocaine Comment: TESTED POSITIVE 11/15/07 Sexual activity: Yes Partners: Male Lifestyle Physical activity: Days per week: Not on file Minutes per session: Not on file Stress: Not on file Relationships Social connections: Talks on phone: Not on file Gets together: Not on file Attends jain service: Not on file Active member of club or organization: Not on file Attends meetings of clubs or organizations: Not on file Relationship status: Not on file Intimate partner violence: Fear of current or ex partner: Not on file Emotionally abused: Not on file Physically abused: Not on file Forced sexual activity: Not on file Other Topics Concern Back Care Yes Comment: Chronic low back pain Bike Helmet Not Asked Blood Transfusions Not Asked Caffeine Concern Not Asked Exercise Not Asked Hobby Hazards Not Asked International Travel Not Asked Service Not Asked Occupational Exposure Not Asked Seat Belt Not Asked Self-Exams Not Asked Sleep Concern Not Asked Special Diet Not Asked Stress Concern Not Asked Weight Concern Not Asked Social History Narrative Not on file REVIEW OF SYSTEMS: as per history of present illness all other pertinent systems are negative Objective PHYSICAL EXAMINATION: VITALS: BP 146/66 (Patient Position: Sitting) Comment: right, 126/62 left | Pulse 60 | Ht 5' 2" (1.575 m) | Wt 202 lb (91.6 kg) | BMI 36.95 kg/m GENERAL: awake, alert, oriented. HEENT: sclera normal, anicteric, mucous membrane moist, conjunctiva pink and pale EXTREMITIES: no clubbing, cyanosis, or edema. NEUROLOGICAL: Muscle Strength: Upper and lower extremity strength grade 5/5 bilaterally FACIAL DROOP: none noted. DIAGNOSTICS: 12/17/2018 IMPRESSIONS: Patient with right carotid stenosis, 1 year follow. Duplex imaging of the bilateral carotids indicated 80% stenosis of the right internal carotid, velocities may be higher than gotten on todays exam. The left internal carotid is 50 to 69% stenosis whichis also and increase from previous exam of 12/11/2018. There is moderate to severe plaque in the bilateral carotids. Right ICA: 295/158cms Left ICA: 166/55cms Bilateral vertebrals are antegrade. Bilateral brachial pressures are equal. There has been an increase bilaterally since previous exam of 12/11/2018. Plan ASSESSMENT AND PLAN: Van Wood is a 63-y.o. female with asymptomatic bilateral internal carotid artery stenosis, right approximately >80 % and left 50-69%. Right is an increase from last year. ICD-9-CM ICD-10-CM 1. Bilateral carotid artery stenosis 433.10 I65.23 BASIC METABOLIC PANEL 433.30 CT NECK ANGIOGRAPHY BASIC METABOLIC PANEL Recommend CTA neck for increase in right carotid artery stenosis. Continue ASA, Plavix, and Zetia daily. Will need cardiology clearance prior to scheduling TCAR per Dr. Jo. Follow up with Vascular Surgery in 2 weeks to review CTA or sooner with problems. Author: Flo Krishnan NP 12/17/2018 14:44 documented in this encounter Plan of Treatment Date Type Specialty Care Team Description 01/02/2019 Appointment Radiology 01/02/2019 Office Visit Vascular Surgery Donald Rebollar MD [address] [address] [phone] Name Type Priority Associated Diagnoses Order Schedule CT NECK ANGIOGRAPHY Imaging Routine Bilateral carotid artery Expected: 06/2018, stenosis Expires: 12/17/2019 Health Maintenance Due Date Last Done Comments MEDICARE ANNUAL WELLNESS 1955 VISIT ZOSTER IMMUNIZATION SERIES 2006 (1 of 2) LUNG CANCER SCREENING 03/01/2018 03/01/2017, 06/09/2010 LIPID DISORDER SCREENING 08/29/2018 08/29/2017, 10/26/2014, 09/23/2013, Additional history exists FOOT EXAM 09/05/2018 09/05/2017, 09/05/2017, 09/05/2017, Additional history exists INFLUENZA VACCINE (#1) 2018 12/06/2017, 12/04/2013, 11/21/2008 DEPRESSION SCREENING 12/06/2018 12/06/2017 Diabetic Eye Exam 12/25/2018 12/25/2017 HEMOGLOBIN A1C 04/28/2019 10/28/2018, 04/15/2018, 08/29/2017, Additional history exists COLONOSCOPY SCREENING 11/09/2021 11/09/2016, 11/09/2016, 10/02/2013, Additional history exists [...] Type Problems Progress Blood Pressure Blood Pressure 146/66 No Cory, < 140/90 (12/17/2018 MD Sugey 2:32 PM EST) Note: This is an individualized treatment (blood pressure) goal for Van Alarconquyen: Displayed above (on the left) is your [...] an individualized treatment (depression) goal for Van Alarconquyen: Displayed above is your goal for a [...] my blood sugar results (including dextrose sticks). SEJENT is safe and secure way for you [...] Weight loss vs. 18 mo max Lifestyle 3 (12/17/2018 2:32 PM EST) No Sugey Ray MD (lbs) [...] is an individualized lifestyle goal for Van Alarconquyen: Please be sure to keep up-to-date on [...] Take all prescribed medications as directed Self-management Sugey Fierro MD Note: This is an individualized self-management [...] of this encounter Implants Implanted Type Area Scale Tester Device Identifier Shelf Expiration Model / Date Serial / Lot Allograft Back [id number] / Implanted: Qty: 1 on 09/25/2007 at [facility] [id number] / [id number] Description:TRUFUSE Allograft N/A: Back [id number] / Implanted: Qty: 1 on 09/25/2007 at [facility] [id number] / [id number] Continuum Shell, Uni Hole Hh 50mm - [id number] Left: Hip TRUPTI CHARMAINE 07/13/2023 [id number] / Implanted: Qty: 1 on 10/11/2015 by Dheeraj Hurd MD at [facility] / [id number] Dome Hole Plug - [id number] Left: Hip TRUPTI CHARMAINE 08/11/[id number] / Implanted: Qty: 1 on 10/11/2015 by Dheeraj Hurd MD at [facility] / [id number] Vivacit-E Liner, Neutral Hh 32mm - [id number] Left: Hip TRUPTI CHARMAINE [id number] / Implanted: Qty: 1 on 10/11/2015 by Dheeraj Hurd MD at [facility] / [id number] Taperloc Complete Fem Stem - Ho Sz 5 - [id number] Left: Hip BIOMET 2023 [id number] / Implanted: Qty: 1 on 10/11/2015 by Dheeraj Hurd MD at [facility] / [id number] 32mm Femoral Head Size Std - [id number] Left: Hip BIOMET 04/27/2025 [id number] / Implanted: Qty: 1 on 10/11/2015 by Dheeraj Hurd MD at [facility] / [id number] documented as of this encounter Procedures Procedure Name Priority Date/Time Associated Diagnosis Comments BASIC METABOLIC Routine 12/17/2018 3:34 PM Bilateral carotid Results for this PANEL EST artery stenosis procedure are in the results section. documented in this encounter Results BASIC METABOLIC PANEL (12/17/2018 3:34 PM EST) Glucose 205 (H) 70 - 99 mg/dl [facility] BUN 23 (H) 7 - 17 mg/dl [facility] Creatinine 1.1 0.7 - 1.2 mg/dl [facility] Sodium 140 134 - 145 mmol/L [facility] Potassium 3.9 3.5 - 5.1 mmol/L [facility] Chloride 106 98 - 107 mmol/L [facility] CO2 27 22 - 30 mmol/L [facility] Calcium 9.4 8.3 - 10.1 mg/dl [facility] eGFR >60 See Interpretation [facility] Comment: Below ml/min/1.73ml GROUP Estimated GFR Interpretation: LABORATORY Above 60ml/min/1.73m2 = Normal Renal Function 30-59 ml/min/1.73m2 = Stage 3 Chronic Kidney Disease 15-29 ml/min/1.73m2 = Stage 4 Chronic Kidney Disease Less than 15 ml/min/1.73m2 = Stage 5 Chronic Kidney Disease The GFR value is calculated using the Modification of Diet in Renal Disease ( MDRD) Study Equation which can be found at: https://www.kidney.org/content/zjrd-wopfr-yfigtkxg BUN/Creatinine 21 6 - 22 RATIO [facility] GROUP LABORATORY Anion Gap 7 3 - 11 mmol/L [facility] Specimen Blood - Blood specimen (specimen) Performing Organization Address City/State/Zipcode Phone Number [facility] [address] [address] documented in this encounter Visit Diagnoses Diagnosis Bilateral carotid artery stenosis - Primary Occlusion and stenosis of multiple and bilateral precerebral arteries without mention of cerebral infarction documented in this encounter Insurance Payer Benefit Plan / Subscriber ID Effective Dates Phone Address Type Group MEDICARE MEDICARE PART A xxxxxxxxxxx 1992-Present Medicare & B MEDICAID [facility] xxxxxxxx Effective for all Medicaid [place] dates Guarantor Name Account Type Relation to Date of Phone Billing Patient Address [place] Personal/Family 1955 [address] (Home) [address] [place], [place] ([place]) [id number] documented as of this encounter
--- OUTSIDE RECORDS SUMMARY | 2019-02-10 17:03 | XMS REPORT | Summary of Care ---
:1955 Author Organization [facility] Address [address] [place] [address] Care Team Providers Name Role Phone Sugey Ray Primary Care Provider Minerva Bernstein OD Primary Chief Estimator/Bank Analyst Reason for Visit Reason Comments Other review CTA Encounter Details Date Type Department Care Team Description 01/02/2019 Office Visit [facility] [place], Bilateral carotid Surgery MD Donald artery stenosis [address] (Primary Dx) [place] [id number] [place] [address] Allergies Active Allergy Reactions Severity Noted Date Comments Pioglitazone Hydrochloride Other 05/23/2007 Swelling of ankles. Atorvastatin Musculoskeletal 03/27/2011 Leg aches Codeine 05/23/2007 Compazine TEXTILE SCREEN MAKER Reaction 05/23/2007 Compazine Stroke like symptoms Haloperidol Lactate Swelling 05/23/2007 Metformin GI Reaction 06/07/2015 Diarrhea Penicillins GI Reaction 05/23/2007 diarrhea documented as of this encounter (statuses as of 01/06/2019) Medications Medication Sig Dispensed Refills Start Date [...] as of this encounter (statuses as of 01/06/2019) Active Problems Problem Noted Date Bipolar affective disorder 04/15/2018 Chronic obstructive pulmonary disease 04/15/2018 Pacemaker 12/06/2017 Overview: P[place] [facility] [place] Samaniego - Pacer placed Essential [...] ont show mass in the pituitary - Chief Estimator questions field test 12/30 Follow up with water treatment specialist Numbness and tingling in right hand 12/04/2011 History of depression 07/27/2011 Carotid artery disease 04/11/2011 Overview: 30% right internal Carotid arteries narrow 03/26 [facility] ; progression 08/25 - Some progression noted Repeat 11/[address] Jones - recommends ASA/ Plavix at that time Breast cyst 01/16/2011 Overview: Followed by Dr. Yuan Low back pain 10/18/2010 Overview: Since 1988- lyrica t - Physical Therapy , MRI - 11/22; surgery 1999 - [facility] in [place] - cad bones Other (abnormal) findings on radiological examination of breast 07/05/2010 Overview: T4 lesion seen 06/2010 Stable on f/u studies Probable hemangioma Cervical spondylosis without myelopathy 05/20/2010 Overview: Numbness and tingling on the right Mixed hyperlipidemia 05/23/2007 Overview: Liver steatosis - ultrasound 03/26 [facility] Coronary artery disease 05/23/2007 Overview: Cardiac catheterization 2007, mild plaque LAD.; Reoeat [facility] 03/26 cfx - 60%; ( had abnormal nuclear medicine stress test- cfx lesion did nor corespond to abnormal ) Atypical chest pain - secondary to small vessel disease? Cath repeated [facility] 08/23- cfx - 65% lesion; 40% RCA [...] as of this encounter (statuses as of 01/06/2019) Resolved Problems Problem Noted Date Resolved Date Numbness and tingling in right hand 05/20/2010 07/27/2011 Type 2 diabetes mellitus, uncontrolled 05/23/2007 02/17/2008 Overview: Replaced inactive diagnosis Obesity 05/23/2007 08/11/2009 Metabolic syndrome 05/23/2007 07/27/2011 documented as of this encounter (statuses as of 01/06/2019) Immunizations Name Administration Dates Next Due Depo [...] Sign Reading Time Taken Comments Blood Pressure 138/58 01/02/2019 3:15 PM right left 132/70 EST Pulse 68 01/02/2019 3:15 PM EST Temperature - - Respiratory Rate - - Oxygen Saturation - - Inhaled Oxygen Concentration - - Weight 87.5 kg (193 lb) 01/02/2019 3:15 PM EST Height 157.5 cm (5' 2") 01/02/2019 3:15 PM EST Body Mass Index 35.3 01/02/2019 3:15 PM EST documented in this encounter Progress Notes Donald Rebollar MD - 01/02/2019 3:40 PM EST PATIENT: [place] : 1955 DATE OF SERVICE: 01/02/2019 REFERRING PRACTITIONER: Flo Krishnan PRIMARY CARE PROVIDER: Sugey Ray CHIEF COMPLAINT: Chief Complaint Patient presents with Other review CTA Subjective HISTORY OF PRESENT ILLNESS: [place] is a 63-y.o. female who is seen in 1 year follow up for asymptomatic carotid stenosis. She has past medical history significant for diabetes, hyperlipidemia, coronary artery disease, tobacco abuse and Hypertension. She reports dizziness and was seen in [facility]. She had MRA of brain which was [...] mg daily, clopidogrel (plavix) 75 mg daily. [id number]: Patient returns to clinic to discuss the CTA of the neck findings. Patient denies any stroke TIA or any other neurological symptoms. Patient denies unilateral sudden blindness. Patient continues to smoke half to 1 pack/ day. Has significant family history of stroke in her brother. PREVIOUS DIAGNOSTIC TESTS: 12/11/2017 IMPRESSIONS: 62 year [...] low back pain Chronic obstructive pulmonary disease ([facility]) 04/15/2018 Cocaine abuse ([facility]) Colon polyps Colonic polyps COPD (chronic obstructive pulmonary disease) ([facility]) Coronary artery disease Diverticulosis Diverticulosis of colon DM type 2 (diabetes mellitus, type 2) ([facility]) FH: lung cancer mother FH: stroke mother HTN (hypertension), benign Intermediate coronary syndrome (HCC) Irritable bowel syndrome (IBS) Lumbar spondylosis Mental disorder Metabolic syndrome Microscopic colitis Mixed hyperlipidemia Nicotine addiction Nipple discharge yellowish yrs... INOCENCIA (obstructive sleep apnea) Other postprocedural status(V45.89) left zulma bx Peptic ulcer disease Pituitary adenoma ([facility]) stable Postmenopausal Reflux Spinal stenosis, lumbar region, without neurogenic claudication 03/15/2015 Vitamin D deficiency Past Surgical History: Procedure Laterality Date BILAT TUBAL DESTRUCT NEC BUNIONECTOMY NEC CARPAL TUNNEL RELEASE Bilateral COLONOSCOPY 07/21/2010 Procedure:COLONOSCOPY; Surgeon:DIONE BAKER; Location:[facility]; Laterality:N/A COLONOSCOPY N/A 10/02/2013 Procedure: COLONOSCOPY; Surgeon: Dione Baker MD; Location: [facility]; Laterality: N/A; COLONOSCOPY N/A 11/09/2016 Procedure: COLONOSCOPY; Surgeon: Feliciano Cabrera DO; Location: [facility] IMPLANT PERMANENT PACEMAKER INSERTION HI FEMUR/KNEE SURG UNLISTED HI PELVIS/HIP JOINT SURGERY UNLISTED HI RECONSTRUCT SCAPHOID CARPAL W PROSTHESIS HI REPAIR RETINAL DETACHMENT SCLERAL BUCKLING Right HI TOTAL ABD HYSTEREC+LTD NODES 1954 UNILAT SALPINGO-OOPHOREC [...] 300 MG Oral CAPSULE SR 24 HR TAKE 1 CAPSULE BY MOUTH EVERY DAY ezetimibe (ZETIA) 10 MG Oral Tab Take [...] ankles. Atorvastatin Musculoskeletal Leg aches Codeine Compazine TEXTILE SCREEN MAKER Reaction Compazine Stroke like symptoms Haldol [Haloperidol [...] Last attempt to quit: 01/04/2018 Years since quittin.0 Smokeless tobacco: Never Used Substance and Sexual [...] file Gets together: Not on file Attends restorationism service: Not on file Active member of [...] are negative Objective PHYSICAL EXAMINATION: VITALS: BP 138/58 Comment: right left 132/70 | Pulse 68 | Ht 5' 2" (1.575 m) | Wt 193 lb (87.5 kg) | BMI 35.30 kg/m GENERAL: awake, alert, oriented. HEENT: sclera normal, anicteric, mucous membrane moist, conjunctiva pink and pale EXTREMITIES: no clubbing, cyanosis, or edema. NEUROLOGICAL: Muscle Strength: Upper and lower extremity strength grade 5/5 bilaterally FACIAL DROOP: none noted. [id number]; patient with unchanged physical examination. I personally reviewed the CT of the neck which demonstrated high-grade right ICA stenosis, with thinalmost string-like distal right ICA. Left ICA as moderate stenosis, left common carotid artery as mid CCA stenosis moderate stenosis. The right common carotid length from the clavicle to the right ICA origin is approximately 3.5 to 4 cm. Heavily calcified aortic valve, cannot rule out severe aortic stenosis. DIAGNOSTICS: 12/17/2018 IMPRESSIONS: Patient with right carotid [...] Right is an increase from last year. No diagnosis found. Recommend CTA neck for increase in right carotid artery stenosis. Continue ASA, Plavix, and Zetia daily. Will need cardiology clearance prior to scheduling TCAR per Dr. Jo. Follow up with Vascular Surgery in 2 weeks to review CTA or sooner with problems. [id number]; Patient with high-grade right ICA stenosis, with the string-like right distal ICA, with a small or shorter right common carotid artery length, not certain patient is a candidate for right trans-carotidartery revascularization stenting. We will send the patient's CT scan disc for further evaluation by stent bar supervisor to see if patient is appropriate candidate for right trans- carotid artery revascularization stenting (TCAR). Patient also seemed to have a heavily calcific aortic valve, recommend echocardiogram and evaluation by cardiology to rule out severe aortic stenosis. This may need to be addressed prior to any surgical intervention. Patient continues to smoke half to 1 pack/ day, not motivated to quit. At this point of time we will continue with maximal medical management as patient isasymptomatic. We will further discuss with the patient regarding management options after evaluation with cardiology and from stent bar supervisor. Author: Donald Rebollar MD 01/06/2019 14:19 documented in this encounter Plan of Treatment Date Type Specialty Care Team Description 01/14/2019 Office Visit Vascular Surgery Donald Rebollar MD [address] [place] [address] [phone] 03/06/2019 Office Visit Cardiology Yusuf Rivers MD [address] [place] [address] [phone] Health Maintenance Due Date Last Done Comments [...] my blood sugar results (including dextrose sticks). [facility] is safe and secure way for you [...] < 7.0 Diabetes 7.0 (04/15/2018 4:22 PM Sugey Fierro MD EST) Note: This is an individualized treatment (diabetes control, HgbA1C) goal for [place]: Displayed above is your progress towards your HgbA1C goal. Your goal is shown above (on the left); your most recent HgbA1C is shown on the right. Note that lower numbers are better. Weight loss vs. 18 mo Lifestyle 12 (01/02/2019 3:15 PM EST) No Sugey Ray MD max (lbs) >= 10 Note: This is an individualized lifestyle goal for [place]: Your body mass index (BMI) is more than 30. You should lose weight. A reasonable starting goal is to lose 10 pounds. Displayed above is how many pounds you have lost thus far towards your 10 pound weight loss goal. Keep immunizations current Lifestyle No Sugye Ray MD Note: This is an individualized [...] of this encounter Implants Implanted Type Area Custom Framing Specialist Device Identifier Shelf Expiration Model / Date Serial / Lot Allograft Back [id number] / [facility]: [id number] [id number] Description:TRUFUSE Allograft N/A: Back [id number] / Implanted: Qty: 1 on 09/25/2007 at [facility] [id number] / [id number] Continuum Shell, Uni Hole Hh 50mm - [id number] Left: Hip TRUPTI CHARMAINE 07/13/2023 [id number] / Implanted: Qty: 1 on 10/11/2015 by Dheeraj Hurd MD at [facility] / [id number] Dome Hole Plug - [id number] Left: Hip TRUPTI CHARMAINE 08/11/2025 [id number] / Implanted: Qty: 1 on 10/11/2015 by Dheeraj Hurd MD at [facility] / [id number] Vivacit-E Liner, Neutral Hh 32mm - [id number] Left: Hip TRUPTI CHARMAINE [id number] / Implanted: Qty: 1 on 10/11/2015 by Dheeraj Hurd MD at [facility] / [id number] Taperloc Complete Fem Stem - Ho Sz 5 - [id number] Left: Hip BIOMET 2023 [id number] / Implanted: Qty: 1 on 10/11/2015 by Dheeraj Hurd MD at [facility] / [id number] 32mm Femoral Head Size Std - [id number] Left: Hip BIOMET 04/27/2025 [id number] / Implanted: Qty: 1 on 10/11/2015 by Dheeraj Hurd MD at [facility] / [id number] documented as of this encounter Results Not on filedocumented in this encounter Visit Diagnoses Diagnosis Bilateral carotid artery stenosis - Primary Occlusion and stenosis of multiple and bilateral precerebral arteries without mention of cerebral infarction documented in this encounter Insurance Payer Benefit Plan / Subscriber ID Effective Dates Phone Address Type Group MEDICARE MEDICARE PART A xxxxxxxxxxx 1992-Present Medicare & B MEDICAID [facility] xxxxxxxx Effective for all Medicaid [place] MEDICAID dates (Home) [address] [place], [place] (Work) [id number] documented as of this encounter
--- NOTE | 2019-02-10 17:12 | ED ---
Dizziness - HPI Summary HPI Summary: This pt is a 63 y/o female [facility] since yesterday. Pt reports last night she felt dizzy when she was in bed, described as her bed spinning. She notes she went to work at 0300 and felt fine. Towards the end of her shift she notes she felt very tired. Pt arrived home from work at 0830 and lay down on bed and felt dizzy again. She notes she had nausea, lightheadedness , and weakness feeling "like almost fainting." Pt states her head feels "clogged." Denies tinnitus, cold symptoms, or congestion. Denies chest pain or SOB. Pt works at [employer] Pt reports she is scheduled for an endarterectomy on 02/24/[address] Rebollar at [facility] because her right carotid has 95% occlusion. She states this occlusion was found because she has yearly scans to check her carotid. PMHx: diabetes, heart disease, HTN, pituitary tumor, pacemaker. She is anticoagulated on Plavix. Pt also takes aspirin. - History Of Current Complaint Chief Complaint: EDDizziness Stated Complaint: DIZZY AND NAUSEA PER PT Time Seen by Provider: 02/10/19 16:49 Hx Obtained From: Patient Onset/Duration: Still Present Timing: Hours Severity Currently: Moderate Character: Room Spinning, Dizzy Aggravating Factor(s): Nothing Alleviating Factor(s): Nothing Associated Signs And Symptoms: Positive: Nausea, Other: - POSITIVE: lightheadedness, weakness. Negative: Vomiting, Fever - Allergies/Home Medications Allergies/Adverse Reactions: Allergies Allergy/AdvReac Type Severity Reaction Status Date / Time codeine Allergy Itching Verified 02/10/19 16:48 haloperidol [From Haldol] Allergy Swelling Verified 02/10/19 16:48 Of Face,Lips,& Throat Penicillins Allergy Diarrhea Verified 02/10/19 16:48 pioglitazone [From Actos] Allergy Swelling Verified 02/10/19 16:48 prochlorperazine Allergy STROKE Verified 02/10/19 16:48 [From Compazine] LIKE SYMPTOMS atrovastatin AdvReac Severe Leg Cramps Uncoded 02/10/19 16:48 cogentin AdvReac Severe stroke Uncoded 02/10/19 16:48 like symptoms PMH/Surg Hx/FS Hx/Imm Hx Endocrine/Hematology History: Reports: Hx Diabetes - type 2 Denies: Hx Thyroid Disease Cardiovascular History: Reports: Hx Angina - AT TIMES- PATIENT STATES NOT RECENTLY, Hx Coronary Artery Disease - ON MEDICATION FOR- STATES BLOCKAGE IN CARITOD AND ANOTHER ARTERY, Hx Hypertension, Hx Pacemaker/ICD, Other Cardiovascular Problems/Disorders - CAD, IDDM II Denies: Hx Rheumatic Fever Respiratory History: Reports: Hx Asthma - PRN ALBUTEROL, Hx Chronic Obstructive Pulmonary Disease (COPD), Hx Pneumonia - more than once, Hx Sleep Apnea, Other Respiratory Problems/Disorders - PNA GI History: Reports: Hx Gastroesophageal Reflux Disease - NO MEDICATION AT THIS TIME, Hx Ulcer - HISTORY OF 3 ULCERS History: Denies: Hx Renal Disease Musculoskeletal History: Reports: Hx Arthritis, Hx Back Problems, Hx Tendonitis - HX OF IN BOTH HANDS, Other Musculoskeletal History - right hip replacement Sensory History: Reports: Hx Contacts or Glasses, Other Sensory Impairments - Had detached retina repair Denies: Hx Hearing Aid Opthamlomology History: Reports: Hx Contacts or Glasses, Other Sensory Impairments - Had detached retina repair Neurological History: Reports: Hx Headaches - HX OF - PITUITARY TUMOR, Other Neuro Impairments/Disorders - PAIN CLINIC PATIENT Psychiatric History: Reports: Hx Depression - OK ON DAILY MED Denies: Hx Panic Disorder - Surgical History Surgical History: Yes Surgery Procedure, Year, and Place: laser retina repair/pacer. bilateral feet. right hip 2017. left hip 2016. cardiac cath. lower back. bilateral knees Hx Anesthesia Reactions: Yes - A HARD TIME WAKING-2011 Infectious Disease History: No Infectious Disease History: Denies: Traveled Outside the [place] in Last 30 Days - Family History Known Family History: Positive: Cardiac Disease, Hypertension, Diabetes, Other - Anasthesia reaction - Social History Alcohol Use: None Hx Substance Use: No Substance Use Type: Reports: None Hx Tobacco Use: Yes Smoking Status (MU): Light Every Day Tobacco Smoker Type: Cigarettes Amount Used/How Often: 1/2 ppd Length of Time of Smoking/Using Tobacco: 43 years Have You Smoked in the Last Year: Yes Review of Systems Negative: Fever Negative: Other - NEGATIVE: congestion, tinnitus Negative: Chest Pain Negative: Shortness Of Breath Positive: Nausea Neurological: Other - POSITIVE: dizziness, lightheadedness Positive: Weakness All Other Systems Reviewed And Are Negative: Yes Physical Exam - Summary Physical Exam Summary: Appearance: The patient is well-nourished in no acute distress and in no acute pain. Skin: The skin is warm and dry and skin color reflects adequate perfusion. HEENT: The head is normocephalic and atraumatic. The pupils are equal and reactive. The conjunctivae are clear and without drainage. Nares are patent and without drainage. Mouth reveals moist mucous membranes and the throat is without erythema and exudate. The external ears are intact. The ear canals are patent and without drainage. The tympanic membranes are intact. Neck: the neck is supple with full range of motion and non-tender. There are no carotid bruits. There is no neck vein distension. Respiratory: Chest is non-tender. Lungs are clear to auscultation and breath sounds are symmetrical and equal. Cardiovascular: Heart is regular rate and rhythm. There is no murmur or rub auscultated. There is no peripheral edema and pulses are symmetrical and equal. Abdomen: The abdomen is soft and non-tender. There are normal bowel sounds heard in all four quadrants and there is no organomegaly palpated. Musculoskeletal: There is no back tenderness noted. Extremities are non-tender with full range of motion. There is good capillary refill. There is no peripheral edema or calf tenderness elicited. Neurological: Patient is alert and oriented to person, place and time. The patient has symmetrical motor strength in all four extremities. Cranial nerves are grossly intact. Deep tendon reflexes are symmetrical and equal in all four extremities. Patient has some horizontal nystagmus to the left. Psychiatric: The patient has an appropriate affect and does not exhibit any anxiety or depression. Triage Information Reviewed: Yes Vital Signs On Initial Exam: Initial Vitals Temp Pulse Resp BP Pulse Ox 97.4 F 65 18 184/69 97 02/10/19 16:24 02/10/19 16:24 02/10/19 16:24 02/10/19 16:24 02/10/19 16:24 Vital Signs Reviewed: Yes - Denny Coma Scale Best Eye Response: 4 - Spontaneous Best Motor Response: 6 - Obeys Commands Best Verbal Response: 5 - Oriented Coma Scale Total: 15 Procedures - Sedation Patient Received Moderate/Deep Sedation with Procedure: No Diagnostics - Vital Signs Vital Signs Temp Pulse Resp BP Pulse Ox 02/10/19 16:44 62 146/49 99 02/10/19 16:43 61 98 02/10/19 16:24 97.4 F 65 18 184/69 97 - Laboratory Result Diagrams: 02/10/19 17:49 02/10/19 17:49 Lab Statement: Any lab studies that have been ordered have been reviewed, and results considered in the medical decision making process. - CT Brain CT CT Interpretation Completed By: Radiologist Summary of CT Findings: IMPRESSION: No acute intracranial abnormality. Dr. Mancini has reviewed this report. Head CTA CT Interpretation Completed By: Radiologist Summary of CT Findings: IMPRESSION: 1. Short segment moderate stenoses in the intracavernous portion of the right internal carotid artery without occlusion. 2. No dissection, aneurysm, or other flow-limiting lesion is seen. Dr. Mancini has reviewed this report. Neck CTA CT Interpretation Completed By: Radiologist Summary of CT Findings: IMPRESSION: 1. Dense calcific plaque and irregular noncalcific plaque right carotid bulb and origin of the right internal carotid artery with 13 mm long near occlusion of the proximal internal carotid artery. 2. Short segment severe stenosis origin right external carotid artery. 3. Moderate calcific and noncalcific plaque left carotid bulb and origin of the left internal carotid artery with short segment severe 75% stenosis. 4. Short segment severe stenosis left external carotid artery. Dr. Mancini has reviewed this report. - EKG 17:30 Cardiac Rate: NL - at 60 bpm Summary of EKG Findings: EKG at 1730 shows paced rhythm at a rate of 60 bpm. Re-Evaluation - Re-Evaluation First Eval Re-Evaluation Time: 21:43 Comment: Reviewed results with pt. She will be discharged home. Dizzy Course/Dx - Course Course Of Treatment: Because of the significance of her carotid disease even though she had no vertebral disease on her last CTA heart year ago here, I repeated the CTA to rule out the possibility of a posterior event. In the interim the patient improved significantly with meclizine and Zofran. I reviewed the case with Dr. Hamilton and I will treat her symptomatically. She is likely a viral illness although I recommended close follow-up if not improved within the next day or 2. - Diagnoses Provider Diagnoses: Vertigo Discharge ED - Sign-Out/Discharge Documenting (check all that apply): Patient Departure - Discharge home - Discharge Plan Condition: Stable Disposition: HOME Prescriptions: Meclizine TAB* [Antivert 12.5 TAB*] 25 mg PO TID PRN #20 tab PRN Reason: Dizziness Ondansetron ODT TAB* [Zofran Odt TAB*] 4 mg PO Q6H PRN #20 tab.odt PRN Reason: Nausea/Vomiting Patient Education Materials: Vertigo (ED) Referrals: Sugey Ray MD [Primary Care Provider] - Additional Instructions: Follow up with your primary care provider in 2-3 days. RETURN TO THE ED FOR ANY WORSENING OR NEW SYMPTOMS. - Billing Disposition and Condition Condition: STABLE Disposition: Home - Attestation Statements Document Initiated by Sabrina: Yes Documenting Scribe: Cheyenne Sorensen Provider For Whom Scribe is Documenting (Include Credential): Seven Mancini MD Scribe Attestation: Cheyenne Gutierrez scribed for Seven Mancini MD on 02/10/19 at 2156. Scribe Documentation Reviewed: Yes Provider Attestation: The documentation as recorded by the Cheyenne clark accurately reflects the service I personally performed and the decisions made by me, Seven Mancini MD Status of Scribe Document: Viewed
[2019-02-10 17:59] LABS: ABS Basophils 0.1 10^3/ul (0-0.2); ABS Eosinophils 0.4 10^3/ul (0-0.6); ABS Lymphocytes 3.3 10^3/ul (1.0-4.8); ABS Monocytes 0.7 10^3/ul (0-0.8); ABS Neutrophils 3.6 10^3/ul (1.5-7.7); Eosinophil % 5.4 %; Hematocrit 37 % (35-47); Hemoglobin 12.6 g/dL (12.0-16.0); Lymphocyte % 41.1 %; Mean Corpuscular HGB Conc 34 g/dL (31-36); Mean Corpuscular Hemoglobin 31 pg (27-31); Mean Corpuscular Volume 92 fL (80-97); Mean Platelet Volume 9.2 fL (7.4-10.4); Nucleated Red Blood Cells % 0.2; Platelet Count 226 10^3/uL (150-450); Red Blood Count 4.03 10^6 /uL (3.70-4.87); Red Cell Distribution Width 13 % (10-15); White Blood Count 8.1 10^3/uL (3.5-10.8)
[2019-02-10 18:12] LABS: INR 0.97 (0.82-1.09)
[2019-02-10 18:16] LABS: Albumin 3.7 g/dL (3.2-5.2); Albumin/Globulin Ratio 1.5 (1-3); BUN/Creatinine Ratio 15.8 (8-20); Calcium 8.8 mg/dL (8.6-10.3); EGFR African American 93.3 (>60); EGFR Non-African American 77.1 (>60); Globulin 2.4 g/dL (2-4); Potassium 3.9 mmol/L (3.5-5.0); Total Bilirubin 0.2 mg/dL (0.2-1.0); Total Protein 6.1 g/dL (6.4-8.9)
[2019-02-10 18:17] LABS: Troponin I 0.01 ng/mL (<0.03)
[2019-02-10 18:25] LABS: Urine Appearance Clear; Urine Bilirubin Negative (Negative); Urine Blood Negative (Negative); Urine Color Straw; Urine Glucose 1+(50 mg/dL) (Negative); Urine Ketones Negative (Negative); Urine Nitrite Negative (Negative); Urine Protein Negative (Negative); Urine Specific Gravity 1.004 (1.010-1.030); Urine Urobilinogen Negative (Negative)
[2019-02-10] MEDS ORDERED: Meclizine TAB* 12.5 MG PO ONE ×2 (19:37→21:50)
[2019-02-10] MEDS ORDERED: Ondansetron INJ* 2 MG/ML VIAL IV ONE (19:37)
[2019-02-10] MEDS ORDERED: Iodixanol* (CONTRAST) 320 MG/ML 100 ML SDV IV ONE (20:19)
[2019-02-10] MEDS ORDERED: Ondansetron ODT TAB* 4 MG PO ONE (21:50)
[2019-02-10 22:11] VITALS: BP 130/47
== END 2019-02-10 22:11 | disposition home or self-care (01) ==
LOC: ED 16:12
DX: R42 Dizziness and giddiness (principal); E11.9 Type 2 diabetes mellitus without complications; I10 Essential (primary) hypertension; I25.10 Atherosclerotic heart disease of native coronary artery without angina pectoris; J44.9 Chronic obstructive pulmonary disease, unspecified; K21.9 Gastro-esophageal reflux disease without esophagitis; F32.9 Major depressive disorder, single episode, unspecified; F17.210 Nicotine dependence, cigarettes, uncomplicated; Z96.643 Presence of artificial hip joint, bilateral; Z95.0 Presence of cardiac pacemaker; Z79.01 Long term (current) use of anticoagulants; Z79.82 Long term (current) use of aspirin; Z79.899 Other long term (current) drug therapy; Z88.5 Allergy status to narcotic agent; Z88.0 Allergy status to penicillin; Z88.7 Allergy status to serum and vaccine; Z88.8 Allergy status to other drugs, medicaments and biological substances
CPT/HCPCS: 36415; 70450; 70496; 70498; 80053; 81003; 83605; 84484; 85025; 85610; 93005; 96374; 99283; A9270-GY; J2405; Q9967

== ENCOUNTER 2020-07-05 21:10 | Observation (INO) ==
[2020-07-06] MEDS ORDERED: Magnesium Sulfate 2 gm BAG 2 GM/50 ML BAG IVPB ONE (00:56)
[2020-07-06] MEDS ORDERED: Lactated Ringers 1000 ml BAG 1,000 ML IV ONE (00:56)
[2020-07-06] MEDS ORDERED: Dexamethasone IV 4 MG/ML 5 ML VIAL (20 MG) IVPB ONE (00:56)
[2020-07-06 01:05] LABS: ABS Basophils 0.1 10^3/ul (0-0.2); ABS Eosinophils 0.4 10^3/ul (0-0.6); ABS Monocytes 0.7 10^3/ul (0-0.8); ABS Neutrophils 3.6 10^3/ul (1.5-7.7); Eosinophil % 4.6 %; Hematocrit 39 % (35-47); Hemoglobin 13.1 g/dL (12.0-16.0); Lymphocyte % 45.4 %; Mean Corpuscular HGB Conc 34 g/dL (31-36); Mean Corpuscular Hemoglobin 32 pg (27-31); Mean Corpuscular Volume 94 fL (80-97); Mean Platelet Volume 9.5 fL (7.4-10.4); Nucleated Red Blood Cells % 0.1; Platelet Count 206 10^3/uL (150-450); Red Blood Count 4.11 10^6 /uL (3.70-4.87); Red Cell Distribution Width 13 % (10-15); White Blood Count 8.8 10^3/uL (3.5-10.8)
[2020-07-06 01:23] LABS: Albumin 3.9 g/dL (3.2-5.2); Albumin/Globulin Ratio 1.4 (1-3); Calcium 9.2 mg/dL (8.6-10.3); EGFR African American 57.7 (>60); EGFR Non-African American 47.7 (>60); Globulin 2.8 g/dL (2-4); Total Bilirubin 0.2 mg/dL (0.2-1.0); Total Protein 6.7 g/dL (6.4-8.9)
[2020-07-06 01:25] LABS: Troponin I 0.01 ng/mL (<0.03)
[2020-07-06 01:45] LABS: Potassium 4.1 mmol/L (3.5-5.0)
[2020-07-06] MEDS ORDERED: fentaNYL 100 mcg/2 ml 50 MCG/ML VIAL IV SLOW PU ONE (03:50)
[2020-07-06] MEDS ORDERED: Al Hydrox/Mg Hydrox/Simet LIQ 30 ML UDC PO ONE ×2 (05:10→05:19)
[2020-07-06] MEDS ORDERED: Albuterol HFA INHALER 8 gm MDI INH PRN (05:47)
[2020-07-06] MEDS: Albuterol/Ipratropium NEB.SOL (2.5/0.5 MG) 3 ML NEB.SOLN INH SCH (07:41)
[2020-07-06] MEDS ORDERED: Fluticasone/Vilanterol MDI(NF) 100/25 MDI INH SCH (09:00)
[2020-07-06] MEDS: Mometasone/Formoter 100/5 MDI INH SCH ×2 (09:24→21:48)
[2020-07-06] MEDS: Nicotine PATCH 14 MG/24 HR PATCH TRANSDERM SCH (11:12)
[2020-07-06] MEDS: Aspirin EC 81 mg TAB.EC (enteric coated) PO SCH (11:14)
[2020-07-06] MEDS: Heparin 5000 UNITS/ML 1 mL VIAL SUBCUT SCH ×2 (11:15→22:20)
[2020-07-06] MEDS: Nitroglycerin 0.2 mg/hr PATCH (5 mg) TRANSDERM SCH (11:15)
[2020-07-06] MEDS ORDERED: Regadenoson 0.4 MG/5 ML SYRINGE ONE (12:33)
[2020-07-06] MEDS ORDERED: Aminophylline 25 MG/ML VIAL ONE (12:33)
[2020-07-06] MEDS: Sucralfate 1 gm SUSP 1 GM/10 ML UDC PO SCH ×2 (17:11→22:25)
[2020-07-06] MEDS ORDERED: Insulin GLARGINE 100 un/ml 10 ml VIAL SUBCUT SCH (21:00)
[2020-07-07] MEDS: Nicotine PATCH 14 MG/24 HR PATCH TRANSDERM SCH (08:42)
[2020-07-07] MEDS: Sucralfate 1 gm SUSP 1 GM/10 ML UDC PO SCH ×2 (08:42→11:22)
[2020-07-07] MEDS: Mometasone/Formoter 100/5 MDI INH SCH (09:49)
[2020-07-07] MEDS ORDERED: Regadenoson 0.4 MG/5 ML SYRINGE ONE (10:22)
[2020-07-07] MEDS ORDERED: Aminophylline 25 MG/ML VIAL ONE (10:22)
[2020-07-07] MEDS: Nitroglycerin 0.2 mg/hr PATCH (5 mg) TRANSDERM SCH (12:35)
[2020-07-07] MEDS: Aspirin EC 81 mg TAB.EC (enteric coated) PO SCH (12:35)
[2020-07-07] MEDS: Heparin 5000 UNITS/ML 1 mL VIAL SUBCUT SCH (12:36)
[2020-07-07] MEDS ORDERED: Dextrose 50% Syringe 50 ml 25 GM/50 ML SYRINGE IV PUSH PRN (13:38)
[2020-07-07 14:59] LABS: ABS Basophils 0.1 10^3/ul (0-0.2); ABS Lymphocytes 2.8 10^3/ul (1.0-4.8); ABS Monocytes 0.9 10^3/ul (0-0.8); ABS Neutrophils 14.8 10^3/ul (1.5-7.7); Hematocrit 39 % (35-47); Hemoglobin 13.2 g/dL (12.0-16.0); Lymphocyte % 15.3 %; Mean Corpuscular HGB Conc 34 g/dL (31-36); Mean Corpuscular Hemoglobin 32 pg (27-31); Mean Corpuscular Volume 93 fL (80-97); Platelet Count 201 10^3/uL (150-450); Red Blood Count 4.16 10^6 /uL (3.70-4.87); Red Cell Distribution Width 14 % (10-15); White Blood Count 18.6 10^3/uL (3.5-10.8)
[2020-07-07 15:39] LABS: Calcium 9.4 mg/dL (8.6-10.3); EGFR African American 69.4 (>60); EGFR Non-African American 57.3 (>60); Potassium 3.8 mmol/L (3.5-5.0)
[2020-07-07 16:17] VITALS: BP 124/56
== END 2020-07-07 16:30 | disposition home or self-care (01) ==
LOC: MEDTELE 21:10 → ED 21:10
PROVIDERS: ADMIT Internal Medicine; ATTEND Hospitalist

== ENCOUNTER 2022-01-24 14:18 | Observation (INO) ==
[2022-01-24 14:47] LABS: ABS Basophils 0.1 10^3/ul (0-0.2); ABS Eosinophils 0.4 10^3/ul (0-0.6); ABS Lymphocytes 3.6 10^3/ul (1.0-4.8); ABS Monocytes 0.6 10^3/ul (0-0.8); ABS Neutrophils 2.9 10^3/ul (1.5-7.7); Eosinophil % 4.9 %; Hematocrit 41 % (35-47); Hemoglobin 13.8 g/dL (12.0-16.0); Lymphocyte % 48.2 %; Mean Corpuscular HGB Conc 33 g/dL (31-36); Mean Corpuscular Hemoglobin 31 pg (27-31); Mean Corpuscular Volume 93 fL (80-97); Mean Platelet Volume 9.5 fL (7.4-10.4); Nucleated Red Blood Cells % 0.1; Platelet Count 206 10^3/uL (150-450); Red Blood Count 4.46 10^6 /uL (3.70-4.87); Red Cell Distribution Width 13 % (10-15); White Blood Count 7.5 10^3/uL (3.5-10.8)
[2022-01-24 14:56] LABS: INR 1.13 (0.88-1.18)
[2022-01-24 15:53] LABS: Albumin 3.9 g/dL (3.2-5.2); Calcium 9.1 mg/dL (8.6-10.3); Potassium 4.1 mmol/L (3.5-5.0); Total Bilirubin 0.3 mg/dL (0.2-1.0)
[2022-01-24 15:59] LABS: Albumin/Globulin Ratio 1.6 (1-3); Globulin 2.4 g/dL (2-4); Total Protein 6.3 g/dL (6.4-8.9); eGFR CKD-EPI 45.2 (>60)
[2022-01-24 16:10] LABS: High Sensitivity Troponin 1 Hr 5 pg/mL (<15)
[2022-01-24] MEDS ORDERED: Iodixanol (CONTRAST) 320 MG/ML 100 ML SDV IV ONE (16:24)
[2022-01-24] MEDS: HYDROcodone/Acetamin 10/325 TAB (NF) PO PRN (19:15)
[2022-01-24] MEDS ORDERED: Nitroglycerin 0.3 mg TAB SL PRN (20:44)
[2022-01-24] MEDS ORDERED: Albuterol 2.5mg/3 ml (0.083%) NEB.SOLN INH PRN (20:55)
[2022-01-24] MEDS ORDERED: Insulin GLARGINE 100 un/ml 10 ml VIAL SUBCUT SCH (21:00)
[2022-01-24] MEDS: Aspirin EC 81 mg TAB.EC (enteric coated) PO SCH (21:12)
[2022-01-24] MEDS ORDERED: NS 0.9% 500 ml BAG 500 ML IV ONE (22:44)
[2022-01-25] MEDS ORDERED: Magnesium Hydroxide LIQ 30 ML UDC PO ONE (01:23)
[2022-01-25] MEDS ORDERED: Lidocaine PATCH 5% PATCH TRANSDERM ONE (04:40)
[2022-01-25] MEDS: HYDROcodone/Acetamin 10/325 TAB (NF) PO PRN ×2 (04:58→14:08)
[2022-01-25 06:55] LABS: Calcium 8.7 mg/dL (8.6-10.3); HDL Cholesterol 38.6 mg/dL; Potassium 3.7 mmol/L (3.5-5.0)
[2022-01-25] MEDS ORDERED: Mometasone/Formoter 100/5 MDI INH SCH (07:00)
[2022-01-25] MEDS ORDERED: Aminophylline 25 MG/ML VIAL ONE (07:49)
[2022-01-25] MEDS ORDERED: Regadenoson 0.4 MG/5 ML SYRINGE ONE (07:49)
[2022-01-25] MEDS ORDERED: CMCS: Simvastatin 20 mg TAB (NF) PO SCH (09:00)
[2022-01-25] MEDS ORDERED: NON FORMULARY MED (Diltiazem Hcl 300 mg capsule,extended release 24hr) PO SCH (09:00)
[2022-01-25] MEDS: Aspirin EC 81 mg TAB.EC (enteric coated) PO SCH (09:25)
[2022-01-25 15:58] VITALS: BP 144/50
== END 2022-01-25 16:50 | disposition home or self-care (01) ==
LOC: EDHOLD 14:18 → ED 14:18 → SUATTDRO 18:13 → MEDTELE 23:13
PROVIDERS: ADMIT Internal Medicine; ATTEND Internal Medicine